=== PATIENT | male | born 1960 | race Caucasian/White ===

== ENCOUNTER → 2018-02-15 13:35 | Outpatient (CLI) | payer BC, SELFPAY ==
--- NOTE | 2018-02-15 13:39 | MR_ITS ---
MR lumbar spine wo con, MR 3-d myelogram/MRCP HISTORY: LBP mainly on the RT. Unable to walk straight. Tingling in bilateral feet. X1 Month. ORDERING PHYSICIAN: Dianne Diaz PATIENT AGE: 57 years Comparison: None TECHNIQUE: Standard multiplanar multiecho sequences are performed without contrast. 3-D MIP and myelographic images are also rendered and reviewed FINDINGS: There is normal alignment. The spinal cord ends at the T12-L1 level. Scattered T1 and T2 hyperintensities are present in the T12 vertebral body inferiorly and L3 vertebral body centrally consistent with lipomas or lipid rich hemangiomas. L1-L2 and L2-L3 have an unremarkable appearance. L3-L4: Minimal disc desiccation. Mild facet and ligamentum flavum hypertrophy. L4-L5: There is a Schmorl's node along the inferior endplate of L4. There is mild concentric bulging disc. There is a small left paracentral disc protrusion with minimal inferior extrusion abutting the medial aspect of the left L5 nerve root. There is facet and ligamentum flavum hypertrophy with bilateral lateral recess narrowing greater on the left with [id number] bilateral foraminal narrowing. This is also slightly greater on the left. L5-S1: Mild concentric bulging disc along with facet and ligamentum hypertrophy. There is moderate to severe right foraminal narrowing and moderate left foraminal narrowing from the facet hypertrophic change and bulging disc. Incidental note made of bilateral renal cysts. IMPRESSION: 1. Mild lumbar spondylosis as described above. Please see above for detailed description at each level. 2. Bulging disc L4-L5 with small left paracentral disc protrusion with inferior extrusion abutting the medial aspect of the left L5 nerve root. There is bilateral lateral recess and foraminal narrowing greater on the left from facet and ligamentum flavum hypertrophy 3. Bulging disc at L5-S1 facet and ligamentum hypertrophy with moderate to severe right foraminal narrowing and moderate left foraminal 4. No canal stenosis
== END ==
PROVIDERS: Family Provider Nurse Practitioner Family; PCP Nurse Practitioner Family; Visit Provider Nurse Practitioner Family
DX: M45.4 Ankylosing spondylitis of thoracic region (principal)
CPT/HCPCS: 72148; 76376

== ENCOUNTER → 2018-03-21 13:32 | Outpatient (CLI) | payer BC, SELFPAY ==
[2018-03-21 15:18] LABS: Anion Gap 12.4 mEq/L (5-15); Blood Urea Nitrogen 13 mg/dL (7-18); Calcium 8.6 mg/dL (8.5-10.1); Carbon Dioxide 31 mmol/L (21.0-32.0); Chloride 103 mmol/L (98-107); Creatinine,Serum 0.93 mg/dL (0.70-1.30); Estimated Glomerular Filt Rate 83 ml/min (>60); GFR (African American) 101 ML/MIN (>60); Glucose 102 mg/dL (74-106); Potassium 4.4 mmoL/L (3.5-5.1); Sodium 142 mmol/L (136-145)
== END ==
PROVIDERS: PCP Nurse Practitioner Family; Visit Provider Nurse Practitioner Family
DX: I50.32 Chronic diastolic (congestive) heart failure (principal)
CPT/HCPCS: 36415; 80048

== ENCOUNTER → 2018-08-15 07:56 | Outpatient (CLI) | payer BC, SELFPAY ==
[2018-08-15 08:56] LABS: Basophils # 0.1 K/mm3 (0-0.2); Basophils % 1.3 % (0.1-2.0); Eosinophils # 0.3 K/mm3 (0.0-0.4); Eosinophils % 3.2 % (0.1-12.0); Hematocrit 48.5 % (42.0-52.0); Hemoglobin 16.1 g/dL (14.1-18.0); Lymphocytes % 19.9 % (10-50); Mean Corpuscular HGB Conc 33.1 g/dL (31.8-35.4); Mean Corpuscular Hemoglobin 30.9 pg (27.0-31.2); Mean Corpuscular Volume 93.3 fl (80-94); Mean Platelet Volume 7.6 fl (7.4-10.4); Monocytes # 0.8 K/mm3 (0.1-1.0); Monocytes % 8.2 % (1.7-9.3); Neutrophils # 6.9 K/mm3 (1.8-7.8); Neutrophils % 67.4 % (37.0-80.0); Platelet Count 346 K/mm3 (142-424); Red Blood Count 5.19 M/mm3 (4.60-6.20); White Blood Count 10.2 K/mm3 (4.8-10.8)
[2018-08-15 09:22] LABS: Alanine Aminotransferase 22 U/L (12-78); Albumin Level 3.7 gm/dL (3.4-5.0); Albumin/Globulin Ratio 0.9 (1.1-1.8); Alkaline Phosphatase 99 U/L (46-116); Anion Gap 12.6 mEq/L (5-15); Aspartate Amino Transferase 17 U/L (15-37); Bilirubin,Total 0.5 mg/dL (0.2-1.0); Blood Urea Nitrogen 13 mg/dL (7-18); Carbon Dioxide 31 mmol/L (21.0-32.0); Chloride 102 mmol/L (98-107); Chol/HDL Ratio 4.5 (1-3.5); Cholesterol 116 mg/dL (140-200); Creatinine,Serum 0.92 mg/dL (0.70-1.30); Estimated Glomerular Filt Rate 84 ml/min (>60); GFR (African American) 102 ML/MIN (>60); HDL Cholesterol 26 mg/dL (27-67); LDL Cholesterol 70 mg/dL (0-130); Potassium 4.6 mmoL/L (3.5-5.1); Sodium 141 mmol/L (136-145); Total Protein,Serum 7.7 gm/dL (6.4-8.2); Triglycerides 99 mg/dL (30-200); VLDL Cholesterol 20 mg/dL (0-40)
[2018-08-15 09:24] LABS: Glucose 161 mg/dL (74-106)
== END ==
PROVIDERS: Visit Provider Nurse Practitioner Family
DX: R07.2 Precordial pain (principal); I10 Essential (primary) hypertension; E78.00 Pure hypercholesterolemia, unspecified; I50.32 Chronic diastolic (congestive) heart failure
CPT/HCPCS: 36415; 80053; 80061; 85025

== ENCOUNTER → 2018-12-22 11:31 | Outpatient (CLI) | payer BC, SELFPAY ==
[2018-12-22 13:27] LABS: Anion Gap 9.1 mEq/L (5-15); Blood Urea Nitrogen 11 mg/dL (7-18); Calcium 8.8 mg/dL (8.5-10.1); Carbon Dioxide 32 mmol/L (21.0-32.0); Chloride 102 mmol/L (98-107); Creatinine,Serum 0.88 mg/dL (0.70-1.30); Estimated Glomerular Filt Rate 89 ml/min (>60); GFR (African American) 107 ML/MIN (>60); Glucose 146 mg/dL (74-106); Potassium 4.1 mmoL/L (3.5-5.1); Sodium 139 mmol/L (136-145)
== END ==
PROVIDERS: Visit Provider Nurse Practitioner Family
DX: I50.33 Acute on chronic diastolic (congestive) heart failure (principal)
CPT/HCPCS: 36415; 80048; 83880

== ENCOUNTER → 2019-01-02 14:04 | Outpatient (CLI) | payer BC, SELFPAY ==
--- NOTE | 2019-01-02 14:11 | XR_ITS ---
XR chest 2V HISTORY: ITS.REASON: EMPHYSEMA,SOB,NICOTINE DEPENDENCE ORDERING PHYSICIAN: Darleen Sierra MD PATIENT AGE: 58 years COMPARISON: 04/28/2016 FINDINGS: The cardiomediastinal silhouette and pulmonary vascularity are within normal limits. The lungs are clear without infiltrates, suspicious nodules, or pleural effusions. No acute bony abnormalities. IMPRESSION: Negative chest, no acute finding
[2019-01-02 16:11] LABS: Anion Gap 13.4 mEq/L (5-15); Blood Urea Nitrogen 19 mg/dL (7-18); Calcium 8.9 mg/dL (8.5-10.1); Carbon Dioxide 31 mmol/L (21.0-32.0); Chloride 100 mmol/L (98-107); Creatinine,Serum 1.25 mg/dL (0.70-1.30); Estimated Glomerular Filt Rate 59 ml/min (>60); GFR (African American) 72 ML/MIN (>60); Glucose 190 mg/dL (74-106); Potassium 3.4 mmoL/L (3.5-5.1); Sodium 141 mmol/L (136-145)
== END ==
PROVIDERS: Nurse Practitioner Family; PCP Nurse Practitioner Family; Visit Provider Emergency Medicine
DX: I50.32 Chronic diastolic (congestive) heart failure (principal); I50.33 Acute on chronic diastolic (congestive) heart failure; J43.8 Other emphysema; R06.02 Shortness of breath; F17.200 Nicotine dependence, unspecified, uncomplicated
CPT/HCPCS: 36415; 71046; 80048

== ENCOUNTER 2019-01-23 13:27 | Outpatient (RCR) | payer BC, SELFPAY | END 2019-04-23 13:28 | disposition home or self-care (01) | LOC: PT 13:27 | PROVIDERS: Visit Provider Emergency Medicine | DX: I25.10 Atherosclerotic heart disease of native coronary artery without angina pectoris (principal); I50.9 Heart failure, unspecified | CPT/HCPCS: G0424 ==

== ENCOUNTER → 2019-02-01 09:59 | Outpatient (CLI) | payer BC, SELFPAY ==
[2019-02-01 10:21] LABS: Basophils # 0.1 K/mm3 (0-0.2); Basophils % 0.7 % (0.1-2.0); Eosinophils # 0.2 K/mm3 (0.0-0.4); Eosinophils % 1.6 % (0.1-12.0); Hematocrit 42.3 % (42.0-52.0); Hemoglobin 13.9 g/dL (14.1-18.0); Lymphocytes # 1.9 K/mm3 (0.7-4.5); Lymphocytes % 16.5 % (10-50); Mean Corpuscular HGB Conc 32.9 g/dL (31.8-35.4); Mean Corpuscular Hemoglobin 30.2 pg (27.0-31.2); Mean Corpuscular Volume 91.7 fl (80-94); Mean Platelet Volume 7.7 fl (7.4-10.4); Monocytes # 0.8 K/mm3 (0.1-1.0); Monocytes % 6.6 % (1.7-9.3); Neutrophils # 8.4 K/mm3 (1.8-7.8); Neutrophils % 74.6 % (37.0-80.0); Platelet Count 314 K/mm3 (142-424); Red Blood Count 4.61 M/mm3 (4.60-6.20); Red Cell Distribution Width 14.1 % (11.5-17.5); White Blood Count 11.3 K/mm3 (4.8-10.8)
[2019-02-02 17:34] LABS: Immunoglobulin G, Qn 1370 mg/dL (700-1600)
[2019-02-06 10:31] LABS: Immunoglobulin E, Total 13 IU/mL (6-495)
== END ==
PROVIDERS: Visit Provider Internal Medicine Pulmonary Disease
DX: J42 Unspecified chronic bronchitis (principal)
CPT/HCPCS: 36415; 82784; 82785; 85025

== ENCOUNTER 2019-10-02 15:00 | Outpatient (RCR) | payer BC, SELFPAY | END 2019-10-02 15:05 | disposition home or self-care (01) | LOC: PT 15:00 | PROVIDERS: PCP Nurse Practitioner Family; Visit Provider Nurse Practitioner Family | DX: M51.16 Intervertebral disc disorders with radiculopathy, lumbar region (principal) | CPT/HCPCS: 97010; 97014; 97110; 97163; G0283 ==

== ENCOUNTER → 2019-12-03 15:24 | Outpatient (CLI) | payer BC, SELFPAY ==
--- NOTE | 2019-12-03 15:32 | XR_ITS ---
PROCEDURE: XR KNEE LT 3V CLINICAL INDICATION: PAIN IN USPECIFIED KNEE COMPARISON: KNEE3R KNEE-3 VIEWS-RT from 05/16/2013 KNEE3L KNEE-3 VIEWS-LT from 05/16/2013 FINDINGS: No fracture or dislocation. No lytic or blastic change. There is normal mineralization. There are mild osteoarthritic changes of the medial compartment with slight decrease in the joint space and minimal osteophyte formation. Other findings:There is increased density in the suprapatellar region consistent with knee joint effusion IMPRESSION: Mild osteoarthritis with knee joint effusion Dictated by: Moy Best MD 12/03/2019 15:51 Electronically signed by Moy Best MD in [place] 12/03/2019 15:51
== END ==
PROVIDERS: PCP Nurse Practitioner Family; Visit Provider Nurse Practitioner
DX: M25.562 Pain in left knee (principal)
CPT/HCPCS: 73562

== ENCOUNTER → 2020-12-26 13:12 | Outpatient (CLI) | payer BC, SELFPAY ==
--- NOTE | 2020-12-26 13:22 | XR_ITS ---
PROCEDURE: XR LUMBAR SPINE 2-3V CLINICAL INDICATION: LOW BACK PAIN COMPARISON: No exams were available for comparison FINDINGS: Normal alignment. No acute fracture or dislocation. Mild degenerative disc disease is present from L1-S1 with small endplate osteophytes. Incidental note is made of multiple abdominal surgical tacks mild osteoarthritic change of the hips surgical clips in the right groin and right upper quadrant with a mild amount of retained colonic feces. Other findings:None. IMPRESSION: Degenerative changes lumbar spine Dictated by: Moy Best MD 12/26/2020 16:07 Moy Best MD in [place] 12/26/2020 16:07
== END ==
PROVIDERS: PCP Nurse Practitioner Family; Visit Provider Nurse Practitioner
DX: M54.5 Low back pain (principal)
CPT/HCPCS: 72100

== ENCOUNTER → 2021-01-19 12:50 | Outpatient (POV) | payer BC, SELFPAY ==
[2021-01-19 13:22] VITALS: BP 162/74; PULSE 73; RESP 18; O2SAT 92; BMI 43.2
--- NOTE | 2021-01-19 15:45 | HMH.PMCON ---
Assessment and Plan (1) Degenerative joint disease (DJD) of lumbar spine Status: Chronic Category: Medical Code(s): M47.816 - Spondylosis without myelopathy or radiculopathy, lumbar region (2) Lumbar radiculopathy Status: Chronic Category: Medical Code(s): M54.16 - Radiculopathy, lumbar region - Assessment and plan all Dx Assessment and Plan for all problems:: We will schedule the patient for a lumbar epidural steroid injection at L4-L5 area with an epidurogram. He is exhibiting neurogenic claudication type symptoms. The patient is having weakness in his lower extremities. He says he feels better when leaning forward. Per the patient's MRI report from 2018?he does have ligamentum hypertrophy. We will schedule him for the lumbar epidural steroid injection at L4-L5 with the epidurogram and plan to see him back afterwards for reevaluation of symptoms. Of note, the patient is on Xarelto therapy that is prescribed by Dr. Portillo for atrial fibrillation. He is 6 months post cardiac ablation along with previous cardioversions. Patient did have complications following his cardiac ablation with a hematoma to the area of the ablation. He has had significant numbness to his right leg since having this well. If the patient is approved to hold his anticoagulation therapy, we will plan to see him back after his injection for reevaluation of symptoms. Patient will continue his tramadol and will continue with gabapentin. Patient says that he is not diabetic. Risks and benefits of the procedure have been explained to the patient. Patient would like to proceed with the procedure. Possible side effects of corticosteroids have been discussed with the patient. Patient has been instructed to contact the clinic with any concerns before the next appointment. Dr. Read has reviewed this note and agrees with this plan of care. This note was dictated using voice recognition software and make contain errors or omissions. HPI - Data of Consult Patient: new to practice Consult date: 01/19/21 Requesting Physician: Zakiya Arceo APRN Primary Care Provider: Judith Reno - Consult Narrative Reason for consult: Low back History of present illness: Mr. Drew is a 60 year old male who presents today back pain patient says he is having low pain last 2 to 3 years. Pain did slowly progress into the as well as his left leg and left foot. He says that he has pain as well as numbness and tingling into his lower extremity on the left side. He does have a history of neuropathy and does take gabapentin. Patient says that his back pain has been ongoing for 2 to 3 years, but his left leg pain has been continuing to worsen for the last year. Patient was scheduled to have a lumbar epidural steroid injection at [facility], however, due to Xarelto use he is injection was canceled. Patient does have a history of atrial fibrillation with cardiac ablation as well as cardioversion. He is on Xarelto for this. Patient says he is 6 months post cardiac ablation. He says that he has had numbness into his right leg since the ablation which has not improved. He says that he did not have his symptoms the ablation. Patient has pain that is worse with standing and walking. He also has pain with sitting and requires repositioning often. Patient says when rising from a sitting position his pain is severe. He is able to lay on the right side, but seems to have worsening when lying on the left. Patient denies any saddle anesthesia or changes in bowel or bladder habit. He denies any surgeries to his lumbar spine or any history of fractures. He has had physical therapy for greater than 6 weeks with no significant relief. He does have imaging from 2018 that does note the patient to have ligamentum hypertrophy. He reports to be having leg weakness for which she feels his legs buckling . Patient does rate his pain today a 6 or 7 out of 10. He does continue with home
== END ==
PROVIDERS: PCP Nurse Practitioner Family; Visit Provider Clinical Nurse Specialist Family Health
DX: M47.896 Other spondylosis, lumbar region (principal); M54.16 Radiculopathy, lumbar region
CPT/HCPCS: 99202; G0463

== ENCOUNTER 2022-04-11 11:06 | Inpatient (IN) | payer OTHER, SELFPAY ==
[2022-04-11] VITALS (13 sets, daily range): BP systolic 108–167; BP diastolic 53–90; PULSE 71–91; RESP 16–22; TEMP 36.5–36.9; O2SAT 91–97; BMI 38.4; BMI 40.5; BMI 40.4
--- NOTE | 2022-04-11 13:18 | EXP.UTC ---
Discharge Plan Disposition Patient Disposition: Admitted As Inpatient Condition: Good Clinical Impressions Clinical Impression: Acute parotitis Acute mastoiditis Qualifiers: Laterality: right Qualified Code(s): H70.001 - Acute mastoiditis without complications, right ear Discharge ED Provider: Brianne Gray [facility] HPI General Chief complaint: PAIN Stated complaint: Possible infected parotid gland Mode of Arrival: Ambulatory Source of Information: Patient Limitations: No Limitations Time Seen by Provider: 04/11/22 13:35 Description of Symptoms (Recalled from Triage Doc. by RN): PATIENT C/O SWELLING TO RIGHT SIDE OF NECK. HE WAS SEEN IN PCP OFFICE YESTERDAY AND WAS TREATED FOR A PAROTID GLAND INFECTION, BUT STATES IT IS WORSE TODAY HEENT Symptoms (Recalled from RN notes): Yes Resp Symptoms (Recalled from RN notes): No Skin Symptoms (Recalled from RN notes): No MS Symptoms (Recalled from RN notes): No Functional Status (Recalled from RN notes): WNL History of Present Illness Provider Complaint: 61 YR OLD MALE C/O SWELLING TO RIGHT SIDE OF NECK. HE WAS SEEN IN PCP OFFICE YESTERDAY AND WAS TREATED FOR A PAROTID GLAND INFECTION, BUT STATES IT IS WORSE TODAY Related Data Home Medications Medication Instructions Recorded Confirmed amlodipine 5 mg tablet (Norvasc) 5 mg PO ONCE High blood pressure 11/17/17 04/11/22 metoprolol tartrate 50 mg tablet 25 mg PO BID High blood pressure 11/17/17 04/11/22 montelukast 10 mg tablet 10 mg PO QPM Breathing problems 11/17/17 04/11/22 (Singulair) potassium chloride 10 mEq 10 meq PO BID Supplement 11/17/17 04/11/22 capsule,extended release propafenone 425 mg 425 mg PO Q12H Heart disease 11/17/17 04/11/22 capsule,extended release 12 hr (Rythmol SR) atorvastatin 20 mg tablet 20 mg PO DAILY Cholesterol 04/11/22 04/11/22 bumetanide 2 mg tablet 4 mg PO DAILY Fluid 04/11/22 04/11/22 fluticasone fur. 100 mcg-umeclid 1 inh inhalation DAILY Breathing 04/11/22 04/11/22 62.5 mcg-vilant 25 mcg problems inhalat.powder (Trelegy Ellipta) gabapentin 600 mg tablet 600 mg PO TID Pain 04/11/22 04/11/22 lisinopril 40 mg tablet 40 mg PO DAILY High blood pressure 04/11/22 04/11/22 omeprazole 40 mg capsule,delayed 40 mg PO DAILY Heartburn 04/11/22 04/11/22 release rivaroxaban 20 mg tablet (Xarelto) 20 mg PO DAILY Heart disease 04/11/22 04/11/22 sertraline 50 mg tablet 50 mg PO DAILY Depression 04/11/22 04/11/22 tizanidine 4 mg tablet 4 mg PO BID Pain 04/11/22 04/11/22 Previous Rx's Medication Instructions Recorded tramadol 50 mg tablet 50 mg PO TID PRN Moderate Pain 30 01/19/21 days #180 tabs Allergies Allergy/AdvReac Type Severity Reaction Status Date / Time levofloxacin Allergy Mild I-RASH Verified 04/11/22 13:06 niacin Allergy Mild Verified 04/11/22 13:06 ofloxacin Allergy Mild Verified 04/11/22 13:06 sulfamethoxazole Allergy Mild I-RASH Verified 04/11/22 13:06 [From Bactrim] trimethoprim [From Bactrim] Allergy Mild I-RASH Verified 04/11/22 13:06 oxytetracycline Allergy Unknown Verified 04/11/22 13:06 Penicillins Allergy Unknown Verified 04/11/22 13:06 Worker's Comp Is this a Worker's Comp case?: No PFSH PFSH Medical History , [employer]) Anxiety Atrial fibrillation COPD (chronic obstructive pulmonary disease) Depression Diabetes mellitus, type 2 History of stroke Hyperlipidemia Hypertension Surgical History , [employer]) History of cholecystectomy Hx of cardiac catheterization Family History , [employer]) Family history of cancer Family history of hypertension Family history of myocardial infarction Family history of hyperlipidemia Social History , [employer]) Smoking Status: Current every day smoker alcohol intake: never 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
--- NOTE | 2022-04-11 13:30 | PC.NURSE ---
PATIENT SENT TO ER PER Jose Eduardo HOPKINS APRN FOR FURTHER EVALUATION. REPORT GIVEN TO Ricky LANGE RN BY Jose Eduardo HOPKINS APRN
--- NOTE | 2022-04-11 13:40 | PC.NURSE ---
ED MD AT BEDSIDE FOR EVALUATION
--- NOTE | 2022-04-11 13:44 | CT_ITS ---
PROCEDURE INFORMATION: Exam: CT Neck With Contrast Exam date and time: 04/11/2022 3:45 PM Age: 61 years old Clinical indication: Mass, lump, or swelling in neck; Right; Additional info: R facial swelling TECHNIQUE: Imaging protocol: Computed tomography of the neck with contrast. Radiation optimization: All CT scans at this facility use at least one of these dose optimization techniques: automated exposure control; mA and/or kV adjustment per patient size (includes targeted exams where dose is matched to clinical indication); or iterative reconstruction. Contrast material: ISOVUE; Contrast volume: 75 ml; Contrast route: IV; COMPARISON: CT FACIAL BONES W CON 04/11/2022 3:42 PM FINDINGS: Mastoid air cells: right mastoid air cells effusion Paranasal sinuses: Polypoid mucosal thickening maxillary sinus Pharynx: Unremarkable. No significant tonsillar enlargement. Larynx: Unremarkable. Epiglottis is normal. Prevertebral and retropharyngeal spaces: Unremarkable. Salivary glands: There is redemonstration of enlargement stranding and increased enhancement along the right parotid gland. Punctate calcification along the superior aspect of the superficial lobe is re-identified. No ductal dilation. There is redemonstration of peripherally enhancing 2 x 2 x 2 cm collection in the lower aspect of the superficial parotid favored to represent either an enlarged intraparotid node a focal collection. The left parotid gland is unremarkable. There is increased enhancement and mild stranding in the right submandibular gland. No sialolith. No ductal dilation. Thyroid: Normal. No enlarged or calcified nodules. Lymph nodes: There are bilateral multi station prominent nodes likely reactive Trachea: Visualized trachea is unremarkable. Lungs: Upper lobe predominant centrilobular emphysema. Bones/joints: Unremarkable. No acute fracture. Soft tissues: There is diffuse right skin thickening and platysmal thickening. IMPRESSION: 1. Findings favored to represent sialoadenitis of the right parotid and right submandibular gland. 2. Punctate calcification right parotid superficial lobe likely a sialoliths. No ductal dilation. 3. Right mastoid air cells effusion. Superimposed infection is entirely excluded based on imaging features alone.
--- NOTE | 2022-04-11 13:44 | CT_ITS ---
PROCEDURE INFORMATION: Exam: CT Maxillofacial With Contrast Exam date and time: 04/11/2022 3:42 PM Age: 61 years old Clinical indication: Mass, lump, or swelling; Other: Right side of face and neck; Additional info: R facial swelling TECHNIQUE: Imaging protocol: Computed tomography of the face with contrast. Radiation optimization: All CT scans at this facility use at least one of these dose optimization techniques: automated exposure control; mA and/or kV adjustment per patient size (includes targeted exams where dose is matched to clinical indication); or iterative reconstruction. Contrast material: ISOVUE; Contrast volume: 70 ml; Contrast route: IV; COMPARISON: No relevant prior studies available. FINDINGS: Orbital cavities: Globes are symmetric. Orbital rims/mata are intact. Intraconal fat appear unremarkable. Lacrimal glands are unremarkable. Bones/joints: See Orbital cavities finding. Paranasal sinuses: There is polypoidal mucosal thickening in the right maxillary sinus. Mastoid air cells: Right mastoid air cells effusion. Salivary glands: The right parotid gland is enlarged with diffuse intra and Pamela glandular stranding. There is a punctate calcification in the superficial lobe likely is sialoliths. No prior gland ductal dilation. There is a lower intraglandular peripherally collection measuring 2 x 2 x 2 cm (AP x TRV x SI). Soft tissues: There is right facial skin thickening IMPRESSION: 1. Right parotitis with punctate calcification presumably a sialoliths. 2. Intraparotid peripherally enhancing collection measuring 2 x 2 x 2 cm 3. Right mastoid air cells effusion. Superimposed infection is not entirely excluded based on imaging features alone.
--- NOTE | 2022-04-11 13:47 | HMH.EDGENADL ---
Discharge Plan Disposition Patient Disposition: Admitted As Inpatient Condition: Good Prescriptions Prescriptions: No Action propafenone [Rythmol SR] 425 mg capsule,extended release 12 hr 425 mg PO Q12H metoprolol tartrate 50 mg tablet 25 mg PO BID amlodipine [Norvasc] 5 mg tablet 5 mg PO ONCE montelukast [Singulair] 10 mg tablet 10 mg PO QPM amitriptyline 50 mg tablet 50 mg PO QHS furosemide 20 mg tablet 20 mg PO ONCE potassium chloride 10 mEq capsule, extended release 10 meq PO BID tramadol 50 MG tablet 50 mg PO TID Qty: 90 2RF tramadol 50 MG tablet 50 mg PO TID PRN (Reason: Moderate Pain) 30 Days Qty: 180 0RF Rx Instructions: Tramadol 50 mg 2 tablets by mouth three times daily prn pain Referrals Follow up/Referrals: Judith Reno [Primary Care Provider] - See instructions Clinical Impressions Clinical Impression: Acute parotitis Acute mastoiditis Qualifiers: Laterality: right Qualified Code(s): H70.001 - Acute mastoiditis without complications, right ear Discharge ED Provider: Brianne Gray General Adult HPI General Chief complaint: PAIN Stated complaint: Possible infected parotid gland Time Seen by Provider: 04/11/22 13:35 Mode of Arrival: Ambulatory Limitations: No Limitations Description of Symptoms (Recalled from ER Triage Doc. by RN): PT REPORTS SWELLING OF RIGHT JAW SINCE TUESDAY, INCREASED SINCE LAST NIGHT History of Present Illness HPI narrative: This patient is a 61-year-old male with a history of diabetes and hypertension presenting to the emergency department for evaluation of right-sided facial swelling. He reports that he first noticed it on Tuesday, however acutely worsened on Tuesday. He went to outside clinic on Tuesday and was prescribed clindamycin, which he has been taking at home. He has not missed any doses, however his swelling continues to worsen. He has not had any true fevers at home, however he has felt warm. He denies any dysphagia, shortness of breath, trismus, tooth pain, chest pain, shortness of breath, abdominal pain, nausea, vomiting, changes in bowel movements, or other concerns. Related Data Home Medications Medication Instructions Recorded Confirmed amitriptyline 50 mg tablet 50 mg PO QHS 11/17/17 amlodipine 5 mg tablet (Norvasc) 5 mg PO ONCE 11/17/17 furosemide 20 mg tablet 20 mg PO ONCE 11/17/17 metoprolol tartrate 50 mg tablet 25 mg PO BID 11/17/17 montelukast 10 mg tablet 10 mg PO QPM 11/17/17 (Singulair) potassium chloride 10 mEq 10 meq PO BID 11/17/17 capsule,extended release propafenone 425 mg 425 mg PO Q12H 11/17/17 capsule,extended release 12 hr (Rythmol SR) Previous Rx's Medication Instructions Recorded tramadol 50 mg tablet 50 mg PO TID PRN Moderate Pain 30 01/19/21 days #180 tabs tramadol 50 mg tablet 50 mg PO TID #90 tabs 01/29/21 Allergies Allergy/AdvReac Type Severity Reaction Status Date / Time levofloxacin Allergy Mild I-RASH Verified 04/11/22 13:06 niacin Allergy Mild Verified 04/11/22 13:06 ofloxacin Allergy Mild Verified 04/11/22 13:06 sulfamethoxazole Allergy Mild I-RASH Verified 04/11/22 13:06 [From Bactrim] trimethoprim [From Bactrim] Allergy Mild I-RASH Verified 04/11/22 13:06 oxytetracycline Allergy Unknown Verified 04/11/22 13:06 Penicillins Allergy Unknown Verified 04/11/22 13:06 [facility] Medical History Anxiety Atrial fibrillation COPD (chronic obstructive pulmonary disease) Depression Diabetes mellitus, type 2 History of stroke Hyperlipidemia Hypertension Surgical History History of cholecystectomy Hx of cardiac catheterization Social History Smoking Status: Current every day smoker alcohol intake: never 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
[2022-04-11 14:23] LABS: Basophils # 0.1 K/mm3 (0-0.2); Basophils % 0.7 % (0.1-2.0); Eosinophils # 0.2 K/mm3 (0.0-0.4); Hematocrit 43.1 % (42.0-52.0); Hemoglobin 14.4 g/dL (14.1-18.0); Lymphocytes # 1.6 K/mm3 (0.7-4.5); Lymphocytes % 8.7 % (10-50); Mean Corpuscular HGB Conc 33.4 g/dL (31.8-35.4); Mean Corpuscular Volume 89.6 fl (80-94); Mean Platelet Volume 8.1 fl (7.4-10.4); Monocytes # 1.4 K/mm3 (0.1-1.0); Monocytes % 7.6 % (1.7-9.3); Neutrophils # 15.3 K/mm3 (1.8-7.8); Neutrophils % 82.1 % (37.0-80.0); Platelet Count 382 K/mm3 (142-424); Red Blood Count 4.82 M/mm3 (4.60-6.20); Red Cell Distribution Width 14.9 % (11.5-17.5); White Blood Count 18.6 K/mm3 (4.8-10.8)
[2022-04-11 14:24] LABS: MANUAL DIFFERENTIAL MANUAL DIFFERENTIAL (MANUAL DIFF)
[2022-04-11 14:27] LABS: Chloride 97 mmol/L (98-107)
[2022-04-11 14:28] LABS: Potassium 3.6 mmoL/L (3.5-5.1); Sodium 141 mmol/L (136-145)
[2022-04-11 14:30] LABS: Alanine Aminotransferase 29 U/L (12-78); Aspartate Amino Transferase 30 U/L (17-59); Blood Urea Nitrogen 5 mg/dl (9-20); Creatinine Clearance Estimated 147 mL/min (50-200); Estimated Glomerular Filt Rate 114 ml/min (>60); GFR (African American) 138 ML/MIN (>60)
[2022-04-11 14:31] LABS: Albumin Level 4.1 g/dl (3.5-5.0); Albumin/Globulin Ratio 1.1 (1.1-1.8); Alkaline Phosphatase 111 U/L (38-126); Anion Gap 11.6 mEq/L (5-15); Bilirubin,Total 0.5 mg/dl (0.2-1.3); Calcium 8.9 mg/dl (8.4-10.2); Carbon Dioxide 36 mmol/L (22.0-30.0); Globulin 3.9 g/dL (1.3-3.2); Glucose 138 mg/dl (74-100)
[2022-04-11 14:36] LABS: C-Reactive Protein 61.8 mg/L (0-4)
[2022-04-11 14:45] LABS: Eosinophils % 1 % (0-3); Lymphocytes % 13 % (10-50); Monocytes % 4 % (2-9); Neutrophils % 81 % (42-76); Platelet Estimate Normal; RBC Morphology Normal; Total Cells Counted 100
--- NOTE | 2022-04-11 14:45 | PC.NURSE ---
[address]
[2022-04-11 14:52] LABS: Erythrocyte Sedimentation Rate 81 mm/hr (0-20)
--- NOTE | 2022-04-11 14:56 | PC.NURSE ---
PT RETURNED FROM CT
--- NOTE | 2022-04-11 15:02 | PC.NURSE ---
PT SHIVERING AFTER CT SCAN, WARM BLANKETS PROVIDED, TEMP 98.0. NO FURTHER NEEDS AT THIS TIME. ED MD AWARE. NO FURTHER NEEDS. CALL LIGHT WITHIN REACH
--- NOTE | 2022-04-11 16:03 | PC.NURSE ---
ED MD AT BEDSIDE TO DISCUSS POC WITH PT AND
[2022-04-11 16:12] LABS: Coronavirus 19, PCR Not Detected (NotDetected); Influenza A, PCR Not Detected (NotDetected); Influenza B, PCR Not Detected (NotDetected)
--- NOTE | 2022-04-11 16:17 | PC.NURSE ---
DR. PAULSON AT BEDSIDE TO SEE PT FOR ADMISSION
--- NOTE | 2022-04-11 16:36 | XR_ITS ---
PROCEDURE INFORMATION: Exam: XR Chest Exam date and time: 04/11/2022 4:57 PM Age: 61 years old Clinical indication: Shortness of breath TECHNIQUE: Imaging protocol: Radiologic exam of the chest. Views: 1 view. COMPARISON: CR XR CHEST 2V 01/02/2019 2:15 PM FINDINGS: Lungs: Hypo aerated lungs.No evidence of pneumonia or interstitial edema. Pleural spaces: Unremarkable. No pleural effusion. No pneumothorax. Heart/Mediastinum: Unremarkable. No cardiomegaly. Bones/joints: Unremarkable. IMPRESSION: Hypo aerated lungs.No evidence of pneumonia or interstitial edema.
--- NOTE | 2022-04-11 16:37 | EXP.HP ---
History of Present Illness *Admission Date: 04/11/22 *Reason for visit:: parotiditis, mastoiditis *History of present illness: Patient is a 61-year-old male with past medical history of hypertension, hyperlipidemia, COPD, continued tobacco abuse, CAD, A. fib on Xarelto, and chronic pain who comes to the ER for about 4 days of right facial swelling extending towards his right ear. Patient saw his PCP 2 days ago who prescribed clindamycin, however patient has not improved with this, swelling seems to be getting worse. On Tuesday night patient had a subjective fever and chills and broke out in a diffuse sweat. Swelling is rather painful. [facility] Medical History (Updated 04/11/22 @ 16:52 by Xavier Rapp MD) Anxiety Atrial fibrillation COPD (chronic obstructive pulmonary disease) Depression Diabetes mellitus, type 2 History of stroke Hyperlipidemia Hypertension Surgical History History of cholecystectomy Hx of cardiac catheterization Social History Smoking Status: Current every day smoker alcohol intake: never 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vel in the last 8 weeks: None Review of Systems Constitutional Constitutional: Denies anorexia, Reports body ache(s), Reports chills, Reports excessive sweating, Reports fatigue, Reports fever(s), Denies headache(s), Denies poor appetite and Reports night sweats Eyes Eyes: Denies change in vision and Denies loss of vision ENT Ears, Nose, Mouth, and Throat: Denies dizziness, Denies dysphagia, Denies ear discharge, Reports otalgia, Denies epistaxis, Reports facial pain, Denies headache(s), Reports mouth pain and Reports neck pain *Cardiovascular Cardiovascular: Denies chest pain, Denies chest pain at rest, Denies chest pain with activity, Denies claudication, Reports dyspnea (At baseline), Reports dyspnea on exertion (At baseline), Reports irregular heart rhythm (Chronically) and Reports leg edema (Chronically) *Respiratory Respiratory: Reports cough (Chronically), Reports dyspnea (At baseline), Reports dyspnea on exertion (At baseline) and Denies hemoptysis *Gastrointestinal Gastrointestinal: Denies abdominal pain, Denies change in bowel habits, Denies dysphagia and Denies hematemesis *Musculoskeletal Musculoskeletal: Reports arthralgias (Chronically), Denies muscle weakness and Reports neck pain *Neurologic Neurologic: Denies abnormal speech, Denies confusion, Denies dizziness, Denies localized weakness, Denies headache(s), Denies loss of vision and Denies memory loss Psychiatric Psychiatric: Reports anxiety, Denies confusion, Denies depression and Denies memory loss Endocrine Endocrine: Reports excessive sweating and Reports fatigue Meds Home Medications and Allergies Home Medications Medication Instructions Recorded Confirmed Type amlodipine 5 mg tablet (Norvasc) 5 mg PO ONCE High blood pressure 11/17/17 04/11/22 History metoprolol tartrate 50 mg tablet 25 mg PO BID High blood pressure 11/17/17 04/11/22 History montelukast 10 mg tablet 10 mg PO QPM Breathing problems 11/17/17 04/11/22 History (Singulair) potassium chloride 10 mEq 10 meq PO BID Supplement 11/17/17 04/11/22 History capsule,extended release propafenone 425 mg 425 mg PO Q12H Heart disease 11/17/17 04/11/22 History capsule,extended release 12 hr (Rythmol SR) tramadol 50 mg tablet 50 mg PO TID PRN Moderate Pain 30 01/19/21 04/11/22 Rx days #180 tabs atorvastatin 20 mg tablet 20 mg PO DAILY Cholesterol 04/11/22 04/11/22 History bumetanide 2 mg tablet 4 mg PO DAILY Fluid 04/11/22 04/11/22 History fluticasone fur. 100 mcg-umeclid 1 inh inhalation DAILY Breathing 04/11/22 04/11/22 History 62.5 mcg-vilant 25 mcg problems inhalat.powder (Trelegy Ellipta) gabapentin 600 mg tablet 600 mg PO TID Pain 04/11/22 04/11/22 History lisinopril 40 mg tablet 40 mg PO DAILY High blood pressure 04/11/22
--- NOTE | 2022-04-11 16:46 | PC.NURSE ---
RADIOLOGY HERE FOR CHEST XRAY
--- NOTE | 2022-04-11 16:52 | PC.NURSE ---
DIETARY NOTIFIED FOR PT MEAL TRAY
--- NOTE | 2022-04-11 16:54 | PC.NURSE ---
Bed assignment given for Mastoiditis and Parotiditis. Assigned to room 210
[2022-04-11 17:03] LABS: NT Pro Brain Natriuretic Pep. 521 pg/mL (0-125)
--- NOTE | 2022-04-11 17:32 | PC.NURSE ---
pt given meal tray
--- NOTE | 2022-04-11 17:36 | PC.NURSE ---
REPORT GIVEN TO Jose Eduardo BACA RN
--- NOTE | 2022-04-11 17:44 | PC.NURSE ---
patient arrived to floor by wheelchair from ED
--- NOTE | 2022-04-11 18:16 | PC.NURSE ---
pt has been admitted to the nit @ bedside. Pt is alert and appropriate. r facial swelling noted with redness and warmth. Denies any other issues. denies any deficits from hx of stroke. wears 2lnc with cpap @hs. no soa noted @ this time. bs+ lungs cta
--- NOTE | 2022-04-11 19:01 | ECG_ITS ---
APPROVED REPORT Exam: Resting ECG HR:92 bpm ECG Measurements Heart Rate 92 AXES MS 149 P 3 QRSd 107 QRS 48 QT 354 T 55 QTc 403 Conclusion SINUS RHYTHM NORMAL ECG UNCONFIRMED REPORT Electronically signed by : Eric Ocasio MD 04/12/2022 21:12:25
[2022-04-11 20:58] LABS: POC Glucose,Bedside 149 (70-110)
[2022-04-12] VITALS (8 sets, daily range): BP systolic 139–152; BP diastolic 66–74; PULSE 60–82; RESP 18–20; TEMP 36.4–37.1; O2SAT 94–922; BMI 40.2
--- NOTE | 2022-04-12 04:54 | PC.NURSE ---
pt has rested well this shift, has complained of a headache one time and was treated per JUL, no other complaints of pain, swelling noted to right side of head and face, pt wore CPAP t/o night, O2 sats 91-97%, HR 71-86, ambulating in room
[2022-04-12 06:16] LABS: Basophils # 0.1 K/mm3 (0-0.2); Basophils % 0.7 % (0.1-2.0); Eosinophils # 0.1 K/mm3 (0.0-0.4); Eosinophils % 0.6 % (0.1-12.0); Lymphocytes # 1.8 K/mm3 (0.7-4.5); Lymphocytes % 10.4 % (10-50); Mean Corpuscular HGB Conc 33.9 g/dL (31.8-35.4); Mean Corpuscular Hemoglobin 30.2 pg (27.0-31.2); Mean Corpuscular Volume 89.2 fl (80-94); Mean Platelet Volume 8.3 fl (7.4-10.4); Monocytes # 1.4 K/mm3 (0.1-1.0); Monocytes % 8.3 % (1.7-9.3); Neutrophils # 13.4 K/mm3 (1.8-7.8); Platelet Count 354 K/mm3 (142-424); Red Blood Count 4.22 M/mm3 (4.60-6.20); Red Cell Distribution Width 15.1 % (11.5-17.5); White Blood Count 16.8 K/mm3 (4.8-10.8)
[2022-04-12 06:18] LABS: Hematocrit 37.6 % (42.0-52.0); Hemoglobin 12.7 g/dL (14.1-18.0)
[2022-04-12 06:19] LABS: Alanine Aminotransferase 39 U/L (12-78); Albumin Level 3.5 g/dl (3.5-5.0); Albumin/Globulin Ratio 1.1 (1.1-1.8); Alkaline Phosphatase 114 U/L (38-126); Anion Gap 10.4 mEq/L (5-15); Aspartate Amino Transferase 39 U/L (17-59); Bilirubin,Total 0.7 mg/dl (0.2-1.3); Blood Urea Nitrogen 7 mg/dl (9-20); Calcium 8.3 mg/dl (8.4-10.2); Carbon Dioxide 30 mmol/L (22.0-30.0); Chloride 98 mmol/L (98-107); Creatinine Clearance Estimated 146 mL/min (50-200); Estimated Glomerular Filt Rate 114 ml/min (>60); GFR (African American) 138 ML/MIN (>60); Globulin 3.3 g/dL (1.3-3.2); Glucose 132 mg/dl (74-100); MANUAL DIFFERENTIAL MANUAL DIFFERENTIAL (MANUAL DIFF); Magnesium 1.3 mg/dl (1.6-2.3); Potassium 3.4 mmoL/L (3.5-5.1); Sodium 135 mmol/L (136-145); Total Protein,Serum 6.8 g/dl (6.3-8.2)
--- NOTE | 2022-04-12 06:19 | PC.NURSE ---
Constance at [facility] contacted for verification of vancomycin dose and mixing
[2022-04-12 06:23] LABS: POC Glucose,Bedside 144 (70-110)
[2022-04-12 06:27] LABS: Lymphocytes % 16 % (10-50); Monocytes % 1 % (2-9); Neutrophils % 77 % (42-76); Total Cells Counted 100
[2022-04-12 06:28] LABS: Platelet Estimate Normal; RBC Morphology Normal
--- NOTE | 2022-04-12 07:31 | HMH.PHAINT1 ---
Pharmacy Intervention Comments: Medication reconciliation completed via external fill history, chart review, and patient interview. Of note, has patient's own supply of propafenone SR 425 mg for use if needed. -Yenifer Antunez, PharmD Candidate 2022
[2022-04-12 07:33] LABS: Hemoglobin A1C 6.7 % (4.0-6.0)
--- NOTE | 2022-04-12 08:50 | EXP.PHA.CONS ---
Pharmacy Consult Date: 04/12/22 Time: 08:50 Referring provider: DR. PAULSON Reason for Consult:: VANCOMYCIN DOSING Allergies Allergy/AdvReac Type Severity Reaction Status Date / Time levofloxacin Allergy Mild I-RASH Verified 04/11/22 13:06 niacin Allergy Mild Verified 04/11/22 13:06 ofloxacin Allergy Mild Verified 04/11/22 13:06 sulfamethoxazole Allergy Mild I-RASH Verified 04/11/22 13:06 [From Bactrim] trimethoprim [From Bactrim] Allergy Mild I-RASH Verified 04/11/22 13:06 oxytetracycline Allergy Unknown Verified 04/11/22 13:06 Penicillins Allergy Unknown Verified 04/11/22 13:06 Home Medications Medication Instructions Recorded Confirmed Type amlodipine 5 mg tablet (Norvasc) 5 mg PO ONCE High blood pressure 11/17/17 04/11/22 History montelukast 10 mg tablet 10 mg PO QPM Breathing problems 11/17/17 04/11/22 History (Singulair) potassium chloride 10 mEq 10 meq PO BID Supplement 11/17/17 04/11/22 History capsule,extended release propafenone 425 mg 425 mg PO Q12H Heart disease 11/17/17 04/11/22 History capsule,extended release 12 hr (Rythmol SR) tramadol 50 mg tablet 50 mg PO TID PRN Moderate Pain 30 01/19/21 04/11/22 Rx days #180 tabs atorvastatin 20 mg tablet 20 mg PO DAILY Cholesterol 04/11/22 04/11/22 History bumetanide 2 mg tablet 2 mg PO DAILY Fluid 04/11/22 04/12/22 History fluticasone fur. 100 mcg-umeclid 1 inh inhalation DAILY Breathing 04/11/22 04/11/22 History 62.5 mcg-vilant 25 mcg problems inhalat.powder (Trelegy Ellipta) gabapentin 600 mg tablet 600 mg PO TID Pain 04/11/22 04/11/22 History lisinopril 40 mg tablet 40 mg PO DAILY High blood pressure 04/11/22 04/11/22 History metoprolol tartrate 100 mg tablet 100 mg PO BID High blood pressure 04/11/22 04/11/22 History omeprazole 40 mg capsule,delayed 40 mg PO DAILY Heartburn 04/11/22 04/11/22 History release rivaroxaban 20 mg tablet (Xarelto) 20 mg PO DAILY AFIB 04/11/22 04/11/22 History sertraline 50 mg tablet 50 mg PO DAILY Depression 04/11/22 04/11/22 History tizanidine 4 mg tablet 4 mg PO BID Pain 04/11/22 04/11/22 History trazodone 50 mg tablet 50 mg PO HS Insomnia 04/11/22 04/11/22 History clindamycin HCl 300 mg capsule 300 mg PO BID Sialodenitis 04/12/22 04/12/22 History New Prescriptions to Start Prescriptions: Height: 1.83 m Weight: 134.7 kg Laboratory Results:: Laboratory Results - last 24 hr 04/11/22 14:10: WBC 18.6 H, RBC 4.82, Hgb 14.4, Hct 43.1, MCV 89.6, MCH 30.0, MCHC 33.4, RDW 14.9, Plt Count 382, MPV 8.1, Neut % (Auto) 82.1 H, Lymph % (Auto) 8.7 L, [place] % (Auto) 7.6, Eos % (Auto) 1.0, Baso % (Auto) 0.7, Neut # (Auto) 15.3 H, Lymph # (Auto) 1.6, [place] # (Auto) 1.4 H, Eos # (Auto) 0.2, Baso # (Auto) 0.1, Total Counted 100, Neutrophils % (Manual) 81 H, Band Neutrophils % 1.0, Lymphocytes % (Manual) 13, Monocytes % (Manual) 4, Eosinophils % (Manual) 1, Platelet Estimate Normal, RBC Morphology Normal, ESR 81 H 04/11/22 14:10: Sodium 141, Potassium 3.6, Chloride 97 L, Carbon Dioxide 36 H, Anion Gap 11.6, BUN 5 L, Creatinine 0.70, Estimated Creat Clear 147, Estimated GFR 114, Est GFR ( Amer) 138, Glucose 138 H, Calcium 8.9, Total Bilirubin 0.5, AST 30, ALT 29, Alkaline Phosphatase 111, C-Reactive Protein 61.8 H, Total Protein 8.0, Albumin 4.1, Globulin 3.9 H, Albumin/Globulin Ratio 1.1 04/11/22 14:10: NT-Pro-B Natriuret Pep 521 H 04/11/22 16:05: SARS-CoV-2 (PCR) Not detected, Influenza A Untype (PCR) Not detected, Influenza Type B (PCR) Not detected 04/11/22 16:08: Lactate 1.0 04/11/22 20:47: POC Glucose 149 H 04/12/22 05:50: Hemoglobin A1c 6.7 H 04/12/22 05:50: WBC 16.8 H, RBC 4.22 L, Hgb 12.7 L D, Hct 37.6 L, MCV 89.2, MCH 30.2, MCHC 33.9, RDW 15.1, Plt Count 354, MPV 8.3, Neut % (Auto) 80.0, Lymph % (Auto) 10.4, [place] % (Auto) 8.3, Eos % (Auto) 0.6, Baso % (Auto) 0.7, Neut # (Auto) 13.4 H, Lymph # (Auto) 1.8, [place] # (Auto) 1.4 H, Eos # (Auto) 0.1, Baso # (Auto) 0.1, Total Counted 100, Neutrophils % (Manual) 77 H, Band Ne
--- NOTE | 2022-04-12 11:20 | EXP.PN ---
Subjective *Date: 04/12/22 *Time: 11:20 Interval history: Patient reports feeling pretty much the same today as he did yesterday. His right face is still swollen and tender. He still feels fatigued and has chills but no fever. Exam Data for Last 24 hours Vital signs and Labs for Last 24 Hours: Temp Pulse Resp BP Pulse Ox 97.6 F 72 19 139/73 922 H 04/12/22 08:00 04/12/22 08:00 04/12/22 08:00 04/12/22 08:00 04/12/22 08:00 Laboratory Results - last 24 hr 04/11/22 14:10: WBC 18.6 H, RBC 4.82, Hgb 14.4, Hct 43.1, MCV 89.6, MCH 30.0, MCHC 33.4, RDW 14.9, Plt Count 382, MPV 8.1, Neut % (Auto) 82.1 H, Lymph % (Auto) 8.7 L, [place] % (Auto) 7.6, Eos % (Auto) 1.0, Baso % (Auto) 0.7, Neut # (Auto) 15.3 H, Lymph # (Auto) 1.6, [place] # (Auto) 1.4 H, Eos # (Auto) 0.2, Baso # (Auto) 0.1, Total Counted 100, Neutrophils % (Manual) 81 H, Band Neutrophils % 1.0, Lymphocytes % (Manual) 13, Monocytes % (Manual) 4, Eosinophils % (Manual) 1, Platelet Estimate Normal, RBC Morphology Normal, ESR 81 H 04/11/22 14:10: Sodium 141, Potassium 3.6, Chloride 97 L, Carbon Dioxide 36 H, Anion Gap 11.6, BUN 5 L, Creatinine 0.70, Estimated Creat Clear 147, Estimated GFR 114, Est GFR ( Amer) 138, Glucose 138 H, Calcium 8.9, Total Bilirubin 0.5, AST 30, ALT 29, Alkaline Phosphatase 111, C-Reactive Protein 61.8 H, Total Protein 8.0, Albumin 4.1, Globulin 3.9 H, Albumin/Globulin Ratio 1.1 04/11/22 14:10: NT-Pro-B Natriuret Pep 521 H 04/11/22 16:05: SARS-CoV-2 (PCR) Not detected, Influenza A Untype (PCR) Not detected, Influenza Type B (PCR) Not detected 04/11/22 16:08: Lactate 1.0 04/11/22 20:47: POC Glucose 149 H 04/12/22 05:50: Hemoglobin A1c 6.7 H 04/12/22 05:50: WBC 16.8 H, RBC 4.22 L, Hgb 12.7 L D, Hct 37.6 L, MCV 89.2, MCH 30.2, MCHC 33.9, RDW 15.1, Plt Count 354, MPV 8.3, Neut % (Auto) 80.0, Lymph % (Auto) 10.4, [place] % (Auto) 8.3, Eos % (Auto) 0.6, Baso % (Auto) 0.7, Neut # (Auto) 13.4 H, Lymph # (Auto) 1.8, [place] # (Auto) 1.4 H, Eos # (Auto) 0.1, Baso # (Auto) 0.1, Total Counted 100, Neutrophils % (Manual) 77 H, Band Neutrophils % 6.0, Lymphocytes % (Manual) 16, Monocytes % (Manual) 1 L, Platelet Estimate Normal, RBC Morphology Normal 04/12/22 05:50: Sodium 135 L, Potassium 3.4 L, Chloride 98, Carbon Dioxide 30, Anion Gap 10.4, BUN 7 L D, Creatinine 0.70, Estimated Creat Clear 146, Estimated GFR 114, Est GFR ( Amer) 138, Glucose 132 H, Calcium 8.3 L, Magnesium 1.3 L, Total Bilirubin 0.7, AST 39 D, ALT 39 D, Alkaline Phosphatase 114, Total Protein 6.8, Albumin 3.5 D, Globulin 3.3 H, Albumin/Globulin Ratio 1.1 04/12/22 05:50: Lactate 1.0 04/12/22 06:13: POC Glucose 144 H I & O for Last 24 hours: Intake & Output 04/09/22 04/10/22 04/11/22 04/12/22 23:59 23:59 23:59 23:59 Intake Total 240 / 240 Output Total 0 / 0 0 / 0 Balance 0 / 0 240 / 240 Weight 135.4 kg 134.7 kg Constitutional Constitutional: mild distress (from facial swelling and pain), obese, chronically ill appearing and cooperative *Routine HEENT Exam Head: Present atraumatic and facial swelling (right sided ) Eye: Present EOMI and PERRL ENT: Present mucous membranes moist and oropharynx clear *Routine Neck Exam Neck: Present supple and full ROM *Routine Respiratory Exam Respiratory: Present decreased breath sounds, rhonchi, crackles (faint, bibasilar ), diminished air movement and normal respiratory effort; Absent accessory muscle use, respiratory distress or wheezes *Routine Cardiovascular Exam Cardiovascular: Present Normal S1, Normal S2 and irregularly irregular; Absent murmur *Routine Abdominal Exam Abdominal: Present soft and normoactive bowel sounds; Absent tenderness, distended, rebound or guarding *Routine Extremities Exam Extremities: Present edema (to ankles bilaterally ), full ROM, pulses intact and normal capillary refill; Absent tenderness *Routine Skin Exam Skin: Present erythema (erythrma of right face and mastoid has improved although this area is more indurated to
--- NOTE | 2022-04-12 13:21 | EXP.ENTCONS ---
History of Present Illness *Admission Date: 04/11/22 *History of present illness: Patient is a 61-year-old male with past medical history of hypertension, hyperlipidemia, COPD, continued tobacco abuse, CAD, A. fib on Xarelto, and chronic pain who comes to the ER for about 4 days of right facial swelling extending towards his right ear. Patient saw his PCP 2 days ago who prescribed clindamycin, however patient has not improved with this, swelling seems to be getting worse. On Tuesday night patient had a subjective fever and chills and broke out in a diffuse sweat. Swelling is rather painful. The swelling has migrated from the postauricular area to the submandibular area on the right side. He denies any otitis media episode or proceeding upper respiratory illness. He also denies any prior history of parotitis or mastoiditis. 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 , 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) Smoking Status: Current every day smoker alcohol intake: never 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vel in the last 8 weeks: None Review of Systems Constitutional Constitutional: Denies headache(s) Comments: Right facial pain Eyes Eyes: Denies loss of vision ENT Ears, Nose, Mouth, and Throat: Denies dizziness and Denies headache(s) *Neurologic Neurologic: Reports system reviewed and no additional complaints, except as documented, Denies abnormal speech, Denies confusion, Denies dizziness, Denies localized weakness, Denies headache(s), Denies loss of vision and Denies memory loss Psychiatric Psychiatric: Denies confusion and Denies memory loss Meds Home Medications and Allergies Home Medications Medication Instructions Recorded Confirmed Type amlodipine 5 mg tablet (Norvasc) 5 mg PO ONCE High blood pressure 11/17/17 04/11/22 History montelukast 10 mg tablet 10 mg PO QPM Breathing problems 11/17/17 04/11/22 History (Singulair) potassium chloride 10 mEq 10 meq PO BID Supplement 11/17/17 04/11/22 History capsule,extended release propafenone 425 mg 425 mg PO Q12H Heart disease 11/17/17 04/11/22 History capsule,extended release 12 hr (Rythmol SR) tramadol 50 mg tablet 50 mg PO TID PRN Moderate Pain 30 01/19/21 04/11/22 Rx days #180 tabs atorvastatin 20 mg tablet 20 mg PO DAILY Cholesterol 04/11/22 04/11/22 History bumetanide 2 mg tablet 2 mg PO DAILY Fluid 04/11/22 04/12/22 History fluticasone fur. 100 mcg-umeclid 1 inh inhalation DAILY Breathing 04/11/22 04/11/22 History 62.5 mcg-vilant 25 mcg problems inhalat.powder (Trelegy Ellipta) gabapentin 600 mg tablet 600 mg PO TID Pain 04/11/22 04/11/22 History lisinopril 40 mg tablet 40 mg PO DAILY High blood pressure 04/11/22 04/11/22 History metoprolol tartrate 100 mg tablet 100 mg PO BID High blood pressure 04/11/22 04/11/22 History omeprazole 40 mg capsule,delayed 40 mg PO DAILY Heartburn 04/11/22 04/11/22 History release rivaroxaban 20 mg tablet (Xarelto) 20 mg PO DAILY AFIB 04/11/22 04/11/22 History sertraline 50 mg tablet 50 mg PO DAILY Depression 04/11/22 04/11/22 History tizanidine 4 mg tablet 4 mg PO BID Pain 04/11/22 04/11/22 History trazodone 50 mg tablet 50 mg PO HS Insomnia 04/11/22 04/11/22 History clindamycin HCl 300 mg capsule 300 mg PO BID Sialodenitis 04/12/22 04/12/22 History New Prescriptions to Start Presc
--- NOTE | 2022-04-12 13:32 | EXP.ENTCONS ---
History of Present Illness *Admission Date: 04/11/22 *History of present illness: Patient is a 61-year-old male with past medical history of hypertension, hyperlipidemia, COPD, continued tobacco abuse, CAD, A. fib on Xarelto, and chronic pain who comes to the ER for about 4 days of right facial swelling extending towards his right ear. Patient saw his PCP 2 days ago who prescribed clindamycin, however patient has not improved with this, swelling seems to be getting worse. On Tuesday night patient had a subjective fever and chills and broke out in a diffuse sweat. Swelling is rather painful. The swelling has migrated from the postauricular area to the submandibular area on the right side. He denies any otitis media episode or proceeding upper respiratory illness. He also denies any prior history of parotitis or mastoiditis. 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) Smoking Status: Current every day smoker alcohol intake: never 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vel in the last 8 weeks: None Review of Systems Constitutional Constitutional: Denies headache(s) Eyes Eyes: Denies loss of vision ENT Ears, Nose, Mouth, and Throat: Denies dizziness and Denies headache(s) *Neurologic Neurologic: Reports system reviewed and no additional complaints, except as documented, Denies abnormal speech, Denies confusion, Denies dizziness, Denies localized weakness, Denies headache(s), Denies loss of vision and Denies memory loss Psychiatric Psychiatric: Denies confusion and Denies memory loss Meds Home Medications and Allergies Home Medications Medication Instructions Recorded Confirmed Type amlodipine 5 mg tablet (Norvasc) 5 mg PO ONCE High blood pressure 11/17/17 04/11/22 History montelukast 10 mg tablet 10 mg PO QPM Breathing problems 11/17/17 04/11/22 History (Singulair) potassium chloride 10 mEq 10 meq PO BID Supplement 11/17/17 04/11/22 History capsule,extended release propafenone 425 mg 425 mg PO Q12H Heart disease 11/17/17 04/11/22 History capsule,extended release 12 hr (Rythmol SR) tramadol 50 mg tablet 50 mg PO TID PRN Moderate Pain 30 01/19/21 04/11/22 Rx days #180 tabs atorvastatin 20 mg tablet 20 mg PO DAILY Cholesterol 04/11/22 04/11/22 History bumetanide 2 mg tablet 2 mg PO DAILY Fluid 04/11/22 04/12/22 History fluticasone fur. 100 mcg-umeclid 1 inh inhalation DAILY Breathing 04/11/22 04/11/22 History 62.5 mcg-vilant 25 mcg problems inhalat.powder (Trelegy Ellipta) gabapentin 600 mg tablet 600 mg PO TID Pain 04/11/22 04/11/22 History lisinopril 40 mg tablet 40 mg PO DAILY High blood pressure 04/11/22 04/11/22 History metoprolol tartrate 100 mg tablet 100 mg PO BID High blood pressure 04/11/22 04/11/22 History omeprazole 40 mg capsule,delayed 40 mg PO DAILY Heartburn 04/11/22 04/11/22 History release rivaroxaban 20 mg tablet (Xarelto) 20 mg PO DAILY AFIB 04/11/22 04/11/22 History sertraline 50 mg tablet 50 mg PO DAILY Depression 04/11/22 04/11/22 History tizanidine 4 mg tablet 4 mg PO BID Pain 04/11/22 04/11/22 History trazodone 50 mg tablet 50 mg PO HS Insomnia 04/11/22 04/11/22 History clindamycin HCl 300 mg capsule 300 mg PO BID Sialodenitis 04/12/22 04/12/22 History New Prescriptions to Start Prescriptions:
[2022-04-12 17:14] LABS: POC Glucose,Bedside 160 (70-110)
[2022-04-12 21:27] LABS: POC Glucose,Bedside 176 (70-110)
[2022-04-13] VITALS (11 sets, daily range): BP systolic 126–172; BP diastolic 58–80; PULSE 60–93; RESP 16–19; TEMP 36.5–37.5; O2SAT 95–99; BMI 40.2
--- NOTE | 2022-04-13 05:48 | PC.NURSE ---
pt is a&ox4. ambulates to and from bathroom with assistance. pt has c/o pain and been medicated prn per jul. right side of face is swollen. pt slept with cpap t/o night. IV ABx given per jul. at bedside. CB in reach.
[2022-04-13 06:36] LABS: Basophils # 0.1 K/mm3 (0-0.2); Basophils % 0.5 % (0.1-2.0); Eosinophils # 0.3 K/mm3 (0.0-0.4); Eosinophils % 1.7 % (0.1-12.0); Hematocrit 35.4 % (42.0-52.0); Hemoglobin 11.9 g/dL (14.1-18.0); Lymphocytes # 1.3 K/mm3 (0.7-4.5); Lymphocytes % 8.3 % (10-50); Mean Corpuscular HGB Conc 33.5 g/dL (31.8-35.4); Mean Corpuscular Hemoglobin 29.9 pg (27.0-31.2); Mean Corpuscular Volume 89.2 fl (80-94); Monocytes # 0.9 K/mm3 (0.1-1.0); Monocytes % 5.6 % (1.7-9.3); Neutrophils # 13.5 K/mm3 (1.8-7.8); Neutrophils % 83.9 % (37.0-80.0); Platelet Count 322 K/mm3 (142-424); Red Blood Count 3.97 M/mm3 (4.60-6.20); White Blood Count 16.1 K/mm3 (4.8-10.8)
[2022-04-13 06:43] LABS: Chloride 97 mmol/L (98-107); MANUAL DIFFERENTIAL MANUAL DIFFERENTIAL (MANUAL DIFF)
[2022-04-13 06:46] LABS: Alanine Aminotransferase 31 U/L (12-78); Albumin Level 3.2 g/dl (3.5-5.0); Albumin/Globulin Ratio 0.9 (1.1-1.8); Alkaline Phosphatase 100 U/L (38-126); Anion Gap 12.4 mEq/L (5-15); Aspartate Amino Transferase 24 U/L (17-59); Bilirubin,Total 0.5 mg/dl (0.2-1.3); Blood Urea Nitrogen 10 mg/dl (9-20); Calcium 8.1 mg/dl (8.4-10.2); Carbon Dioxide 28 mmol/L (22.0-30.0); Creatinine Clearance Estimated 146 mL/min (50-200); Estimated Glomerular Filt Rate 137 ml/min (>60); GFR (African American) 165 ML/MIN (>60); Globulin 3.4 g/dL (1.3-3.2); Glucose 168 mg/dl (74-100); Magnesium 1.5 mg/dl (1.6-2.3); Potassium 3.4 mmoL/L (3.5-5.1); Sodium 134 mmol/L (136-145); Total Protein,Serum 6.6 g/dl (6.3-8.2)
[2022-04-13 07:09] LABS: POC Glucose,Bedside 153 (70-110)
[2022-04-13 07:18] LABS: Lymphocytes % 11 % (10-50); Monocytes % 15 % (2-9); Neutrophils % 74 % (42-76); Platelet Estimate Normal; RBC Morphology Normal; Total Cells Counted 100
--- NOTE | 2022-04-13 09:40 | DIET.NUTRFU ---
Patient requested regular diet, Dr. Singh approved regular diet and kitchen notified
--- NOTE | 2022-04-13 11:14 | EXP.ACUTE.PN ---
Subjective *Date: 04/13/22 *Time: 11:48 Interval history: Patient's pain is worse today in his right face. Increased swelling. Remains afebrile but having a hard time opening his mouth to eat or drink. Denies any nausea, vomiting, chest pain, shortness of breath. Swelling down below jaw on exam this morning. Family at bedside feels his symptoms are worsening as well. Currently on broad-spectrum antibiotics. Pain not responding as hoped to tramadol. Patient sitting at bedside. Otherwise hemodynamically stable Medical Exam Vital signs and Labs for Last 24 Hours: Vital Signs Temp Pulse Pulse Resp BP Pulse Ox 04/13/22 08:00 97.8 F 78 16 172/76 H 96 04/13/22 04:00 97.7 F 71 19 145/58 H 99 04/13/22 04:00 60 04/13/22 00:00 60 04/13/22 00:00 98.7 F 65 18 129/63 95 04/13/22 00:30 67 129/63 04/12/22 20:00 80 04/12/22 19:56 98.8 F 82 20 141/74 H 94 L 04/12/22 19:11 96 04/12/22 16:00 98.2 F 67 20 142/66 H 97 04/12/22 16:00 70 04/12/22 12:00 80 04/12/22 12:00 97.9 F 61 19 145/66 H 97 Intake and Output 04/12/22 04/13/22 04/13/22 23:59 07:59 15:59 Intake Total 240 / 240 Output Total 0 / 0 Balance 0 / 480 240 / 240 Intake: Intake, Oral Amount 240 / 240 Output: Output, Urine Amount 0 / 0 Other: Number of Voids 0 Number of Unmeasured Voids 2 Weight 134.8 kg Patient Weight 04/13/22 23:59 Weight 134.8 kg Laboratory Results - last 24 hr 04/12/22 17:07: POC Glucose 160 H 04/12/22 21:07: POC Glucose 176 H 04/13/22 06:28: WBC 16.1 H, RBC 3.97 L, Hgb 11.9 L, Hct 35.4 L, MCV 89.2, MCH 29.9, MCHC 33.5, RDW 15.0, Plt Count 322, MPV 8.0, Neut % (Auto) 83.9 H, Lymph % (Auto) 8.3 L, [place] % (Auto) 5.6, Eos % (Auto) 1.7, Baso % (Auto) 0.5, Neut # (Auto) 13.5 H, Lymph # (Auto) 1.3, [place] # (Auto) 0.9, Eos # (Auto) 0.3, Baso # (Auto) 0.1, Total Counted 100, Neutrophils % (Manual) 74, Lymphocytes % (Manual) 11, Monocytes % (Manual) 15 H, Platelet Estimate Normal, RBC Morphology Normal 04/13/22 06:28: Sodium 134 L, Potassium 3.4 L, Chloride 97 L, Carbon Dioxide 28, Anion Gap 12.4, BUN 10 D, Creatinine 0.60 L, Estimated Creat Clear 146, Estimated GFR 137, Est GFR ( Amer) 165, Glucose 168 H, Calcium 8.1 L, Magnesium 1.5 L D, Total Bilirubin 0.5, AST 24 D, ALT 31, Alkaline Phosphatase 100, Total Protein 6.6, Albumin 3.2 L, Globulin 3.4 H, Albumin/Globulin Ratio 0.9 L 04/13/22 07:00: POC Glucose 153 H I & O for Labs for Last 24 Hours: Intake & Output 04/10/22 04/11/22 04/12/22 04/13/22 23:59 23:59 23:59 23:59 Intake Total 480 / 480 240 / 240 Output Total 0 / 0 0 / 0 Balance 0 / 0 480 / 480 240 / 240 Weight 135.4 kg 134.7 kg 134.8 kg Constitutional: Present no acute distress, morbidly obese and cooperative Head: Present other (Significant swelling of right parotid region and right jaw. Unable to open his mouth fully. Mild warmth, no fluctuance. Significant induration. Swelling around right eye) Eyes: Absent eye pain or eye discharge Comment:: Poor dentition, right face tender to palpation Comment:: No streaking down the right neck. Mild lymphadenopathy right upper/anterior neck Respiratory: Present normal respiratory effort; Absent accessory muscle use, rhonchi, wheezes or crackles Cardiac: Present Reg Rate and Rhythm GI: Present normal bowel sounds; Absent tenderness Extremities: Present normal inspection and full ROM Skin: Present intact; Absent erythema Neuro: Present Grossly Intact, alert, awake, oriented x 3 and moves all extremities Assessment and Plan *Assessment and plan (1) Parotid abscess: Status: Acute Category: Medical Code(s): K11.3 - Abscess of salivary gland (2) Degenerative joint disease (DJD) of lumbar spine: Status: Chronic Category: Medical Code(s): M47.816 - Spondylosis without myelopathy or radiculopathy, lumbar region (3) Hyperlipid
[2022-04-13 13:26] LABS: POC Glucose,Bedside 202 (70-110)
[2022-04-13 18:11] LABS: Vancomycin,Trough 8.4 ug/mL (5.0-10.0)
--- NOTE | 2022-04-13 20:30 | PC.NURSE ---
upon assessment, pts iv site in right AC noted to be red, swollen, hot, and painful. IV removed, and cold compress applied. 20G US IV inserted in left upper arm by Yoli Anne RN. IV patent and flushes well.
[2022-04-13 20:38] LABS: POC Glucose,Bedside 143 (70-110)
--- NOTE | 2022-04-13 21:00 | PC.NURSE ---
pain not releived with PRN Oxycodone. Hospitalist Louis Walton CABLE RIGGER notified. Orders received and carried out for Morphine 2mg IV.
[2022-04-13 23:29] LABS: Vancomycin,Peak 20.3 ug/ml (11-39)
[2022-04-14] VITALS (9 sets, daily range): BP systolic 110–161; BP diastolic 50–96; PULSE 58–80; RESP 16–19; TEMP 36.3–37.2; O2SAT 91–96; BMI 40.7
[2022-04-14 00:14] LABS: POC Glucose,Bedside 220 (70-110)
--- NOTE | 2022-04-14 06:00 | CT_ITS ---
PROCEDURE INFORMATION: Exam: CT Neck With Contrast Exam date and time: 04/14/2022 7:11 AM Age: 61 years old Clinical indication: Neck pain; Patient HX: ? ? Right sided parotid abscess, pain and swelling; Additional info: Parotid abscess RT face/eval progression/evolution TECHNIQUE: Imaging protocol: Computed tomography of the neck with contrast. Radiation optimization: All CT scans at this facility use at least one of these dose optimization techniques: automated exposure control; mA and/or kV adjustment per patient size (includes targeted exams where dose is matched to clinical indication); or iterative reconstruction. Contrast material: ISOVUE; Contrast volume: 75 ml; Contrast route: IV; COMPARISON: CT SOFT TISSUE NECK W CON 04/11/2022 3:45 PM FINDINGS: Paranasal sinuses: Minor maxillary sinusitis. Pharynx: Extension of induration into the right parapharyngeal space. No significant tonsillar enlargement. Larynx: Unremarkable. Epiglottis is normal. Prevertebral and retropharyngeal spaces: Unremarkable. Salivary glands: Marked swelling and induration involving the right parotid with a 2.1 cm in greatest dimension low-attenuation area in the posterior aspect. Punctate right parotid calcification. Thyroid: Normal. No enlarged or calcified nodules. Lymph nodes: Unremarkable. No lymphadenopathy. Trachea: Visualized trachea is unremarkable. Lungs: Unremarkable as visualized. Bones/joints: Unremarkable. No acute fracture. Soft tissues: Associated asymmetric enlargement and low attenuation involving the right sternocleidomastoid muscle. IMPRESSION: 1. Findings consistent with acute right parotid and periparotid inflammatory process with possible small abscess versus cyst or localized fluid collection described above in the posterior aspect. Extension of inflammatory process into the right parapharyngeal space. Additional edematous or infiltrative changes involving the right sternocleidomastoid muscle. 2. Other nonacute findings above.
[2022-04-14 06:11] LABS: POC Glucose,Bedside 135 (70-110)
--- NOTE | 2022-04-14 08:10 | EXP.PHA.CONS ---
Pharmacy Consult Date: 04/14/22 Time: 08:10 Referring provider: DR. PAULSON Reason for Consult:: VANCOMYCIN LEVELS AND DOSE CHANGE Allergies Allergy/AdvReac Type Severity Reaction Status Date / Time levofloxacin Allergy Mild I-RASH Verified 04/11/22 13:06 niacin Allergy Mild Verified 04/11/22 13:06 ofloxacin Allergy Mild Verified 04/11/22 13:06 sulfamethoxazole Allergy Mild I-RASH Verified 04/11/22 13:06 [From Bactrim] trimethoprim [From Bactrim] Allergy Mild I-RASH Verified 04/11/22 13:06 oxytetracycline Allergy Unknown Verified 04/11/22 13:06 Penicillins Allergy Unknown Verified 04/11/22 13:06 Home Medications Medication Instructions Recorded Confirmed Type amlodipine 5 mg tablet (Norvasc) 5 mg PO ONCE High blood pressure 11/17/17 04/11/22 History montelukast 10 mg tablet 10 mg PO QPM Breathing problems 11/17/17 04/11/22 History (Singulair) potassium chloride 10 mEq 10 meq PO BID Supplement 11/17/17 04/11/22 History capsule,extended release propafenone 425 mg 425 mg PO Q12H Heart disease 11/17/17 04/11/22 History capsule,extended release 12 hr (Rythmol SR) tramadol 50 mg tablet 50 mg PO TID PRN Moderate Pain 30 01/19/21 04/11/22 Rx days #180 tabs atorvastatin 20 mg tablet 20 mg PO DAILY Cholesterol 04/11/22 04/11/22 History bumetanide 2 mg tablet 2 mg PO DAILY Fluid 04/11/22 04/12/22 History fluticasone fur. 100 mcg-umeclid 1 inh inhalation DAILY Breathing 04/11/22 04/11/22 History 62.5 mcg-vilant 25 mcg problems inhalat.powder (Trelegy Ellipta) gabapentin 600 mg tablet 600 mg PO TID Pain 04/11/22 04/11/22 History lisinopril 40 mg tablet 40 mg PO DAILY High blood pressure 04/11/22 04/11/22 History metoprolol tartrate 100 mg tablet 100 mg PO BID High blood pressure 04/11/22 04/11/22 History omeprazole 40 mg capsule,delayed 40 mg PO DAILY Heartburn 04/11/22 04/11/22 History release rivaroxaban 20 mg tablet (Xarelto) 20 mg PO DAILY AFIB 04/11/22 04/11/22 History sertraline 50 mg tablet 50 mg PO DAILY Depression 04/11/22 04/11/22 History tizanidine 4 mg tablet 4 mg PO BID Pain 04/11/22 04/11/22 History trazodone 50 mg tablet 50 mg PO HS Insomnia 04/11/22 04/11/22 History clindamycin HCl 300 mg capsule 300 mg PO BID Sialodenitis 04/12/22 04/12/22 History New Prescriptions to Start Prescriptions: Height: 1.83 m Weight: 136.4 kg Laboratory Results:: Laboratory Results - last 24 hr 04/13/22 11:12: POC Glucose 202 H 04/13/22 16:58: POC Glucose 143 H 04/13/22 17:20: Vancomycin Trough 8.4 04/13/22 20:31: POC Glucose 220 H 04/13/22 22:29: Vancomycin Peak 20.3 04/14/22 05:58: POC Glucose 135 H Medical History: Medical History (Updated 04/13/22 @ 11:52 by Jairo Gutierrez MD) Anxiety Atrial fibrillation COPD (chronic obstructive pulmonary disease) Dental caries limited to enamel Depression Diabetes mellitus, type 2 Facial cellulitis History of stroke Hyperlipidemia Hypertension Parotid abscess Assessment and Plan Assessment and plan all Dx Assessment and Plan for all problems:: BASED ON PATIENT FACTORS AND VANCOMYCIN TROUGH/PEAK LEVEL OF 8.4/20.3, RECOMMEND SLIGHTLY INCREASING VANCOMYCIN DOSE TO 2,500MG EVERY 12 HOURS WITH CALCULATED AUC OF 470.0 MCG/ML. PHARMACY WILL CONTINUE TO MONITOR. -FATOU STAPLETON PHARMD
[2022-04-14 08:15] LABS: Basophils # 0.1 K/mm3 (0-0.2); Basophils % 0.9 % (0.1-2.0); Eosinophils # 0.3 K/mm3 (0.0-0.4); Eosinophils % 2.2 % (0.1-12.0); Hematocrit 35.1 % (42.0-52.0); Hemoglobin 11.9 g/dL (14.1-18.0); Lymphocytes # 1.4 K/mm3 (0.7-4.5); Lymphocytes % 12.7 % (10-50); Mean Corpuscular HGB Conc 33.8 g/dL (31.8-35.4); Mean Corpuscular Hemoglobin 30.7 pg (27.0-31.2); Mean Corpuscular Volume 90.8 fl (80-94); Mean Platelet Volume 8.2 fl (7.4-10.4); Monocytes # 0.7 K/mm3 (0.1-1.0); Monocytes % 6.3 % (1.7-9.3); Neutrophils # 8.9 K/mm3 (1.8-7.8); Platelet Count 329 K/mm3 (142-424); Red Blood Count 3.86 M/mm3 (4.60-6.20); Red Cell Distribution Width 15.3 % (11.5-17.5); White Blood Count 11.4 K/mm3 (4.8-10.8)
--- NOTE | 2022-04-14 08:16 | EXP.PHA.PN ---
Subjective *Date: 04/14/22 *Time: 08:16 Medical Exam Vital signs and Labs for Last 24 Hours: Vital Signs Temp Pulse Pulse Resp BP Pulse Ox 04/14/22 04:00 60 04/13/22 20:00 80 04/14/22 03:18 97.8 F 61 18 110/60 04/14/22 00:00 97.7 F 62 18 117/59 L 95 04/13/22 23:18 97 04/13/22 19:43 99.5 F 82 18 134/61 97 04/13/22 16:00 93 H 04/13/22 15:52 98.3 F 74 18 156/80 H 95 04/13/22 12:00 60 04/13/22 11:48 98.3 F 67 16 126/58 L 95 Intake and Output 04/13/22 04/14/22 04/14/22 23:59 07:59 15:59 Intake Total 560 / 1040 Balance 560 / 1040 Intake: Intake, Oral Amount 560 / 1040 Other: Weight 136.4 kg 136.4 kg Patient Weight 04/14/22 23:59 Weight 136.4 kg Laboratory Results - last 24 hr 04/13/22 11:12: POC Glucose 202 H 04/13/22 16:58: POC Glucose 143 H 04/13/22 17:20: Vancomycin Trough 8.4 04/13/22 20:31: POC Glucose 220 H 04/13/22 22:29: Vancomycin Peak 20.3 04/14/22 05:58: POC Glucose 135 H I & O for Labs for Last 24 Hours: Intake & Output 04/11/22 04/12/22 04/13/22 04/14/22 23:59 23:59 23:59 23:59 Intake Total 480 / 480 1040 / 1040 Output Total 0 / 0 0 / 0 0 / 0 Balance 0 / 0 480 / 480 1040 / 1040 Weight 135.4 kg 134.7 kg 134.8 kg 136.4 kg Microbiology Reports for the Last 24 Hours: Microbiology 04/11/22 16:08 Blood Blood Culture - Preliminary NO GROWTH AFTER 48 HOURS 04/11/22 16:08 Blood Blood Culture - Preliminary NO GROWTH AFTER 48 HOURS The patient's infection will respond to the chosen ABx?: Yes (BLOOD CULTURES NO GROWTH, TREATING MASTOIDITIS) Is the patient receiving the right drug, dose, and route?: Yes Could a more targeted ABx be ordered?: No
[2022-04-14 08:24] LABS: Alanine Aminotransferase 33 U/L (12-78); Albumin Level 3.2 g/dl (3.5-5.0); Alkaline Phosphatase 121 U/L (38-126); Anion Gap 13.5 mEq/L (5-15); Aspartate Amino Transferase 56 U/L (17-59); Bilirubin,Total 0.5 mg/dl (0.2-1.3); Blood Urea Nitrogen 10 mg/dl (9-20); Calcium 8.2 mg/dl (8.4-10.2); Carbon Dioxide 29 mmol/L (22.0-30.0); Chloride 99 mmol/L (98-107); Creatinine Clearance Estimated 148 mL/min (50-200); Estimated Glomerular Filt Rate 98 ml/min (>60); GFR (African American) 119 ML/MIN (>60); Globulin 3.3 g/dL (1.3-3.2); Glucose 136 mg/dl (74-100); Potassium 3.5 mmoL/L (3.5-5.1); Sodium 138 mmol/L (136-145); Total Protein,Serum 6.5 g/dl (6.3-8.2)
--- NOTE | 2022-04-14 10:28 | EXP.ENTCONS ---
History of Present Illness *Admission Date: 04/11/22 *History of present illness: Patient is a 61-year-old male with past medical history of hypertension, hyperlipidemia, COPD, continued tobacco abuse, CAD, A. fib on Xarelto, and chronic pain who comes to the ER Tuesday for about 4 days of right facial swelling extending towards his right ear. Patient saw his PCP 2 days prior who prescribed clindamycin, however patient has not improved with this, swelling seems to be getting worse. On Tuesday night patient had a subjective fever and chills and broke out in a diffuse sweat. Swelling is rather painful. The swelling has migrated from the postauricular area to the submandibular area on the right side. He denies any otitis media episode or proceeding upper respiratory illness. He also denies any prior history of parotitis or mastoiditis. Since then has been on IV antibiotics without improvement. Repeat CT scan this AM shows stable right parotid abscess [facility] Medical History (Updated 04/13/22 @ 11:52 by Jairo Gutierrez MD) Anxiety Atrial fibrillation COPD (chronic obstructive pulmonary disease) Dental caries limited to enamel Depression Diabetes mellitus, type 2 Facial cellulitis History of stroke Hyperlipidemia Hypertension Parotid abscess Surgical History , DUCT LAYER) History of cholecystectomy Hx of cardiac catheterization Family History , DUCT LAYER) Family history of cancer Family history of hypertension Family history of myocardial infarction Family history of hyperlipidemia Social History , DUCT LAYER) Smoking Status: Current every day smoker alcohol intake: never 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vel in the last 8 weeks: None Review of Systems Constitutional Constitutional: Reports fatigue, Denies headache(s) and Reports poor appetite Eyes Eyes: Denies loss of vision ENT Ears, Nose, Mouth, and Throat: Denies dizziness, Reports dry mouth, Reports otalgia, Denies headache(s), Reports neck mass and Reports neck pain *Musculoskeletal Musculoskeletal: Reports neck pain *Neurologic Neurologic: Reports system reviewed and no additional complaints, except as documented, Denies abnormal speech, Denies confusion, Denies dizziness, Denies localized weakness, Denies headache(s), Denies loss of vision and Denies memory loss Psychiatric Psychiatric: Denies confusion and Denies memory loss Endocrine Endocrine: Reports fatigue Meds Home Medications and Allergies Home Medications Medication Instructions Recorded Confirmed Type amlodipine 5 mg tablet (Norvasc) 5 mg PO DAILY High blood pressure 11/17/17 04/14/22 History montelukast 10 mg tablet 10 mg PO QPM Breathing problems 11/17/17 04/11/22 History (Singulair) potassium chloride 10 mEq 10 meq PO BID Supplement 11/17/17 04/11/22 History capsule,extended release propafenone 425 mg 425 mg PO Q12H Heart disease 11/17/17 04/11/22 History capsule,extended release 12 hr (Rythmol SR) tramadol 50 mg tablet 50 mg PO TID PRN Moderate Pain 30 01/19/21 04/11/22 Rx days #180 tabs atorvastatin 20 mg tablet 20 mg PO DAILY Cholesterol 04/11/22 04/11/22 History bumetanide 2 mg tablet 2 mg PO DAILY Fluid 04/11/22 04/12/22 History fluticasone fur. 100 mcg-umeclid 1 inh inhalation DAILY Breathing 04/11/22 04/11/22 History 62.5 mcg-vilant 25 mcg problems inhalat.powder (Trelegy Ellipta) gabapentin 600 mg tablet 600 mg PO TID Pain 04/11/22 04/11/22 History lisinopril 40 mg tablet 40 mg PO DAILY High blood pressure 04/11/22 04/11/22 History metoprolol tartrate 100 mg tablet 100 mg PO BID High blood pressure 04/11/22 04/11/22 History omeprazole 40 mg capsule,delayed 40 mg PO DAILY Heartburn 04/11/22 04/11/22 History release rivaroxaban 20 mg tablet (Xarelto) 20 mg PO DAILY AFIB 04/11/22 04/11/22 History sertraline 50
--- NOTE | 2022-04-14 11:56 | US_ITS ---
FINAL REPORT CLINICAL HISTORY: rt parotid mass -- asp done bedside by dr carrasquillo ent FINDINGS: Ultrasound guidance FNA/drainage History: Fluid collection Technique: Sonographic localization of right parotid cystic mass/fluid collection was performed. Imaging guided aspiration/FNA was provided with procedure performed by Dr. Carrasquillo. IMPRESSION: Sonographic guidance provided for right parotid FNA/aspiration. Authenticated and ERN
--- NOTE | 2022-04-14 13:23 | EXP.OP.NOTE ---
Date of procedure: 04/14/22 Pre-op Diagnosis:: right parotid abscess Post-op Diagnosis:: same Procedure performed:: bedside US guided needle drainage of abscess Surgeon:: Xavier Carrasquillo MD Anesthesia: local Estimated blood loss (mL): 2 Operative findings:: 3-4 cc purulent material aspirated Operative note:: The patient was prepped and draped in the usual fashion. 2% lidocaine with epinephrine 1-100,000 was injected over the right parotid abscess site. With the help of the ultrasound I was able to visualize the approximately 2 by 2 x 2 centimeter abscess within the right parotid gland. Cursory examination of the remainder of the parotid gland did not reveal any other obvious abnormalities. Using a 18-gauge spinal needle I was able to aspirate approximately 3 to 4 cc of purulent material. There is minimal bleeding. Patient tolerated the procedure well. Condition: stable Disposition: floor Complications:: none
--- NOTE | 2022-04-14 14:45 | EXP.ACUTE.PN ---
Subjective *Date: 04/14/22 *Time: 14:45 Interval history: Pain still significant but stable. Swelling not improved overnight. Repeat CT this morning showing persistent fluid collection/abscess. Discussed case with ENT, planning to aspirate abscess at bedside today. Patient n.p.o. this morning. Denies any chest pain, shortness of breath, nausea or vomiting. Tolerating current pain regimen. Remains afebrile. Medical Exam Vital signs and Labs for Last 24 Hours: Vital Signs Temp Pulse Pulse Resp BP Pulse Ox 04/14/22 11:38 98.9 F 68 17 118/59 L 91 L 04/14/22 08:00 98.1 F 64 16 155/50 H 96 04/14/22 04:00 60 04/13/22 20:00 80 04/14/22 03:18 97.8 F 61 18 110/60 04/14/22 00:00 97.7 F 62 18 117/59 L 95 04/13/22 23:18 97 04/13/22 19:43 99.5 F 82 18 134/61 97 04/13/22 16:00 93 H 04/13/22 15:52 98.3 F 74 18 156/80 H 95 Intake and Output 04/13/22 04/14/22 04/14/22 23:59 07:59 15:59 Intake Total 560 / 1040 360 / 360 Output Total 0 / 0 Balance 560 / 1040 360 / 360 Intake: Intake, Oral Amount 560 / 1040 360 / 360 Output: Output, Urine Amount 0 / 0 Other: Number of Unmeasured Voids 1 Weight 136.4 kg 136.4 kg Patient Weight 04/14/22 23:59 Weight 136.4 kg Laboratory Results - last 24 hr 04/13/22 16:58: POC Glucose 143 H 04/13/22 17:20: Vancomycin Trough 8.4 04/13/22 20:31: POC Glucose 220 H 04/13/22 22:29: Vancomycin Peak 20.3 04/14/22 05:58: POC Glucose 135 H 04/14/22 07:56: WBC 11.4 H D, RBC 3.86 L, Hgb 11.9 L, Hct 35.1 L, MCV 90.8, MCH 30.7, MCHC 33.8, RDW 15.3, Plt Count 329, MPV 8.2, Neut % (Auto) 78.0, Lymph % (Auto) 12.7, [place] % (Auto) 6.3, Eos % (Auto) 2.2, Baso % (Auto) 0.9, Neut # (Auto) 8.9 H, Lymph # (Auto) 1.4, [place] # (Auto) 0.7, Eos # (Auto) 0.3, Baso # (Auto) 0.1 04/14/22 07:56: Sodium 138, Potassium 3.5, Chloride 99, Carbon Dioxide 29, Anion Gap 13.5, BUN 10, Creatinine 0.80 D, Estimated Creat Clear 148, Estimated GFR 98, Est GFR ( Amer) 119 D, Glucose 136 H, Calcium 8.2 L, Total Bilirubin 0.5, AST 56 D, ALT 33, Alkaline Phosphatase 121, Total Protein 6.5, Albumin 3.2 L, Globulin 3.3 H, Albumin/Globulin Ratio 1.0 L I & O for Labs for Last 24 Hours: Intake & Output 04/11/22 04/12/22 04/13/22 04/14/22 23:59 23:59 23:59 23:59 Intake Total 480 / 480 1040 / 1040 360 / 360 Output Total 0 / 0 0 / 0 0 / 0 0 / 0 Balance 0 / 0 480 / 480 1040 / 1040 360 / 360 Weight 135.4 kg 134.7 kg 134.8 kg 136.4 kg Microbiology Reports for the Last 24 Hours: Microbiology 04/14/22 12:55 Face - Abscess Gram Stain - Final 04/11/22 16:08 Blood Blood Culture - Preliminary NO GROWTH AFTER 48 HOURS 04/11/22 16:08 Blood Blood Culture - Preliminary NO GROWTH AFTER 48 HOURS Constitutional: Present no acute distress, morbidly obese and cooperative Head: Present other (Significant swelling of right parotid region and right jaw. Unable to open his mouth fully. Mild warmth, no fluctuance. Significant induration. Swelling around right eye) Eyes: Absent eye pain or eye discharge Comment:: Poor dentition, right face tender to palpation Comment:: No streaking down the right neck. Mild lymphadenopathy right upper/anterior neck; tense swelling in right upper neck. Respiratory: Present normal respiratory effort; Absent accessory muscle use, rhonchi, wheezes or crackles Cardiac: Present Reg Rate and Rhythm GI: Present normal bowel sounds; Absent tenderness Extremities: Present normal inspection and full ROM Skin: Present intact; Absent erythema Neuro: Present Grossly Intact, alert, awake, oriented x 3 and moves all extremities Assessment and Plan *Assessment and plan (1) Parotid abscess: Status: Acute Category: Medical Code(s): K11.3 - Abscess of salivary gland (2) Hypertension: Status: Acute Category: Medical Code(s):
[2022-04-14 16:26] LABS: POC Glucose,Bedside 157 (70-110)
[2022-04-14 17:32] LABS: POC Glucose,Bedside 206 (70-110)
[2022-04-15] VITALS (9 sets, daily range): BP systolic 117–170; BP diastolic 54–90; PULSE 60–80; RESP 17–20; TEMP 36.4–37.2; O2SAT 90–98; BMI 40.6
--- NOTE | 2022-04-15 06:35 | PC.NURSE ---
refused FSBS checks this shift, and refused morning labs this am. Russell RITTER aware
--- NOTE | 2022-04-15 08:41 | EXP.PHA.PN ---
Subjective *Date: 04/15/22 *Time: 08:41 Medical Exam Vital signs and Labs for Last 24 Hours: Vital Signs Temp Pulse Pulse Resp BP Pulse Ox 04/15/22 07:23 98.3 F 75 18 170/90 H 91 L 04/15/22 04:00 80 04/15/22 00:00 60 04/14/22 20:00 70 04/15/22 03:45 97.9 F 71 20 146/63 H 95 04/15/22 00:00 98.2 F 66 18 126/63 96 04/14/22 20:00 98.4 F 80 18 161/96 H 93 L 04/14/22 16:00 70 04/14/22 15:50 97.4 F L 66 19 160/77 H 91 L 04/14/22 12:00 58 L 04/14/22 11:38 98.9 F 68 17 118/59 L 91 L Intake and Output 04/14/22 04/15/22 04/15/22 23:59 07:59 15:59 Intake Total 360 / 720 300 / 300 Output Total 0 / 0 Balance 360 / 720 300 / 300 Intake: Intake, Oral Amount 360 / 720 300 / 300 Output: Output, Urine Amount 0 / 0 Other: Number of Unmeasured Voids 1 Weight 136.3 kg Patient Weight 04/15/22 23:59 Weight 136.3 kg Laboratory Results - last 24 hr 04/14/22 11:07: POC Glucose 157 H 04/14/22 17:26: POC Glucose 206 H I & O for Labs for Last 24 Hours: Intake & Output 04/12/22 04/13/22 04/14/22 04/15/22 23:59 23:59 23:59 23:59 Intake Total 480 / 480 1040 / 1040 720 / 720 300 / 300 Output Total 0 / 0 0 / 0 0 / 0 0 / 0 Balance 480 / 480 1040 / 1040 720 / 720 300 / 300 Weight 134.7 kg 134.8 kg 136.4 kg 136.3 kg Microbiology Reports for the Last 24 Hours: Microbiology 04/14/22 12:55 Face - Abscess Gram Stain - Final The patient's infection will respond to the chosen ABx?: Yes (ABSCESS CULTURE PENDING, DRAINED YESTERDAY, WBC DECREASING, AFEBRILE) Is the patient receiving the right drug, dose, and route?: Yes Could a more targeted ABx be ordered?: No
--- NOTE | 2022-04-15 11:46 | EXP.ACUTE.PN ---
Subjective *Date: 04/15/22 *Time: 11:46 Interval history: Continues to complain of facial pain. Swelling stable today. Able to open his mouth marginally better. Tolerating p.o. intake. No nausea or vomiting. Remains afebrile. No shortness of breath, chest pain, nausea or vomiting. No diarrhea. Patient refused labs this morning, encouraged him to allow them to be drawn today. Medical Exam Vital signs and Labs for Last 24 Hours: Vital Signs Temp Pulse Pulse Resp BP Pulse Ox 04/15/22 10:57 97.6 F 78 18 135/60 92 L 04/15/22 07:23 98.3 F 75 18 170/90 H 91 L 04/15/22 04:00 80 04/15/22 00:00 60 04/14/22 20:00 70 04/15/22 03:45 97.9 F 71 20 146/63 H 95 04/15/22 00:00 98.2 F 66 18 126/63 96 04/14/22 20:00 98.4 F 80 18 161/96 H 93 L 04/14/22 16:00 70 04/14/22 15:50 97.4 F L 66 19 160/77 H 91 L 04/14/22 12:00 58 L Intake and Output 04/14/22 04/15/22 04/15/22 23:59 07:59 15:59 Intake Total 360 / 720 300 / 300 Output Total 0 / 0 0 / 0 Balance 360 / 720 300 / 300 0 / 300 Intake: Intake, Oral Amount 360 / 720 300 / 300 Output: Output, Urine Amount 0 / 0 0 / 0 Other: Number of Unmeasured Voids 1 1 Weight 136.3 kg Patient Weight 04/15/22 23:59 Weight 136.3 kg Laboratory Results - last 24 hr 04/14/22 11:07: POC Glucose 157 H 04/14/22 17:26: POC Glucose 206 H I & O for Labs for Last 24 Hours: Intake & Output 04/12/22 04/13/22 04/14/22 04/15/22 23:59 23:59 23:59 23:59 Intake Total 480 / 480 1040 / 1040 720 / 720 300 / 300 Output Total 0 / 0 0 / 0 0 / 0 0 / 0 Balance 480 / 480 1040 / 1040 720 / 720 300 / 300 Weight 134.7 kg 134.8 kg 136.4 kg 136.3 kg Microbiology Reports for the Last 24 Hours: Microbiology 04/14/22 12:55 Face - Abscess Gram Stain - Final Constitutional: Present no acute distress, morbidly obese and cooperative Head: Present other (Significant swelling of right parotid region and right jaw. Unable to open his mouth fully. Mild warmth, no fluctuance. Significant induration. Swelling around right eye) Eyes: Absent eye pain or eye discharge Comment:: Poor dentition, right face tender to palpation Comment:: No streaking down the right neck. Moderate induration and swelling right upper/anterior neck Respiratory: Present normal respiratory effort; Absent accessory muscle use, rhonchi, wheezes or crackles Cardiac: Present Reg Rate and Rhythm GI: Present normal bowel sounds; Absent tenderness Extremities: Present normal inspection and full ROM Skin: Present intact; Absent erythema Neuro: Present Grossly Intact, alert, awake, oriented x 3 and moves all extremities Assessment and Plan *Assessment and plan (1) Parotid abscess: Status: Acute Category: Medical Code(s): K11.3 - Abscess of salivary gland (2) Hypertension: Status: Acute Category: Medical Code(s): I10 - Essential (primary) hypertension (3) Anxiety: Status: Acute Category: Medical Code(s): F41.9 - Anxiety disorder, unspecified (4) Atrial fibrillation: Status: Acute Category: Medical Code(s): I48.91 - Unspecified atrial fibrillation (5) COPD (chronic obstructive pulmonary disease): Status: Acute Category: Medical Code(s): J44.9 - Chronic obstructive pulmonary disease, unspecified (6) Lumbar radiculopathy: Status: Chronic Category: Medical Code(s): M54.16 - Radiculopathy, lumbar region Plan Patient is a 61-year-old male with past medical history of hypertension, hyperlipidemia, COPD, continued tobacco abuse, CAD, A. fib on Xarelto, and chronic pain who is admitted for parotiditis and mastoiditis that failed outpatient oral antibiotic therapy. Status post bedside aspiration yesterday by ENT. Still significantly swollen. Remains afebrile. Tolerating IV antibiotics. Problems addressed as follows: parotid
[2022-04-15 13:55] LABS: POC Glucose,Bedside 228 (70-110)
[2022-04-15 15:17] LABS: Basophils # 0.1 K/mm3 (0-0.2); Eosinophils # 0.4 K/mm3 (0.0-0.4); Eosinophils % 2.4 % (0.1-12.0); Hematocrit 40.3 % (42.0-52.0); Hemoglobin 12.4 g/dL (14.1-18.0); Lymphocytes # 1.7 K/mm3 (0.7-4.5); Lymphocytes % 11.5 % (10-50); Mean Corpuscular HGB Conc 30.7 g/dL (31.8-35.4); Mean Corpuscular Hemoglobin 28.6 pg (27.0-31.2); Mean Corpuscular Volume 93.2 fl (80-94); Mean Platelet Volume 7.3 fl (7.4-10.4); Monocytes # 1.1 K/mm3 (0.1-1.0); Monocytes % 7.6 % (1.7-9.3); Neutrophils # 11.3 K/mm3 (1.8-7.8); Neutrophils % 77.5 % (37.0-80.0); Platelet Count 380 K/mm3 (142-424); Red Blood Count 4.33 M/mm3 (4.60-6.20); Red Cell Distribution Width 14.1 % (11.5-17.5); White Blood Count 14.5 K/mm3 (4.8-10.8)
[2022-04-15 15:39] LABS: Alanine Aminotransferase 48 U/L (12-78); Albumin Level 3.7 g/dl (3.5-5.0); Albumin/Globulin Ratio 1.1 (1.1-1.8); Alkaline Phosphatase 141 U/L (38-126); Anion Gap 13.6 mEq/L (5-15); Aspartate Amino Transferase 50 U/L (17-59); Bilirubin,Total 0.4 mg/dl (0.2-1.3); Blood Urea Nitrogen 9 mg/dl (9-20); Calcium 8.5 mg/dl (8.4-10.2); Carbon Dioxide 33 mmol/L (22.0-30.0); Chloride 95 mmol/L (98-107); Creatinine Clearance Estimated 148 mL/min (50-200); Estimated Glomerular Filt Rate 86 ml/min (>60); GFR (African American) 103 ML/MIN (>60); Globulin 3.5 g/dL (1.3-3.2); Glucose 114 mg/dl (74-100); Potassium 3.6 mmoL/L (3.5-5.1); Sodium 138 mmol/L (136-145); Total Protein,Serum 7.2 g/dl (6.3-8.2)
[2022-04-15 15:45] LABS: C-Reactive Protein 116.3 mg/L (0-4)
[2022-04-15 16:00] LABS: Erythrocyte Sedimentation Rate 84 mm/hr (0-20)
[2022-04-15 19:41] LABS: POC Glucose,Bedside 120 (70-110)
[2022-04-15 20:55] LABS: POC Glucose,Bedside 202 (70-110)
[2022-04-16] VITALS (8 sets, daily range): BP systolic 122–172; BP diastolic 53–77; PULSE 64–74; RESP 16–20; TEMP 36.4–37.3; O2SAT 90–98
--- NOTE | 2022-04-16 04:54 | PC.NURSE ---
pt has rested t/o shift, did complain of headache at beginning of shift and was treated per JUL, has worn CPAP t/o shift, ambulating to BR, HR 64-75
[2022-04-16 06:39] LABS: POC Glucose,Bedside 142 (70-110)
[2022-04-16 06:59] LABS: Basophils # 0.2 K/mm3 (0-0.2); Basophils % 1.9 % (0.1-2.0); Eosinophils # 0.2 K/mm3 (0.0-0.4); Eosinophils % 1.9 % (0.1-12.0); Hematocrit 35.3 % (42.0-52.0); Hemoglobin 11.8 g/dL (14.1-18.0); Lymphocytes # 1.6 K/mm3 (0.7-4.5); Lymphocytes % 14.7 % (10-50); Mean Corpuscular HGB Conc 33.5 g/dL (31.8-35.4); Mean Corpuscular Hemoglobin 29.8 pg (27.0-31.2); Mean Corpuscular Volume 88.8 fl (80-94); Mean Platelet Volume 8.2 fl (7.4-10.4); Monocytes # 0.9 K/mm3 (0.1-1.0); Monocytes % 8.6 % (1.7-9.3); Neutrophils # 7.8 K/mm3 (1.8-7.8); Neutrophils % 72.8 % (37.0-80.0); Platelet Count 387 K/mm3 (142-424); Red Blood Count 3.97 M/mm3 (4.60-6.20); Red Cell Distribution Width 14.8 % (11.5-17.5); White Blood Count 10.7 K/mm3 (4.8-10.8)
--- NOTE | 2022-04-16 07:05 | PC.NURSE ---
Addendum entered by Alla Rueda RN 04/16/22 07:29: pt sitting up eating breakfast, and right eye looks much better, is complaining of pain in right side of face, report given to JAQUELINE Moyer Original Note: when doing checks this morning, pt had just woke up, when he tried to open his eyes, there was significant swelling to the right eye, pt asked if he was in any pain, and denied pain, Russell notified of swelling
[2022-04-16 07:23] LABS: Alanine Aminotransferase 38 U/L (12-78); Albumin Level 3.1 g/dl (3.5-5.0); Albumin/Globulin Ratio 0.9 (1.1-1.8); Alkaline Phosphatase 116 U/L (38-126); Anion Gap 12.3 mEq/L (5-15); Aspartate Amino Transferase 39 U/L (17-59); Bilirubin,Total 0.3 mg/dl (0.2-1.3); Blood Urea Nitrogen 11 mg/dl (9-20); Calcium 8.4 mg/dl (8.4-10.2); Carbon Dioxide 29 mmol/L (22.0-30.0); Chloride 99 mmol/L (98-107); Creatinine Clearance Estimated 148 mL/min (50-200); Estimated Glomerular Filt Rate 98 ml/min (>60); GFR (African American) 119 ML/MIN (>60); Globulin 3.4 g/dL (1.3-3.2); Glucose 138 mg/dl (74-100); Potassium 3.3 mmoL/L (3.5-5.1); Sodium 137 mmol/L (136-145); Total Protein,Serum 6.5 g/dl (6.3-8.2)
--- NOTE | 2022-04-16 09:12 | CT_ITS ---
FINAL REPORT TECHNIQUE: Axial CT images were performed through the neck. Coronal and sagittal reformats were submitted. This study was performed with techniques to keep radiation doses as low as reasonably achievable (ALARA). Individualized dose reduction techniques using automated exposure control or adjustment of mA and/or kV according to the patient's size were employed. CLINICAL HISTORY: Mastoiditis. Parotitis. Right sided neck swelling COMPARISON: April 14, 2022 FINDINGS: There are multitude of bilateral cervical lymph nodes that are slightly larger than on the prior exam. Lymph nodes measure up to 1.6 cm and are favored to be reactive. Again seen is extensive inflammation throughout the right neck and right parotid gland. The density of the parotid gland has decreased. The previous well-circumscribed fluid collection in the inferior right parotid gland is less evident than on the prior and is now intermediate attenuation measuring 1.8 cm. There is asymmetric enlargement of the right sternocleidomastoid muscle with surrounding edema. There is mild to moderate mucoperiosteal thickening in the right maxillary sinus. There is abnormal soft tissue in the right mastoid air cells. Images through the lung apices demonstrate mild centrilobular emphysema. IMPRESSION: Mild improvement in extensive inflammation throughout the right neck and right parotid gland. Previously seen cystic fluid collection is less evident. Stable mastoiditis is probably chronic. Slight worsening of bilateral cervical adenopathy, favor reactive. Reviewed, Interpreted and Dictated by Brian Hannah MD Transcribed by Khadar Hunter Authenticated and [facility]
--- NOTE | 2022-04-16 09:28 | PC.NURSE ---
Called RAD about stat CT
--- NOTE | 2022-04-16 14:51 | EXP.ACUTE.PN ---
Subjective *Date: 04/16/22 *Time: 12:37 Interval history: Patient still complaining of facial pain but better controlled overnight. Feels he can open his mouth larger today. Able to eat and chew without having to shove food and per his report. White cell count normal today. Slept well with CPAP. Denies chest pain, shortness of breath, nausea, vomiting, diarrhea. Reports he is tired of being in the hospital. Asking when he can go home. Expressed that I am pleased with his progress but were still not quite there yet. Medical Exam Vital signs and Labs for Last 24 Hours: Vital Signs Temp Pulse Resp BP Pulse Ox 04/16/22 12:00 98.1 F 65 18 137/75 95 04/16/22 08:00 97.5 F L 73 16 172/75 H 95 04/16/22 08:40 92 L 04/16/22 03:54 98.6 F 66 20 122/67 97 04/15/22 20:00 90 L 04/15/22 23:39 98.2 F 64 20 117/54 L 98 04/15/22 19:53 99 F 75 18 154/62 H 90 L Intake and Output 04/15/22 04/16/22 04/16/22 23:59 07:59 15:59 Intake Total 590 / 1250 720 / 720 Output Total 0 / 0 0 / 0 Balance 590 / 1250 720 / 720 Intake: Intake, Oral Amount 240 / 900 720 / 720 Intake, Total IV Amount 350 / 350 Ceftriaxone Sodium 2 gm In 0.9 100 / 100 % Sodium Chloride 100 ml @ 200 mls/hr IV Q24H [facility] Rx#:[id number] Vancomycin HCl 2,500 mg In 0.9 250 / 250 % Sodium Chloride 250 ml @ 125 mls/hr IV Q12H [facility]UNA Rx#:[id number] Output: Output, Urine Amount 0 / 0 0 / 0 Other: Number of Unmeasured Voids 0 1 Laboratory Results - last 24 hr 04/15/22 15:07: WBC 14.5 H D, RBC 4.33 L, Hgb 12.4 L, Hct 40.3 L, MCV 93.2, MCH 28.6, MCHC 30.7 L, RDW 14.1, Plt Count 380, MPV 7.3 L, Neut % (Auto) 77.5, Lymph % (Auto) 11.5, [place] % (Auto) 7.6, Eos % (Auto) 2.4, Baso % (Auto) 1.0, Neut # (Auto) 11.3 H, Lymph # (Auto) 1.7, [place] # (Auto) 1.1 H, Eos # (Auto) 0.4, Baso # (Auto) 0.1 04/15/22 15:07: Sodium 138, Potassium 3.6, Chloride 95 L, Carbon Dioxide 33 H, Anion Gap 13.6, BUN 9, Creatinine 0.90, Estimated Creat Clear 148, Estimated GFR 86, Est GFR ( Amer) 103, Glucose 114 H, Calcium 8.5, Total Bilirubin 0.4, AST 50, ALT 48 D, Alkaline Phosphatase 141 H, C-Reactive Protein 116.3 H, Total Protein 7.2, Albumin 3.7 D, Globulin 3.5 H, Albumin/Globulin Ratio 1.1 04/15/22 15:07: ESR 84 H 04/15/22 16:17: POC Glucose 120 H 04/15/22 20:48: POC Glucose 202 H 04/16/22 06:24: WBC 10.7 D, RBC 3.97 L, Hgb 11.8 L, Hct 35.3 L, MCV 88.8, MCH 29.8, MCHC 33.5, RDW 14.8, Plt Count 387, MPV 8.2, Neut % (Auto) 72.8, Lymph % (Auto) 14.7, [place] % (Auto) 8.6, Eos % (Auto) 1.9, Baso % (Auto) 1.9, Neut # (Auto) 7.8, Lymph # (Auto) 1.6, [place] # (Auto) 0.9, Eos # (Auto) 0.2, Baso # (Auto) 0.2 04/16/22 06:24: Sodium 137, Potassium 3.3 L, Chloride 99, Carbon Dioxide 29, Anion Gap 12.3, BUN 11, Creatinine 0.80, Estimated Creat Clear 148, Estimated GFR 98, Est GFR ( Amer) 119, Glucose 138 H D, Calcium 8.4, Total Bilirubin 0.3, AST 39, ALT 38, Alkaline Phosphatase 116, Total Protein 6.5, Albumin 3.1 L D, Globulin 3.4 H, Albumin/Globulin Ratio 0.9 L 11/18/22 06:33: POC Glucose 142 H I & O for Labs for Last 24 Hours: Intake & Output 04/13/22 04/14/22 04/15/22 04/16/22 23:59 23:59 23:59 23:59 Intake Total 1040 / 1040 720 / 720 1250 / 1250 720 / 720 Output Total 0 / 0 0 / 0 0 / 0 0 / 0 Balance 1040 / 1040 720 / 720 1250 / 1250 720 / 720 Weight 134.8 kg 136.4 kg 136.3 kg Microbiology Reports for the Last 24 Hours: Microbiology 04/14/22 12:55 Face - Abscess Gram Stain - Final 04/14/22 12:55 Face - Abscess Wound Culture - Preliminary NO GROWTH AFTER 48 HOURS 04/14/22 12:50 Face - Abscess Wound Culture - Preliminary NO GROWTH AFTER 48 HOURS Constitutional: Present no acute distress, morbidly obese and cooperative Head: Present other (Right side of face still swollen however tenderness improved. Indurated into upper neck. Minimal warmth.
[2022-04-16 17:18] LABS: Vancomycin,Trough 13.2 ug/mL (5.0-10.0)
--- NOTE | 2022-04-16 18:34 | PC.NURSE ---
pt had 4 unmeasured voids on dayshift. Dianne Angeles SRNA
--- NOTE | 2022-04-16 19:26 | PC.NURSE ---
Pt is A/Ox4. He has been walking the colindres a few times during my shift. He has tolerated diet well. He has refused finger sticks. He has been on RA all shift. He has complained of pain in his jaw that is treated with percocet. He has no complaints or needs at this time.
[2022-04-17 04:00] VITALS: BP 156/91; PULSE 79; RESP 20; TEMP 36.7; O2SAT 92
[2022-04-17 05:07] VITALS: BMI 40.6
--- NOTE | 2022-04-17 05:53 | PC.NURSE ---
Pt has had no complaints of pain this shift. CPAP worn while pt is sleeping. remains at bedside.
--- NOTE | 2022-04-17 07:24 | EXP.DC.SUM ---
General Admission date:: 04/11/22 Discharge date: 04/17/22 HPI HPI HPI: Patient is a 61-year-old male with past medical history of hypertension, hyperlipidemia, COPD, continued tobacco abuse, CAD, A. fib on Xarelto, and chronic pain who comes to the ER Tuesday for about 4 days of right facial swelling extending towards his right ear. Patient saw his PCP 2 days prior who prescribed clindamycin, however patient has not improved with this, swelling seems to be getting worse. On Tuesday night patient had a subjective fever and chills and broke out in a diffuse sweat. Swelling is rather painful. The swelling has migrated from the postauricular area to the submandibular area on the right side. He denies any otitis media episode or proceeding upper respiratory illness. He also denies any prior history of parotitis or mastoiditis. Since then has been on IV antibiotics without improvement. Repeat CT scan this AM shows stable right parotid abscess Hospital Course Hospital Course Hospital Course: Patient is a 61-year-old male with past medical history of hypertension, hyperlipidemia, COPD, continued tobacco abuse, CAD, A. fib on Xarelto, and chronic pain who is admitted for parotiditis and mastoiditis that failed outpatient oral antibiotic therapy.? Problems addressed follows: Status post bedside aspiration, repeat CT of face obtained today, minimal abscess, swelling stable.? No new or worsening fluid collections.? Continuing IV antibiotics.? Remains afebrile with normal white cell count. Problems addressed as follows: parotiditis/mastoiditis Parotid abscess Sialolith -Patient started on broad-spectrum IV antibiotics. ENT was consulted. CT of face obtained showing concern for abscess, patient did not improve after 48 hours with IV antibiotics and ENT performed bedside aspiration. Patient began to show improvement in swelling, pain, inflammatory markers. Marked improvement in leukocytosis and ESR/CRP. No growth from aspirate from abscess. Will transition to cefdinir and Flagyl to complete 14 days of therapy starting from time of aspiration of abscess. Plan for close follow-up with ENT, appointment scheduled for this coming Tuesday. Recommend follow-up with PCP in the coming weeks. Sent with short course of Percocet for breakthrough pain. afib History of WPW CHF Essential hypertension -History of ablation, no A. fib since ablation per .? Continue propafenone. -On anticoagulation for history of thromboembolic events after heart cath.? Thromboemboli were in his right leg.? Held Xarelto during hospitalization in anticipation of surgery. Recommend resuming at discharge. Continued home Bumex during hospitalization. Continued home blood pressure regimen. COPD - Cont trelegy (or formulary equivalent) Chronic pain -On tramadol at home, not benefiting pain in his right face.? We will increase to oxycodone.? Continue tizanidine and gabapentin. Medically stable for discharge home to complete antibiotic course. Exam Data for Last 24 hours Vital signs and Labs for Last 24 Hours: Temp Pulse Resp BP Pulse Ox 98.0 F 79 20 156/91 H 92 L 04/17/22 04:00 04/17/22 04:00 04/17/22 04:00 04/17/22 04:00 04/17/22 04:00 Laboratory Results - last 24 hr 04/16/22 06:24: Sodium 137, Potassium 3.3 L, Chloride 99, Carbon Dioxide 29, Anion Gap 12.3, BUN 11, Creatinine 0.80, Estimated Creat Clear 148, Estimated GFR 98, Est GFR ( Amer) 119, Glucose 138 H D, Calcium 8.4, Total Bilirubin 0.3, AST 39, ALT 38, Alkaline Phosphatase 116, Total Protein 6.5, Albumin 3.1 L D, Globulin 3.4 H, Albumin/Globulin Ratio 0.9 L 04/16/22 15:35: Vancomycin Trough 13.2 H I & O for Last 24 hours: Intake & Output 04/14/22 04/15/22 04/16/22 04/17/22 23:59 23:59 23:59 23:59 Intake Total 720 / 720 1250 / 1250 1200 / 1440 240 / 240 Output Total 0 / 0 0 / 0 0 / 0 0 / 0 Balance 720 / 720 1250 / 1250 1200 / 1440 240 / 240 Weight 136.4 kg 136.3 kg 136.276 kg
[2022-04-17 07:49] LABS: Basophils # 0.1 K/mm3 (0-0.2); Eosinophils # 0.2 K/mm3 (0.0-0.4); Eosinophils % 1.9 % (0.1-12.0); Hematocrit 37.7 % (42.0-52.0); Hemoglobin 12.2 g/dL (14.1-18.0); Lymphocytes # 1.4 K/mm3 (0.7-4.5); Lymphocytes % 12.2 % (10-50); Mean Corpuscular HGB Conc 32.5 g/dL (31.8-35.4); Mean Corpuscular Volume 89.4 fl (80-94); Mean Platelet Volume 8.3 fl (7.4-10.4); Monocytes # 0.9 K/mm3 (0.1-1.0); Monocytes % 7.7 % (1.7-9.3); Neutrophils % 77.1 % (37.0-80.0); Platelet Count 312 K/mm3 (142-424); Red Blood Count 4.21 M/mm3 (4.60-6.20); White Blood Count 11.7 K/mm3 (4.8-10.8)
[2022-04-17 08:00] VITALS: BP 140/58; PULSE 75; RESP 18; TEMP 37.1; O2SAT 88; O2SAT 91
[2022-04-17 08:01] VITALS: O2SAT 91
[2022-04-17 08:03] LABS: Alanine Aminotransferase 43 U/L (12-78); Albumin Level 3.4 g/dl (3.5-5.0); Alkaline Phosphatase 118 U/L (38-126); Anion Gap 13.7 mEq/L (5-15); Aspartate Amino Transferase 67 U/L (17-59); Bilirubin,Total 0.6 mg/dl (0.2-1.3); Blood Urea Nitrogen 11 mg/dl (9-20); Calcium 8.4 mg/dl (8.4-10.2); Carbon Dioxide 25 mmol/L (22.0-30.0); Chloride 98 mmol/L (98-107); Creatinine Clearance Estimated 148 mL/min (50-200); Estimated Glomerular Filt Rate 98 ml/min (>60); GFR (African American) 119 ML/MIN (>60); Globulin 3.5 g/dL (1.3-3.2); Glucose 142 mg/dl (74-100); Potassium 3.7 mmoL/L (3.5-5.1); Sodium 133 mmol/L (136-145); Total Protein,Serum 6.9 g/dl (6.3-8.2)
[2022-04-17 08:11] LABS: C-Reactive Protein 79.3 mg/L (0-4)
[2022-04-17 08:21] LABS: Erythrocyte Sedimentation Rate 22 mm/hr (0-20)
--- NOTE | 2022-04-19 15:57 | CARE MANAGER ---
Spoke with patient for post discharge follow-up phone call, patient is aware of appointments and got his meds.
== END 2022-04-17 09:41 | disposition home or self-care (01) | DRG 155 ==
LOC: UTC 11:09 → ER 13:30 → 2ND 17:16
PROVIDERS: Nurse Practitioner Family; Admitting Provider Emergency Medicine; Emergency Provider Emergency Medicine; PCP Nurse Practitioner Family; Visit Provider Internal Medicine Adolescent Medicine
DX: K11.21 Acute sialoadenitis (principal); H70.001 Acute mastoiditis without complications, right ear; K11.3 Abscess of salivary gland; M47.816 Spondylosis without myelopathy or radiculopathy, lumbar region; E11.8 Type 2 diabetes mellitus with unspecified complications; Z86.73 Personal history of transient ischemic attack (TIA), and cerebral infarction without residual deficits; F17.210 Nicotine dependence, cigarettes, uncomplicated; J44.9 Chronic obstructive pulmonary disease, unspecified; H70.90 Unspecified mastoiditis, unspecified ear; E78.5 Hyperlipidemia, unspecified; Z79.01 Long term (current) use of anticoagulants; G89.29 Other chronic pain; M54.16 Radiculopathy, lumbar region; I45.6 Pre-excitation syndrome; I11.0 Hypertensive heart disease with heart failure
CPT/HCPCS: 42300; 10005; 36415; 70487; 70490; 70491; 71045; 80053; 80202; 82962; 83036; 83605; 83735; 83880; 85007; 85025; 85651; 86140; 87040; 87070; 87077; 87205; 88173; 88305; 93005; 94640; 99285; C9803; J0696; J2405; J3370; J3475; Q9967; U0003; U0005

== ENCOUNTER → 2022-09-20 16:20 | Outpatient (CLI) | payer OTHER, SELFPAY ==
--- NOTE | 2022-09-20 16:34 | MR_ITS ---
PROCEDURE INFORMATION: Exam: MR Lumbar Spine Without Contrast Exam date and time: 09/20/2022 4:40 PM Age: 61 years old Clinical indication: Low back pain; Additional info: Radiculpathy due to lumbar intervertebral disc disorder. Tingling in left foot. Fell of steps. Low back pain with left leg pain TECHNIQUE: Imaging protocol: Magnetic resonance imaging of the lumbar spine without contrast. COMPARISON: SPLUMBWO MR lumbar spine wo con 02/15/2018 1:51 PM FINDINGS: Bones/joints: See L5-S1 finding. Spinal cord: Visualized cord, conus medullaris and cauda equina are unremarkable without compression. L1-L2: No significant disc bulge or herniation. No severe spinal canal stenosis. No significant neural foraminal narrowing. L2-L3: No significant disc bulge or herniation. No severe spinal canal stenosis. No significant neural foraminal narrowing. L3-L4: Mild concentric bulge at L3-L4 without significant canal or foraminal stenosis. L4-L5: Moderately severe disc bulge at L4-L5 with small annular tear and inferior migration which is somewhat more prominent than on prior examination causing bilateral fvab-tlymzgh-bgyg-right lateral recess and foraminal narrowing. L5-S1: Disc bulge at L5-S1 which in conjunction with facet arthropathy causes mild foraminal narrowing not significantly changed from prior exam. Soft tissues: Unremarkable. IMPRESSION: Moderately severe disc bulge at L4-L5 with small annular tear and inferior migration which is somewhat more prominent than on prior examination causing bilateral zgvy-matqukm-ngro-right lateral recess and foraminal narrowing.
== END ==
LOC: RAD 16:20
PROVIDERS: PCP Nurse Practitioner Family; Visit Provider Nurse Practitioner Family
DX: M51.16 Intervertebral disc disorders with radiculopathy, lumbar region (principal)
CPT/HCPCS: 72148; 76376

== ENCOUNTER → 2022-11-01 14:24 | Outpatient (POV) | payer OTHER, SELFPAY ==
[2022-11-01 15:02] VITALS: BP 121/66; PULSE 65; RESP 18; O2SAT 97; BMI 39.4
--- NOTE | 2022-11-01 15:13 | EXP.PAIN.OV ---
HPI Data of Consult Patient: new to practice Consult date: 11/01/22 Requesting Physician: Brianne Mas APRN Primary Care Provider: Judith Reno Consult Narrative Reason for consult: Low back pain, leg pain, neck pain History of present illness: Mr. Drew is a 61 year old male who presents today as a new patient. He is a referral from Judith Reno's office. Today he rates his pain a 2 out of 10. Patient states his pain is all in his low back with radiating symptoms into his legs as well as his neck. Patient states this has been going on for years and progressively worsened over time however over the last month it has been worse related to a recent fall. He does describe this as an intense aching, throbbing sensation with occasional sharp shooting pains. He states the pain does come and go however is aggravated with increased activity. He states the pain does interfere with his ability to perform activities of daily living. Patient was previously a patient of ours a couple of years ago and was not interested in injective therapy at that time. Today he is interested in possible injections to help lower his pain. Patient has tried dsaf-dqh-nripalc medications such as Tylenol along with heat and ice and topicals with no additional relief. Patient has had physical therapy in the past with no additional relief. He denies any surgery history. Patient is currently managed with gabapentin 600 mg 3 times a day and tramadol 50 mg however he states the tramadol does not provide any additional relief. Patient is on Xarelto that is prescribed by Shari Sierra related to a history of A-fib. His Matthew is [phone]. Has been reviewed and appropriate. CC: Brianne Mas APRN [facility] Disclaimer: The information contained in this section may have been updated after the patient was seen, as this information can be updated by other users. Medical History Anxiety Atrial fibrillation COPD (chronic obstructive pulmonary disease) Dental caries limited to enamel Depression Diabetes mellitus, type 2 Encounter for postoperative care Facial cellulitis History of stroke Hyperlipidemia Hypertension Loss of taste Parotid abscess Swelling of left parotid gland Swelling of right parotid gland Surgical History History of cholecystectomy Hx of cardiac catheterization Family History Other Family history of cancer Family history of hyperlipidemia Family history of hypertension Family history of myocardial infarction Social History Smoking Status: Current every day smoker alcohol intake: never current occupational status: retired Travel in the last 8 weeks: None Review of Systems Review of Systems Review of systems:: pertinent systems reviewed and negative unless documented below Review of systems (narrative): Review of Systems: General: No recent weight changes, no fever, no sleep disturbances Respiratory: No cough, no shortness of air, no recurring pulmonary infections Cardiovascular/peripheral vascular: No chest pain, no palpitations, no edema, no shortness of breath Gastrointestinal: No new onset incontinence, normal bowel movements reported Genitourinary: No new onset incontinence Musculoskeletal: Low back pain, leg pain, neck pain Psychiatric: [Normal mood/affect] Neurological: [Denies weakness in extremities], [denies balance issues] Meds Home Medications and Allergies Home Medications Medication Instructions Recorded Confirmed Type montelukast 10 mg tablet 10 mg PO QPM Breathing problems 11/17/17 05/25/22 History (Singulair) potassium chloride 10 mEq 10 meq PO BID Supplement 11/17/17 05/25/22 History capsule,extended release propafenone 425 mg 425 mg PO Q12H Heart disease 11/17/1704/30
== END ==
PROVIDERS: PCP Nurse Practitioner Family; Visit Provider Nurse Practitioner Family
DX: M51.16 Intervertebral disc disorders with radiculopathy, lumbar region (principal); M54.2 Cervicalgia; M48.061 Spinal stenosis, lumbar region without neurogenic claudication
CPT/HCPCS: 99202; G0463

== ENCOUNTER 2022-11-09 09:35 | Day surgery (SDC) | payer OTHER, SELFPAY ==
[2022-11-09 09:49] VITALS: BP 105/55; PULSE 59; RESP 18; TEMP 36.4; O2SAT 96; BMI 39.4
[2022-11-09 10:07] VITALS: BP 130/76; PULSE 63; RESP 18; O2SAT 96
[2022-11-09 10:09] VITALS: BP 130/76; PULSE 63; RESP 18; O2SAT 96
--- NOTE | 2022-11-09 10:10 | EXP.PAIN.PRO ---
Procedure Date: 11/09/22 Time: 10:05 Anesthesiologist:: Arian Nolan CRNA Complications:: None Pre-procedure Diagnosis:: Degenerative disc lumbar spine multilevels. Lumbar radiculopathy Post-procedure Diagnosis:: Same. Indications for Procedure:: Patient is a very pleasant 61-year-old male that comes our clinic today for lumbar epidural steroid injection at the L4-5 level. Patient reports low back pain as well as bilateral hip and leg radicular symptoms. Left greater than right. Patient rates his pain 7/10. Procedure Details:: Procedure: Lumbar epidural steroid injection under fluoroscopy Informed consent was obtained and the risks and benefits of the procedure were explained to the patient. The patient was taken to the procedure room and noninvasive monitors placed, including noninvasive blood pressure cuff and pulse oximeter. The back was viewed using C-arm Fluoroscopy and prepped using Chloraprep as a cleansing solution and the L4-L5 interspace was palpated. Skin and subcutaneous tissues were anesthetized using lidocaine 1.5% and a 25-gauge needle. After this, an 18-gauge Touhy epidural needle was placed into the L4-L5 interspace and advanced using fluoroscopic guidance and loss of resistance to air until the epidural space was encountered. After confirmation of needle placement in the epidural space, with dye, a solution containing normal saline, 3 mL and Depo-Medrol 80 mg were incrementally injected into the lumbar epidural space. The patient tolerated the procedure well with no complications. The patient was observed in the Pain Clinic and then discharged home neurologically intact. Plan and Disposition:: Patient was discharged without incident.
[2022-11-09 10:13] VITALS: BP 129/66; PULSE 61; RESP 16; O2SAT 96
== END 2022-11-09 10:13 | disposition home or self-care (01) ==
PROVIDERS: PCP Nurse Practitioner Family; Visit Provider Nurse Anesthetist, Certified Registered
DX: M51.16 Intervertebral disc disorders with radiculopathy, lumbar region (principal)
CPT/HCPCS: 62323; J1040

== ENCOUNTER → 2022-11-25 11:20 | Outpatient (POV) | payer OTHER, SELFPAY ==
--- NOTE | 2022-11-25 11:22 | EXP.PAIN.SOA ---
[facility] Pain Management SOAP Note Subjective:: Patient is a pleasant 61-year-old male who presents today for follow-up of lumbar epidural steroid injection L4-L5 on 11/09/2022. We are currently treating the patient for degenerative disc disease of lumbar spine with lumbar radiculopathy symptoms, low back pain, lumbar spinal stenosis, neck pain. Today he rates his pain a 1 out of 10. Patient does state that he feels like he is gotten approximately 85% improvement following this injection and feels like it is still helping. He does state he will occasionally have pain into his right hip that he notices when he is walking more. Patient does state that it is not a constant issue and as of right now it is not bothering him enough to do more for it. He is prescribed gabapentin 600 mg 3 times a day and tramadol 50 mg. Patient is on Xarelto daily for history of A-fib. His Matthew is [id number]. Has been reviewed and appropriate. Review of Systems: General: No recent weight changes, no fever, no sleep disturbances Respiratory: No cough, no shortness of air, no recurring pulmonary infections Cardiovascular/peripheral vascular: No chest pain, no palpitations, no edema, no shortness of breath Gastrointestinal: No new onset incontinence, normal bowel movements reported Genitourinary: No new onset incontinence Musculoskeletal: Low back pain, neck pain Psychiatric: [Normal mood/affect] Neurological: [Denies weakness in extremities], [denies balance issues] Objective:: Physical Exam: General: Alert and oriented x3, no acute distress, pleasant and cooperative Lungs: Respirations even and unlabored, symmetrical chest expansion Eyes: PERRL Musculoskeletal: Flexion and extension of lumbar [spine] somewhat guarded secondary to pain, [antalgic gait noted] Neurological: Speech clear, no gross sensory deficit Assessment:: Degenerative disc disease of lumbar spine with lumbar radiculopathy symptoms, low back pain, lumbar spinal stenosis, neck pain, right hip pain Plan:: Patient has had significant improvements of his low back symptoms following his lumbar epidural and does not require any additional injective therapy. I have counseled the patient to try the compounded cream on his right hip. Patient will return to clinic in 1 month for reevaluation of symptoms and plan of care. Patient has been instructed to contact the clinic with any concerns before the next appointment. Dr. Bux has reviewed this note and agrees with this plan of care. This note was dictated using voice recognition software and make contain errors or omissions. [facility] Disclaimer: The information contained in this section may have been updated after the patient was seen, as this information can be updated by other users. Medical History Anxiety Atrial fibrillation COPD (chronic obstructive pulmonary disease) Dental caries limited to enamel Depression Diabetes mellitus, type 2 Encounter for postoperative care Facial cellulitis History of stroke Hyperlipidemia Hypertension Loss of taste Parotid abscess Swelling of left parotid gland Swelling of right parotid gland Surgical History History of cholecystectomy Hx of cardiac catheterization Family History Other Family history of cancer Family history of hyperlipidemia Family history of hypertension Family history of myocardial infarction Social History Smoking Status: Current every day smoker alcohol intake: never current occupational status: retired Travel in the last 8 weeks: None
[2022-11-25 11:25] VITALS: BP 151/68; PULSE 71; RESP 20; O2SAT 97; BMI 39.1
== END ==
PROVIDERS: PCP Nurse Practitioner Family; Visit Provider Nurse Practitioner Family
DX: M51.16 Intervertebral disc disorders with radiculopathy, lumbar region (principal); M54.50 Low back pain, unspecified; M48.061 Spinal stenosis, lumbar region without neurogenic claudication; M54.2 Cervicalgia; M25.551 Pain in right hip
CPT/HCPCS: 99212; G0463

== ENCOUNTER → 2022-12-20 11:10 | Outpatient (POV) | payer OTHER, SELFPAY ==
[2022-12-20 11:16] VITALS: BP 139/74; PULSE 78; RESP 20; BMI 39.3
--- NOTE | 2022-12-20 11:30 | EXP.PAIN.SOA ---
[facility] Pain Management SOAP Note Subjective:: Patient is a pleasant 62-year-old male who presents today for 1 month follow-up. We are currently treating the patient for degenerative disc disease of lumbar spine with lumbar radiculopathy symptoms, low back pain, lumbar spinal stenosis, neck pain. Today he rates his pain a 5 out of 10. Patient denies any new trauma or injury. He denies any change location or type of pain he experiences. He did previously have a lumbar epidural back in the middle of October at L4-L5 that did provide at least 85% improvement. He does state during today's visit that he feels like he is back to his baseline. He does state that he continues to have pain in his low back and legs along with his right hip. Patient is currently managed with gabapentin 600 mg 3 times a day. He states he does not notice significant improvement with this medication and in the past was given tramadol 50 mg with approximately 30 tablets. He states he did not notice additional relief with this medication either. Patient is currently managed with tizanidine 4 mg twice daily however he states minimal relief with this. He is on Xarelto daily for history of A-fib. His Matthew is [id number]. Its been reviewed and appropriate. Review of Systems: General: No recent weight changes, no fever, no sleep disturbances Respiratory: No cough, no shortness of air, no recurring pulmonary infections Cardiovascular/peripheral vascular: No chest pain, no palpitations, no edema, no shortness of breath Gastrointestinal: No new onset incontinence, normal bowel movements reported Genitourinary: No new onset incontinence Musculoskeletal: Low back pain, leg pain Psychiatric: [Normal mood/affect] Neurological: [Denies weakness in extremities], [denies balance issues] Objective:: Physical Exam: General: Alert and oriented x3, no acute distress, pleasant and cooperative Lungs: Respirations even and unlabored, symmetrical chest expansion Eyes: PERRL Musculoskeletal: Flexion and extension of lumbar [spine] somewhat guarded secondary to pain, [antalgic gait noted] Neurological: Speech clear, no gross sensory deficit Assessment:: Degenerative disc disease of lumbar spine with lumbar radiculopathy symptoms, low back pain, lumbar spinal stenosis, neck pain Plan:: I will send in a new prescription of methocarbamol 750 mg twice daily and provide a 2-week supply of this medication. I have counseled the patient to contact our office if it does provide significant improvement and he would like additional refills. I have also counseled the patient to stop taking his tizanidine while taking this new medication. Patient will return to clinic in 1 month for reevaluation of symptoms and plan of care. Patient has been instructed to contact the clinic with any concerns before the next appointment. Dr. Read has reviewed this note and agrees with this plan of care. This note was dictated using voice recognition software and make contain errors or omissions. [facility] Disclaimer: The information contained in this section may have been updated after the patient was seen, as this information can be updated by other users. Medical History Anxiety Atrial fibrillation COPD (chronic obstructive pulmonary disease) Dental caries limited to enamel Depression Diabetes mellitus, type 2 Encounter for postoperative care Facial cellulitis History of stroke Hyperlipidemia Hypertension Loss of taste Parotid abscess Swelling of left parotid gland Swelling of right parotid gland Surgical History History of cholecystectomy Hx of cardiac catheterization Family History Other Family history of cancer Family history of hyperlipidemia Family history of hypertension Family history of myocardial infarction Social History (Reviewed
== END | disposition home or self-care (01) ==
PROVIDERS: PCP Nurse Practitioner Family; Visit Provider Nurse Practitioner Family
DX: M51.16 Intervertebral disc disorders with radiculopathy, lumbar region (principal); M48.061 Spinal stenosis, lumbar region without neurogenic claudication; M54.50 Low back pain, unspecified; M54.2 Cervicalgia
CPT/HCPCS: 99212; G0463

== ENCOUNTER → 2022-12-22 12:52 | Outpatient (CLI) | payer OTHER, SELFPAY ==
--- NOTE | 2022-12-22 12:56 | CT_ITS ---
FINAL REPORT CLINICAL HISTORY: H/O TOBACCO USE current smoker- packs x 40 years COMPARISON: None FINDINGS: CT CHEST LOW DOSE SCREENING HISTORY: Screening exam for lung cancer. Current smoker, 40 pack year smoking history DOSE: CTDIvol: 2.9 mGy, DLP: 110.98 mGy*cm COMPARISON: None . TECHNIQUE: Axial CT without IV contrast administration using low dose protocol FINDINGS: No acute lung disease is present . There is an oval right upper lobe nodule measuring up to 5 mm in diameter best seen on axial image #29. There is an ill-defined nodule measuring up to 5 mm in size best seen on axial image #41. Moderate changes of emphysema are present. No pleural or pericardial effusion is seen . No adenopathy is present . IMPRESSION: Two right lung nodules as described above, both 5 mm or smaller in size. Favor benign etiology given evidence of granulomatous disease. LUNG RADS CATEGORY 2 RECOMMENDATION: 12 month LDCT follow up Reviewed, Interpreted and Dictated by Ree Trinidad MD Transcribed by Tova Allred Authenticated and [facility]
== END ==
PROVIDERS: PCP Nurse Practitioner Family; Visit Provider Nurse Practitioner Family
DX: Z87.891 Personal history of nicotine dependence (principal); Z12.2 Encounter for screening for malignant neoplasm of respiratory organs
CPT/HCPCS: 71271

== ENCOUNTER → 2023-01-20 11:08 | Outpatient (POV) | payer OTHER, SELFPAY ==
--- NOTE | 2023-01-20 11:52 | EXP.PAIN.SOA ---
[facility] Pain Management SOAP Note Subjective:: Patient is a pleasant 62-year-old male who presents today for follow-up and medication refill. We are currently treating the patient for degenerative disc disease of lumbar spine with lumbar radiculopathy symptoms, low back pain, lumbar spinal stenosis, neck pain. Patient does rate his pain today a 4 out of 10. Patient states that he has had 2 recent falls in the last 2 weeks. Patient states he was walking in his bedroom and tripped over an air conditioner falling onto a dresser the first time. He states then this week he was at the pharmacy to parts picker his 's medication when he fell down the stairs. Patient does state that he is having some increased neck soreness and the chronic low back pain however he states he does not think he fractured anything during these falls. Patient has been previously prescribed methocarbamol 750 mg twice a day and he states this medication has been helping. Patient is currently managed with gabapentin 600 mg 3 times a day from his primary care doctor and has tried tramadol in the past with some improvement. Patient does have a history of A-fib and is on Xarelto daily. He is Matthew is [id number]. Its been reviewed and appropriate. Review of Systems: General: No recent weight changes, no fever, no sleep disturbances Respiratory: No cough, no shortness of air, no recurring pulmonary infections Cardiovascular/peripheral vascular: No chest pain, no palpitations, no edema, no shortness of breath Gastrointestinal: No new onset incontinence, normal bowel movements reported Genitourinary: No new onset incontinence Musculoskeletal: Neck pain, low back pain Psychiatric: [Normal mood/affect] Neurological: [Denies weakness in extremities], [denies balance issues] Objective:: Physical Exam: General: Alert and oriented x3, no acute distress, pleasant and cooperative Lungs: Respirations even and unlabored, symmetrical chest expansion Eyes: PERRL Musculoskeletal: Flexion and extension of lumbar [spine] somewhat guarded secondary to pain, [antalgic gait noted] Neurological: Speech clear, no gross sensory deficit Assessment:: Degenerative disc disease of lumbar spine with lumbar radiculopathy symptoms, low back pain, lumbar spinal stenosis, neck pain Plan:: Patient is experiencing significant pain in his neck around his left occipital and continued pain in his low back. Patient did have limited range of motion of his lumbar spine during today's visit. I have discussed with the patient that he may benefit from a left occipital nerve block or even lumbar epidural steroid injection however at this time he would like to wait due to his current blood thinner use. I will refill his methocarbamol 750 mg twice daily and provide a 2-month supply of this medication. I will also send in a 5-day dose of prednisone 20 mg twice daily. Patient will return to clinic in 2 months for reevaluation of symptoms and plan of care. Patient has been instructed to contact the clinic with any concerns before the next appointment. Dr. Read has reviewed this note and agrees with this plan of care. This note was dictated using voice recognition software and make contain errors or omissions. [facility] Disclaimer: The information contained in this section may have been updated after the patient was seen, as this information can be updated by other users. Medical History Anxiety Atrial fibrillation COPD (chronic obstructive pulmonary disease) Dental caries limited to enamel Depression Diabetes mellitus, type 2 Encounter for postoperative care Facial cellulitis History of stroke Hyperlipidemia Hypertension Loss of taste Parotid abscess Swelling of left parotid gland Swelling of right parotid gland Surgical History History of cholecystectomy Hx of cardiac catheterization Family History (Reviewe
[2023-01-20 12:29] VITALS: BP 151/73; PULSE 68; RESP 18; O2SAT 97; BMI 27.1
== END | disposition home or self-care (01) ==
PROVIDERS: PCP Nurse Practitioner Family; Visit Provider Nurse Practitioner Family
DX: M51.16 Intervertebral disc disorders with radiculopathy, lumbar region (principal); M48.061 Spinal stenosis, lumbar region without neurogenic claudication; M54.2 Cervicalgia
CPT/HCPCS: 99212; G0463

== ENCOUNTER → 2023-03-21 14:54 | Outpatient (POV) | payer OTHER, SELFPAY ==
--- NOTE | 2023-03-21 15:19 | A.OFFVIS_ITS ---
[facility] Pain Management SOAP Note Subjective:: This patient is a pleasant 62-year-old male that comes our clinic today for medication refills we currently treat the patient for degenerative disc lumbar spine multilevels. Lumbar radiculopathy. Chronic low back pain. Left hip pain. Lumbar spinal stenosis. Cervical neck pain. Patient rates his pain today 7/10. Patient's main complaint today is right knee pain. Upon examination he has moderate to large effusion right knee joint. Patient states the pain is constant, dull, sharp, stabbing. He is having difficulty ambulating due to right knee pain. Patient uses a walking stick for stability. We discussed in detail right knee aspiration with injection of cortisone. He wishes to proceed. Patient was previously prescribed Robaxin-750 milligrams 1 p.o. twice daily. However, patient states today it does not help. He continues taking gabapentin 600 mg 1 p.o. 3 times daily from his primary care doctor. His Matthew #[id number] has been reviewed and appropriate. Patient continues on Xarelto for chronic atrial fibrillation. Objective:: Patient is awake alert [place] x3. In no acute distress. Flexion-extension lumbar spine somewhat guarded secondary to pain. Deep tendon reflexes upper and lower extremities normal. Motor strength upper and lower extremities normal. There is no gross sensory deficit. Gait is normal. Assessment:: Degenerative disc lumbar spine multilevels. Lumbar radiculopathy. Right knee pain secondary to effusion. Chronic low back pain Plan:: Discussed in detail with the patient regarding right knee aspiration with injection of cortisone. He wishes to proceed. [facility] Disclaimer: The information contained in this section may have been updated after the patient was seen, as this information can be updated by other users. Medical History Anxiety Atrial fibrillation COPD (chronic obstructive pulmonary disease) Dental caries limited to enamel Depression Diabetes mellitus, type 2 Encounter for postoperative care Facial cellulitis History of stroke Hyperlipidemia Hypertension Loss of taste Parotid abscess Swelling of left parotid gland Swelling of right parotid gland Surgical History History of cholecystectomy Hx of cardiac catheterization Family History Other Family history of cancer Family history of hyperlipidemia Family history of hypertension Family history of myocardial infarction Social History Smoking Status: Current every day smoker alcohol intake: never substance use type: denies use current occupational status: retired Travel in the last 8 weeks: None
[2023-03-21 15:22] VITALS: BP 146/63; PULSE 72; RESP 18; O2SAT 94; BMI 39.9
== END ==
PROVIDERS: PCP Nurse Practitioner Family; Visit Provider Nurse Anesthetist, Certified Registered
DX: M51.16 Intervertebral disc disorders with radiculopathy, lumbar region (principal); M25.552 Pain in left hip; M48.061 Spinal stenosis, lumbar region without neurogenic claudication; M25.461 Effusion, right knee; M25.561 Pain in right knee; G89.29 Other chronic pain
CPT/HCPCS: 99212; G0463

== ENCOUNTER 2023-04-05 08:53 | Day surgery (SDC) | payer OTHER, SELFPAY ==
[2023-04-05 09:20] VITALS: BP 144/71; PULSE 72; RESP 18; TEMP 36.7; O2SAT 91; BMI 40.2
[2023-04-05 09:22] VITALS: BP 138/63; PULSE 72; RESP 20; O2SAT 94
[2023-04-05 09:30] VITALS: BP 138/63; BP 138/69; PULSE 60; PULSE 66; RESP 16; RESP 20; O2SAT 92; O2SAT 97
--- NOTE | 2023-04-05 09:33 | EXP.PAIN.PRO ---
Procedure Date: 04/05/23 Time: 09:20 Anesthesiologist:: Arian Nolan CRNA Complications:: None Pre-procedure Diagnosis:: DJD right knee. Chronic right knee pain. Post-procedure Diagnosis:: Same. Indications for Procedure:: Patient is a pleasant 62-year-old male that comes our clinic today for a right intra-articular knee injection. Patient has right knee pain he describes as constant, dull, aching. Patient states ambulating is extremely difficult secondary to right knee pain. He rates his pain 7/10. Procedure Details:: Procedure Details: Bilateral intra-articular knee injection Informed consent was obtained risk and benefits of the procedure were explained to the patient. Patient was taken the procedure room the right knee was using ChloraPrep. A 25-gauge needle was used to inject 10 mL bupivacaine 0.25% and Depo-Medrol 40 mg into each knee. The patient tolerated the procedure well with no complications. Plan and Disposition:: Patient was discharged without incident.
== END 2023-04-05 09:30 | disposition home or self-care (01) ==
PROVIDERS: PCP Nurse Practitioner Family; Visit Provider Nurse Anesthetist, Certified Registered
DX: M17.11 Unilateral primary osteoarthritis, right knee (principal); M25.561 Pain in right knee; G89.29 Other chronic pain
CPT/HCPCS: 20610; J1040

== ENCOUNTER 2023-04-09 15:14 | Emergency (ER) | payer OTHER, SELFPAY ==
[2023-04-09 15:25] VITALS: BP 141/86; PULSE 69; RESP 18; TEMP 36.6; O2SAT 98; BMI 42.2
--- NOTE | 2023-04-09 15:28 | XR_ITS ---
PROCEDURE INFORMATION: Exam: XR Left Hand Exam date and time: 04/09/2023 3:27 PM Age: 62 years old Clinical indication: Injury or trauma; Other: Cut with saw; Laceration; Finger; Left; Thumb; Additional info: Lac to thumb TECHNIQUE: Imaging protocol: Radiologic exam of the left hand. Views: 3 or more views. COMPARISON: No relevant prior studies available. FINDINGS: Bones/joints: No acute fracture or dislocation. Soft tissues: Soft tissue injury at the distal 1st digit. No radiopaque foreign bodies. IMPRESSION: 1. No acute osseous abnormality. 2. No radiopaque foreign bodies.
--- NOTE | 2023-04-09 15:43 | EXP.UTC ---
Discharge Plan Disposition Patient Disposition: Home, Self-Care Condition: Good Prescriptions Prescriptions: New cephalexin 500 mg tablet 500 mg PO Q8H 7 Days Qty: 21 0RF No Action propafenone [Rythmol SR] 425 mg capsule,extended release 12 hr 425 mg PO Q12H montelukast [Singulair] 10 mg tablet 10 mg PO QPM potassium chloride 10 mEq capsule, extended release 10 meq PO BID amlodipine 10 mg tablet 10 mg PO DAILY tramadol 50 MG tablet 50 mg PO TID PRN (Reason: Moderate Pain) 30 Days Qty: 180 0RF Rx Instructions: Tramadol 50 mg 2 tablets by mouth three times daily prn pain gabapentin 600 mg tablet 600 mg PO TID Patient Comments: TAKE ONE TABLET BY MOUTH THREE TIMES DAILY MAY CAUSE DROWSINESS atorvastatin 20 mg tablet 20 mg PO DAILY bumetanide 2 mg tablet 2 mg PO DAILY Patient Comments: TAKE ONE TABLET BY MOUTH EVERY DAY tizanidine 4 mg tablet 4 mg PO BID omeprazole 40 mg Capsule,Delayed Release(Dr/Ec) 40 mg PO DAILY lisinopril 40 mg tablet 40 mg PO DAILY sertraline 50 mg tablet 50 mg PO DAILY Xarelto 20 mg tablet 20 mg PO DAILY Patient Comments: TAKE ONE TABLET BY MOUTH ONCE DAILY with THE evening meal Trelegy Ellipta 100-62.5-25 mcg blister with device 1 inh INHALATION DAILY metoprolol tartrate 100 mg Tablet 100 mg PO BID trazodone 50 mg Tablet 50 mg PO HS prednisone 20 mg tablet 20 mg PO BID Qty: 10 0RF methocarbamol 750 mg tablet 750 mg PO BID metronidazole 500 mg tablet 500 mg PO Q6H Referrals Follow up/Referrals: Jason Mas DO [Staff Physician] - See instructions (Call office for appointment) Judith Reno [Primary Care Provider] - See instructions Activity Restrictions/Add. Instructions Additional Instructions/Restrictions: Clean wound with antibacterial soap and water, apply petroleum jelly to the wound, and cover with nonstick bandage at least daily and more often if bandage gets dirty or bleeding Do not soak finger in water Follow up with Orthopedics as recommended Follow up with your Family Doctor DO NOT USE PEROXIDE on the wound this could damage healthy skin Straight to ER if any life threatening symptoms Clinical Impressions Clinical Impression: Avulsion of skin of right thumb Qualifiers: Encounter type: initial encounter Qualified Code(s): S61.001A - Unspecified open wound of right thumb without damage to nail, initial encounter Instructions Patient Instructions: DI for Avulsion Laceration (Not Requiring Sutures) Discharge ED Provider: Cleo Cordon [facility] HPI General Stated complaint: AO 04/09/23 1445 Laceration Left Thumb Mode of Arrival: Ambulatory Source of Information: Patient Limitations: No Limitations Time Seen by Provider: 04/09/23 15:43 Description of Symptoms (Recalled from Triage Doc. by RN): PATIENT REPORTS HE CUT TIP OF LEFT THUMB OFF WHILE USING A TABLE SAW TODAY. NEEDS TDAP HEENT Symptoms (Recalled from RN notes): No Resp Symptoms (Recalled from RN notes): No Skin Symptoms (Recalled from RN notes): Yes MS Symptoms (Recalled from RN notes): No Functional Status (Recalled from RN notes): WNL History of Present Illness Provider Complaint: Patient states that he was using a table saw earlier and his hand slipped and he cut a large piece of skin off the side of the pad of his right thumb States that he is on Xarelto but was off of it for a couple of days States that he knew he needed a tetanus shot so he came in to get it looked at States that it hasnt been bleeding that much just wasserman a little Related Data Home Medications Medication Instructions Recorded Confirmed montelukast 10 mg tablet 10 mg PO QPM Breathing problems 11/17/17 04/05/23 (Singulair) potassium chloride 10 mEq 10 meq PO BID Supplement 11/17/17 04/05/23 capsule,extended release propafenone 425 mg 425 mg PO Q12H Heart disease 11/17/1704/05
[2023-04-09 16:27] VITALS: BP 141/86; PULSE 69; RESP 18; TEMP 36.6; O2SAT 98
== END 2023-04-09 16:30 | disposition home or self-care (01) ==
PROVIDERS: Emergency Provider Nurse Practitioner; PCP Nurse Practitioner Family
DX: S61.002A Unspecified open wound of left thumb without damage to nail, initial encounter (principal); F17.210 Nicotine dependence, cigarettes, uncomplicated; J44.9 Chronic obstructive pulmonary disease, unspecified; I48.0 Paroxysmal atrial fibrillation; I10 Essential (primary) hypertension; E78.5 Hyperlipidemia, unspecified; W31.2XXA Contact with powered woodworking and forming machines, initial encounter
CPT/HCPCS: 73130; 90715; 96372; 99204; 99212; G0463

== ENCOUNTER → 2023-04-18 12:59 | Outpatient (POV) | payer OTHER, SELFPAY ==
[2023-04-18 13:20] VITALS: BP 99/75; PULSE 61; RESP 20; O2SAT 94; BMI 39.6
--- NOTE | 2023-04-18 13:30 | EXP.PAIN.SOA ---
[facility] Pain Management SOAP Note Subjective:: Patient is a pleasant 62-year-old male who presents today for follow-up of right intra-articular knee injection on 04/05/2023. We are currently treating the patient for degenerative disc disease of lumbar spine with lumbar radiculopathy symptoms, lumbar spinal stenosis, chronic low back pain, left hip pain, right knee pain. Today he rates his pain a 5 out of 10. Patient denies any new trauma or injury. He does state that he has had 100% improvement in his right knee following this injection. He states it is still continuing to provide additional relief however he is experiencing more back pain and left buttocks pain. He does describe this as an aching, throbbing sensation that is worse with increased activity. Patient is currently managed with methocarbamol 750 mg twice a day. He denies any side effects from this medication however he states he does not notice significant relief. He is also managed with gabapentin 600 mg 3 times a day from his PCP and is on Xarelto for chronic A-fib. His Matthew has been reviewed and is appropriate. Review of Systems: General: No recent weight changes, no fever, no sleep disturbances Respiratory: No cough, no shortness of air, no recurring pulmonary infections Cardiovascular/peripheral vascular: No chest pain, no palpitations, no edema, no shortness of breath Gastrointestinal: No new onset incontinence, normal bowel movements reported Genitourinary: No new onset incontinence Musculoskeletal: Low back pain, buttocks pain Psychiatric: [Normal mood/affect] Neurological: [Denies weakness in extremities], [denies balance issues] Objective:: Physical Exam: General: Alert and oriented x3, no acute distress, pleasant and cooperative Lungs: Respirations even and unlabored, symmetrical chest expansion Eyes: PERRL Musculoskeletal: Flexion and extension of lumbar [spine] somewhat guarded secondary to pain, [antalgic gait noted] Neurological: Speech clear, no gross sensory deficit Assessment:: Degenerative disc disease of lumbar spine with lumbar radiculopathy symptoms, lumbar spinal stenosis, chronic low back pain, left hip pain, right knee pain, left buttocks pain Plan:: Patient continues to experience significant low back pain with limited range of motion. I have discussed with the patient that we will discontinue his methocarbamol and send in a 2-week supply of Skelaxin 800 mg twice daily. Patient will return to clinic in 2 weeks for reevaluation of symptoms and plan of care. Patient has been instructed to contact the clinic with any concerns before the next appointment. Dr. Read has reviewed this note and agrees with this plan of care. This note was dictated using voice recognition software and make contain errors or omissions. [facility] Disclaimer: The information contained in this section may have been updated after the patient was seen, as this information can be updated by other users. Medical History Anxiety Atrial fibrillation COPD (chronic obstructive pulmonary disease) Dental caries limited to enamel Depression Diabetes mellitus, type 2 Encounter for postoperative care Facial cellulitis History of stroke Hyperlipidemia Hypertension Loss of taste Parotid abscess Swelling of left parotid gland Swelling of right parotid gland Surgical History History of cholecystectomy Hx of cardiac catheterization Family History Other Family history of cancer Family history of hyperlipidemia Family history of hypertension Family history of myocardial infarction Social History Smoking Status: Current every day smoker alcohol intake: never substance use type: denies use current occupational status: retired Travel in the last 8 we
== END | disposition home or self-care (01) ==
PROVIDERS: PCP Nurse Practitioner Family; Visit Provider Nurse Practitioner Family
DX: M51.16 Intervertebral disc disorders with radiculopathy, lumbar region (principal); M48.061 Spinal stenosis, lumbar region without neurogenic claudication; M54.50 Low back pain, unspecified; G89.29 Other chronic pain; M25.552 Pain in left hip; M25.561 Pain in right knee; M79.18 Myalgia, other site
CPT/HCPCS: 99212; G0463

== ENCOUNTER → 2023-04-27 14:13 | Outpatient (POV) | payer OTHER, SELFPAY ==
--- NOTE | 2023-04-27 14:17 | EXP.PAIN.SOA ---
[facility] Pain Management SOAP Note Subjective:: Patient is a pleasant 62-year-old male who presents today for 2-week follow-up. We are currently treating the patient for degenerative disc disease of lumbar spine with lumbar radiculopathy symptoms, lumbar spinal stenosis, chronic low back pain, left hip pain, right knee pain. Today he rates his pain a 8 out of 10. Patient states from our last visit he did experience a bad stumble. Patient states that he was in the house and tripped over a bag of garbage on the floor which caused him to stumble awkwardly but he did not actually end up falling. Patient does believe he may have pulled something and has been experiencing significant pain along his low back and into his right buttocks. Patient does state that he has been using the muscle relaxer with some improvement as well using heat and massage. Patient does state that the new muscle relaxer did seem to work better than the last 1. He is requesting refills at today's visit. Patient is currently managed with Skelaxin 800 mg twice a day from our office and gabapentin 600 mg 3 times a day from his PCP. His Matthew has been reviewed and is appropriate. Review of Systems: General: No recent weight changes, no fever, no sleep disturbances Respiratory: No cough, no shortness of air, no recurring pulmonary infections Cardiovascular/peripheral vascular: No chest pain, no palpitations, no edema, no shortness of breath Gastrointestinal: No new onset incontinence, normal bowel movements reported Genitourinary: No new onset incontinence Musculoskeletal: Low back pain, buttocks pain Psychiatric: [Normal mood/affect] Neurological: [Denies weakness in extremities], [denies balance issues] Objective:: Physical Exam: General: Alert and oriented x3, no acute distress, pleasant and cooperative Lungs: Respirations even and unlabored, symmetrical chest expansion Eyes: PERRL Musculoskeletal: Flexion and extension of lumbar [spine] somewhat guarded secondary to pain, [antalgic gait noted] Neurological: Speech clear, no gross sensory deficit Assessment:: Degenerative disc disease of lumbar spine with lumbar radiculopathy symptoms, lumbar spinal stenosis, chronic low back pain, left hip pain, right knee pain Plan:: Patient is experiencing worsening pain into his right buttocks around his sacrum. I have discussed with the patient in future if this pain does not get better with additional muscle relaxers and a 5-day dose of oral prednisone 20 mg twice daily that he may benefit from a caudal epidural. Risk and benefits were discussed with the patient and we will follow-up in 2 weeks for reevaluation of symptoms and plan of care. Patient will also be refilled on his Skelaxin 800 mg 3 times a day and given a 1 month supply of this medication. Patient has been instructed to contact the clinic with any concerns before the next appointment. Dr. Read has reviewed this note and agrees with this plan of care. This note was dictated using voice recognition software and make contain errors or omissions. [facility] Disclaimer: The information contained in this section may have been updated after the patient was seen, as this information can be updated by other users. Medical History Anxiety Atrial fibrillation COPD (chronic obstructive pulmonary disease) Dental caries limited to enamel Depression Diabetes mellitus, type 2 Encounter for postoperative care Facial cellulitis History of stroke Hyperlipidemia Hypertension Loss of taste Parotid abscess Swelling of left parotid gland Swelling of right parotid gland Surgical History History of cholecystectomy Hx of cardiac catheterization Family History Other Family history of cancer Family history of hyperlipidemia Family history of hypertension Family history of m
[2023-04-27 15:33] VITALS: BP 142/73; PULSE 67; RESP 18; O2SAT 94; BMI 39.6
== END | disposition home or self-care (01) ==
PROVIDERS: PCP Nurse Practitioner Family; Visit Provider Nurse Practitioner Family
DX: M51.16 Intervertebral disc disorders with radiculopathy, lumbar region (principal); M48.061 Spinal stenosis, lumbar region without neurogenic claudication; M54.50 Low back pain, unspecified; G89.29 Other chronic pain; M25.552 Pain in left hip; M25.561 Pain in right knee
CPT/HCPCS: 99212; G0463

== ENCOUNTER → 2023-05-12 10:54 | Outpatient (POV) | payer OTHER, SELFPAY ==
--- NOTE | 2023-05-12 11:01 | EXP.PAIN.SOA ---
[facility] Pain Management SOAP Note Subjective:: Patient is a pleasant 62-year-old male who presents today for 2-week follow-up. We are currently treating the patient for degenerative disc disease of lumbar spine with lumbar radiculopathy symptoms, lumbar spinal stenosis, chronic low back pain, left hip pain, right knee pain. Today he rates his pain a 6 out of 10. Patient denies any new trauma or injury since his last visit. At his last appointment he had almost had a fall which caused significant pain due to tensing up his muscles. He was given a dose of oral steroids. Patient states today that this did help. He states he does still have pain in his low back that does radiate down into his legs. He does describe this as a chronic achy, throbbing sensation with tingling into his extremities. Patient does state the pain interferes with his ability perform activities of daily living such as cooking and cleaning. He is currently managed with Skelaxin 800 mg 3 times a day from our office and gabapentin 600 mg 3 times a day from his PCP. Patient is currently managed with Xarelto for history of cardiac issues. Patient does see [facility] at [facility]. His Matthew has been reviewed and is appropriate. Review of Systems: General: No recent weight changes, no fever, no sleep disturbances Respiratory: No cough, no shortness of air, no recurring pulmonary infections Cardiovascular/peripheral vascular: No chest pain, no palpitations, no edema, no shortness of breath Gastrointestinal: No new onset incontinence, normal bowel movements reported Genitourinary: No new onset incontinence Musculoskeletal: Low back pain, bilateral leg pain Psychiatric: [Normal mood/affect] Neurological: [Denies weakness in extremities], [denies balance issues] Objective:: Physical Exam: General: Alert and oriented x3, no acute distress, pleasant and cooperative Lungs: Respirations even and unlabored, symmetrical chest expansion Eyes: PERRL Musculoskeletal: Flexion and extension of lumbar [spine] somewhat guarded secondary to pain, [antalgic gait noted] Neurological: Speech clear, no gross sensory deficit Assessment:: Degenerative disc disease of lumbar spine with lumbar radiculopathy symptoms, lumbar spinal stenosis, chronic low back pain, left hip pain, right knee pain Plan:: Patient is experiencing worsening pain in his low back and legs with limited range of motion of his lumbar spine. I have discussed with patient that he may benefit from a lumbar epidural. Risk and benefits were discussed with the patient and he would like to proceed forward with this plan of care. Patient is currently on blood thinners and we will have to stop this medication prior to this injection. Patient acknowledges this understanding. We will schedule the patient for an LESI L5-S1. Patient has been instructed to contact the clinic with any concerns before the next appointment. Dr. Read has reviewed this note and agrees with this plan of care. This note was dictated using voice recognition software and make contain errors or omissions. Patient has been instructed to contact the clinic with any concerns before the next appointment. Dr. Read has reviewed this note and agrees with this plan of care. This note was dictated using voice recognition software and make contain errors or omissions. [facility] Disclaimer: The information contained in this section may have been updated after the patient was seen, as this information can be updated by other users. Medical History Anxiety Atrial fibrillation COPD (chronic obstructive pulmonary disease) Dental caries limited to enamel Depression Diabetes mellitus, type 2 Encounter for postoperative care Facial cellulitis History of stroke Hyperlipidemia Hypertension Loss of taste Parotid abscess Swelling of left parotid gland Swelling of right parotid gland Surgical History (Reviewed
[2023-05-12 11:31] VITALS: BP 153/69; PULSE 83; RESP 20; O2SAT 95; BMI 37.7
== END ==
PROVIDERS: PCP Nurse Practitioner Family; Visit Provider Nurse Practitioner Family
DX: M51.16 Intervertebral disc disorders with radiculopathy, lumbar region (principal); M48.061 Spinal stenosis, lumbar region without neurogenic claudication; M54.50 Low back pain, unspecified; G89.29 Other chronic pain; M25.552 Pain in left hip; M25.561 Pain in right knee
CPT/HCPCS: 99212; G0463

== ENCOUNTER → 2023-05-19 09:18 | Outpatient (POV) | payer OTHER, SELFPAY ==
[2023-05-19 09:44] VITALS: BP 151/70; PULSE 80; RESP 18; O2SAT 92; BMI 37.6
--- NOTE | 2023-05-19 10:31 | EXP.PAIN.SOA ---
[facility] Pain Management SOAP Note Subjective:: Patient is a pleasant 62-year-old male who presents today for follow-up. We are currently treating the patient for degenerative disc disease of lumbar spine with lumbar radiculopathy symptoms, lumbar spinal stenosis, chronic low back pain, left hip pain, right knee pain, buttocks pain. Today he rates his pain a 10 out of 10. Patient states that a few days ago he was playing with his grandchild when he felt like he pulled something in his low back. Patient states the pain has continued and even hurts when he is sitting or lying down. He does describe this as an aching, throbbing sensation that is almost constant. He states the pain does interfere with his ability perform activities of daily living such as cooking and cleaning. Patient feels like he may have worsened his overall back issues and is concerned that something more severe may have happened. He is already scheduled for a lumbar epidural in May. Patient did recently get prescribed oral steroids due to a stumble that caused a pulled muscle. Patient is currently managed with Skelaxin 800 mg 3 times a day from our office and gabapentin 600 mg 3 times a day from his primary care provider. Patient does have a history of cardiac issues and does not take any NSAIDs. His Matthew has been reviewed and is appropriate. Review of Systems: General: No recent weight changes, no fever, no sleep disturbances Respiratory: No cough, no shortness of air, no recurring pulmonary infections Cardiovascular/peripheral vascular: No chest pain, no palpitations, no edema, no shortness of breath Gastrointestinal: No new onset incontinence, normal bowel movements reported Genitourinary: No new onset incontinence Musculoskeletal: Low back pain, buttocks pain, leg pain Psychiatric: [Normal mood/affect] Neurological: [Denies weakness in extremities], [denies balance issues] Objective:: Physical Exam: General: Alert and oriented x3, no acute distress, pleasant and cooperative Lungs: Respirations even and unlabored, symmetrical chest expansion Eyes: PERRL Musculoskeletal: Flexion and extension of lumbar [spine] somewhat guarded secondary to pain, [antalgic gait noted] Neurological: Speech clear, no gross sensory deficit Assessment:: Degenerative disc disease of lumbar spine with lumbar radiculopathy symptoms, lumbar spinal stenosis, chronic low back pain, left hip pain, right knee pain, buttocks pain Plan:: Due to the patient next year and seen worsening low back and leg symptoms related to a recent injury I have discussed with the patient that I will order updated imaging including x-ray and MRI without contrast of his lumbar spine. I will send in a temporary dose of [place] 5 mg twice daily for 2 weeks until he can come in for his lumbar epidural. Patient will follow-up at that visit for reevaluation of symptoms and plan of care. Patient has been advised of risks of oversedation with the prescribed medication. Narcan has been offered to the patient in the event of oversedation. Patient has been advised that a family member should also be educated regarding administration of Narcan. Patient has been instructed to contact the clinic with any concerns before the next appointment. Dr. Read has reviewed this note and agrees with this plan of care. This note was dictated using voice recognition software and make contain errors or omissions. [facility] Disclaimer: The information contained in this section may have been updated after the patient was seen, as this information can be updated by other users. Medical History (Reviewed 05/25/22 @ 15:20 by Marie Perez [facility]) Anxiety Atrial fibrillation COPD (chronic obstructive pulmonary disease) Dental caries limited to enamel Depression Diabetes mellitus, type 2 Encounter for postoperative care Facial cellulitis History of stroke Hyperlipidemia Hypertension Loss of taste Parotid abscess Swelling of left parotid gland
== END | disposition home or self-care (01) ==
PROVIDERS: PCP Nurse Practitioner Family; Visit Provider Nurse Practitioner Family
DX: M51.16 Intervertebral disc disorders with radiculopathy, lumbar region (principal); M48.061 Spinal stenosis, lumbar region without neurogenic claudication; G89.29 Other chronic pain; M25.552 Pain in left hip; M25.561 Pain in right knee; M79.18 Myalgia, other site
CPT/HCPCS: 99212; G0463

== ENCOUNTER 2023-05-31 14:36 | Outpatient (CLI) | payer OTHER, SELFPAY ==
--- NOTE | 2023-05-31 14:43 | XR_ITS ---
FINAL REPORT CLINICAL HISTORY: low back pain COMPARISON: None FINDINGS: 5 views of the lumbar spine were obtained. There is no evidence of fracture or dislocation. The vertebral alignment is normal. Moderate to severe degenerative change is present in the intervertebral discs, with vacuum phenomenon present at the L4-5 and L5-S1 levels. Vascular calcification is present. No paraspinous soft tissue abnormalities identified. IMPRESSION: No acute bony abnormality. Moderate to severe degenerative change as described. Reviewed, Interpreted and Dictated by Michael Duke III, MD Transcribed by Tova Allred Authenticated and [facility]
== END 2023-05-31 23:59 ==
LOC: RAD 14:37
PROVIDERS: PCP Nurse Practitioner Family; Visit Provider Nurse Practitioner Family
DX: M54.50 Low back pain, unspecified (principal)
CPT/HCPCS: 72110

== ENCOUNTER 2023-06-07 10:50 | Day surgery (SDC) | payer OTHER, SELFPAY ==
[2023-06-07 11:07] VITALS: BP 152/75; PULSE 75; RESP 16; O2SAT 91; BMI 34.9
[2023-06-07 11:15] VITALS: BP 157/85; PULSE 72; RESP 16; O2SAT 91
--- NOTE | 2023-06-07 11:32 | EXP.PAIN.PRO ---
Procedure Date: 06/07/23 Time: 11:00 Anesthesiologist:: Arian Nolan CRNA Complications:: None Pre-procedure Diagnosis:: Degenerative disc lumbar spine multilevels. Lumbar radiculopathy. Post-procedure Diagnosis:: Same. Indications for Procedure:: Patient is a very pleasant 62-year-old male that comes our clinic today for a lumbar epidural steroid injection. Patient reports low back pain as well as bilateral hip and leg radicular symptoms at times. He rates his pain 9/10. Procedure Details:: Procedure: Lumbar epidural steroid injection under fluoroscopy Informed consent was obtained and the risks and benefits of the procedure were explained to the patient. The patient was taken to the procedure room and noninvasive monitors placed, including noninvasive blood pressure cuff and pulse oximeter. The back was viewed using C-arm Fluoroscopy and prepped using Chloraprep as a cleansing solution and the L4-L5 interspace was palpated. Skin and subcutaneous tissues were anesthetized using lidocaine 1.5% and a 25-gauge needle. After this, an 18-gauge Touhy epidural needle was placed into the L4-L5 interspace and advanced using fluoroscopic guidance and loss of resistance to air until the epidural space was encountered. After confirmation of needle placement in the epidural space, with dye, a solution containing normal saline, 3 mL and Depo-Medrol 80 mg were incrementally injected into the lumbar epidural space. The patient tolerated the procedure well with no complications. The patient was observed in the Pain Clinic and then discharged home neurologically intact. Plan and Disposition:: Patient was discharged without incident.
[2023-06-07] MEDS: methylPREDNISolone ACETATE 80MG/ML VIAL 80 MG (12:05)
[2023-06-07] MEDS: LIDOCAINE 1% 5ML PF VIAL (12:05)
[2023-06-07 12:06] VITALS: BP 149/82; PULSE 81; RESP 20; O2SAT 93
[2023-06-07] MEDS: BUPIVACAINE 0.25% 10ML INJ IJ (12:06)
[2023-06-07 12:07] VITALS: BP 149/82; PULSE 81; RESP 20; O2SAT 93
== END 2023-06-07 11:15 | disposition home or self-care (01) ==
PROVIDERS: PCP Nurse Practitioner Family; Visit Provider Nurse Anesthetist, Certified Registered
DX: M51.16 Intervertebral disc disorders with radiculopathy, lumbar region (principal)
CPT/HCPCS: 62323; J1040

== ENCOUNTER → 2023-06-22 10:48 | Outpatient (POV) | payer OTHER, SELFPAY ==
--- NOTE | 2023-06-22 11:18 | EXP.PAIN.SOA ---
[facility] Pain Management SOAP Note Subjective:: Patient is a pleasant 62-year-old male who presents today for follow-up of lumbar epidural steroid injection L4-L5 on 06/07/2023. We are currently treating the patient for degenerative disc disease of lumbar spine with lumbar radiculopathy symptoms, lumbar spinal stenosis, chronic low back pain, left hip pain, right knee pain, buttocks pain. Today he rates his pain a 6 out of 10. Patient states that the injection was working really well and that he had approximately 50% improvement for more lasting up to 5 days however his furnace went out and he went out into the snow where he did fall. Patient states that he felt like it did take away all the improvement he had with the injection and does describe his pain as a constant aching, throbbing sensation. Patient does state the pain interferes with his ability perform activities of daily living. Patient is scheduled for his MRI of his lumbar spine on Tuesday. Patient has been prescribed Skelaxin 800 mg 3 times a day from our office along with [place] 5 mg twice a day for 2 weeks. Patient denies any side effects from these medications and does state that they did help. He is also prescribed gabapentin 600 mg 3 times a day from his PCP. His Matthew reviewed and is appropriate. Review of Systems: General: No recent weight changes, no fever, no sleep disturbances Respiratory: No cough, no shortness of air, no recurring pulmonary infections Cardiovascular/peripheral vascular: No chest pain, no palpitations, no edema, no shortness of breath Gastrointestinal: No new onset incontinence, normal bowel movements reported Genitourinary: No new onset incontinence Musculoskeletal: Low back pain Psychiatric: [Normal mood/affect] Neurological: [Denies weakness in extremities], [denies balance issues] Objective:: Physical Exam: General: Alert and oriented x3, no acute distress, pleasant and cooperative Lungs: Respirations even and unlabored, symmetrical chest expansion Eyes: PERRL Musculoskeletal: Flexion and extension of lumbar [spine] somewhat guarded secondary to pain, [antalgic gait noted] Neurological: Speech clear, no gross sensory deficit Assessment:: Degenerative disc disease of lumbar spine with lumbar radiculopathy symptoms, lumbar spinal stenosis, chronic low back pain, left hip pain, right knee pain, buttocks pain Plan:: Continues to experience significant pain throughout his low back and legs with limited range of motion. I have discussed with the patient once we get the updated imaging that it may be beneficial to send him to neurosurgery for consult. Patient is agreeable to this option. We will follow-up at his next visit regarding this. I have discussed with the patient due to his chronic pain that I will send in refills of his Skelaxin 800 mg 3 times a day and also do the [place] 5 mg twice a day with a 30-day supply of this medication. I will also order the patient compounded cream. Patient will return to clinic in 2 weeks for reevaluation and plan of care. Patient has been advised of risks of oversedation with the prescribed medication. Narcan has been offered to the patient in the event of oversedation. Patient has been advised that a family member should also be educated regarding administration of Narcan. Patient has been instructed to contact the clinic with any concerns before the next appointment. Dr. Read has reviewed this note and agrees with this plan of care. This note was dictated using voice recognition software and make contain errors or omissions. [facility] Disclaimer: The information contained in this section may have been updated after the patient was seen, as this information can be updated by other users. Medical History Anxiety Atrial fibrillation COPD (chronic obstructive pulmonary disease) Dental caries limited to enamel Depression Diabetes mellitus, type 2 Encounter for postoperative care Facial cellulitis History of stroke Hyperlipidemia Hypertension Loss of taste Parotid abscess Swelling of left parotid gland Swelling of right parotid gland Surgical History History of cholecystectomy Hx of cardiac catheterization Family History Other Family history of cancer Family history of hyperlipidemia Family history of hypertension Family history of myocardial infarction Social History Smoking Status: Current every day smoker alcohol intake: never substance use type: denies use current occupational status: other Travel in the last 8 weeks: None
[2023-06-22 11:55] VITALS: BP 160/65; PULSE 64; RESP 18; O2SAT 97; BMI 37.6
== END | disposition home or self-care (01) ==
PROVIDERS: PCP Nurse Practitioner Family; Visit Provider Nurse Practitioner Family
DX: M51.16 Intervertebral disc disorders with radiculopathy, lumbar region (principal); M48.061 Spinal stenosis, lumbar region without neurogenic claudication; M25.552 Pain in left hip; M25.561 Pain in right knee; M79.18 Myalgia, other site; G89.29 Other chronic pain
CPT/HCPCS: 99212; G0463

== ENCOUNTER 2023-06-24 13:48 | Outpatient (CLI) | payer OTHER, SELFPAY ==
--- NOTE | 2023-06-24 13:51 | MR_ITS ---
FINAL REPORT CLINICAL HISTORY: LOW BACK PAIN COMPARISON: 09/20/2022 FINDINGS: Multiplanar MR imaging of the lumbar spine was performed without contrast. On the sagittal T2-weighted images, there is abnormal decreased signal at the L3-4, L4-5, and L5-S1 levels.. The vertebrae are of normal height. The vertebral alignment is normal. L1-2: There is no significant canal stenosis or neural foraminal narrowing. L2-3: There is no significant canal stenosis or neural foraminal narrowing. L3-4: There is a small annular bulge and a right posterolateral disc protrusion with moderate right neural foraminal narrowing. These findings are stable since the prior MRI of 2022. L4-5: A small annular bulge is present with endplate hypertrophy eccentric to the left. There is moderate to severe left neural foraminal narrowing, stable since the prior MRI. L5-S1: A small annular bulge is present with endplate hypertrophy eccentric to the right, with severe right neural foraminal narrowing, more prominent than noted on the prior MR. IMPRESSION: Lower lumbar degenerative change as described, with worsening of the endplate hypertrophy eccentric to the right at the L5-S1 level, which produces severe right neural foraminal narrowing. Reviewed, Interpreted and Dictated by Brian Hannah MD Transcribed by Tova Allred Authenticated and [facility]
--- NOTE | 2023-06-24 14:38 | MR_ITS ---
FINAL REPORT CLINICAL HISTORY: TRANSIENT CEREBRAL ISCHEMIA, ISCHEMC ATTACK FINDINGS: Multi planar MR imaging was obtained through the brain without contrast. The midline structures appear intact. There is no evidence of Chiari malformation. There are few tiny scattered foci of increased signal in the deep white matter which are nonspecific. On diffusion-weighted images there is no evidence of restricted diffusion. There is extensive abnormal signal in the right mastoid air cells consistent with chronic mastoiditis. There is abnormal signal in the right petrous apex. The seventh and eighth nerve root complexes are intact. IMPRESSION: Right mastoiditis and minimal changes of chronic microvascular ischemia. Apical petrositis. Reviewed, Interpreted and Dictated by Brian Hannah MD Transcribed by Coco Harvey Authenticated and [facility]
== END 2023-06-24 23:59 ==
PROVIDERS: PCP Nurse Practitioner Family; Visit Provider Nurse Practitioner Family
DX: M54.50 Low back pain, unspecified (principal); G45.8 Other transient cerebral ischemic attacks and related syndromes
CPT/HCPCS: 70551; 72148; 76376

== ENCOUNTER → 2023-07-07 10:05 | Outpatient (POV) | payer OTHER, SELFPAY ==
[2023-07-07 10:36] VITALS: BP 111/59; PULSE 67; RESP 18; O2SAT 92; BMI 37.6
--- NOTE | 2023-07-07 10:47 | A.OFFVIS_ITS ---
[facility] Pain Management SOAP Note Subjective:: Patient is a pleasant 62-year-old male who presents today for follow-up of lumbar MRI. We are currently treating the patient for degenerative disc disease of lumbar spine with lumbar radiculopathy symptoms, lumbar spinal stenosis, chronic low back pain, left hip pain, right knee pain, buttocks pain. Today he rates his pain a 6 out of 10. Patient denies any new trauma or injury. He states he continues to have chronic low back pain that does have some radiating symptoms into his lower extremities. Patient describes this as a constant aching, throbbing sensation with some numbness and tingling. Patient is currently managed with [place] 5 mg twice a day and Skelaxin 800 mg 3 times a day from our office. Patient denies any side effects from this medication. He does state that even with the pain medication it still just takes the edge off. He states he feels like in the middle of the day he does experience worsening pain that is debilitating. He is prescribed gabapentin 600 mg 3 times a day from his primary care provider. His Matthew has been reviewed and is appropriate. Review of Systems: General: No recent weight changes, no fever, no sleep disturbances Respiratory: No cough, no shortness of air, no recurring pulmonary infections Cardiovascular/peripheral vascular: No chest pain, no palpitations, no edema, no shortness of breath Gastrointestinal: No new onset incontinence, normal bowel movements reported Genitourinary: No new onset incontinence Musculoskeletal: Low back pain, leg pain Psychiatric: [Normal mood/affect] Neurological: [Denies weakness in extremities], [denies balance issues] Objective:: Physical Exam: General: Alert and oriented x3, no acute distress, pleasant and cooperative Lungs: Respirations even and unlabored, symmetrical chest expansion Eyes: PERRL Musculoskeletal: Flexion and extension of lumbar [spine] somewhat guarded secondary to pain, [antalgic gait noted] Neurological: Speech clear, no gross sensory deficit FINDINGS: Multiplanar MR imaging of the lumbar spine was performed without contrast. On the sagittal T2-weighted images, there is abnormal decreased signal at the L3-4, L4-5, and L5-S1 levels.. The vertebrae are of normal height. The vertebral alignment is normal. L1-2: There is no significant canal stenosis or neural foraminal narrowing. L2-3: There is no significant canal stenosis or neural foraminal narrowing. L3-4: There is a small annular bulge and a right posterolateral disc protrusion with moderate right neural foraminal narrowing. These findings are stable since the prior MRI of 2022. L4-5: A small annular bulge is present with endplate hypertrophy eccentric to the left. There is moderate to severe left neural foraminal narrowing, stable since the prior MRI. L5-S1: A small annular bulge is present with endplate hypertrophy eccentric to the right, with severe right neural foraminal narrowing, more prominent than noted on the prior MR. IMPRESSION: Lower lumbar degenerative change as described, with worsening of the endplate hypertrophy eccentric to the right at the L5-S1 level, which produces severe right neural foraminal narrowing. Reviewed, Interpreted and Dictated by Brian Hannah MD Transcribed by Tova Allred Authenticated and [facility] Assessment:: Degenerative disc disease of lumbar spine with lumbar radiculopathy symptoms, lumbar spinal stenosis, chronic low back pain, left hip pain, right knee pain, buttocks pain, chronic pain syndrome Plan:: Patient continues to experience significant pain in his low back with radiating symptoms to his legs. Patient did have limited range of motion of his lumbar spine. I have discussed with the patient that I will send him for referral to [facility] for evaluation for possible lumbar spinal surgery. I have also discussed with the patient that he may benefit from intrathecal pain pump trial in the future. Educational handouts and risk and benefits were reviewed over with the patient during today's visit. I will also send in refills of his [place] 5 mg and change it to 3 times a day with a 1 month supply. I will also send in Skelaxin 800 mg 3 times a day refills. Patient will return to clinic in 1 month for reevaluation of symptoms and plan of care. Risks and benefits of the medication have been explained in detail to the patient. The patient does understand the risk of dependence on the medication when given over a prolonged period. Patient has been advised of risks of oversedation with the prescribed medication. Narcan has been offered to the paitent in the event of oversedation. Patient has been advised that a family member should also be educated regarding administration of Narcan. The patient has been advised to consult with his/her primary care provider and pharmacist regarding drug-drug interaction of medications currently prescribed. Patient has been prescribed a controlled substance after being counseled on the medication, medication safety, and possible side effects. Opioid contract was reviewed and signed by the patient, and that they have agreed to all of the terms set forth by our compliance program. Patient has been instructed to contact the clinic with any concerns before the next appointment. Dr. Read has reviewed this note and agrees with this plan of care. This note was dictated using voice recognition software and make contain errors or omissions. [facility] Disclaimer: The information contained in this section may have been updated after the patient was seen, as this information can be updated by other users. Medical History Anxiety Atrial fibrillation COPD (chronic obstructive pulmonary disease) Dental caries limited to enamel Depression Diabetes mellitus, type 2 Encounter for postoperative care Facial cellulitis History of stroke Hyperlipidemia Hypertension Loss of taste Parotid abscess Swelling of left parotid gland Swelling of right parotid gland Surgical History History of cholecystectomy Hx of cardiac catheterization Family History Other Family history of cancer Family history of hyperlipidemia Family history of hypertension Family history of myocardial infarction Social History Smoking Status: Current every day smoker alcohol intake: never substance use type: denies use current occupational status: retired Travel in the last 8 weeks: None
== END | disposition home or self-care (01) ==
PROVIDERS: PCP Nurse Practitioner Family; Visit Provider Nurse Practitioner Family
DX: M51.16 Intervertebral disc disorders with radiculopathy, lumbar region (principal); M48.061 Spinal stenosis, lumbar region without neurogenic claudication; M54.50 Low back pain, unspecified; G89.29 Other chronic pain; M25.552 Pain in left hip; M25.561 Pain in right knee; M79.18 Myalgia, other site; G89.4 Chronic pain syndrome
CPT/HCPCS: 99212; G0463

== ENCOUNTER 2023-08-08 10:52 | Outpatient (POV) | payer OTHER, SELFPAY ==
--- NOTE | 2023-08-08 10:57 | EXP.PAIN.SOA ---
[facility] Pain Management SOAP Note Subjective:: Patient is a pleasant 62-year-old male who presents today for follow-up and medication refill. We are currently treating the patient for degenerative disc disease of lumbar spine with lumbar radiculopathy symptoms, lumbar spinal stenosis, chronic low back pain, left hip pain, right knee pain, buttocks pain. Today he rates his pain a out of 10. Patient denies any new trauma or injury. He does state from our last visit he has been to see Him over at [facility]. He does state that they did diagnose him with diffuse idiopathic skeletal hypertosis and nerve root compression. He states that he is not a surgical candidate. He states that our office was recommending chiropractor therapy and additional injections. Patient has had injections in the past however they were very temporary and states he is not sure if he wants to proceed forward with additional injections. Patient is currently managed with [place] 5 mg 3 times a day and Skelaxin 800 mg 3 times a day from our office. Patient denies any side effects from this medication. He does state that even with the pain medication it still just takes the edge off. He states he feels like in the middle of the day he does experience worsening pain that is debilitating. He is prescribed gabapentin 600 mg 3 times a day from his primary care provider. He does state that he can get his muscle relaxer for cheaper through [facility] with a 90-day supply and is requesting that we send this medication to this pharmacy. His Matthew has been reviewed and is appropriate. Review of Systems: General: No recent weight changes, no fever, no sleep disturbances Respiratory: No cough, no shortness of air, no recurring pulmonary infections Cardiovascular/peripheral vascular: No chest pain, no palpitations, no edema, no shortness of breath Gastrointestinal: No new onset incontinence, normal bowel movements reported Genitourinary: No new onset incontinence Musculoskeletal: Low back pain, leg pain Psychiatric: [Normal mood/affect] Neurological: [Denies weakness in extremities], [denies balance issues] Objective:: Physical Exam: General: Alert and oriented x3, no acute distress, pleasant and cooperative Lungs: Respirations even and unlabored, symmetrical chest expansion Eyes: PERRL Musculoskeletal: Flexion and extension of lumbar [spine] somewhat guarded secondary to pain, [antalgic gait noted] Neurological: Speech clear, no gross sensory deficit Assessment:: Degenerative disc disease of lumbar spine with lumbar radiculopathy symptoms, lumbar spinal stenosis,Chronic low back pain, right knee pain, buttocks pain Plan:: I will refill the patient's [place] 5 mg 3 times a day Skelaxin 800 mg 3 times a day and provide a 1 month supply of the pain medication and a 3-month supply of the muscle relaxer to [facility]. I have discussed with patient in future he may benefit from additional injections as well as possible intrathecal pump trial in the future. We will follow-up with this option at future visits. Patient will return to clinic in 1 month for reevaluation of symptoms and plan of care. Risks and benefits of the medication have been explained in detail to the patient. The patient does understand the risk of dependence on the medication when given over a prolonged period. Patient has been advised of risks of oversedation with the prescribed medication. Narcan has been offered to the paitent in the event of oversedation. Patient has been advised that a family member should also be educated regarding administration of Narcan. The patient has been advised to consult with his/her primary care provider and pharmacist regarding drug-drug interaction of medications currently prescribed. Patient has been prescribed a controlled substance after being counseled on the medication, medication safety, and possible side effects. Opioid contract was reviewed and signed by the patient, and that they have agreed to all of the terms set forth by our compliance program. Patient has been instructed to contact the clinic with any concerns before the next appointment. Dr. Read has reviewed this note and agrees with this plan of care. This note was dictated using voice recognition software and make contain errors or omissions. [facility] Disclaimer: The information contained in this section may have been updated after the patient was seen, as this information can be updated by other users. Medical History Anxiety Atrial fibrillation COPD (chronic obstructive pulmonary disease) Dental caries limited to enamel Depression Diabetes mellitus, type 2 Encounter for postoperative care Facial cellulitis History of stroke Hyperlipidemia Hypertension Loss of taste Parotid abscess Swelling of left parotid gland Swelling of right parotid gland Surgical History History of cholecystectomy Hx of cardiac catheterization Family History Other Family history of cancer Family history of hyperlipidemia Family history of hypertension Family history of myocardial infarction Social History (Updated 08/01/23 @ 15:26 by Yajaira Duvall) Smoking Status: Current every day smoker alcohol intake: current substance use type: denies use current occupational status: retired Travel in the last 8 weeks: None household members: spouse housing: house marital status:
[2023-08-08 11:04] VITALS: BP 151/69; PULSE 79; RESP 18; BMI 44.3
[2023-08-08 12:39] LABS: Erythrocyte Sedimentation Rate 22 mm/hr (0-20)
[2023-08-08 12:50] LABS: Barbiturates Screen,Urine Negative ng/ml (<200); Benzodiazepines Screen,Urine Negative ng/ml (<200)
[2023-08-08 12:51] LABS: Amphetamine/Metha Screen,Urine Negative ng/ml (<1000)
[2023-08-08 12:53] LABS: Cannabinoid Screen,Urine Negative ng/ml (<50)
[2023-08-08 12:54] LABS: Cocaine Screen,Urine Negative ng/ml (<300); Methadone Screen,Urine Negative ng/ml (<300)
[2023-08-08 12:55] LABS: Opiate Screen,Urine Positive ng/ml (<300); Phencyclidine Screen,Urine Negative ng/ml (<25)
[2023-08-08 15:38] LABS: Vitamin B12 313 pg/mL (239-931)
[2023-08-08 15:39] LABS: Folate 9.76 ng/mL
[2023-08-14 12:17] LABS: Codeine Negative (Cutoff=100); Hydrocodone Positive (.); Hydromorphone Negative (Cutoff=100); Morphine Negative (Cutoff=100); Opiates Positive (.)
== END 2023-08-08 23:59 | disposition home or self-care (01) ==
PROVIDERS: Nurse Practitioner Family; PCP Nurse Practitioner Family; Visit Provider Nurse Practitioner Family
DX: M51.16 Intervertebral disc disorders with radiculopathy, lumbar region (principal); M48.061 Spinal stenosis, lumbar region without neurogenic claudication; M54.50 Low back pain, unspecified; G89.29 Other chronic pain; M25.561 Pain in right knee; M79.18 Myalgia, other site
CPT/HCPCS: 36415; 80307; 80361; 80365; 82607; 82746; 85651; 86140; 99212; G0463; G0480

== ENCOUNTER 2023-08-15 12:57 | Outpatient (CLI) | payer OTHER, SELFPAY ==
--- NOTE | 2023-08-15 | CA_ITS ---
FINAL REPORT TECHNIQUE: Color Doppler, duplex Doppler and trejo scale sonography of the bilateral neck vasculature was performed. Velocities were measured in the carotid arteries. Stenosis evaluation based on velocity criteria. CLINICAL HISTORY: DM, HLD, COPD, AFIB, SMOKER COMPARISON: None FINDINGS: The peak systolic velocity of the right common carotid artery is 112 cm/sec and internal carotid artery 78 cm/sec. The diastolic velocity in the internal carotid artery is 23 cm/sec. The ICA/CCA ratio is 0.87. Visually, a small amount of plaque is seen. These findings are consistent with less than 50% stenosis. The external carotid artery is patent. The right vertebral artery is patent with antegrade flow. The peak systolic velocity of the left common carotid artery is 75 cm/sec and internal carotid artery 125 cm/sec. The diastolic velocity in the internal carotid artery is 42 cm/sec. The ICA/CCA ratio is 2. Visually, a small amount of plaque is seen. These findings are consistent with less than 50% stenosis. The external carotid artery is patent. The left vertebral artery is patent with antegrade flow. IMPRESSION: No evidence of significant carotid stenosis. Bilateral patent vertebral arteries. If indicated, CTA or MRA could further evaluate. Reviewed, Interpreted and Dictated by Michael Duke III, MD Transcribed by Tova Allred Authenticated and [facility]
== END 2023-08-15 23:59 ==
LOC: RT 12:58
PROVIDERS: PCP Nurse Practitioner Family; Visit Provider Nurse Practitioner Family
DX: G45.9 Transient cerebral ischemic attack, unspecified (principal)
CPT/HCPCS: 93880

== ENCOUNTER 2023-09-05 09:23 | Outpatient (CLI) | payer OTHER, SELFPAY ==
[2023-09-05 09:59] LABS: Blood Urea Nitrogen 13 mg/dl (9-20); Estimated Glomerular Filt Rate 98 ml/min (>60); GFR (African American) 118 ML/MIN (>60)
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
== END 2023-09-05 23:59 ==
LOC: RAD 09:23
PROVIDERS: PCP Nurse Practitioner Family; Visit Provider Nurse Practitioner Family
DX: R29.818 Other symptoms and signs involving the nervous system (principal)
CPT/HCPCS: 36415; 82565; 84520

== ENCOUNTER 2023-09-14 10:38 | Outpatient (POV) | payer OTHER, SELFPAY ==
[2023-09-14 10:39] VITALS: BP 145/67; PULSE 75; RESP 20; O2SAT 93; BMI 38.7
--- NOTE | 2023-09-14 11:03 | A.OFFVIS_ITS ---
[facility] Pain Management SOAP Note Subjective:: Patient is a pleasant 62-year-old male who presents today for 1 month follow-up and medication refill. Today he rates his pain a 4 out of 10. Patient denies any new trauma or injury. He does state that his pain is all in his low back. Patient is currently managed with [place] 5 mg 3 times a day and Skelaxin 800 mg 3 times a day. He denies any side effects from this medication. At his last visit he was given a 3-month supply of his Skelaxin and will not need this refilled until around October. He is prescribed gabapentin from an outside provider. His Matthew has been reviewed and is appropriate. Review of Systems: General: No recent weight changes, no fever, no sleep disturbances Respiratory: No cough, no shortness of air, no recurring pulmonary infections Cardiovascular/peripheral vascular: No chest pain, no palpitations, no edema, no shortness of breath Gastrointestinal: No new onset incontinence, normal bowel movements reported Genitourinary: No new onset incontinence Musculoskeletal: Low back pain Psychiatric: [Normal mood/affect] Neurological: [Denies weakness in extremities], [denies balance issues] Objective:: Physical Exam: General: Alert and oriented x3, no acute distress, pleasant and cooperative Lungs: Respirations even and unlabored, symmetrical chest expansion Eyes: PERRL Musculoskeletal: Flexion and extension of lumbar [spine] somewhat guarded secondary to pain, [antalgic gait noted] Neurological: Speech clear, no gross sensory deficit Assessment:: Degenerative disc disease of lumbar spine with lumbar radiculopathy symptoms, right knee pain, buttocks pain Plan:: I will refill the patient's [place] 5 mg 3 times a day and provide a 1 month supply of this medication. Patient will return to clinic in 1 month for reevaluation of symptoms and plan of care. Risks and benefits of the medication have been explained in detail to the patient. The patient does understand the risk of dependence on the medication when given over a prolonged period. Patient has been advised of risks of oversedation with the prescribed medication. Narcan has been offered to the paitent in the event of oversedation. Patient has been advised that a family member should also be educated regarding administration of Narcan. The patient has been advised to consult with his/her primary care provider and pharmacist regarding drug-drug interaction of medications currently prescribed. Patient has been prescribed a controlled substance after being counseled on the medication, medication safety, and possible side effects. Opioid contract was reviewed and signed by the patient, and that they have agreed to all of the terms set forth by our compliance program. Patient has been instructed to contact the clinic with any concerns before the next appointment. Dr. Read has reviewed this note and agrees with this plan of care. This note was dictated using voice recognition software and make contain errors or omissions. [facility] Disclaimer: The information contained in this section may have been updated after the patient was seen, as this information can be updated by other users. Medical History Encounter for postoperative care Loss of taste Swelling of right parotid gland Swelling of left parotid gland Parotid abscess Dental caries limited to enamel Facial cellulitis Depression Anxiety Diabetes mellitus, type 2 History of stroke COPD (chronic obstructive pulmonary disease) Atrial fibrillation Status postcardiac ablation, active follow-up with [facility] in [place] Hyperlipidemia Hypertension Surgical History Hx of cardiac catheterization History of cholecystectomy Family History Other Family history of cancer Family history of hyperlipidemia Family history of hypertension Family history of myocardial infarction Social History Smoking Status: Current every day smoker alcohol intake: current substance use type: denies use current occupational status: unemployed Travel in the last 8 weeks: None household members: spouse housing: house marital status:
== END 2023-09-14 23:59 | disposition home or self-care (01) ==
PROVIDERS: PCP Nurse Practitioner Family; Visit Provider Nurse Practitioner Family
DX: M51.16 Intervertebral disc disorders with radiculopathy, lumbar region (principal); M25.561 Pain in right knee; M79.18 Myalgia, other site
CPT/HCPCS: 99212; G0463

== ENCOUNTER 2023-10-13 10:45 | Outpatient (POV) | payer OTHER, SELFPAY ==
[2023-10-13 11:05] VITALS: BP 143/59; PULSE 74; RESP 18; BMI 38.7
--- NOTE | 2023-10-13 11:30 | EXP.PAIN.SOA ---
[facility] Pain Management SOAP Note Subjective:: Patient is a pleasant 62-year-old male who presents today for 1 month follow-up and medication refill. Today he states he is having a really good day and rates the pain a 2 out of 10. Patient does state however yesterday was a really bad day and that he feels like he is having a lot more bad days versus good days. He does describe his pain as a chronic aching that is worse with increased activity or ambulation. In the past we have discussed that he may be a beneficial candidate of a intrathecal pain pump trial. Patient does state that he really would like to proceed forward with this option due to the continued pain. He is currently managed with [place] 5 mg 3 times a day and Skelaxin 800 mg 3 times a day. He denies any side effects from this medications and is requesting a refill. He is prescribed gabapentin from an outside provider. His Matthew has been reviewed and is appropriate. Review of Systems: General: No recent weight changes, no fever, no sleep disturbances Respiratory: No cough, no shortness of air, no recurring pulmonary infections Cardiovascular/peripheral vascular: No chest pain, no palpitations, no edema, no shortness of breath Gastrointestinal: No new onset incontinence, normal bowel movements reported Genitourinary: No new onset incontinence Musculoskeletal: Low back pain Psychiatric: [Normal mood/affect] Neurological: [Denies weakness in extremities], [denies balance issues] Objective:: Physical Exam: General: Alert and oriented x3, no acute distress, pleasant and cooperative Lungs: Respirations even and unlabored, symmetrical chest expansion Eyes: PERRL Musculoskeletal: Flexion and extension of lumbar [spine] somewhat guarded secondary to pain, [antalgic gait noted] Neurological: Speech clear, no gross sensory deficit Assessment:: Degenerative disc disease of lumbar spine with lumbar radiculopathy symptoms, right knee pain, buttocks pain Plan:: I will refill the patient's Skelaxin and [place] and provide a 1 month supply of his pain medicine at the 3-month supply of this muscle relaxer. I have gone over the risk and benefits of the intrathecal pain pump trial. Patient would like to proceed forward with this option. I will order the patient a psychological evaluation and if he is deemed an appropriate candidate we will proceed forward with a trial at a later date. Patient will return to clinic in 1 month for reevaluation of symptoms and plan of care. Risks and benefits of the medication have been explained in detail to the patient. The patient does understand the risk of dependence on the medication when given over a prolonged period. Patient has been advised of risks of oversedation with the prescribed medication. Narcan has been offered to the paitent in the event of oversedation. Patient has been advised that a family member should also be educated regarding administration of Narcan. The patient has been advised to consult with his/her primary care provider and pharmacist regarding drug-drug interaction of medications currently prescribed. Patient has been prescribed a controlled substance after being counseled on the medication, medication safety, and possible side effects. Opioid contract was reviewed and signed by the patient, and that they have agreed to all of the terms set forth by our compliance program. Patient has been instructed to contact the clinic with any concerns before the next appointment. Dr. Read has reviewed this note and agrees with this plan of care. This note was dictated using voice recognition software and make contain errors or omissions. [facility] Disclaimer: The information contained in this section may have been updated after the patient was seen, as this information can be updated by other users. Medical History Encounter for postoperative care Loss of taste Swelling of right parotid gland Swelling of left parotid gland Parotid abscess Dental caries limited to enamel Facial cellulitis Depression Anxiety Diabetes mellitus, type 2 History of stroke COPD (chronic obstructive pulmonary disease) Atrial fibrillation Status postcardiac ablation, active follow-up with [facility] in [place] Hyperlipidemia Hypertension Surgical History Hx of cardiac catheterization History of cholecystectomy Family History Other Family history of cancer Family history of hyperlipidemia Family history of hypertension Family history of myocardial infarction Social History Smoking Status: Current every day smoker alcohol intake: current alcohol intake frequency: a few times a month substance use type: denies use current occupational status: other Travel in the last 8 weeks: None household members: spouse housing: house marital status:
== END 2023-10-13 23:59 | disposition home or self-care (01) ==
PROVIDERS: PCP Nurse Practitioner Family; Visit Provider Nurse Practitioner Family
DX: M51.16 Intervertebral disc disorders with radiculopathy, lumbar region (principal); M25.561 Pain in right knee; M79.18 Myalgia, other site
CPT/HCPCS: 99212; G0463

== ENCOUNTER 2023-11-14 10:56 | Outpatient (POV) | payer OTHER, SELFPAY ==
--- NOTE | 2023-11-14 11:18 | A.OFFVIS_ITS ---
[facility] Pain Management SOAP Note Subjective:: Patient is a pleasant 62-year-old male who presents today for medication refill and psychological evaluation follow-up. Today he rates his pain a 3 out of 10. Patient denies any new trauma or injury. He does state he still has good days and bad days and today has not been too bad overall. Patient is prescribed Frank[place] 5 mg 3 times a day and Skelaxin 800 mg 3 times a day. He denies any side effects to these medications. He did just get a 3-month supply of his Skelaxin and will not need refills till around December. Patient does state he has reviewed over the material regarding the intrathecal pain pump trial and states he would like to proceed forward with this plan of care. Patient states in general he has chronic aching pain throughout his low back that will go up to a 6 or 7 out of 10 on a regular basis with increased activity. Patient states the pain does interfere with his ability perform activities of daily living. Patient has tried and failed conservative therapy. His Matthew has been reviewed and is appropriate. Review of Systems: General: No recent weight changes, no fever, no sleep disturbances Respiratory: No cough, no shortness of air, no recurring pulmonary infections Cardiovascular/peripheral vascular: No chest pain, no palpitations, no edema, no shortness of breath Gastrointestinal: No new onset incontinence, normal bowel movements reported Genitourinary: No new onset incontinence Musculoskeletal: Low back pain Psychiatric: [Normal mood/affect] Neurological: [Denies weakness in extremities], [denies balance issues] Objective:: Physical Exam: General: Alert and oriented x3, no acute distress, pleasant and cooperative Lungs: Respirations even and unlabored, symmetrical chest expansion Eyes: PERRL Musculoskeletal: Flexion and extension of lumbar [spine] somewhat guarded secondary to pain, [antalgic gait noted] Neurological: Speech clear, no gross sensory deficit Assessment:: Degenerative disc disease of lumbar spine with lumbar radiculopathy symptoms, right knee pain, buttocks pain Plan:: Will refill the patient's Frankfort and provide a 1 month supply of this medication. I have reviewed over the risk and benefits of the intrathecal pain pump trial and he would like to proceed forward with this plan of care. Patient is on Xarelto that is written by Shari Sierra out of [place]. We will reach out to her office and confirm that he can stop this medication prior to this procedure. Patient is agreeable to this plan of care. Patient has tried and failed conservative therapy including oral medication, heat and ice, topicals, prior physical therapy with continued at home exercising and stretching for longer than 6 weeks. Patient will be scheduled for intrathecal pain pump trial under fluoroscopy and also having 1 month follow-up for medication refill. Risks and benefits of the medication have been explained in detail to the patient. The patient does understand the risk of dependence on the medication when given over a prolonged period. Patient has been advised of risks of oversedation with the prescribed medication. Narcan has been offered to the paitent in the event of o versedation. Patient has been advised that a family member should also be educated regarding administration of Narcan. The patient has been advised to consult with his/her primary care provider and pharmacist regarding drug-drug interaction of medications currently prescribed. Patient has been prescribed a controlled substance after being counseled on the medication, medication safety, and possible side effects. Opioid contract was reviewed and signed by the patient, and that they have agreed to all of the terms set forth by our compliance program. Patient has been instructed to contact the clinic with any concerns before the next appointment. Dr. Read has reviewed this note and agrees with this plan of care. This note was dictated using voice recognition software and make contain errors or omissions. [facility] Disclaimer: The information contained in this section may have been updated after the patient was seen, as this information can be updated by other users. Medical History Encounter for postoperative care Loss of taste Swelling of right parotid gland Swelling of left parotid gland Parotid abscess Dental caries limited to enamel Facial cellulitis Depression Anxiety Diabetes mellitus, type 2 History of stroke COPD (chronic obstructive pulmonary disease) Atrial fibrillation Status postcardiac ablation, active follow-up with [facility] in [place] Hyperlipidemia Hypertension Surgical History Hx of cardiac catheterization History of cholecystectomy Family History Other Family history of cancer Family history of hyperlipidemia Family history of hypertension Family history of myocardial infarction Social History Smoking Status: Current every day smoker alcohol intake: current alcohol intake frequency: a few times a month substance use type: denies use current occupational status: other Travel in the last 8 weeks: None household members: spouse housing: house marital status:
[2023-11-14 11:51] VITALS: BP 145/65; PULSE 66; RESP 18; O2SAT 94; BMI 35.2
== END 2023-11-14 23:59 | disposition home or self-care (01) ==
PROVIDERS: PCP Nurse Practitioner Family; Visit Provider Nurse Practitioner Family
DX: M51.16 Intervertebral disc disorders with radiculopathy, lumbar region (principal); M25.561 Pain in right knee; M79.18 Myalgia, other site
CPT/HCPCS: 99212; G0463

== ENCOUNTER 2023-12-14 10:12 | Outpatient (POV) | payer OTHER, SELFPAY ==
--- NOTE | 2023-12-14 10:41 | A.OFFVIS_ITS ---
[facility] Disclaimer: The information contained in this section may have been updated after the patient was seen, as this information can be updated by other users. Medical History Encounter for postoperative care Loss of taste Swelling of right parotid gland Swelling of left parotid gland Parotid abscess Dental caries limited to enamel Facial cellulitis Depression Anxiety Diabetes mellitus, type 2 History of stroke COPD (chronic obstructive pulmonary disease) Atrial fibrillation Status postcardiac ablation, active follow-up with [facility] in [place] Hyperlipidemia Hypertension Surgical History Hx of cardiac catheterization History of cholecystectomy Family History Other Family history of cancer Family history of hyperlipidemia Family history of hypertension Family history of myocardial infarction Social History Smoking Status: Current every day smoker alcohol intake: current alcohol intake frequency: a few times a month substance use type: denies use current occupational status: retired Travel in the last 8 weeks: None household members: spouse housing: house marital status: PM Subjective & Objective Subjective Subjective:: Patient is a pleasant 63-year-old male who presents today for medication refill and follow-up. Today he rates his pain a 4 out of 10. Patient denies any new trauma or injury. He does state that he feels like he is having a lot more worst days in comparison to good. Patient does state he still wants to proceed forward with the pump trial however his tool grinding technician will not clear him to stop his Xarelto for this procedure. Patient states that they are wanting him to be seen by a vascular doctor before proceeding forward. Patient does state that this is currently in the works however they do not have an official appointment or doctor that they will be going to see. Patient is prescribed Rosamond 5 mg 3 times a day and Skelaxin 800 mg 3 times a day. He denies any side effects to these medications. He does feel like this medication does bare minimum when his pain is severe. He is asking if he can make any additional changes to this. He did just get a 3-month supply of his Skelaxin and will not need refills till around December. He does state that even the muscle relaxer does not seem to be working as well and is asking if we can make any additional adjustment to that. Patient states he was on Flexeril in the past however it has been years since he tried this medication. His Matthew has been reviewed and is appropriate. Review of Systems: General: No recent weight changes, no fever, no sleep disturbances Respiratory: No cough, no shortness of air, no recurring pulmonary infections Cardiovascular/peripheral vascular: No chest pain, no palpitations, no edema, no shortness of breath Gastrointestinal: No new onset incontinence, normal bowel movements reported Genitourinary: No new onset incontinence Musculoskeletal: Low back pain Psychiatric: [Normal mood/affect] Neurological: [Denies weakness in extremities], [denies balance issues] Pain at rest (0-10 scale): 4 Objective Objective:: Physical Exam: General: Alert and oriented x3, no acute distress, pleasant and cooperative Lungs: Respirations even and unlabored, symmetrical chest expansion Eyes: PERRL Musculoskeletal: Flexion and extension of lumbar [spine] somewhat guarded secondary to pain, [antalgic gait noted] Neurological: Speech clear, no gross sensory deficit Has patient had previous pain injection?: No Conservative treatment options previously tried: Home exercise plan Length of treatment: Longer than 6 weeks and Prescription medications Length of treatment: Longer than 6 weeks Meds Home Medications and Allergies Home Medications Medication Instructions Recorded Confirmed Type montelukast 10 mg tablet 10 mg PO QPM Breathing problems 11/17/17 11/14/23 History (Singulair) potassium chloride 10 mEq 10 meq PO BID Supplement 11/17/17 11/14/23 History capsule,extended release propafenone 425 mg 425 mg PO Q12H Heart disease 11/17/17 11/14/23 History capsule,extended release 12 hr (Rythmol SR) atorvastatin 20 mg tablet 20 mg PO DAILY Cholesterol 04/11/22 11/14/23 History bumetanide 2 mg tablet 2 mg PO DAILY Fluid 04/11/22 11/14/23 History gabapentin 600 mg tablet 600 mg PO TID Pain 04/11/22 11/14/23 History lisinopril 40 mg tablet 40 mg PO DAILY High blood pressure 04/11/22 11/14/23 History metoprolol tartrate 100 mg tablet 100 mg PO BID High blood pressure 04/11/22 11/14/23 History rivaroxaban 20 mg tablet (Xarelto) 20 mg PO DAILY AFIB 04/11/22 11/14/23 History tizanidine 4 mg tablet 4 mg PO BID Pain 04/11/22 11/14/23 History amlodipine 10 mg tablet 10 mg PO DAILY . 04/20/22 11/14/23 History albuterol sulfate 90 mcg/actuation 2 puff inhalation DIRECTED PRN 08/01/23 11/14/23 History aerosol inhaler Breathing Problems cetirizine 10 mg tablet (All Day 10 mg PO DAILY 08/01/23 11/14/23 History Allergy (cetirizine)) ergocalciferol (vitamin D2) 1,250 50,000 unit PO WEEKLY 08/01/23 11/14/23 History mcg (50,000 unit) capsule fluticasone fur. 100 mcg-umeclid 1 inh inhalation DAILY 08/01/23 11/14/23 History 62.5 mcg-vilant 25 mcg inhalat.powder (Trelegy Ellipta) methocarbamol 750 mg tablet 750 mg PO TID 08/01/23 11/14/23 History nitroglycerin 0.4 mg sublingual 0.4 mg sublingual Q5M PRN Chest 08/01/23 11/14/23 History tablet Pain trazodone 50 mg tablet 100 mg PO HS Insomnia 08/01/23 11/14/23 History omeprazole 20 mg capsule,delayed 20 mg PO DAILY 09/13/23 11/14/23 History release sertraline 50 mg tablet 100 mg PO DAILY Depression 09/13/23 11/14/23 History metaxalone 800 mg tablet 800 mg PO TID PRN muscle pain #270 10/13/23 11/14/23 Rx tabs hydrocodone 5 mg-acetaminophen 325 1 tab PO TID #90 tabs 11/14/23 Rx mg tablet New Prescriptions to Start Prescriptions: Allergies Allergy/AdvReac Type Severity Reaction Status Date / Time levofloxacin Allergy Mild I-RASH Verified 06/07/23 11:08 niacin Allergy Mild Verified 06/07/23 11:08 ofloxacin Allergy Mild Verified 06/07/23 11:08 sulfamethoxazole Allergy Mild I-RASH Verified 06/07/23 11:08 [From Bactrim] trimethoprim [From Bactrim] Allergy Mild I-RASH Verified 06/07/23 11:08 oxytetracycline Allergy Unknown Verified 06/07/23 11:08 Penicillins Allergy Unknown Verified 06/07/23 11:08 Assessment and Plan *Assessment and plan (1) Lumbar radiculopathy: Status: Chronic Category: Medical Code(s): M54.16 - Radiculopathy, lumbar region (2) Degenerative joint disease (DJD) of lumbar spine: Status: Chronic Qualifiers: Spinal osteoarthritis complication: with radiculopathy Qualified Code(s): M47.26 - Other spondylosis with radiculopathy, lumbar region Category: Medical Code(s): M47.816 - Spondylosis without myelopathy or radiculopathy, lumbar region Plan I will refill the patient's Rosamond and change it to 7.5 mg 3 tablets a day provide will both supply of this medication. I will also send in a 2-week dose of Flexeril 10 mg 3 times a day. Patient was counseled to discontinue use on the Skelaxin while he is trying the Flexeril. Patient will return to clinic in 1 month for reevaluation of symptoms and plan of care. We will plan on following up with the pain pump trial in future after his vascular consult. Risks and benefits of the medication have been explained in detail to the patient. The patient does understand the risk of dependence on the medication when given over a prolonged period. Patient has been advised of risks of oversedation with the prescribed medication. Narcan has been offered to the paitent in the event of oversedation. Patient has been advised that a family member should also be educated regarding administration of Narcan. The patient has been advised to consult with his/her primary care provider and pharmacist regarding drug-drug interaction of medications currently prescribed. Patient has been prescribed a controlled substance after being counseled on the medication, medication safety, and possible side effects. Opioid contract was reviewed and signed by the patient, and that they have agreed to all of the terms set forth by our compliance program. Patient has been instructed to contact the clinic with any concerns before the next appointment. Dr. Read has reviewed this note and agrees with this plan of care. This note was dictated using voice recognition software and make contain errors or omissions.
[2023-12-14 10:49] VITALS: BP 163/66; PULSE 71; RESP 22; O2SAT 94; BMI 34.9
== END 2023-12-14 23:59 | disposition home or self-care (01) ==
PROVIDERS: PCP Nurse Practitioner Family; Visit Provider Nurse Practitioner Family
DX: M47.26 Other spondylosis with radiculopathy, lumbar region (principal); F17.210 Nicotine dependence, cigarettes, uncomplicated; Z79.899 Other long term (current) drug therapy
CPT/HCPCS: 99212; G0463

== ENCOUNTER 2024-01-11 10:33 | Outpatient (POV) | payer OTHER, SELFPAY ==
--- NOTE | 2024-01-11 11:14 | A.OFFVIS_ITS ---
[facility] Disclaimer: The information contained in this section may have been updated after the patient was seen, as this information can be updated by other users. Medical History Encounter for postoperative care Loss of taste Swelling of right parotid gland Swelling of left parotid gland Parotid abscess Dental caries limited to enamel Facial cellulitis Depression Anxiety Diabetes mellitus, type 2 History of stroke COPD (chronic obstructive pulmonary disease) Atrial fibrillation Status postcardiac ablation, active follow-up with [facility] in [place] Hyperlipidemia Hypertension Surgical History Hx of cardiac catheterization History of cholecystectomy Family History Other Family history of cancer Family history of hyperlipidemia Family history of hypertension Family history of myocardial infarction Social History Smoking Status: Current every day smoker alcohol intake: current alcohol intake frequency: a few times a month substance use type: denies use current occupational status: retired Travel in the last 8 weeks: None household members: spouse housing: house marital status: PM Subjective & Objective Subjective Subjective:: Patient is a pleasant 53-year-old male who presents today for medication refill and follow-up. Today he rates his pain a 3 out of 10. Patient denies any new trauma or injury. He is currently waiting on insurance approval for the pain pump trial. Patient does state he still would like to proceed forward with this patient does have questions regarding the pump medications that we will be trying. Patient is currently managed with [place] 5 mg 3 times a day and will recently sent in a temporary dose of Flexeril 10 mg 3 times daily. Patient does state that that medication did seem to help better than the Skelaxin. His Matthew has been reviewed and is appropriate. Review of Systems: General: No recent weight changes, no fever, no sleep disturbances Respiratory: No cough, no shortness of air, no recurring pulmonary infections Cardiovascular/peripheral vascular: No chest pain, no palpitations, no edema, no shortness of breath Gastrointestinal: No new onset incontinence, normal bowel movements reported Genitourinary: No new onset incontinence Musculoskeletal: Low back pain Psychiatric: [Normal mood/affect] Neurological: [Denies weakness in extremities], [denies balance issues] Pain at rest (0-10 scale): 3 Objective Objective:: Physical Exam: General: Alert and oriented x3, no acute distress, pleasant and cooperative Lungs: Respirations even and unlabored, symmetrical chest expansion Eyes: PERRL Musculoskeletal: Flexion and extension of lumbar [spine] somewhat guarded second bridgett to pain, [antalgic gait noted] Neurological: Speech clear, no gross sensory deficit Has patient had previous pain injection?: No Conservative treatment options previously tried: Prescription medications Length of treatment: Longer than 6 weeks Meds Home Medications and Allergies Home Medications ?Medication ?Instructions ?Recorded ?Confirmed ?Type montelukast 10 mg tablet 10 mg PO QPM Breathing problems 11/17/17 12/14/23 History (Singulair) potassium chloride 10 mEq 10 meq PO BID Supplement 11/17/17 12/14/23 History capsule,extended release propafenone 425 mg 425 mg PO Q12H Heart disease 11/17/17 12/14/23 History capsule,extended release 12 hr (Rythmol SR) atorvastatin 20 mg tablet 20 mg PO DAILY Cholesterol 04/11/22 12/14/23 History bumetanide 2 mg tablet 2 mg PO DAILY Fluid 04/11/22 12/14/23 History gabapentin 600 mg tablet 600 mg PO TID Pain 04/11/22 12/14/23 History lisinopril 40 mg tablet 40 mg PO DAILY High blood pressure 04/11/22 12/14/23 History metoprolol tartrate 100 mg tablet 100 mg PO BID High blood pressure 04/11/22 12/14/23 History rivaroxaban 20 mg tablet (Xarelto) 20 mg PO DAILY AFIB 04/11/22 12/14/23 History tizanidine 4 mg tablet 4 mg PO BID Pain 04/11/22 12/14/23 History amlodipine 10 mg tablet 10 mg PO DAILY . 04/20/22 12/14/23 History albuterol sulfate 90 mcg/actuation 2 puff inhalation DIRECTED PRN 08/01/23 12/14/23 History aerosol inhaler Breathing Problems cetirizine 10 mg tablet (All Day 10 mg PO DAILY 08/01/23 12/14/23 History Allergy (cetirizine)) ergocalciferol (vitamin D2) 1,250 50,000 unit PO WEEKLY 08/01/23 12/14/23 History mcg (50,000 unit) capsule fluticasone fur. 100 mcg-umeclid 1 inh inhalation DAILY 08/01/23 12/14/23 History 62.5 mcg-vilant 25 mcg inhalat.powder (Trelegy Ellipta) methocarbamol 750 mg tablet 750 mg PO TID 08/01/23 12/14/23 History nitroglycerin 0.4 mg sublingual 0.4 mg sublingual Q5M PRN Chest 08/01/23 12/14/23 History tablet Pain trazodone 50 mg tablet 100 mg PO HS Insomnia 08/01/23 12/14/23 History omeprazole 20 mg capsule,delayed 20 mg PO DAILY 09/13/23 12/14/23 History release sertraline 50 mg tablet 100 mg PO DAILY Depression 09/13/23 12/14/23 History metaxalone 800 mg tablet 800 mg PO TID PRN muscle pain #270 10/13/23 12/14/23 Rx tabs hydrocodone 5 mg-acetaminophen 325 1 tab PO TID #90 tabs 11/14/23 12/14/23 Rx mg tablet cyclobenzaprine 10 mg tablet 10 mg PO TID #42 tabs 12/14/23 Rx hydrocodone 7.5 mg-acetaminophen 1 tab PO TID #90 tabs 12/14/23 Rx 325 mg tablet New Prescriptions to Start Prescriptions: Allergies Allergy/AdvReac Type Severity Reaction Status Date / Time levofloxacin Allergy Mild I-RASH Verified 06/07/23 11:08 niacin Allergy Mild Verified 06/07/23 11:08 ofloxacin Allergy Mild Verified 06/07/23 11:08 sulfamethoxazole Allergy Mild I-RASH Verified 06/07/23 11:08 [From Bactrim] trimethoprim [From Bactrim] Allergy Mild I-RASH Verified 06/07/23 11:08 oxytetracycline Allergy Unknown Verified 06/07/23 11:08 Penicillins Allergy Unknown Verified 06/07/23 11:08 Assessment and Plan *Assessment and plan (1) Degenerative joint disease (DJD) of lumbar spine: Status: Chronic Qualifiers: Spinal osteoarthritis complication: with radiculopathy Qualified Code(s): M47.26 - Other spondylosis with radiculopathy, lumbar region Category: Medical Code(s): M47.816 - Spondylosis without myelopathy or radiculopathy, lumbar region (2) Lumbar radiculopathy: Status: Chronic Category: Medical Code(s): M54.16 - Radiculopathy, lumbar region Plan I will refill the patient's [place] and provide a 1 month supply of this medication and also send in a prescription of the Flexeril 10 mg 3 times a day and provide a 90-day supply of this medication. Patient was counseled over the medication we typically use for the pump trial and he does state that in the past he did have a severe reaction to the fentanyl where he was very combative and talking out of his head. Patient is adamant that he does not want this use for his trial. I have discussed with the patient that I will reach out to Dr. Read and discussed with him what medication he would like to change this to. Patient was also counseled that he is aware he has to taper his oral pain medication 50% within 48 hours of the pump trial. Risks and benefits of the medication have been explained in detail to the patient. The patient does understand the risk of dependence on the medication when given over a prolonged period. Patient has been advised of risks of oversedation with the prescribed medication. Narcan has been offered to the paitent in the event of oversedation. Patient has been advised that a family member should also be educated regarding administration of Narcan. The patient has been advised to consult with his/her primary care provider and pharmacist regarding drug-drug interaction of medications currently prescribed. Patient has been prescribed a controlled substance after being counseled on the medication, medication safety, and possible side effects. Opioid contract was reviewed and signed by the patient, and that they have agreed to all of the terms set forth by our compliance program. Patient has been instructed to contact the clinic with any concerns before the next appointment. Dr. Read has reviewed this note and agrees with this plan of care. This note was dictated using voice recognition software and make contain errors or omissions.
[2024-01-11 11:27] VITALS: BP 137/66; PULSE 67; RESP 18; O2SAT 94; BMI 38.9
== END 2024-01-11 23:59 | disposition home or self-care (01) ==
PROVIDERS: PCP Nurse Practitioner Family; Visit Provider Nurse Practitioner Family
DX: M47.26 Other spondylosis with radiculopathy, lumbar region (principal); Z87.891 Personal history of nicotine dependence; Z79.899 Other long term (current) drug therapy
CPT/HCPCS: 99212; G0463

== ENCOUNTER 2024-01-20 13:48 | Outpatient (POV) | payer OTHER, SELFPAY ==
[2024-01-20 14:00] VITALS: BP 124/58; PULSE 75; RESP 16; TEMP 36.7; O2SAT 93; BMI 38.7
--- NOTE | 2024-01-20 16:17 | EXP.PAIN.SOA ---
[facility] Disclaimer: The information contained in this section may have been updated after the patient was seen, as this information can be updated by other users. Medical History Encounter for postoperative care Loss of taste Swelling of right parotid gland Swelling of left parotid gland Parotid abscess Dental caries limited to enamel Facial cellulitis Depression Anxiety Diabetes mellitus, type 2 History of stroke COPD (chronic obstructive pulmonary disease) Atrial fibrillation Status postcardiac ablation, active follow-up with [facility] in [place] Hyperlipidemia Hypertension Surgical History Hx of cardiac catheterization History of cholecystectomy Family History Other Family history of cancer Family history of hyperlipidemia Family history of hypertension Family history of myocardial infarction Social History Smoking Status: Current every day smoker alcohol intake: current alcohol intake frequency: a few times a month substance use type: denies use current occupational status: other Travel in the last 8 weeks: None household members: spouse housing: house marital status: PM Subjective & Objective Subjective Subjective:: This patient is a pleasant 63-year-old white male who is currently on hydrocodone and Flexeril. He is here to discuss intrathecal therapy as an option. He has a reaction to intrathecal fentanyl. Also the patient is currently on blood thinners and the last time he came off of his blood thinner he had a TIA. And he has had significant abdominal surgeries. Given his significant comorbidities and risk of coming off blood thinner I do not believe he has a candidate for intrathecal therapy. Patient says he is doing well on his hydrocodone and Flexeril. We can increase to hydrocodone to 4 times a day in the future if needed. However, optimizing his oral medication may be the best for him given his increased risk with any surgery. Pain at rest (0-10 scale): 5 Objective Objective:: Alert and oriented x 3 in no acute distress. Patient does have antalgic gait motor strength of lower extremities is 5/5. There is no gross sensory deficit. Has patient had previous pain injection?: No Conservative treatment options previously tried: NSAIDS Length of treatment: Unknown, Physical Therapy Length of treatment: Unknown and Chiropractor Length of treatment: Unknown Meds Home Medications and Allergies Home Medications ?Medication ?Instructions ?Recorded ?Confirmed ?Type montelukast 10 mg tablet 10 mg PO QPM Breathing problems 11/17/17 01/20/24 History (Singulair) potassium chloride 10 mEq 10 meq PO BID Supplement 11/17/17 01/20/24 History capsule,extended release propafenone 425 mg 425 mg PO Q12H Heart disease 11/17/17 01/20/24 History capsule,extended release 12 hr (Rythmol SR) atorvastatin 20 mg tablet 20 mg PO DAILY Cholesterol 04/11/22 01/20/24 History bumetanide 2 mg tablet 2 mg PO DAILY Fluid 04/11/22 01/20/24 History gabapentin 600 mg tablet 600 mg PO TID Pain 04/11/22 01/20/24 History lisinopril 40 mg tablet 40 mg PO DAILY High blood pressure 04/11/22 01/20/24 History metoprolol tartrate 100 mg tablet 100 mg PO BID High blood pressure 04/11/22 01/20/24 History rivaroxaban 20 mg tablet (Xarelto) 20 mg PO DAILY AFIB 04/11/22 01/20/24 History tizanidine 4 mg tablet 4 mg PO BID Pain 04/11/22 01/20/24 History amlodipine 10 mg tablet 10 mg PO DAILY . 04/20/22 01/20/24 History albuterol sulfate 90 mcg/actuation 2 puff inhalation DIRECTED PRN 08/01/23 01/20/24 History aerosol inhaler Breathing Problems cetirizine 10 mg tablet (All Day 10 mg PO DAILY 08/01/23 01/20/24 History Allergy (cetirizine)) ergocalciferol (vitamin D2) 1,250 50,000 unit PO WEEKLY 08/01/23 01/20/24 History mcg (50,000 unit) capsule fluticasone fur. 100 mcg-umeclid 1 inh inhalation DAILY 08/01/23 01/20/24 History 62.5 mcg-vilant 25 mcg inhalat.powder (Trelegy Ellipta) methocarbamol 750 mg tablet 750 mg PO TID 08/01/23 01/20/24 History nitroglycerin 0.4 mg sublingual 0.4 mg sublingual Q5M PRN Chest 08/01/23 01/20/24 History tablet Pain trazodone 50 mg tablet 100 mg PO HS Insomnia 08/01/23 01/20/24 History omeprazole 20 mg capsule,delayed 20 mg PO DAILY 09/13/23 01/20/24 History release sertraline 50 mg tablet 100 mg PO DAILY Depression 09/13/23 01/20/24 History metaxalone 800 mg tablet 800 mg PO TID PRN muscle pain #270 10/13/23 01/20/24 Rx tabs hydrocodone 5 mg-acetaminophen 325 1 tab PO TID #90 tabs 11/14/23 01/20/24 Rx mg tablet cyclobenzaprine 10 mg tablet 10 mg PO TID #270 tabs 01/11/24 01/20/24 Rx hydrocodone 7.5 mg-acetaminophen 1 tab PO TID #90 tabs 01/11/24 01/20/24 Rx 325 mg tablet New Prescriptions to Start Prescriptions: Allergies Allergy/AdvReac Type Severity Reaction Status Date / Time levofloxacin Allergy Mild I-RASH Verified 01/20/24 14:01 niacin Allergy Mild Verified 01/20/24 14:01 ofloxacin Allergy Mild Verified 01/20/24 14:01 sulfamethoxazole Allergy Mild I-RASH Verified 01/20/24 14:01 [From Bactrim] trimethoprim [From Bactrim] Allergy Mild I-RASH Verified 01/20/24 14:01 oxytetracycline Allergy Unknown Verified 01/20/24 14:01 Penicillins Allergy Unknown Verified 01/20/24 14:01 Assessment and Plan *Assessment and plan (1) Degenerative disc disease, lumbar: Status: Acute Category: Medical Code(s): M51.36 - Other intervertebral disc degeneration, lumbar region (2) Lumbar radiculopathy: Status: Chronic Category: Medical Code(s): M54.16 - Radiculopathy, lumbar region Plan This patient is not a good candidate for intrathecal therapy. We will thus optimize his oral medication. He currently is doing very well on his current dose of hydrocodone and Flexeril. He is to going to start chiropractic therapy and some physical therapy. Will follow-up with him next month we will reevaluate his symptoms at that time.
== END 2024-01-20 23:59 | disposition home or self-care (01) ==
LOC: SC.PAIN 13:48
PROVIDERS: PCP Nurse Practitioner Family; Visit Provider Anesthesiology
DX: M51.16 Intervertebral disc disorders with radiculopathy, lumbar region (principal); F17.210 Nicotine dependence, cigarettes, uncomplicated; Z79.01 Long term (current) use of anticoagulants; Z79.899 Other long term (current) drug therapy; Z86.73 Personal history of transient ischemic attack (TIA), and cerebral infarction without residual deficits
CPT/HCPCS: 99212; G0463

== ENCOUNTER 2024-02-09 10:19 | Outpatient (POV) | payer OTHER, SELFPAY ==
[2024-02-09 10:50] VITALS: BP 154/71; PULSE 66; RESP 18; O2SAT 94; BMI 38.8
--- NOTE | 2024-02-09 10:54 | EXP.PAIN.SOA ---
[facility] Disclaimer: The information contained in this section may have been updated after the patient was seen, as this information can be updated by other users. Medical History Encounter for postoperative care Loss of taste Swelling of right parotid gland Swelling of left parotid gland Parotid abscess Dental caries limited to enamel Facial cellulitis Depression Anxiety Diabetes mellitus, type 2 History of stroke COPD (chronic obstructive pulmonary disease) Atrial fibrillation Status postcardiac ablation, active follow-up with [facility] in [place] Hyperlipidemia Hypertension Surgical History Hx of cardiac catheterization History of cholecystectomy Family History Other Family history of cancer Family history of hyperlipidemia Family history of hypertension Family history of myocardial infarction Social History Smoking Status: Current every day smoker alcohol intake: current alcohol intake frequency: a few times a month substance use type: denies use current occupational status: retired Travel in the last 8 weeks: None household members: spouse housing: house marital status: PM Subjective & Objective Subjective Subjective:: Patient is a pleasant 63-year-old male who presents today for medication refill and follow-up. Today he rates his pain a 4 out of 10. He states overall his back is a 2 out of 10. Patient does state that he has been having a little bit more neck pain due to recently going to a conference where he sat too long and got more stiff. Patient was prescribed oral steroids from his PCP and states this did help. Patient does state from her last visit he did end up talking to Dr. Read and they have decided to forego the intrathecal pump trial due to being higher risk. Patient is currently managed with [place] 7.5 mg 3 times a day and Flexeril 10 mg 3 times a day. He denies any side effects from this medication. His Matthew has been reviewed and is appropriate. Review of Systems: General: No recent weight changes, no fever, no sleep disturbances Respiratory: No cough, no shortness of air, no recurring pulmonary infections Cardiovascular/peripheral vascular: No chest pain, no palpitations, no edema, no shortness of breath Gastrointestinal: No new onset incontinence, normal bowel movements reported Genitourinary: No new onset incontinence Musculoskeletal: Low back pain, neck pain Psychiatric: [Normal mood/affect] Neurological: [Denies weakness in extremities], [denies balance issues] Pain at rest (0-10 scale): 4 Objective Objective:: Physical Exam: General: Alert and oriented x3, no acute distress, pleasant and cooperative Lungs: Respirations even and unlabored, symmetrical chest expansion Eyes: PERRL Musculoskeletal: Flexion and extension of cervical [spine] somewhat guarded secondary to pain, [antalgic gait noted] Neurological: Speech clear, no gross sensory deficit Has patient had previous pain injection?: No Conservative treatment options previously tried: Prescription medications Length of treatment: Longer than 12 weeks Meds Home Medications and Allergies Home Medications ?Medication ?Instructions ?Recorded ?Confirmed ?Type montelukast 10 mg tablet 10 mg PO QPM Breathing problems 11/17/17 02/09/24 History (Singulair) potassium chloride 10 mEq 10 meq PO BID Supplement 11/17/17 02/09/24 History capsule,extended release propafenone 425 mg 425 mg PO Q12H Heart disease 11/17/17 02/09/24 History capsule,extended release 12 hr (Rythmol SR) atorvastatin 20 mg tablet 20 mg PO DAILY Cholesterol 04/11/22 02/09/24 History bumetanide 2 mg tablet 2 mg PO DAILY Fluid 04/11/22 02/09/24 History gabapentin 600 mg tablet 600 mg PO TID Pain 04/11/22 02/09/24 History lisinopril 40 mg tablet 40 mg PO DAILY High blood pressure 04/11/22 02/09/24 History metoprolol tartrate 100 mg tablet 100 mg PO BID High blood pressure 04/11/22 02/09/24 History rivaroxaban 20 mg tablet (Xarelto) 20 mg PO DAILY AFIB 04/11/22 02/09/24 History tizanidine 4 mg tablet 4 mg PO BID Pain 04/11/22 02/09/24 History amlodipine 10 mg tablet 10 mg PO DAILY . 04/20/22 02/09/24 History albuterol sulfate 90 mcg/actuation 2 puff inhalation DIRECTED PRN 08/01/23 02/09/24 History aerosol inhaler Breathing Problems cetirizine 10 mg tablet (All Day 10 mg PO DAILY 08/01/23 02/09/24 History Allergy (cetirizine)) ergocalciferol (vitamin D2) 1,250 50,000 unit PO WEEKLY 08/01/23 02/09/24 History mcg (50,000 unit) capsule fluticasone fur. 100 mcg-umeclid 1 inh inhalation DAILY 08/01/23 02/09/24 History 62.5 mcg-vilant 25 mcg inhalat.powder (Trelegy Ellipta) methocarbamol 750 mg tablet 750 mg PO TID 08/01/23 02/09/24 History nitroglycerin 0.4 mg sublingual 0.4 mg sublingual Q5M PRN Chest 08/01/23 02/09/24 History tablet Pain trazodone 50 mg tablet 100 mg PO HS Insomnia 08/01/23 02/09/24 History omeprazole 20 mg capsule,delayed 20 mg PO DAILY 09/13/23 02/09/24 History release sertraline 50 mg tablet 100 mg PO DAILY Depression 09/13/23 02/09/24 History metaxalone 800 mg tablet 800 mg PO TID PRN muscle pain #270 10/13/23 02/09/24 Rx tabs cyclobenzaprine 10 mg tablet 10 mg PO TID #270 tabs 01/11/24 02/09/24 Rx hydrocodone 7.5 mg-acetaminophen 1 tab PO TID #90 tabs 01/11/24 02/09/24 Rx 325 mg tablet New Prescriptions to Start Prescriptions: Allergies Allergy/AdvReac Type Severity Reaction Status Date / Time levofloxacin Allergy Mild I-RASH Verified 01/20/24 14:01 niacin Allergy Mild Verified 01/20/24 14:01 ofloxacin Allergy Mild Verified 01/20/24 14:01 sulfamethoxazole Allergy Mild I-RASH Verified 01/20/24 14:01 [From Bactrim] trimethoprim [From Bactrim] Allergy Mild I-RASH Verified 01/20/24 14:01 oxytetracycline Allergy Unknown Verified 01/20/24 14:01 Penicillins Allergy Unknown Verified 01/20/24 14:01 Assessment and Plan *Assessment and plan (1) Degenerative disc disease, lumbar: Status: Acute Category: Medical Code(s): M51.36 - Other intervertebral disc degeneration, lumbar region (2) Neck pain: Status: Acute Category: Medical Code(s): M54.2 - Cervicalgia (3) Spinal stenosis of lumbar region: Status: Acute Category: Medical Code(s): M48.061 - Spinal stenosis, lumbar region without neurogenic claudication Plan I will refill the patient's [place] and provide a 1 month supply of this medication. Patient did get a 3-month supply of his muscle relaxer and does not need refills of that at this time. Patient will return to clinic in 1 month for reevaluation of symptoms and plan of care. Risks and benefits of the medication have been explained in detail to the patient. The patient does understand the risk of dependence on the medication when given over a prolonged period. Patient has been advised of risks of oversedation with the prescribed medication. Narcan has been offered to the paitent in the event of oversedation. Patient has been advised that a family member should also be educated regarding administration of Narcan. The patient has been advised to consult with his/her primary care provider and pharmacist regarding drug-drug interaction of medications currently prescribed. Patient has been prescribed a controlled substance after being counseled on the medication, medication safety, and possible side effects. Opioid contract was reviewed and signed by the patient, and that they have agreed to all of the terms set forth by our compliance program. Patient has been instructed to contact the clinic with any concerns before the next appointment. Dr. Read has reviewed this note and agrees with this plan of care. This note was dictated using voice recognition software and make contain errors or omissions.
== END 2024-02-09 23:59 | disposition home or self-care (01) ==
PROVIDERS: PCP Nurse Practitioner Family; Visit Provider Nurse Practitioner Family
DX: M51.36 Other intervertebral disc degeneration, lumbar region (principal); M54.2 Cervicalgia; M48.061 Spinal stenosis, lumbar region without neurogenic claudication; F17.210 Nicotine dependence, cigarettes, uncomplicated; Z79.899 Other long term (current) drug therapy
CPT/HCPCS: 99212; G0463

== ENCOUNTER 2024-03-07 11:00 | Outpatient (RCR) | payer OTHER, SELFPAY | END 2024-03-07 23:59 | disposition home or self-care (01) | LOC: PT 11:00 | PROVIDERS: Visit Provider Nurse Practitioner Family | DX: M54.2 Cervicalgia (principal) | CPT/HCPCS: 97110; 97140; 97163 ==

== ENCOUNTER 2024-03-14 11:06 | Outpatient (POV) | payer OTHER, SELFPAY ==
[2024-03-14 11:23] VITALS: BP 161/82; PULSE 80; RESP 18; O2SAT 94; BMI 38.8
--- NOTE | 2024-03-14 12:10 | A.OFFVIS_ITS ---
[facility] Disclaimer: The information contained in this section may have been updated after the patient was seen, as this information can be updated by other users. Medical History Encounter for postoperative care Loss of taste Swelling of right parotid gland Swelling of left parotid gland Parotid abscess Dental caries limited to enamel Facial cellulitis Depression Anxiety Diabetes mellitus, type 2 History of stroke COPD (chronic obstructive pulmonary disease) Atrial fibrillation Status postcardiac ablation, active follow-up with [facility] in [place] Hyperlipidemia Hypertension Surgical History Hx of cardiac catheterization History of cholecystectomy Family History Other Family history of cancer Family history of hyperlipidemia Family history of hypertension Family history of myocardial infarction Social History Smoking Status: Current every day smoker alcohol intake: current alcohol intake frequency: a few times a month substance use type: denies use current occupational status: retired Travel in the last 8 weeks: None household members: spouse housing: house marital status: PM Subjective & Objective Subjective Subjective:: Patient is a pleasant 63-year-old male who presents today for medication refill and follow-up. Today he rates his pain a 2 out of 10. Patient denies any new trauma or injury. He does state that he is finishing up with physical therapy for his neck pain. Patient does state that it has helped some and he does feel like he has a little bit better range of movement however he still will have stiffness from time to time. Patient is currently managed with [place] 7.5 mg 3 times a day and Flexeril 10 mg 3 times a day. He denies any side effects from this medication. His Matthew has been reviewed and is appropriate. Review of Systems: General: No recent weight changes, no fever, no sleep disturbances Respiratory: No cough, no shortness of air, no recurring pulmonary infections Cardiovascular/peripheral vascular: No chest pain, no palpitations, no edema, no shortness of breath Gastrointestinal: No new onset incontinence, normal bowel movements reported Genitourinary: No new onset incontinence Musculoskeletal: Low back pain Psychiatric: [Normal mood/affect] Neurological: [Denies weakness in extremities], [denies balance issues] Pain at rest (0-10 scale): 2 Objective Objective:: Physical Exam: General: Alert and oriented x3, no acute distress, pleasant and cooperative Lungs: Respirations even and unlabored, symmetrical chest expansion Eyes: PERRL Musculoskeletal: Flexion and extension of lumbar [spine] somewhat guarded secondary to pain, [antalgic gait noted] Neurological: Speech clear, no gross sensory deficit Has patient had previous pain injection?: No Conservative treatment options previously tried: Physical Therapy Length of treatment: Longer than 6 weeks Meds Home Medications and Allergies Home Medications ?Medication ?Instructions ?Recorded ?Confirmed ?Type montelukast 10 mg tablet 10 mg PO QPM Breathing problems 11/17/17 03/14/24 History (Singulair) potassium chloride 10 mEq 10 meq PO BID Supplement 11/17/17 03/14/24 History capsule,extended release propafenone 425 mg 425 mg PO Q12H Heart disease 11/17/17 03/14/24 History capsule,extended release 12 hr (Rythmol SR) atorvastatin 20 mg tablet 20 mg PO DAILY Cholesterol 04/11/22 03/14/24 History bumetanide 2 mg tablet 2 mg PO DAILY Fluid 04/11/22 03/14/24 History gabapentin 600 mg tablet 600 mg PO TID Pain 04/11/22 03/14/24 History lisinopril 40 mg tablet 40 mg PO DAILY High blood pressure 04/11/22 03/14/24 History metoprolol tartrate 100 mg tablet 100 mg PO BID High blood pressure 04/11/22 03/14/24 History rivaroxaban 20 mg tablet (Xarelto) 20 mg PO DAILY AFIB 04/11/22 03/14/24 History tizanidine 4 mg tablet 4 mg PO BID Pain 04/11/22 03/14/24 History amlodipine 10 mg tablet 10 mg PO DAILY . 04/20/22 03/14/24 History albuterol sulfate 90 mcg/actuation 2 puff inhalation DIRECTED PRN 08/01/23 03/14/24 History aerosol inhaler Breathing Problems cetirizine 10 mg tablet (All Day 10 mg PO DAILY 08/01/23 03/14/24 History Allergy (cetirizine)) ergocalciferol (vitamin D2) 1,250 50,000 unit PO WEEKLY 08/01/23 03/14/24 History mcg (50,000 unit) capsule fluticasone fur. 100 mcg-umeclid 1 inh inhalation DAILY 08/01/23 03/14/24 History 62.5 mcg-vilant 25 mcg inhalat.powder (Trelegy Ellipta) methocarbamol 750 mg tablet 750 mg PO TID 08/01/23 03/14/24 History nitroglycerin 0.4 mg sublingual 0.4 mg sublingual Q5M PRN Chest 08/01/23 03/14/24 History tablet Pain trazodone 50 mg tablet 100 mg PO HS Insomnia 08/01/23 03/14/24 History omeprazole 20 mg capsule,delayed 20 mg PO DAILY 09/13/23 03/14/24 History release sertraline 50 mg tablet 100 mg PO DAILY Depression 09/13/23 03/14/24 History metaxalone 800 mg tablet 800 mg PO TID PRN muscle pain #270 10/13/23 03/14/24 Rx tabs cyclobenzaprine 10 mg tablet 10 mg PO TID #270 tabs 01/11/24 03/14/24 Rx hydrocodone 7.5 mg-acetaminophen 1 tab PO TID #12 tabs 02/27/24 03/14/24 Rx 325 mg tablet New Prescriptions to Start Prescriptions: Allergies Allergy/AdvReac Type Severity Reaction Status Date / Time levofloxacin Allergy Mild I-RASH Verified 01/20/24 14:01 niacin Allergy Mild Verified 01/20/24 14:01 ofloxacin Allergy Mild Verified 01/20/24 14:01 sulfamethoxazole Allergy Mild I-RASH Verified 01/20/24 14:01 [From Bactrim] trimethoprim [From Bactrim] Allergy Mild I-RASH Verified 01/20/24 14:01 oxytetracycline Allergy Unknown Verified 01/20/24 14:01 Penicillins Allergy Unknown Verified 01/20/24 14:01 Assessment and Plan *Assessment and plan (1) Neck pain: Status: Acute Category: Medical Code(s): M54.2 - Cervicalgia (2) Degenerative disc disease, lumbar: Status: Acute Category: Medical Code(s): M51.36 - Other intervertebral disc degeneration, lumbar region Plan I will refill the patient's [place] and Flexeril and provide a 1 month supply of his pain medication and a 3-month supply of his muscle relaxer. Patient will return to clinic in 1 month for reevaluation of symptoms and plan of care. Risks and benefits of the medication have been explained in detail to the patient. The patient does understand the risk of dependence on the medication when given over a prolonged period. Patient has been advised of risks of oversedation with the prescribed medication. Narcan has been offered to the paitent in the event of oversedation. Patient has been advised that a family member should also be educated regarding administration of Narcan. The patient has been advised to consult with his/her primary care provider and pharmacist regarding drug-drug interaction of medications currently prescribed. Patient has been prescribed a controlled substance after being counseled on the medication, medication safety, and possible side effects. Opioid contract was reviewed and signed by the patient, and that they have agreed to all of the terms set forth by our compliance program. Patient has been instructed to contact the clinic with any concerns before the next appointment. Dr. Read has reviewed this note and agrees with this plan of care. This note was dictated using voice recognition software and make contain errors or omissions.
== END 2024-03-14 23:59 | disposition home or self-care (01) ==
PROVIDERS: PCP Nurse Practitioner Family; Visit Provider Nurse Practitioner Family
DX: M54.2 Cervicalgia (principal); M51.369 Other intervertebral disc degeneration, lumbar region without mention of lumbar back pain or lower extremity pain; F17.210 Nicotine dependence, cigarettes, uncomplicated; Z79.899 Other long term (current) drug therapy
CPT/HCPCS: 99212; G0463

== ENCOUNTER 2024-04-16 10:39 | Outpatient (POV) | payer OTHER, SELFPAY ==
--- NOTE | 2024-04-16 11:13 | EXP.PAIN.SOA ---
[facility] Disclaimer: The information contained in this section may have been updated after the patient was seen, as this information can be updated by other users. Medical History Encounter for postoperative care Loss of taste Swelling of right parotid gland Swelling of left parotid gland Parotid abscess Dental caries limited to enamel Facial cellulitis Depression Anxiety Diabetes mellitus, type 2 History of stroke COPD (chronic obstructive pulmonary disease) Atrial fibrillation Status postcardiac ablation, active follow-up with [facility] in [place] Hyperlipidemia Hypertension Surgical History Hx of cardiac catheterization History of cholecystectomy Family History Other Family history of cancer Family history of hyperlipidemia Family history of hypertension Family history of myocardial infarction Social History Smoking Status: Current every day smoker alcohol intake: current alcohol intake frequency: a few times a month substance use type: denies use current occupational status: retired Travel in the last 8 weeks: None household members: spouse housing: house marital status: PM Subjective & Objective Subjective Subjective:: Patient is a pleasant 63-year-old male who presents today for medication refill and follow-up. Today he rates his pain a 4 out of 10. Patient denies any new trauma or injury. Patient does state that he did end up trying again the between our last visit and nail. He states that he was not sure what he had bought however it caused him to be a little extra loopy for about 4 hours. Patient's does say that it ended up being a delta 8. Patient has not done this since. Patient states he is possibly going to try the CBD products. Patient is currently managed with [place] 7.5 mg 3 times a day and Flexeril 10 mg 3 times a day. Patient does not need refills on his muscle relaxer. His Matthew has been reviewed and is appropriate. Review of Systems: General: No recent weight changes, no fever, no sleep disturbances Respiratory: No cough, no shortness of air, no recurring pulmonary infections Cardiovascular/peripheral vascular: No chest pain, no palpitations, no edema, no shortness of breath Gastrointestinal: No new onset incontinence, normal bowel movements reported Genitourinary: No new onset incontinence Musculoskeletal: Low back pain, neck pain Psychiatric: [Normal mood/affect] Neurological: [Denies weakness in extremities], [denies balance issues] Pain at rest (0-10 scale): 4 Objective Objective:: Physical Exam: General: Alert and oriented x3, no acute distress, pleasant and cooperative Lungs: Respirations even and unlabored, symmetrical chest expansion Eyes: PERRL Musculoskeletal: Flexion and extension of cervical [spine] somewhat guarded secondary to pain, [antalgic gait noted] Neurological: Speech clear, no gross sensory deficit Has patient had previous pain injection?: No Conservative treatment options previously tried: Home exercise plan Length of treatment: Longer than 12 weeks Meds Home Medications and Allergies Home Medications ?Medication ?Instructions ?Recorded ?Confirmed ?Type montelukast 10 mg tablet 10 mg PO QPM Breathing problems 11/17/17 03/14/24 History (Singulair) potassium chloride 10 mEq 10 meq PO BID Supplement 11/17/17 03/14/24 History capsule,extended release propafenone 425 mg 425 mg PO Q12H Heart disease 11/17/17 03/14/24 History capsule,extended release 12 hr (Rythmol SR) atorvastatin 20 mg tablet 20 mg PO DAILY Cholesterol 04/11/22 03/14/24 History bumetanide 2 mg tablet 2 mg PO DAILY Fluid 04/11/22 03/14/24 History gabapentin 600 mg tablet 600 mg PO TID Pain 04/11/22 03/14/24 History lisinopril 40 mg tablet 40 mg PO DAILY High blood pressure 04/11/22 03/14/24 History metoprolol tartrate 100 mg tablet 100 mg PO BID High blood pressure 04/11/22 03/14/24 History rivaroxaban 20 mg tablet (Xarelto) 20 mg PO DAILY AFIB 04/11/22 03/14/24 History tizanidine 4 mg tablet 4 mg PO BID Pain 04/11/22 03/14/24 History amlodipine 10 mg tablet 10 mg PO DAILY . 04/20/22 03/14/24 History albuterol sulfate 90 mcg/actuation 2 puff inhalation DIRECTED PRN 08/01/23 03/14/24 History aerosol inhaler Breathing Problems cetirizine 10 mg tablet (All Day 10 mg PO DAILY 08/01/23 03/14/24 History Allergy (cetirizine)) ergocalciferol (vitamin D2) 1,250 50,000 unit PO WEEKLY 08/01/23 03/14/24 History mcg (50,000 unit) capsule fluticasone fur. 100 mcg-umeclid 1 inh inhalation DAILY 08/01/23 03/14/24 History 62.5 mcg-vilant 25 mcg inhalat.powder (Trelegy Ellipta) methocarbamol 750 mg tablet 750 mg PO TID 08/01/23 03/14/24 History nitroglycerin 0.4 mg sublingual 0.4 mg sublingual Q5M PRN Chest 08/01/23 03/14/24 History tablet Pain trazodone 50 mg tablet 100 mg PO HS Insomnia 08/01/23 03/14/24 History omeprazole 20 mg capsule,delayed 20 mg PO DAILY 09/13/23 03/14/24 History release sertraline 50 mg tablet 100 mg PO DAILY Depression 09/13/23 03/14/24 History metaxalone 800 mg tablet 800 mg PO TID PRN muscle pain #270 10/13/23 03/14/24 Rx tabs cyclobenzaprine 10 mg tablet 10 mg PO TID #270 tabs 03/14/24 Rx hydrocodone 7.5 mg-acetaminophen 1 tab PO TID #90 tabs 03/14/24 Rx 325 mg tablet [id number] 140 gram-sod sulfate 9 See Rx Instructions PO .COMPLEX #3 03/28/24 Rx gram-NaCl 5.2gram-KCl-C oral pwdr ea packs (Plenvu) New Prescriptions to Start Prescriptions: Allergies Allergy/AdvReac Type Severity Reaction Status Date / Time levofloxacin Allergy Mild I-RASH Verified 01/20/24 14:01 niacin Allergy Mild Verified 01/20/24 14:01 ofloxacin Allergy Mild Verified 01/20/24 14:01 sulfamethoxazole (From Allergy Mild I-RASH Verified 01/20/24 14:01 Bactrim) trimethoprim (From Bactrim) Allergy Mild I-RASH Verified 01/20/24 14:01 oxytetracycline Allergy Unknown Verified 01/20/24 14:01 Penicillins Allergy Unknown Verified 01/20/24 14:01 Assessment and Plan *Assessment and plan (1) Neck pain: Status: Acute Category: Medical Code(s): M54.2 - Cervicalgia (2) Degenerative disc disease, lumbar: Status: Acute Category: Medical Code(s): M51.36 - Other intervertebral disc degeneration, lumbar region Plan I will refill the patient's [place] and provide a 1 month supply of this medication. Patient will return to clinic in 1 month for reevaluation of symptoms and plan of care. Risks and benefits of the medication have been explained in detail to the patient. The patient does understand the risk of dependence on the medication when given over a prolonged period. Patient has been advised of risks of oversedation with the prescribed medication. Narcan has been offered to the paitent in the event of oversedation. Patient has been advised that a family member should also be educated regarding administration of Narcan. The patient has been advised to consult with his/her primary care provider and pharmacist regarding drug-drug interaction of medications currently prescribed. Patient has been prescribed a controlled substance after being counseled on the medication, medication safety, and possible side effects. Opioid contract was reviewed and signed by the patient, and that they have agreed to all of the terms set forth by our compliance program. Patient has been instructed to contact the clinic with any concerns before the next appointment. Dr. Read has reviewed this note and agrees with this plan of care. This note was dictated using voice recognition software and make contain errors or omissions.
[2024-04-16 12:02] VITALS: BP 138/72; PULSE 79; RESP 14; O2SAT 95; BMI 38.7
== END 2024-04-16 23:59 | disposition home or self-care (01) ==
PROVIDERS: PCP Nurse Practitioner Family; Visit Provider Nurse Practitioner Family
DX: M54.2 Cervicalgia (principal); M51.369 Other intervertebral disc degeneration, lumbar region without mention of lumbar back pain or lower extremity pain; F17.210 Nicotine dependence, cigarettes, uncomplicated; Z79.899 Other long term (current) drug therapy; Z79.01 Long term (current) use of anticoagulants
CPT/HCPCS: 99212; G0463

== ENCOUNTER 2024-05-14 10:39 | Outpatient (POV) | payer OTHER, SELFPAY ==
--- NOTE | 2024-05-14 10:42 | EXP.PAIN.SOA ---
[facility] Disclaimer: The information contained in this section may have been updated after the patient was seen, as this information can be updated by other users. Medical History (Updated 04/19/24 @ 15:54 by Franklin Boo MD) Encounter for screening for malignant neoplasm of lung Dyspnea on exertion History of COPD Smoking greater than 30 pack years Encounter for postoperative care Loss of taste Swelling of right parotid gland Swelling of left parotid gland Parotid abscess Dental caries limited to enamel Facial cellulitis Depression Anxiety Diabetes mellitus, type 2 History of stroke COPD (chronic obstructive pulmonary disease) Atrial fibrillation Hyperlipidemia Hypertension Surgical History Hx of cardiac catheterization History of cholecystectomy Family History Other Family history of cancer Family history of hyperlipidemia Family history of hypertension Family history of myocardial infarction Social History Smoking Status: Current every day smoker alcohol intake: current alcohol intake frequency: a few times a month substance use type: denies use current occupational status: other Travel in the last 8 weeks: None household members: spouse housing: house marital status: PM Subjective & Objective Subjective Subjective:: Patient is a pleasant 63-year-old male who presents today for 1 month medication refill. Today he rates his pain a 5 out of 10. Patient denies any new changes from his last appointment patient is currently managed with [place] 7.5 mg 3 times a day and Flexeril 10 mg 3 times a day. His Matthew has been reviewed and is appropriate. Review of Systems: General: No recent weight changes, no fever, no sleep disturbances Respiratory: No cough, no shortness of air, no recurring pulmonary infections Cardiovascular/peripheral vascular: No chest pain, no palpitations, no edema, no shortness of breath Gastrointestinal: No new onset incontinence, normal bowel movements reported Genitourinary: No new onset incontinence Musculoskeletal: Low back pain, neck pain Psychiatric: [Normal mood/affect] Neurological: [Denies weakness in extremities], [denies balance issues] Pain at rest (0-10 scale): 5 Objective Objective:: Physical Exam: General: Alert and oriented x3, no acute distress, pleasant and cooperative Lungs: Respirations even and unlabored, symmetrical chest expansion Eyes: PERRL Musculoskeletal: Flexion and extension of lumbar [spine] somewhat guarded secondary to pain, [antalgic gait noted] Neurological: Speech clear, no gross sensory deficit Has patient had previous pain injection?: No Conservative treatment options previously tried: Prescription medications Length of treatment: Longer than 12 weeks Meds Home Medications and Allergies Home Medications ?Medication ?Instructions ?Recorded ?Confirmed ?Type montelukast 10 mg tablet 10 mg PO QPM Breathing problems 11/17/17 05/14/24 History (Singulair) potassium chloride 10 mEq 10 meq PO BID Supplement 11/17/17 05/14/24 History capsule,extended release propafenone 425 mg 425 mg PO Q12H Heart disease 11/17/17 05/14/24 History capsule,extended release 12 hr (Rythmol SR) atorvastatin 20 mg tablet 20 mg PO DAILY Cholesterol 04/11/22 05/14/24 History bumetanide 2 mg tablet 2 mg PO DAILY Fluid 04/11/22 05/14/24 History gabapentin 600 mg tablet 600 mg PO TID Pain 04/11/22 05/14/24 History lisinopril 40 mg tablet 40 mg PO DAILY High blood pressure 04/11/22 05/14/24 History metoprolol tartrate 100 mg tablet 100 mg PO BID High blood pressure 04/11/22 05/14/24 History rivaroxaban 20 mg tablet (Xarelto) 20 mg PO DAILY AFIB 04/11/22 05/14/24 History amlodipine 10 mg tablet 10 mg PO DAILY . 04/20/22 05/14/24 History albuterol sulfate 90 mcg/actuation 2 puff inhalation DIRECTED PRN 08/01/23 05/14/24 History aerosol inhaler Breathing Problems cetirizine 10 mg tablet (All Day 10 mg PO DAILY 08/01/23 05/14/24 History Allergy (cetirizine)) fluticasone fur. 100 mcg-umeclid 1 inh inhalation DAILY 08/01/23 05/14/24 History 62.5 mcg-vilant 25 mcg inhalat.powder (Trelegy Ellipta) nitroglycerin 0.4 mg sublingual 0.4 mg sublingual Q5M PRN Chest 08/01/23 05/14/24 History tablet Pain trazodone 50 mg tablet 100 mg PO HS Insomnia 08/01/23 05/14/24 History omeprazole 20 mg capsule,delayed 20 mg PO DAILY 09/13/23 05/14/24 History release sertraline 50 mg tablet 100 mg PO DAILY Depression 09/13/23 05/14/24 History [id number] 140 gram-sod sulfate 9 See Rx Instructions PO .COMPLEX #3 03/28/24 05/14/24 Rx gram-NaCl 5.2gram-KCl-C oral pwdr ea packs (Plenvu) fluticasone fur. 100 mcg-umeclid 1 inh inhalation DAILY 90 days #90 04/19/24 05/14/24 Rx 62.5 mcg-vilant 25 mcg ea inhalat.powder (Trelegy Ellipta) cyclobenzaprine 10 mg tablet 10 mg PO TID #270 tabs 05/14/24 Rx hydrocodone 7.5 mg-acetaminophen 1 tab PO TID #90 tabs 05/14/24 Rx 325 mg tablet New Prescriptions to Start Prescriptions: cyclobenzaprine Mas,Brianne A hydrocodone-acetaminophen Mas,Brianne A Allergies Allergy/AdvReac Type Severity Reaction Status Date / Time levofloxacin Allergy Mild I-RASH Verified 04/19/24 15:07 niacin Allergy Mild Verified 04/19/24 15:07 ofloxacin Allergy Mild Verified 04/19/24 15:07 sulfamethoxazole (From Allergy Mild I-RASH Verified 04/19/24 15:07 Bactrim) trimethoprim (From Bactrim) Allergy Mild I-RASH Verified 04/19/24 15:07 oxytetracycline Allergy Unknown Verified 04/19/24 15:07 Penicillins Allergy Unknown Verified 04/19/24 15:07 Assessment and Plan *Assessment and plan (1) Degenerative disc disease, lumbar: Status: Acute Category: Medical Code(s): M51.369 - Other intervertebral disc degeneration, lumbar region without mention of lumbar back pain or lower extremity pain (2) Neck pain: Status: Acute Category: Medical Code(s): M54.2 - Cervicalgia (3) Spinal stenosis of lumbar region: Status: Acute Category: Medical Code(s): M48.061 - Spinal stenosis, lumbar region without neurogenic claudication Plan I will send in a 3-month supply of his muscle relaxer and then refill his [place] with a 1 month supply. Patient will return to clinic in 1 month for reevaluation of symptoms and plan of care. Risks and benefits of the medication have been explained in detail to the patient. The patient does understand the risk of dependence on the medication when given over a prolonged period. Patient has been advised of risks of oversedation with the prescribed medication. Narcan has been offered to the paitent in the event of oversedation. Patient has been advised that a family member should also be educated regarding administration of Narcan. The patient has been advised to consult with his/her primary care provider and pharmacist regarding drug-drug interaction of medications currently prescribed. Patient has been prescribed a controlled substance after being counseled on the medication, medication safety, and possible side effects. Opioid contract was reviewed and signed by the patient, and that they have agreed to all of the terms set forth by our compliance program. A UDS is needed to verify patient's compliance with our office pain contract. This is ordered based off specific treatments related to chronic pain with the potential to abuse certain medications. Patient has been instructed to contact the clinic with any concerns before the next appointment. Dr. Read has reviewed this note and agrees with this plan of care. This note was dictated using voice recognition software and make contain errors or omissions.
[2024-05-14 13:40] VITALS: BP 146/78; PULSE 69; RESP 16; O2SAT 91; BMI 38.7
== END 2024-05-14 23:59 | disposition home or self-care (01) ==
PROVIDERS: PCP Nurse Practitioner Family; Visit Provider Nurse Practitioner Family
DX: M51.369 Other intervertebral disc degeneration, lumbar region without mention of lumbar back pain or lower extremity pain (principal); M54.2 Cervicalgia; M48.061 Spinal stenosis, lumbar region without neurogenic claudication; F17.210 Nicotine dependence, cigarettes, uncomplicated; Z79.899 Other long term (current) drug therapy
CPT/HCPCS: 99212; G0463

== ENCOUNTER → 2024-06-01 07:36 | Day surgery (SDC) | payer OTHER, SELFPAY ==
--- NOTE | 2024-06-01 08:04 | HMH.SCOPE ---
Procedure: Date: 06/01/24 Patient Date of :: 1960 Indications:: Patient is a 63-year-old male smoker with history of COPD, obstructive sleep apnea, TIA, diabetes, hyperlipidemia, atrial fibrillation status post ablation on Xarelto referred for surveillance colonoscopy due to positive Cologuard. Performing Provider:: Michael Howard MD Referring Provider:: Judith Reno .
[2024-06-01 08:05] VITALS: BP 168/85; PULSE 86; RESP 16; TEMP 36.4; O2SAT 97; BMI 38.7
[2024-06-01 08:09] LABS: POC Glucose,Bedside 157 (70-110)
[2024-06-01] MEDS: LACTATED RINGERS 1000ML 1,000 ML 25 ML IV (08:12)
--- NOTE | 2024-06-01 08:14 | EXP.ANES.CKL ---
[facility] Disclaimer: The information contained in this section may have been updated after the patient was seen, as this information can be updated by other users. Medical History Encounter for screening for malignant neoplasm of lung Dyspnea on exertion History of COPD Smoking greater than 30 pack years Encounter for postoperative care Loss of taste Swelling of right parotid gland Swelling of left parotid gland Parotid abscess Dental caries limited to enamel Facial cellulitis Depression Anxiety Diabetes mellitus, type 2 History of stroke COPD (chronic obstructive pulmonary disease) Atrial fibrillation Hyperlipidemia Hypertension Surgical History Hx of cardiac catheterization History of cholecystectomy Family History Other Family history of cancer Family history of hyperlipidemia Family history of hypertension Family history of myocardial infarction Social History (Updated 06/01/24 @ 08:01 by Hattie Ratliff) Smoking Status: Current every day smoker alcohol intake: never substance use type: denies use current occupational status: other Travel in the last 8 weeks: None household members: spouse housing: house marital status: caffeine: No [facility] Anesthesia Checklist Patient Identification Patient Identification: Arm Band, Family and Verbal (Name & ) Structural Data Admitted From: Home Planned Operative Procedure/s: Colonoscopy Consent for Planned Operative Procedure(s) Verified: Yes Verified Documents: Surgical Consent and History and Physical NPO Status Verified Time NPO: 00:00 Chart Verification Results Verified: CBC, BMP and ECG Additional verifications Fingerstick Blood Glucose: 157 Patient : No Anesthesia Reactions: No Hx Blood Transfusions: No Blood Transfusion Reaction: No Cardiovascular Assessment Heart Sounds: S1 & S2 Pulse Rhythm: Irregular Peripheral Edema: No Airway Assessment Mallampati Score:: Class II C-Spine Mobility Assessed: Yes (Limited extension) TMJ Mobility Assessed: Yes Dentition: Poor Dentition (Nothing loose per pt.) Neurological Assessment Level of Consciousness: Awake, Alert, Appropriate and Follows Commands Hx Seizures: No Numbness or tingling in extremities: No Anesthesia Plan Anesthesia Risk discussed: Yes Anesthesia Plan: Verified ASA Class: III Anesthesia Type: MAC
--- NOTE | 2024-06-04 14:15 | SUR.PREOP ---
procedure cancelled per MD Howard and anesthesia team due to pt stopping his lovenox (1) day too soon
== END ==
LOC: OUTP 07:37
PROVIDERS: PCP Nurse Practitioner Family; Visit Provider Surgery
PROC: 0DJD8ZZ Inspection of Lower Intestinal Tract, Via Natural or Artificial Opening Endoscopic (ICD-10-PCS; principal; 2024-06-01 08:30)
DX: Z53.8 Procedure and treatment not carried out for other reasons (principal)
CPT/HCPCS: 82962; J7120

== ENCOUNTER 2024-06-14 11:45 | Outpatient (POV) | payer OTHER, SELFPAY ==
--- NOTE | 2024-06-14 12:14 | A.OFFVIS_ITS ---
[facility] Disclaimer: The information contained in this section may have been updated after the patient was seen, as this information can be updated by other users. Medical History Encounter for screening for malignant neoplasm of lung Dyspnea on exertion History of COPD Smoking greater than 30 pack years Encounter for postoperative care Loss of taste Swelling of right parotid gland Swelling of left parotid gland Parotid abscess Dental caries limited to enamel Facial cellulitis Depression Anxiety Diabetes mellitus, type 2 History of stroke COPD (chronic obstructive pulmonary disease) Atrial fibrillation Hyperlipidemia Hypertension Surgical History Hx of cardiac catheterization History of cholecystectomy Family History Other Family history of cancer Family history of hyperlipidemia Family history of hypertension Family history of myocardial infarction Social History (Updated 06/01/24 @ 08:01 by Hattie Ratliff) Smoking Status: Current every day smoker alcohol intake: never substance use type: denies use current occupational status: other Travel in the last 8 weeks: None household members: spouse housing: house marital status: caffeine: No PM Subjective & Objective Subjective Subjective:: Patient is a pleasant 63-year-old male who presents today medication refills. He rates his pain a 4 out of 10. He denies any new injuries. He is currently prescribed Becker 7.5 mg 3 times a day and Flexeril 10 mg 3 times a day. He denies any side effects. He does state that he had issues with the pharmacy for his last prescriptions however is unsure exactly what it was. His Matthew has been reviewed and is appropriate. Review of Systems: General: No recent weight changes, no fever, no sleep disturbances Respiratory: No cough, no shortness of air, no recurring pulmonary infections Cardiovascular/peripheral vascular: No chest pain, no palpitations, no edema, no shortness of breath Gastrointestinal: No new onset incontinence, normal bowel movements reported Genitourinary: No new onset incontinence Musculoskeletal: Low back pain Psychiatric: [Normal mood/affect] Neurological: [Denies weakness in extremities], [denies balance issues] Pain at rest (0-10 scale): 4 Objective Objective:: Physical Exam: General: Alert and oriented x3, no acute distress, pleasant and cooperative Lungs: Respirations even and unlabored, symmetrical chest expansion Eyes: PERRL Musculoskeletal: Flexion and extension of lumbar [spine] somewhat guarded secondary to pain, [antalgic gait noted] Neurological: Speech clear, no gross sensory deficit Has patient had previous pain injection?: No Conservative treatment options previously tried: Prescription medications Length of treatment: Longer than 12 weeks Meds Home Medications and Allergies Home Medications ?Medication ?Instructions ?Recorded ?Confirmed ?Type montelukast 10 mg tablet 10 mg PO QPM Breathing problems 11/17/17 06/01/24 History (Singulair) potassium chloride 10 mEq 10 meq PO BID Supplement 11/17/17 06/01/24 History capsule,extended release propafenone 425 mg 425 mg PO Q12H Heart disease 11/17/17 06/01/24 History capsule,extended release 12 hr (Rythmol SR) atorvastatin 20 mg tablet 20 mg PO DAILY Cholesterol 04/11/22 06/01/24 History bumetanide 2 mg tablet 2 mg PO DAILY Fluid 04/11/22 06/01/24 History gabapentin 600 mg tablet 600 mg PO TID Pain 04/11/22 06/01/24 History lisinopril 40 mg tablet 40 mg PO DAILY High blood pressure 04/11/22 06/01/24 History metoprolol tartrate 100 mg tablet 100 mg PO BID High blood pressure 04/11/22 06/01/24 History rivaroxaban 20 mg tablet (Xarelto) 20 mg PO DAILY AFIB 04/11/22 06/01/24 History amlodipine 10 mg tablet 10 mg PO DAILY . 04/20/22 06/01/24 History albuterol sulfate 90 mcg/actuation 2 puff inhalation DIRECTED PRN 08/01/23 06/01/24 History aerosol inhaler Breathing Problems cetirizine 10 mg tablet (All Day 10 mg PO DAILY 08/01/23 06/01/24 History Allergy (cetirizine)) fluticasone fur. 100 mcg-umeclid 1 inh inhalation DAILY 08/01/23 06/01/24 History 62.5 mcg-vilant 25 mcg inhalat.powder (Trelegy Ellipta) nitroglycerin 0.4 mg sublingual 0.4 mg sublingual Q5M PRN Chest 08/01/23 06/01/24 History tablet Pain trazodone 50 mg tablet 100 mg PO HS Insomnia 08/01/23 06/01/24 History omeprazole 20 mg capsule,delayed 20 mg PO DAILY 09/13/23 06/01/24 History release sertraline 50 mg tablet 100 mg PO DAILY Depression 09/13/23 06/01/24 History fluticasone fur. 100 mcg-umeclid 1 inh inhalation DAILY 90 days #90 04/19/24 06/01/24 Rx 62.5 mcg-vilant 25 mcg ea inhalat.powder (Trelegy Ellipta) cyclobenzaprine 10 mg tablet 10 mg PO TID #270 tabs 05/14/24 06/01/24 Rx hydrocodone 7.5 mg-acetaminophen 1 tab PO TID #90 tabs 05/14/24 06/01/24 Rx 325 mg tablet New Prescriptions to Start Prescriptions: Allergies Allergy/AdvReac Type Severity Reaction Status Date / Time levofloxacin Allergy Mild I-RASH Verified 06/01/24 08:05 niacin Allergy Mild Rash Verified 06/01/24 08:05 ofloxacin Allergy Mild Rash Verified 06/01/24 08:05 sulfamethoxazole (From Allergy Mild I-RASH Verified 06/01/24 08:05 Bactrim) trimethoprim (From Bactrim) Allergy Mild I-RASH Verified 06/01/24 08:05 oxytetracycline Allergy Unknown Rash Verified 06/01/24 08:05 Penicillins Allergy Unknown Rash Verified 06/01/24 08:05 Assessment and Plan *Assessment and plan (1) Degenerative disc disease, lumbar: Status: Acute Category: Medical Code(s): M51.369 - Other intervertebral disc degeneration, lumbar region without mention of lumbar back pain or lower extremity pain (2) Lumbar radiculopathy: Status: Chronic Category: Medical Code(s): M54.16 - Radiculopathy, lumbar region Plan I will refill the patient's Becker and provide a 1 month supply of this medication. Patient will return to clinic in 1 month for reevaluation of symptoms and plan of care. Risks and benefits of the medication have been explained in detail to the patient. The patient does understand the risk of dependence on the medication when given over a prolonged period. Patient has been advised of risks of oversedation with the prescribed medication. Narcan has been offered to the paitent in the event of oversedation. Patient has been advised that a family member should also be educated regarding administration of Narcan. The patient has been advised to consult with his/her primary care provider and pharmacist regarding drug-drug interaction of medications currently prescribed. Patient has been prescribed a controlled substance after being counseled on the medication, medication safety, and possible side effects. Opioid contract was reviewed and signed by the patient, and that they have agreed to all of the terms set forth by our compliance program. A UDS is needed to verify patient's compliance with our office pain contract. This is ordered based off specific treatments related to chronic pain with the potential to abuse certain medications. Patient has been instructed to contact the clinic with any concerns before the next appointment. Dr. Read has reviewed this note and agrees with this plan of care. This note was dictated using voice recognition software and make contain errors or omissions.
[2024-06-14 12:58] VITALS: BP 133/77; PULSE 92; RESP 18; O2SAT 94; BMI 38.8
== END 2024-06-14 23:59 | disposition home or self-care (01) ==
PROVIDERS: PCP Nurse Practitioner Family; Visit Provider Nurse Practitioner Family
DX: M51.16 Intervertebral disc disorders with radiculopathy, lumbar region (principal); F17.210 Nicotine dependence, cigarettes, uncomplicated; Z79.899 Other long term (current) drug therapy
CPT/HCPCS: 99212; G0463

== ENCOUNTER 2024-06-29 13:06 | Outpatient (CLI) | payer OTHER, SELFPAY ==
--- NOTE | 2024-06-29 14:17 | CT_ITS ---
FINAL REPORT TECHNIQUE: Axial CT images of the chest were obtained without contrast. Coronal and sagittal reconstructions images are obtained and reviewed. Low-dose protocol was utilized. This study was performed with techniques to keep radiation doses as low as reasonably achievable (ALARA). Individualized dose reduction techniques using automated exposure control or adjustment of mA and/or kV according to the patient's size were employed. CLINICAL HISTORY: lung cancer screening current smoker 1 ppd x 57 yrs 108.38 DLP COMPARISON: 12/22/2022 FINDINGS: CT CHEST WITHOUT, LOW DOSE SCREENING CTDl vol(mGy): 2.9 DLP (mGy-cm): 108.38 There is a densely calcified subcarinal lymph node. There is moderate left effusion with overlying atelectasis. The previously noted nodule in the anterior right upper lobe measures 4 mm, image 30 series 3. The previously noted ill-defined nodule in the medial right upper lobe is no longer seen. IMPRESSION: Lung RADS category 0S. Recommend repeat low-dose CT after resolution of effusion. . Modifier S: New moderate left effusion. Reviewed, Interpreted and Dictated by Brian Hannah MD Transcribed by Bethany Orozco Authenticated and [facility]
[2024-06-29] MEDS: ALBUTEROL 0.083% 2.5 MG/3 ML NEB IH (14:22)
== END 2024-06-29 23:59 | disposition home or self-care (01) ==
LOC: RT 13:08
PROVIDERS: PCP Nurse Practitioner Family; Visit Provider Internal Medicine Pulmonary Disease
DX: R06.02 Shortness of breath (principal); F17.210 Nicotine dependence, cigarettes, uncomplicated
CPT/HCPCS: 71271; 94060; 94618; 94726; 94729; J7613

== ENCOUNTER 2024-07-13 14:37 | Inpatient (IN) | payer OTHER, SELFPAY ==
[2024-07-13] VITALS (28 sets, daily range): BP systolic 87–160; BP diastolic 61–112; PULSE 56–93; RESP 15–38; TEMP 36.2–37.2; O2SAT 91–99; BMI 38.0; BMI 35.3
[2024-07-13 14:54] LABS: Coronavirus 19, PCR Not Detected (NotDetected); Influenza A, PCR Not Detected (NotDetected); Influenza B, PCR Not Detected (NotDetected)
--- NOTE | 2024-07-13 14:54 | XR_ITS ---
PROCEDURE INFORMATION: Exam: XR Chest Exam date and time: 07/13/2024 3:31 PM Age: 63 years old Clinical indication: Wheezing; Additional info: SOA cp TECHNIQUE: Imaging protocol: Radiologic exam of the chest. Views: 2 views. COMPARISON: CT LUNG SCREENING 06/29/2024 2:33 PM FINDINGS: Lungs: Near complete collapse of the left lung. Clear right lung. Pleural spaces: Large left pneumothorax. Small left pleural effusion. Heart/Mediastinum: Normal. No cardiomegaly. Bones/joints: Unremarkable. IMPRESSION: Large left pneumothorax and small pleural effusion with near complete collapse of the left lung.
--- NOTE | 2024-07-13 14:56 | ED_ITS ---
Discharge Plan Disposition Patient Disposition: Admitted Condition: Fair Clinical Impressions Clinical Impression: Pneumothorax Discharge ED Provider: Katy Pathak [facility] <Maisha Teague APRN - Last Filed: 07/13/24 20:59> General Chief Complaint: Shortness of Breath/Dyspnea Stated Complaint: soa x3 days, coughing up blood Time Seen by Provider: 07/13/24 14:49 Mode of Arrival: Wheelchair Source of Information: Patient and Spouse Limitations: No Limitations Description of Symptoms (Recalled from ER Triage Doc. by RN): Patient presents via wheelchair to triage. Patient is a poor historian and depends upon his to answer questions. States the patient has been short of air x3 days. States the patient has a history of COPD. Wears oxygen at home as needed. States the last couple of day she has been coughing up yellow mucus. Denies seeking care prior to today. states he saw a machine i coremaker last week after a pleural effusion was seen on an X-ray. Related Data Home Medications ?Medication ?Instructions ?Recorded ?Confirmed montelukast 10 mg tablet 10 mg PO QPM Breathing problems 11/17/17 07/05/24 (Singulair) potassium chloride 10 mEq 10 meq PO BID Supplement 11/17/17 07/05/24 capsule,extended release propafenone 425 mg 425 mg PO Q12H Heart disease 11/17/17 07/05/24 capsule,extended release 12 hr (Rythmol SR) atorvastatin 20 mg tablet 20 mg PO DAILY Cholesterol 04/11/22 07/05/24 bumetanide 2 mg tablet 2 mg PO DAILY Fluid 04/11/22 07/05/24 gabapentin 600 mg tablet 600 mg PO TID Pain 04/11/22 07/05/24 lisinopril 40 mg tablet 40 mg PO DAILY High blood pressure 04/11/22 07/05/24 metoprolol tartrate 100 mg tablet 100 mg PO BID High blood pressure 04/11/22 07/05/24 rivaroxaban 20 mg tablet (Xarelto) 20 mg PO DAILY AFIB 04/11/22 07/05/24 amlodipine 10 mg tablet 10 mg PO DAILY . 04/20/22 07/05/24 albuterol sulfate 90 mcg/actuation 2 puff inhalation DIRECTED PRN 08/01/23 07/05/24 aerosol inhaler Breathing Problems cetirizine 10 mg tablet (All Day 10 mg PO DAILY 08/01/23 07/05/24 Allergy (cetirizine)) fluticasone fur. 100 mcg-umeclid 1 inh inhalation DAILY 08/01/23 07/05/24 62.5 mcg-vilant 25 mcg inhalat.powder (Trelegy Ellipta) nitroglycerin 0.4 mg sublingual 0.4 mg sublingual Q5M PRN Chest 08/01/23 07/05/24 tablet Pain omeprazole 20 mg capsule,delayed 20 mg PO DAILY 09/13/23 07/05/24 release empagliflozin 10 mg tablet 10 mg PO DAILY 07/05/24 07/05/24 (Jardiance) sertraline 100 mg tablet 100 mg PO DAILY 07/05/24 07/05/24 trazodone 100 mg tablet 100 mg PO HS 07/05/24 07/05/24 Previous Rx's ?Medication ?Instructions ?Recorded fluticasone fur. 100 mcg-umeclid 1 inh inhalation DAILY 90 days #90 04/19/24 62.5 mcg-vilant 25 mcg ea inhalat.powder (Trelegy Ellipta) cyclobenzaprine 10 mg tablet 10 mg PO TID #270 tabs 05/14/24 hydrocodone 7.5 mg-acetaminophen 1 tab PO TID #90 tabs 06/14/24 325 mg tablet Allergies Allergy/AdvReac Type Severity Reaction Status Date / Time levofloxacin Allergy Mild I-RASH Verified 07/05/24 11:08 niacin Allergy Mild Rash Verified 07/05/24 11:08 ofloxacin Allergy Mild Rash Verified 07/05/24 11:08 sulfamethoxazole (From Allergy Mild I-RASH Verified 07/05/24 11:08 Bactrim) trimethoprim (From Bactrim) Allergy Mild I-RASH Verified 07/05/24 11:08 oxytetracycline Allergy Unknown Rash Verified 07/05/24 11:08 Penicillins Allergy Unknown Rash Verified 07/05/24 11:08 fentanyl Allergy Confusion Verified 07/13/24 20:58 [facility] <Maisha Teague APRN - Last Filed: 07/13/24 20:59> [facility] Disclaimer: The information contained in this section may have been updated after the patient was seen, as this information can be updated by other users. Medical History (Updated 07/13/24 @ 20:36 by Alla Donato RN) Pleural effusion, left Encounter for screening for malignant neoplasm of lung Dyspnea on exertion History of COPD Smoking greater than 30 pack years Encounter for postoperative care Loss of taste Swelling of right parotid gland Swelling of left parotid gland Parotid abscess Dental caries limited to enamel Facial cellulitis Depression Anxiety Diabetes mellitus, type 2 History of stroke COPD (chronic obstructive pulmonary disease) Atrial fibrillation Hyperlipidemia Hypertension Surgical History Hx of cardiac catheterization History of cholecystectomy Family History Other Family history of cancer Family history of hyperlipidemia Family history of hypertension Family history of myocardial infarction Social History Smoking Status: Current every day smoker alcohol intake: never substance use type: denies use current occupational status: retired Travel in the last 8 weeks: None household members: spouse housing: house marital status: caffeine: No Have you lived/traveled outside [place] in past 30 days?: No Contact w/someone who lives/traveled outside US past 30 days?: No Exposure to someone with infectious disease in past 14 days?: No Do you have a fever (greater than 100.4 F or 38 C)?: No Have you tested positive for COVID-19: No Exposed to someone with COVID-19 in past 14 days?: No Do you have a sore throat?: No Do you have a cough?: Yes Do you have any weakness?: No Do you have any diarrhea?: No Are you experiencing any unusual bleeding?: No Do you have any muscle aches/pain?: No Do you have any abdominal pain?: No Are you experiencing loss of taste or smell?: No Other Medical History Have you received the Flu Vaccine for this season: No Have you received the Pneumonia Vaccine: Yes <Maisha Teague APRN - Last Filed: 07/13/24 20:59> ROS Obtained: Yes Systems reviewed as appropriate & no additional complaints except as documented Physical Exam <Maisha Teague APRN - Last Filed: 07/13/24 20:59> General General appearance: alert and in no apparent distress Head Head exam: atraumatic and normocephalic Eye Eye exam: Present normal appearance and PERRL ENT ENT exam: Present normal exam Neck Neck exam: Present normal inspection Chest Chest inspection: Present normal inspection and symmetric chest wall rise; Absent tenderness Respiratory Respiratory exam: Present respiratory distress, wheezes and other (No breath sounds on left) Cardiovascular Cardiovascular exam: Present regular rate Abdominal Exam Abdominal exam: Present soft and normal bowel sounds; Absent tenderness Extremities Exam Extremities exam: Present normal inspection and full ROM Back Exam Back exam: Present normal inspection and full ROM Neurological Exam Neurological exam: Present alert and oriented X3 Psychiatric Psychiatric exam: Present normal affect and normal mood Skin Skin exam: Present warm and dry HEART Score <Maisha Teague APRN - Last Filed: 07/13/24 20:59> HEART Score HEART Score assessment performed?: Yes History (anamnesis): Moderately suspicious ECG: Non-specific disturbance Age: 45-65 years Risk factors: 3 or more risk factors Troponin: </= normal limit HEART Score: 5 Procedures <Katy Pathak MD - Last Filed: 07/13/24 20:59> Chest Tube Chest Tube 1: Chest Tube Location: left Size of Tube (cm): 14 Chest Tube Prep: Yes sterile drapes applied Local Anesthetic: lidocaine 1% and with epi Amount of anesthesia used (mL): 10 Incision Made With: #11 blade Post Procedure: sutured to skin and sterile dressing applied Tube Drainage: fluid Amount of initial drainage (mL): 500 Post Procedure CXR?: Yes Patient Tolerated Procedure: Yes Critical Care <Maisha Teague APRN - Last Filed: 07/13/24 20:59> Critical Care Time Critical Care Time: No Medical Decision Making <Maisha Teague APRN - Last Filed: 07/13/24 20:59> Matthew Inquiry Pt receiving controlled substance: No Matthew was queried for this patient: No Vital Signs Vital Signs: 07/13/24 14:40 07/13/24 15:00 07/13/24 15:30 Temperature 97.2 F L Temperature Source Temporal Artery Scan Pulse Rate 88 74 Pulse Rate [Radial] 85 Respiratory Rate 22 Blood Pressure 120/72 144/94 H Blood Pressure [R Arm] 117/70 Blood Pressure Mean Blood Pressure Mean [R Arm] 85 Blood Pressure Source [R Arm] Automatic Cuff 02 Sat by Pulse Oximetry 91 L 92 L 92 L Oxygen Delivery Method Nasal Cannula Oxygen Flow Rate (LPM) 3 02/14/25 15:31 07/13/24 15:31 07/13/24 16:00 Temperature Temperature Source Pulse Rate 84 87 71 Pulse Rate [Radial] Respiratory Rate Blood Pressure 87/61 L Blood Pressure [R Arm] Blood Pressure Mean Blood Pressure Mean [R Arm] Blood Pressure Source [R Arm] 02 Sat by Pulse Oximetry 92 L Oxygen Delivery Method Oxygen Flow Rate (LPM) 07/13/24 16:15 07/13/24 16:30 07/13/24 17:00 Temperature Temperature Source Pulse Rate 90 90 80 Pulse Rate [Radial] Respiratory Rate Blood Pressure 133/89 114/84 149/112 H Blood Pressure [R Arm] Blood Pressure Mean Blood Pressure Mean [R Arm] Blood Pressure Source [R Arm] 02 Sat by Pulse Oximetry 93 L 92 L 91 L Oxygen Delivery Method Oxygen Flow Rate (LPM) 07/13/24 17:30 07/13/24 18:00 07/13/24 19:15 Temperature Temperature Source Pulse Rate 56 L 77 90 Pulse Rate [Radial] Respiratory Rate 20 Blood Pressure 133/82 113/65 144/93 H Blood Pressure [R Arm] Blood Pressure Mean 104 Blood Pressure Mean [R Arm] Blood Pressure Source [R Arm] 02 Sat by Pulse Oximetry 91 L 91 L 99 Oxygen Delivery Method Oxygen Flow Rate (LPM) 07/13/24 19:28 07/13/24 19:31 07/13/24 19:40 Temperature Temperature Source Pulse Rate 78 90 91 H Pulse Rate [Radial] Respiratory Rate 20 20 38 H Blood Pressure 148/87 H 150/96 H Blood Pressure [R Arm] Blood Pressure Mean 97 106 Blood Pressure Mean [R Arm] Blood Pressure Source [R Arm] 02 Sat by Pulse Oximetry 99 99 99 Oxygen Delivery Method Oxygen Flow Rate (LPM) 07/13/24 19:40 07/13/24 19:45 07/13/24 19:45 Temperature Temperature Source Pulse Rate 89 Pulse Rate [Radial] Respiratory Rate 22 Blood Pressure 160/100 H 144/91 H Blood Pressure [R Arm] Blood Pressure Mean 120 109 Blood Pressure Mean [R Arm] Blood Pressure Source [R Arm] 02 Sat by Pulse Oximetry 99 Oxygen Delivery Method Oxygen Flow Rate (LPM) 07/13/24 19:50 07/13/24 19:50 07/13/24 19:55 Temperature Temperature Source Pulse Rate 90 90 Pulse Rate [Radial] Respiratory Rate 17 30 H Blood Pressure 136/86 Blood Pressure [R Arm] Blood Pressure Mean 101 Blood Pressure Mean [R Arm] Blood Pressure Source [R Arm] 02 Sat by Pulse Oximetry 99 98 Oxygen Delivery Method Oxygen Flow Rate (LPM) 07/13/24 19:55 07/13/24 20:00 07/13/24 20:00 Temperature Temperature Source Pulse Rate 89 Pulse Rate [Radial] Respiratory Rate 27 H Blood Pressure 134/82 133/86 Blood Pressure [R Arm] Blood Pressure Mean 91 97 Blood Pressure Mean [R Arm] Blood Pressure Source [R Arm] 02 Sat by Pulse Oximetry 98 Oxygen Delivery Method Oxygen Flow Rate (LPM) 07/13/24 20:05 07/13/24 20:05 07/13/24 20:10 Temperature Temperature Source Pulse Rate 89 Pulse Rate [Radial] Respiratory Rate 15 Blood Pressure 137/87 123/90 Blood Pressure [R Arm] Blood Pressure Mean 103 94 Blood Pressure Mean [R Arm] Blood Pressure Source [R Arm] 02 Sat by Pulse Oximetry 99 Oxygen Delivery Method Oxygen Flow Rate (LPM) 07/13/24 20:10 07/13/24 20:15 07/13/24 20:15 Temperature Temperature Source Pulse Rate 89 85 Pulse Rate [Radial] Respiratory Rate 16 26 H Blood Pressure 130/83 Blood Pressure [R Arm] Blood Pressure Mean 96 Blood Pressure Mean [R Arm] Blood Pressure Source [R Arm] 02 Sat by Pulse Oximetry 94 L 94 L Oxygen Delivery Method Oxygen Flow Rate (LPM) 07/13/24 20:21 07/13/24 20:21 07/13/24 20:25 Temperature Temperature Source Pulse Rate 93 H 85 Pulse Rate [Radial] Respiratory Rate 17 26 H Blood Pressure 133/85 Blood Pressure [R Arm] Blood Pressure Mean 98 Blood Pressure Mean [R Arm] Blood Pressure Source [R Arm] 02 Sat by Pulse Oximetry 92 L 94 L Oxygen Delivery Method Oxygen Flow Rate (LPM) 07/13/24 20:25 07/13/24 20:29 07/13/24 20:29 Temperature Temperature Source Pulse Rate 85 Pulse Rate [Radial] Respiratory Rate 16 Blood Pressure 129/85 132/81 Blood Pressure [R Arm] Blood Pressure Mean 97 92 Blood Pressure Mean [R Arm] Blood Pressure Source [R Arm] 02 Sat by Pulse Oximetry 93 L Oxygen Delivery Method Oxygen Flow Rate (LPM) 07/13/24 20:30 07/13/24 20:31 Temperature 98.9 F Temperature Source Oral Pulse Rate 86 84 Pulse Rate [Radial] Respiratory Rate 16 16 Blood Pressure 132/81 Blood Pressure [R Arm] Blood Pressure Mean Blood Pressure Mean [R Arm] Blood Pressure Source [R Arm] 02 Sat by Pulse Oximetry 94 L Oxygen Delivery Method Nasal Cannula Oxygen Flow Rate (LPM) 3 Lab Data Labs: Lab Results 07/13/24 14:46: SARS-CoV-2 (PCR) Not detected, Influenza A Untype (PCR) Not detected, Influenza Type B (PCR) Not detected 07/13/24 15:20: WBC 14.3 H, RBC 5.59, Hgb 15.7, Hct 48.5, MCV 86.8, MCH 28.1, MCHC 32.4, RDW 15.9, Plt Count 428 H, MPV 9.8, Neut % (Auto) 73.0, Lymph % (Auto) 11.2, [place] % (Auto) 11.6 H, Eos % (Auto) 2.9, Baso % (Auto) 1.0, Neut # (Auto) 10.5 H, Lymph # (Auto) 1.6, [place] # (Auto) 1.7 H, Eos # (Auto) 0.4, Baso # (Auto) 0.1, PT 12.4, INR 1.12 H, APTT 31.6 H, Sodium 140, Potassium 3.4 L, C hloride 96 L, Carbon Dioxide 37 H, Anion Gap 10.4, BUN 25 H, Creatinine 1.10, Estimated Creat Clear 122, Estimated GFR 67, Est GFR ( Amer) 82, Glucose 177 H, Calcium 8.7, Total Bilirubin 1.0, AST 38, ALT 34, Alkaline Phosphatase 88, Troponin I < 0.01, NT-Pro-B Natriuret Pep 464 H, Total Protein 8.8 H D, Albumin 4.6, Globulin 4.2 H, Albumin/Globulin Ratio 1.1, Procalcitonin 0.059, HCV Ab NANCY w/Rflx PCR Qn Negative, HIV Ag/Ab Combo Qual Negative 07/13/24 18:07: Troponin I < 0.01 07/13/24 19:18: Blood Type A Positive, Antibody Screen Negative 07/13/24 15:20 07/13/24 15:20 Response Orders (Tests/Meds): ED MEDICATIONS Generic Name Dose Route Start Last Admin Trade Name Sam PRN Reason Stop Dose Admin Albuterol/Ipratropium 3 ml 07/13/24 22:00 Ipratropium/Albuterol 3 Ml Neb IH 08/12/24 21:59 Q4RT KARUNA Prednisone 40 mg 07/14/24 09:00 Prednisone 20mg Tab PO 08/13/24 08:59 DAILY KARUNA Discontinued Medications Generic Name Dose Route Start Last Admin Trade Name Sam PRN Reason Stop Dose Admin Albuterol/Ipratropium 9 ml 07/13/24 15:16 07/13/24 15:28 Ipratropium/Albuterol 3 Ml Neb IH 07/13/24 15:17 9 ml ONCE ONE Administration Lidocaine/Epinephrine 10 ml 07/13/24 18:45 07/13/24 20:08 Lidocaine 1% W/Epi 1:100,000 20ml Vial SQ 07/13/24 18:46 1 ml ONCE ONE Administration Midazolam HCl 5 mg 07/13/24 18:45 07/13/24 19:13 Midazolam 2mg/2ml Vial IV 07/13/24 18:46 Not Given ONCE ONE Midazolam HCl 5 mg 07/13/24 19:12 07/13/24 20:08 Midazolam 5mg/Ml 1ml Vial IV 07/13/24 19:13 5 mg ONCE ONE Administration ORDERS Category Date Time Status Type and Screen Stat BBK 07/13/24 19:[address] chest wo con Stat Cat Scan 07/13/24 18:13 Completed Consult to Pulmonology [CONS] Routine Cons 07/13/24 20:24 Active CXR --portable [XR chest portable] Stat Exams 07/13/24 19:51 Completed CXR 2 view (NOT portable) [XR chest 2V] Stat Exams 07/13/24 14:54 Completed POCUS Point of Care (ER Only) Stat Exams 07/13/24 15:03 Completed XR chest portable Routine Exams 07/14/24 06:00 Ordered BNP [NT Pro Brain Natriuretic Pep.] Stat Lab 07/13/24 15:20 Completed Basic Metabolic Panel AMLAB Lab 07/14/24 06:00 Ordered CBC w/Auto Diff [Complete Blood Count Auto Diff] Stat Lab 07/13/24 15:20 Completed CMP [Comprehensive Metabolic Panel] Stat Lab 07/13/24 15:20 Completed Complete Blood Count Auto Diff AMLAB Lab 07/14/24 06:00 Ordered HIV Combo Stat Lab 07/13/24 15:20 Completed Hepatitis C Ab Qual. W/ RFX Stat Lab 07/13/24 15:20 Completed PT INR [Prothrombin Time INR] Stat Lab 07/13/24 18:59 Ordered PT/PTT Stat Lab 07/13/24 15:20 Completed Procalcitonin Stat Lab 07/13/24 15:20 Completed Rapid PCR Covid and Flu A/B Stat Lab 07/13/24 14:46 Completed Trop I [Troponin I] Stat Lab 07/13/24 15:20 Completed Troponin I Q3H Lab 07/13/24 18:07 Completed Troponin I Q3H Lab 07/13/24 21:00 Ordered MDM Narrative Medical Decision Narrative: In summary, patient is a 63-year-old male PMHx COPD (2L NC), TIA, A-fib, history of tobacco use, malignant neoplasm of lung, left moderate pleural effusion, hypertension, hyperlipidemia who presents to the ED for chest pain and shortness of breath. Patient states he has had increase his oxygen to 3L at home. Patient states he was recently diagnosed with a moderate left-sided pleural effusion which they are monitoring and advised him to increase his Lasix. He states that he wears a BiPAP at night, however his shortness of breath and dyspnea he at rest is worsening. Upon initial exam, patient is alert, oriented and cooperative. Patient is hemodynamically stable. Physical exam remarkable for mild respiratory distress, retractions, speaking in short sentences. Differential diagnosis includes ACS, dissection, COPD exacerbation, pleural effusion, dissection, pneumonia, pneumothorax, among others Initial workup will be conducted with hematologic labs, imaging, EKG. Interinventions include DuoNeb continuous. Records reviewed, patient had CT of the lung on 06/29/2024 which was remarkable for calcified lymph node, moderate left effusion with overlying atelectasis, lung nodule. Initial workup reviewed by me. Hematologic labs remarkable for leukocytosis, WBC 14.3, stable H&H. Platelet 428. COVID and influenza swab negative. INR 1.12. aPTT 31.6. CMP remarkable for hypokalemia, potassium 3.4, CO2 37, BUN 25, creatinine 1.10. First troponin < 0.01. Discussed with patient that it appears he has a left-sided pneumothorax which is new from previous CT in April 2024. I spoke with the machine i coremaker who advises that chest tube needs placed and the patient can stay at [facility]. I informally interpreted the imaging as left-sided pneumothorax. Final read reports large left pneumothorax and small pleural effusion and near complete collapse of the lung. CT shows mass effect tension pneumo for final read. Decision to place chest tube made by the ED attending. See procedure note. Patient remained hemodynamically stable during this stay. He was admitted to hospital medicine services at [facility]. I was consulted by the [facility], and we discussed the complexity of problems being addressed. I approved the treatment and management plan for this patient's care in the emergency department, thus performing a substantial portion of the medical decision making. Katy Pathak MD Limited lung ultrasound A focused ultrasound exam of the pleural spaces was performed to evaluate for pneumothorax, pulmonary edema, pleural effusion and/or consolidation. The ultrasound was performed with the following indications, as noted in the H&P: Dyspnea Identified structures: Bilateral thoracic cavities were examined. Findings: Lung sliding: -Left absent right present B-lines: -Negative bilaterally Pleural effusion: -Left present Impression: - Pneumothorax left present - Pleural effusion left present Images saved to permanent archive The study was technically adequate CPT 80882-70 This study was performed by me, and I personally interpreted all images/videos. Based on my clinical judgement, these images were [adequate/inadequate] and [did/did not] necessitate further imaging. <Katy Pathak MD - Last Filed: 07/13/24 20:59> Vital Signs Vital Signs: 07/13/24 14:40 07/13/24 15:00 07/13/24 15:30 Temperature 97.2 F L Temperature Source Temporal Artery Scan Pulse Rate 88 74 Pulse Rate [Radial] 85 Respiratory Rate 22 Blood Pressure 120/72 144/94 H Blood Pressure [R Arm] 117/70 Blood Pressure Mean Blood Pressure Mean [R Arm] 85 Blood Pressure Source [R Arm] Automatic Cuff 02 Sat by Pulse Oximetry 91 L 92 L 92 L Oxygen Delivery Method Nasal Cannula Oxygen Flow Rate (LPM) 3 07/13/24 15:31 07/13/24 15:31 07/13/24 16:00 Temperature Temperature Source Pulse Rate 84 87 71 Pulse Rate [Radial] Respiratory Rate Blood Pressure 87/61 L Blood Pressure [R Arm] Blood Pressure Mean Blood Pressure Mean [R Arm] Blood Pressure Source [R Arm] 02 Sat by Pulse Oximetry 92 L Oxygen Delivery Method Oxygen Flow Rate (LPM) 07/13/24 16:15 07/13/24 16:30 07/13/24 17:00 Temperature Temperature Source Pulse Rate 90 90 80 Pulse Rate [Radial] Respiratory Rate Blood Pressure 133/89 114/84 149/112 H Blood Pressure [R Arm] Blood Pressure Mean Blood Pressure Mean [R Arm] Blood Pressure Source [R Arm] 02 Sat by Pulse Oximetry 93 L 92 L 91 L Oxygen Delivery Method Oxygen Flow Rate (LPM) 07/13/24 17:30 07/13/24 18:00 07/13/24 19:15 Temperature Temperature Source Pulse Rate 56 L 77 90 Pulse Rate [Radial] Respiratory Rate 20 Blood Pressure 133/82 113/65 144/93 H Blood Pressure [R Arm] Blood Pressure Mean 104 Blood Pressure Mean [R Arm] Blood Pressure Source [R Arm] 02 Sat by Pulse Oximetry 91 L 91 L 99 Oxygen Delivery Method Oxygen Flow Rate (LPM) 07/13/24 19:28 07/13/24 19:31 07/13/24 19:40 Temperature Temperature Source Pulse Rate 78 90 91 H Pulse Rate [Radial] Respiratory Rate 20 20 38 H Blood Pressure 148/87 H 150/96 H Blood Pressure [R Arm] Blood Pressure Mean 97 106 Blood Pressure Mean [R Arm] Blood Pressure Source [R Arm] 02 Sat by Pulse Oximetry 99 99 99 Oxygen Delivery Method Oxygen Flow Rate (LPM) 07/13/24 19:40 07/13/24 19:45 07/13/24 19:45 Temperature Temperature Source Pulse Rate 89 Pulse Rate [Radial] Respiratory Rate 22 Blood Pressure 160/100 H 144/91 H Blood Pressure [R Arm] Blood Pressure Mean 120 109 Blood Pressure Mean [R Arm] Blood Pressure Source [R Arm] 02 Sat by Pulse Oximetry 99 Oxygen Delivery Method Oxygen Flow Rate (LPM) 07/13/24 19:50 07/13/24 19:50 07/13/24 19:55 Temperature Temperature Source Pulse Rate 90 90 Pulse Rate [Radial] Respiratory Rate 17 30 H Blood Pressure 136/86 Blood Pressure [R Arm] Blood Pressure Mean 101 Blood Pressure Mean [R Arm] Blood Pressure Source [R Arm] 02 Sat by Pulse Oximetry 99 98 Oxygen Delivery Method Oxygen Flow Rate (LPM) 07/13/24 19:55 07/13/24 20:00 07/13/24 20:00 Temperature Temperature Source Pulse Rate 89 Pulse Rate [Radial] Respiratory Rate 27 H Blood Pressure 134/82 133/86 Blood Pressure [R Arm] Blood Pressure Mean 91 97 Blood Pressure Mean [R Arm] Blood Pressure Source [R Arm] 02 Sat by Pulse Oximetry 98 Oxygen Delivery Method Oxygen Flow Rate (LPM) 07/13/24 20:05 07/13/24 20:05 07/13/24 20:10 Temperature Temperature Source Pulse Rate 89 Pulse Rate [Radial] Respiratory Rate 15 Blood Pressure 137/87 123/90 Blood Pressure [R Arm] Blood Pressure Mean 103 94 Blood Pressure Mean [R Arm] Blood Pressure Source [R Arm] 02 Sat by Pulse Oximetry 99 Oxygen Delivery Method Oxygen Flow Rate (LPM) 07/13/24 20:10 07/13/24 20:15 07/13/24 20:15 Temperature Temperature Source Pulse Rate 89 85 Pulse Rate [Radial] Respiratory Rate 16 26 H Blood Pressure 130/83 Blood Pressure [R Arm] Blood Pressure Mean 96 Blood Pressure Mean [R Arm] Blood Pressure Source [R Arm] 02 Sat by Pulse Oximetry 94 L 94 L Oxygen Delivery Method Oxygen Flow Rate (LPM) 07/13/24 20:21 07/13/24 20:21 07/13/24 20:25 Temperature Temperature Source Pulse Rate 93 H 85 Pulse Rate [Radial] Respiratory Rate 17 26 H Blood Pressure 133/85 Blood Pressure [R Arm] Blood Pressure Mean 98 Blood Pressure Mean [R Arm] Blood Pressure Source [R Arm] 02 Sat by Pulse Oximetry 92 L 94 L Oxygen Delivery Method Oxygen Flow Rate (LPM) 07/13/24 20:25 07/13/24 20:29 07/13/24 20:29 Temperature Temperature Source Pulse Rate 85 Pulse Rate [Radial] Respiratory Rate 16 Blood Pressure 129/85 132/81 Blood Pressure [R Arm] Blood Pressure Mean 97 92 Blood Pressure Mean [R Arm] Blood Pressure Source [R Arm] 02 Sat by Pulse Oximetry 93 L Oxygen Delivery Method Oxygen Flow Rate (LPM) 07/13/24 20:30 07/13/24 20:31 Temperature 98.9 F Temperature Source Oral Pulse Rate 86 84 Pulse Rate [Radial] Respiratory Rate 16 16 Blood Pressure 132/81 Blood Pressure [R Arm] Blood Pressure Mean Blood Pressure Mean [R Arm] Blood Pressure Source [R Arm] 02 Sat by Pulse Oximetry 94 L Oxygen Delivery Method Nasal Cannula Oxygen Flow Rate (LPM) 3 Lab Data Labs: Lab Results 07/13/24 14:46: SARS-CoV-2 (PCR) Not detected, Influenza A Untype (PCR) Not detected, Influenza Type B (PCR) Not detected 07/13/24 15:20: WBC 14.3 H, RBC 5.59, Hgb 15.7, Hct 48.5, MCV 86.8, MCH 28.1, MCHC 32.4, RDW 15.9, Plt Count 428 H, MPV 9.8, Neut % (Auto) 73.0, Lymph % (Auto) 11.2, [place] % (Auto) 11.6 H, Eos % (Auto) 2.9, Baso % (Auto) 1.0, Neut # (Auto) 10.5 H, Lymph # (Auto) 1.6, [place] # (Auto) 1.7 H, Eos # (Auto) 0.4, Baso # (Auto) 0.1, PT 12.4, INR 1.12 H, APTT 31.6 H, Sodium 140, Potassium 3.4 L, C hloride 96 L, Carbon Dioxide 37 H, Anion Gap 10.4, BUN 25 H, Creatinine 1.10, Estimated Creat Clear 122, Estimated GFR 67, Est GFR ( Amer) 82, Glucose 177 H, Calcium 8.7, Total Bilirubin 1.0, AST 38, ALT 34, Alkaline Phosphatase 88, Troponin I < 0.01, NT-Pro-B Natriuret Pep 464 H, Total Protein 8.8 H D, Albumin 4.6, Globulin 4.2 H, Albumin/Globulin Ratio 1.1, Procalcitonin 0.059, HCV Ab NANCY w/Rflx PCR Qn Negative, HIV Ag/Ab Combo Qual Negative 07/13/24 18:07: Troponin I < 0.01 07/13/24 19:18: Blood Type A Positive, Antibody Screen Negative Response Orders (Tests/Meds): ED MEDICATIONS Generic Name Dose Route Start Last Admin Trade Name Freq PRN Reason Stop Dose Admin Albuterol/Ipratropium 3 ml 07/13/24 22:00 Ipratropium/Albuterol 3 Ml [facility] 08/12/24 21:59 Q4RT KARUNA Prednisone 40 mg 07/14/24 09:00 Prednisone 20mg Tab PO 08/13/24 08:59 DAILY KARUNA Discontinued Medications Generic Name Dose Route Start Last Admin Trade Name Freq PRN Reason Stop Dose Admin Albuterol/Ipratropium 9 ml 07/13/24 15:16 07/13/24 15:28 Ipratropium/Albuterol 3 Ml [facility] 07/13/24 15:17 9 ml ONCE ONE Administration Lidocaine/Epinephrine 10 ml 07/13/24 18:45 07/13/24 20:08 Lidocaine 1% W/Epi 1:100,000 20ml Vial SQ 07/13/24 18:46 1 ml ONCE ONE Administration Midazolam HCl 5 mg 07/13/24 18:45 07/13/24 19:13 Midazolam 2mg/2ml Vial IV 07/13/24 18:46 Not Given ONCE ONE Midazolam HCl 5 mg 07/13/24 19:12 07/13/24 20:08 Midazolam 5mg/Ml 1ml Vial IV 07/13/24 19:13 5 mg ONCE ONE Administration ORDERS Category Date Time Status Type and Screen Stat BBK 07/13/24 19:[address] chest wo con Stat Cat Scan 07/13/24 18:13 Completed Consult to Pulmonology [CONS] Routine Cons 07/13/24 20:24 Active CXR --portable [XR chest portable] Stat Exams 07/13/24 19:51 Completed CXR 2 view (NOT portable) [XR chest 2V] Stat Exams 07/13/24 14:54 Completed POCUS Point of Care (ER Only) Stat Exams 07/13/24 15:03 Completed XR chest portable Routine Exams 07/14/24 06:00 Ordered BNP [NT Pro Brain Natriuretic Pep.] Stat Lab 07/13/24 15:20 Completed Basic Metabolic Panel AMLAB Lab 07/14/24 06:00 Ordered CBC w/Auto Diff [Complete Blood Count Auto Diff] Stat Lab 07/13/24 15:20 Completed CMP [Comprehensive Metabolic Panel] Stat Lab 07/13/24 15:20 Completed Complete Blood Count Auto Diff AMLAB Lab 07/14/24 06:00 Ordered HIV Combo Stat Lab 07/13/24 15:20 Completed Hepatitis C Ab Qual. W/ RFX Stat Lab 07/13/24 15:20 Completed PT INR [Prothrombin Time INR] Stat Lab 07/13/24 18:59 Ordered PT/PTT Stat Lab 07/13/24 15:20 Completed Procalcitonin Stat Lab 07/13/24 15:20 Completed Rapid PCR Covid and Flu A/B Stat Lab 07/13/24 14:46 Completed Trop I [Troponin I] Stat Lab 07/13/24 15:20 Completed Troponin I Q3H Lab 07/13/24 18:07 Completed Troponin I Q3H Lab 07/13/24 21:00 Ordered MDM Narrative Medical Decision Narrative: In summary, patient is a 63-year-old male PMHx COPD (2L NC), TIA, A-fib, history of tobacco use, malignant neoplasm of lung, left moderate pleural effusion, hypertension, hyperlipidemia who presents to the ED for chest pain and shortness of breath. Patient states he has had increase his oxygen to 3L at home. Patient states he was recently diagnosed with a moderate left-sided pleural effusion which they are monitoring and advised him to increase his Lasix. He states that he wears a BiPAP at night, however his shortness of breath and dyspnea he at rest is worsening. Upon initial exam, patient is alert, oriented and cooperative. Patient is hemodynamically stable. Physical exam remarkable for mild respiratory distress, retractions, speaking in short sentences. Differential diagnosis includes ACS, dissection, COPD exacerbation, pleural effusion, dissection, pneumonia, pneumothorax, among others Initial workup will be conducted with hematologic labs, imaging, EKG. Initial inventions include Records reviewed, patient had CT of the lung on 06/29/2024 which was remarkable for calcified lymph node, moderate left effusion with overlying atelectasis, lung nodule. Initial workup reviewed by me. Hematologic labs remarkable for leukocytosis, WBC 14.3, stable H&H. Platelet 428. COVID and influenza swab negative. INR 1.12. aPTT 31.6. CMP remarkable for hypokalemia, potassium 3.4, CO2 37, BUN 25, creatinine 1.10. First troponin < 0.01. Discussed with patient that it appears he has a left-sided pneumothorax which is new from previous CT in April 2024. I discussed with patient that I am concerned for an obstructive neoplasm, patient states that pulmonology has told him he has lung nodules that do not need further evaluation, per patient. Advised them that I spoke to hospital medicine. [facility] who advises patient needs higher level of care. I informally interpreted the imaging as Upon repeat evaluation, patient had an acceptable resolution of symptoms. They were ambulatory in the ED. Able to tolerate p.o. Given this [patient is appropriate for discharge at this time will be discharged with a prescription for? The case was discussed with hospital medicine regarding management and they will admit the patient to their service for continued evaluation at this time? Etc.] I was consulted by the TRINIDAD, and we discussed the complexity of problems being addressed. I approved the treatment and management plan for this patient's care in the emergency department, thus performing a substantial portion of the medical decision making. Katy Pathak MD Limited lung ultrasound A focused ultrasound exam of the pleural spaces was performed to evaluate for pneumothorax, pulmonary edema, pleural effusion and/or consolidation. The ultrasound was performed with the following indications, as noted in the H&P: Dyspnea Identified structures: Bilateral thoracic cavities were examined. Findings: Lung sliding: -Left absent right present B-lines: -Negative bilaterally Pleural effusion: -Left present Impression: - Pneumothorax left present - Pleural effusion left present Images saved to permanent archive The study was technically adequate CPT 07429-83 This study was performed by me, and I personally interpreted all images/videos. Based on my clinical judgement, these images were [adequate/inadequate] and [did/did not] necessitate further imaging.
[2024-07-13] MEDS: IPRATROPIUM/ALBUTEROL 3 ML NEB 9 ML IH (15:28)
[2024-07-13 15:29] LABS: Basophils # 0.1 K/mm3 (0-0.2); Eosinophils # 0.4 K/mm3 (0.0-0.4); Eosinophils % 2.9 % (0.1-12.0); Hematocrit 48.5 % (42.0-52.0); Hemoglobin 15.7 g/dL (14.1-18.0); Lymphocytes # 1.6 K/mm3 (0.7-4.5); Lymphocytes % 11.2 % (10-50); Mean Corpuscular HGB Conc 32.4 g/dL (31.8-35.4); Mean Corpuscular Hemoglobin 28.1 pg (27.0-31.2); Mean Corpuscular Volume 86.8 fl (80-94); Mean Platelet Volume 9.8 fl (7.4-10.4); Monocytes # 1.7 K/mm3 (0.1-1.0); Monocytes % 11.6 % (1.7-9.3); Neutrophils # 10.5 K/mm3 (1.8-7.8); Platelet Count 428 K/mm3 (142-424); Red Blood Count 5.59 M/mm3 (4.60-6.20); Red Cell Distribution Width 15.9 % (11.5-17.5); White Blood Count 14.3 K/mm3 (4.8-10.8)
--- NOTE | 2024-07-13 15:29 | ECG_ITS ---
APPROVED REPORT Exam: Resting ECG HR:83 bpm ECG Measurements Heart Rate 83 AXES TX 136 P 231 QRSd 109 QRS 67 QT 377 T 74 QTc 417 Conclusion SINUS RHYTHM NONSPECIFIC T-WAVE ABNORMALITY BORDERLINE ECG Electronically signed by : FIDEL JACOBO, 07/15/2024 16:57:59
[2024-07-13 15:37] LABS: Albumin Level 4.6 g/dl (3.5-5.0); Chloride 96 mmol/L (98-107); Sodium 140 mmol/L (136-145)
[2024-07-13 15:38] LABS: Potassium 3.4 mmoL/L (3.5-5.1)
[2024-07-13 15:39] LABS: Activated Partial Thrombo Time 31.6 seconds (22.8-30.6); INR 1.12 (0.9-1.1); Prothrombin Time 12.4 seconds (10.1-12.5)
[2024-07-13 15:40] LABS: Alanine Aminotransferase 34 U/L (12-78); Albumin/Globulin Ratio 1.1 (1.1-1.8); Alkaline Phosphatase 88 U/L (38-126); Anion Gap 10.4 mEq/L (5-15); Aspartate Amino Transferase 38 U/L (17-59); Blood Urea Nitrogen 25 mg/dl (9-20); Carbon Dioxide 37 mmol/L (22.0-30.0); Creatinine Clearance Estimated 122 mL/min (50-200); Estimated Glomerular Filt Rate 67 ml/min (>60); GFR (African American) 82 ML/MIN (>60); Globulin 4.2 g/dL (1.3-3.2); Total Protein,Serum 8.8 g/dl (6.3-8.2)
[2024-07-13 15:41] LABS: Calcium 8.7 mg/dl (8.4-10.2); Glucose 177 mg/dl (74-100)
[2024-07-13 15:50] LABS: NT Pro Brain Natriuretic Pep. 464 pg/mL (0-125)
[2024-07-13 15:54] LABS: Troponin I < 0.01 ng/ml (0.00-0.034)
[2024-07-13 15:58] LABS: Procalcitonin 0.059 ng/mL (0.0-2.0)
--- NOTE | 2024-07-13 16:00 | PC.NURSE ---
Asked Radiology to power-share cxr images and recent ct scan to [facility]. They also prepared a disc
[2024-07-13 17:10] LABS: HIV Combo NEGATIVE (Negative)
[2024-07-13 17:18] LABS: Hepatitis C Ab Qual. W/ RFX NEGATIVE (Negative)
--- NOTE | 2024-07-13 17:30 | PC.NURSE ---
I rounded on the pt. I took him a few ice chips with permission from . no other needs voiced. no new complaints. call wright in reach.
--- NOTE | 2024-07-13 17:40 | PC.NURSE ---
pts notified me that he had bloody sputum production. Upon assessing there was scant bright red blood mixed with think brown sputum. I notified Kate KELLEY. no new orders received. call wright in reach.
--- NOTE | 2024-07-13 17:45 | PC.NURSE ---
Asked Radiology to power-share ct lung from 06/29 and CXR today 07/13.
--- NOTE | 2024-07-13 17:47 | PC.NURSE ---
Rosette Teague APRN
--- NOTE | 2024-07-13 17:48 | PC.NURSE ---
Registration states they called Dr. Boo and left a message for him to return call to the ER. TRINIDAD aware.
--- NOTE | 2024-07-13 18:06 | PC.NURSE ---
Dr. Boo paged at this time.
--- NOTE | 2024-07-13 18:07 | PC.NURSE ---
Latrice Teague APRN s/w Dr Boo for pulm consult
--- NOTE | 2024-07-13 18:09 | PC.NURSE ---
1809: Troponin collected and sent to lab.
--- NOTE | 2024-07-13 18:13 | CT_ITS ---
PROCEDURE INFORMATION: Exam: CT Chest Without Contrast; Diagnostic Exam date and time: 07/13/2024 6:32 PM Age: 63 years old Clinical indication: Shortness of breath; Additional info: SOA pneumo TECHNIQUE: Imaging protocol: Diagnostic computed tomography of the chest without contrast. Radiation optimization: All CT scans at this facility use at least one of these dose optimization techniques: automated exposure control; mA and/or kV adjustment per patient size (includes targeted exams where dose is matched to clinical indication); or iterative reconstruction. COMPARISON: CT LUNG SCREENING 06/29/2024 2:33 PM FINDINGS: Lungs: Complete consolidation of the left upper lobe and the lingula with partial consolidation of the left lower lobe. Pleural spaces: Large left pneumothorax is causing deviation of the mediastinal structures to the right. Small left pleural effusion. Heart: Unremarkable. No cardiomegaly. No pericardial effusion. Coronary arteries: Moderate coronary artery calcification. Lymph nodes: Moderate emphysema. Calcified subcarinal and right hilar lymph nodes. No adenopathy. Vasculature: Unremarkable. No aortic aneurysm. Gallbladder and biliary ducts: Status post cholecystectomy. Kidneys: 2.8 cm anterior right renal cyst. 1.9 cm anterior left renal cyst. Bones/joints: Mild thoracic spine degenerative change. Soft tissues: Unremarkable. IMPRESSION: 1. Large left pneumothorax is causing deviation of the mediastinal structures to the right consistent with a tension pneumothorax. 2. Small left pleural effusion. 3. Complete consolidation of the left upper lobe and the lingula with partial consolidation of the left lower lobe. It is difficult to exclude an underlying mass lesion given the near complete collapse of the left lung. 4. Moderate emphysema. 5. Prior granulomatous disease. COMMENTS: Consistent with the [employer]'s Incidental Findings Committee white paper (J Am Alin Radiol 2018): Any incidental renal lesion less than 1 cm or classified as too small to characterize, or any incidental cystic renal lesion characterized as simple-appearing, is likely benign. No follow-up imaging is recommended for these lesions per consensus recommendations based on imaging criteria.
[2024-07-13 18:55] LABS: Troponin I < 0.01 ng/ml (0.00-0.034)
--- NOTE | 2024-07-13 19:51 | XR_ITS ---
PROCEDURE INFORMATION: Exam: XR Chest Exam date and time: 07/13/2024 7:53 PM Age: 63 years old Clinical indication: Device placement; Chest tube; Additional info: Post chest tube TECHNIQUE: Imaging protocol: Radiologic exam of the chest. Views: 1 view. COMPARISON: 1. CT CHEST WO CON 07/13/2024 6:32 PM 2. CR XR CHEST 2V 07/13/2024 3:31 PM FINDINGS: Tubes, catheters and devices: Chest tube has been placed in the inferior left pleural space. Lungs: There has only been minimal improvement in the near subtotal collapse of the left lung. Ground-glass density throughout the right lung is probably atelectasis. Pleural spaces: Mild decrease in the left pneumothorax. Heart/Mediastinum: Normal. No cardiomegaly. Bones/joints: Unremarkable. IMPRESSION: 1. Chest tube has been placed in the inferior left pleural space. 2. Mild decrease in the left pneumothorax. 3. There has only been minimal improvement in the near subtotal collapse of the left lung.
[2024-07-13] MEDS: LIDOCAINE 1% W/EPI 1:100,000 20ML VIAL 10 ML SQ (20:08)
[2024-07-13] MEDS: MIDAZOLAM 5MG/ML 1ML VIAL 5 MG IV (20:08)
--- NOTE | 2024-07-13 20:33 | PC.NURSE ---
TIME OUT FOR LEFT SIDED CHEST TUBE @ 1916 WITH PROVIDER AND MEDIC.CONSENT SIGNED. MEDS GIVEN @ 1919. PT A&OX3 @ 2004
--- NOTE | 2024-07-13 20:36 | PC.NURSE ---
pt arrived to floor at this time
[2024-07-13] MEDS: IPRATROPIUM/ALBUTEROL 3 ML NEB IH (21:15)
[2024-07-13 21:43] LABS: Troponin I < 0.01 ng/ml (0.00-0.034)
--- NOTE | 2024-07-13 21:45 | P.HP_ITS ---
<Statement entered by Selvin Carias MD - 07/17/24 14:23> I personally examined the patient and agree with the plan of care outlined by the ENVIRONMENTAL HEALTH SANITARIAN. History of Present Illness *Admission Date: 07/13/24 *Reason for visit:: Shortness of breath *History of present illness: This is a very pleasant 63-year-old male with a 32-awon-hsmd smoking history, A- fib on Xarelto, congestive heart failure hypertension, hyperlipidemia, COPD on 2 L nightly who presents to the emergency department for shortness of breath. is at bedside and aids in collateral and states that he has had worsening shortness of breath for the last 3 days. It is noted that he has been noncomp liant with his home medications in the past. She states that they saw pulmonology for the first time several weeks ago. States that since seeing pulmonology he has had worsening shortness of breath. On workup at pulmonology office, he was noted to have large left pleural effusion and 5 mm right upper lobe nodule. At that time he was treated with diuretics for pleural effusion and continued on home bronchodilators. Today he presents with a 3-day history of worsening shortness of breath. states that he has had significant dyspnea with coughing of yellow sputum. He denies fever or chills. Denies any sick contacts. Emergency department workup notable for near-total left lung collapse on chest x-ray. CT imaging notable for large left pneumothorax with mediastinal structures pushing to the right consistent with tension. On exam with this finding he is mildly tachypneic but oxygenating well on 2 L nasal cannula with oxygen saturations in the mid 90s. Denies any significant discomfort. Chest tube placed by ED provider with mild improvement in total collapse of left lung. He is hemodynamically stable, oxygenating well on his 2 L. Notable wheezing with COPD exacerbation as well. [facility] Disclaimer: The information contained in this section may have been updated after the patient was seen, as this information can be updated by other users. Medical History Hiatal hernia Pleural effusion, left Encounter for screening for malignant neoplasm of lung Dyspnea on exertion History of COPD Smoking greater than 30 pack years Encounter for postoperative care Loss of taste Swelling of right parotid gland Swelling of left parotid gland Parotid abscess Dental caries limited to enamel Facial cellulitis Depression Anxiety Diabetes mellitus, type 2 History of stroke COPD (chronic obstructive pulmonary disease) Atrial fibrillation Hyperlipidemia Hypertension Surgical History (Updated 07/13/24 @ 21:06 by Leti Wagner RN) H/O ventral hernia repair Hx of cardiac catheterization History of cholecystectomy Family History Other Family history of cancer Family history of hyperlipidemia Family history of hypertension Family history of myocardial infarction Social History Smoking Status: Current every day smoker alcohol intake: never substance use type: denies use current occupational status: retired Travel in the last 8 weeks: None household members: spouse housing: house marital status: caffeine: No Have you lived/traveled outside [place] in past 30 days?: No Contact w/someone who lives/traveled outside US past 30 days?: No Exposure to someone with infectious disease in past 14 days?: No Do you have a fever (greater than 100.4 F or 38 C)?: No Have you tested positive for COVID-19: No Exposed to someone with COVID-19 in past 14 days?: No Do you have a sore throat?: No Do you have a cough?: Yes Do you have any weakness?: No Are you experiencing any nausea/vomitting?: No Do you have any diarrhea?: No Are you experiencing any unusual bleeding?: No Do you have any muscle aches/pain?: No Do you have any abdominal pain?: No Are you experiencing loss of taste or smell?: No Other Medical History Have you received the Flu Vaccine for this season: Yes Have you received the Pneumonia Vaccine: Yes Review of Systems Review of Systems Review of systems:: pertinent systems reviewed and negative unless documented below Review of systems (narrative): Negative except for HPI Meds Home Medications and Allergies Home Medications ?Medication ?Instructions ?Recorded ?Confirmed ?Type montelukast 10 mg tablet 10 mg PO QPM Breathing problems 11/17/17 07/13/24 Hist ory (Singulair) potassium chloride 10 mEq 10 meq PO BID Supplement 11/17/17 07/13/24 History capsule,extended release propafenone 425 mg 425 mg PO Q12H Heart disease 11/17/17 07/13/24 History capsule,extended release 12 hr (Rythmol SR) atorvastatin 20 mg tablet 20 mg PO DAILY Cholesterol 04/11/22 07/13/24 History bumetanide 2 mg tablet 2 mg PO DAILY Fluid 04/11/22 07/13/24 History gabapentin 600 mg tablet 600 mg PO TID Pain 04/11/22 07/13/24 History lisinopril 40 mg tablet 40 mg PO DAILY High blood pressure 04/11/22 07/13/24 History metoprolol tartrate 100 mg tablet 100 mg PO BID High blood pressure 04/11/22 07/13/24 History rivaroxaban 20 mg tablet (Xarelto) 20 mg PO DAILY AFIB 04/11/22 07/13/24 History amlodipine 10 mg tablet 10 mg PO DAILY . 04/20/22 07/13/24 History albuterol sulfate 90 mcg/actuation 2 puff inhalation DIRECTED PRN 08/01/23 07/13/24 History aerosol inhaler Breathing Problems cetirizine 10 mg tablet (All Day 10 mg PO DAILY 08/01/23 07/13/24 History Allergy (cetirizine)) nitroglycerin 0.4 mg sublingual 0.4 mg sublingual Q5M PRN Chest 08/01/23 07/13/24 History tablet Pain omeprazole 20 mg capsule,delayed 20 mg PO DAILY 09/13/23 07/13/24 History release fluticasone fur. 100 mcg-umeclid 1 inh inhalation DAILY 90 days #90 04/19/24 07/13/24 Rx 62.5 mcg-vilant 25 mcg ea inhalat.powder (Trelegy Ellipta) hydrocodone 7.5 mg-acetaminophen 1 tab PO TID #90 tabs 06/14/24 07/13/24 Rx 325 mg tablet empagliflozin 10 mg tablet 10 mg PO DAILY 07/05/24 07/13/24 History (Jardiance) sertraline 100 mg tablet 100 mg PO DAILY 07/05/24 07/13/24 History trazodone 100 mg tablet 100 mg PO HS 07/05/24 07/13/24 History New Prescriptions to Start Prescriptions: Allergies Allergy/AdvReac Type Severity Reaction Status Date / Time levofloxacin Allergy Mild I-RASH Verified 07/05/24 11:08 niacin Allergy Mild Rash Verified 07/05/24 11:08 ofloxacin Allergy Mild Rash Verified 07/05/24 11:08 sulfamethoxazole (From Allergy Mild I-RASH Verified 07/05/24 11:08 Bactrim) trimethoprim (From Bactrim) Allergy Mild I-RASH Verified 07/05/24 11:08 oxytetracycline Allergy Unknown Rash Verified 07/05/24 11:08 Penicillins Allergy Unknown Rash Verified 07/05/24 11:08 fentanyl Allergy Confusion Verified 07/13/24 20:58 Exam Data for Last 24 hours Vital signs and Labs for Last 24 Hours: Temp Pulse Resp BP Pulse Ox O2 Del Method O2 Flow Rate 98.9 F 72 16 132/81 92 L Nasal Cannula 3 07/13/24 20:31 07/13/24 21:15 07/13/24 20:31 07/13/24 20:31 07/13/24 21:15 07/13/24 21:15 07/13/24 21:15 Laboratory Results - last 24 hr 07/13/24 14:46: SARS-CoV-2 (PCR) Not detected, Influenza A Untype (PCR) Not detected, Influenza Type B (PCR) Not detected 07/13/24 15:20: WBC 14.3 H, RBC 5.59, Hgb 15.7, Hct 48.5, MCV 86.8, MCH 28.1, MCHC 32.4, RDW 15.9, Plt Count 428 H, MPV 9.8, Neut % (Auto) 73.0, Lymph % (Auto) 11.2, [place] % (Auto) 11.6 H, Eos % (Auto) 2.9, Baso % (Auto) 1.0, Neut # (Auto) 10.5 H, Lymph # (Auto) 1.6, [place] # (Auto) 1.7 H, Eos # (Auto) 0.4, Baso # (Auto) 0.1, PT 12.4, INR 1.12 H, APTT 31.6 H, Sodium 140, Potassium 3.4 L, Chloride 96 L, Carbon Dioxide 37 H, Anion Gap 10.4, BUN 25 H, Creatinine 1.10, Estimated Creat Clear 122, Estimated GFR 67, Est GFR ( Amer) 82, Glucose 177 H, Calcium 8.7, Total Bilirubin 1.0, AST 38, ALT 34, Alkaline Phosphatase 88, Troponin I < 0.01, NT-Pro-B Natriuret Pep 464 H, Total Protein 8.8 H D, Albumin 4.6, Globulin 4.2 H, Albumin/Globulin Ratio 1.1, Procalcitonin 0.059, HCV Ab NANCY w/Rflx PCR Qn Negative, HIV Ag/Ab Combo Qual Negative 07/13/24 18:07: Troponin I < 0.01 07/13/24 19:18: Blood Type A Positive, Antibody Screen Negative 07/13/24 21:11: Troponin I < 0.01 I & O for Last 24 hours: Intake & Output 07/10/24 07/11/24 07/12/24 07/13/24 23:59 23:59 23:59 23:59 Weight 118.388 kg Constitutional Constitutional: no acute distress *Routine HEENT Exam Head: Present normocephalic Eye: Present EOMI and PERRL ENT: Present mucous membranes moist *Routine Neck Exam Neck: Present supple; Absent lymphadenopathy *Routine Respiratory Exam Respiratory: Present wheezes Comments: Diffuse wheezing noted throughout lung gómez. Lung sounds absent to left upper and left middle lobes. Left chest tube in place with serosanguineous output approximately 100 cc. *Routine Cardiovascular Exam Cardiovascular: Present RRR *Routine Abdominal Exam Abdominal: Present soft and normoactive bowel sounds; Absent tenderness *Routine Rectal Exam Rectal:: deferred *Routine Genitalia Exam Genitalia:: deferred *Routine Extremities Exam Extremities: Absent cyanosis, clubbing or edema *Routine Skin Exam Skin: Present warm; Absent rash *Routine Neurological Exam Neurological: Present alert and oriented X3 Assessment and Plan *Assessment and plan (1) Pneumothorax: Status: Acute Qualifiers: Pneumothorax type: spontaneous, tension Qualified Code(s): J93.0 - Spontaneous tension pneumothorax Category: Medical Code(s): J93.9 - Pneumothorax, unspecified (2) COPD exacerbation: Status: Acute Category: Medical Code(s): J44.1 - Chronic obstructive pulmonary disease with (acute) exacerbation (3) Hyperlipidemia: Status: Acute Qualifiers: Hyperlipidemia type: unspecified Qualified Code(s): E78.5 - Hyperlipidemia, unspecified Category: Medical Code(s): E78.5 - Hyperlipidemia, unspecified (4) Hypertension: Status: Acute Qualifiers: Hypertension type: unspecified Qualified Code(s): I10 - Essential (primary) hypertension Category: Medical Code(s): I10 - Essential (primary) hypertension (5) Atrial fibrillation: Problem Comment: Status postcardiac ablation, active follow-up with [facility] in [place] Status: Chronic Qualifiers: Atrial fibrillation type: unspecified Qualified Code(s): I48.91 - Unspecified atrial fibrillation Category: Medical Code(s): I48.91 - Unspecified atrial fibrillation (6) Smoking greater than 30 pack years: Status: Acute Category: Social Hx Code(s): F17.210 - Nicotine dependence, cigarettes, uncomplicated Plan #Pneumothorax, spontaneous, tension Near-total collapse of left lung on chest x-ray and CT imaging Left-sided chest tube placed into continuous suction Minimal improvement in lung collapse but tension improved. Hemodynamically stable at this time, oxygenating well on home 3 L nasal cannula. Self reports improved breathing pattern. at the bedside states he looks much improved as well. Will consult Dr. Monroe for am consult Repeat chest x-ray in a.m. Closely monitor respiratory status #COPD exacerbation Diffuse wheezing noted Continue bronchodilators and corticosteroid Initiate doxycycline #Hypertension Continue home medications #Atrial fibrillation Continue home Rythmol Hold Xarelto in the acute phase given recent chest tube placement #Tobacco abuse Tobacco cessation education #HLD Continue statin #Congestive heart failure, unspecified No echocardiogram to specify systolic versus diastolic Continue Bumex Recent history of large left pleural effusion Monitor intake and output
[2024-07-13] MEDS: CEFAZOLIN SODIUM 1 GM in 0.9 % SODIUM CHLORIDE 50 ML IV (23:03)
--- NOTE | 2024-07-13 23:27 | EXP.SEPSISRE ---
[facility] Tissue Perfusion Eval Sepsis Re-Evaluation Performed: Yes Date Performed: 07/13/24 Time Performed: 23:27
[2024-07-14] VITALS (13 sets, daily range): BP systolic 103–139; BP diastolic 44–80; PULSE 80–95; RESP 16–20; TEMP 36.3–36.7; O2SAT 91–94; BMI 36.3
[2024-07-14] MEDS: IPRATROPIUM/ALBUTEROL 3 ML NEB IH ×6 (01:55→23:21)
--- NOTE | 2024-07-14 06:00 | XR_ITS ---
PROCEDURE INFORMATION: Exam: XR Chest Exam date and time: 07/14/2024 6:08 AM Age: 63 years old Clinical indication: Condition or disease; Lung condition and disease; Pneumothorax; Additional info: Ptx eval TECHNIQUE: Imaging protocol: Radiologic exam of the chest. Views: 1 view. COMPARISON: CR XR CHEST PORTABLE 07/13/2024 7:53 PM FINDINGS: Tubes, catheters and devices: Left-sided pleural tube is present. Lungs: Unremarkable. No consolidation. Pleural spaces: Stable prominent left-sided pneumothorax unchanged from earlier study. Heart/Mediastinum: The heart is shifted slightly to the right. Bones/joints: Unremarkable. IMPRESSION: Stable prominent left-sided pneumothorax unchanged from earlier study. The heart is shifted slightly to the right. Left-sided pleural tube is present.
[2024-07-14] MEDS: APAP/HYDROCODONE 325MG/7.5MG TAB 1 TAB PO ×2 (06:25→13:11)
[2024-07-14 07:40] LABS: Basophils % 0.2 % (0.1-2.0); Lymphocytes # 0.5 K/mm3 (0.7-4.5); Monocytes # 0.2 K/mm3 (0.1-1.0)
[2024-07-14 07:46] LABS: Hematocrit 34.9 % (42.0-52.0); Mean Corpuscular HGB Conc 30.7 g/dL (31.8-35.4); Mean Corpuscular Hemoglobin 28.7 pg (27.0-31.2); Mean Corpuscular Volume 93.6 fl (80-94); Mean Platelet Volume 10.2 fl (7.4-10.4); Monocytes % 2.9 % (1.7-9.3); Neutrophils # 5.7 K/mm3 (1.8-7.8); Neutrophils % 88.1 % (37.0-80.0); Platelet Count 272 K/mm3 (142-424); Red Blood Count 3.73 M/mm3 (4.60-6.20); Red Cell Distribution Width 14.8 % (11.5-17.5); White Blood Count 6.5 K/mm3 (4.8-10.8)
[2024-07-14 07:48] LABS: Chloride 106 mmol/L (98-107); Potassium 4.4 mmoL/L (3.5-5.1); Sodium 139 mmol/L (136-145)
[2024-07-14 07:49] LABS: Hemoglobin 10.7 g/dL (14.1-18.0)
[2024-07-14 07:51] LABS: Anion Gap 7.4 mEq/L (5-15); Blood Urea Nitrogen 8 mg/dl (9-20); Carbon Dioxide 30 mmol/L (22.0-30.0); Creatinine Clearance Estimated 129 mL/min (50-200); Estimated Glomerular Filt Rate 217 ml/min (>60); GFR (African American) 262 ML/MIN (>60)
[2024-07-14 07:52] LABS: Calcium 8.2 mg/dl (8.4-10.2); Glucose 119 mg/dl (74-100)
[2024-07-14] MEDS: AMLODIPINE 10MG TABLET 10 MG PO (09:36)
[2024-07-14] MEDS: LISINOPRIL 20MG TABLET 40 MG PO (09:36)
[2024-07-14] MEDS: PROPAFENONE HCL 150MG TABLET 300 MG PO (09:36)
[2024-07-14] MEDS: METOPROLOL TARTRATE 50MG TABLET 100 MG PO (09:36)
[2024-07-14] MEDS: BUMETANIDE 1 MG TABLET 2 MG PO (09:36)
[2024-07-14] MEDS: predniSONE 20MG TAB 40 MG PO (09:36)
[2024-07-14] MEDS: SERTRALINE 100MG TABLET 100 MG PO (09:36)
[2024-07-14] MEDS: GABAPENTIN 600MG TABLET 600 MG PO ×3 (09:36→21:11)
--- NOTE | 2024-07-14 10:37 | PC.NURSE ---
pt chest tube assessed with hospitalist at bedside. hospitalist consulted with lumber buyer and agreed to turn tube suction to 40 due to decreased output. tube now at 40. pt tolerating well. no needs at this time
--- NOTE | 2024-07-14 12:52 | XR_ITS ---
PROCEDURE INFORMATION: Exam: XR Chest Exam date and time: 07/14/2024 1:05 PM Age: 63 years old Clinical indication: Device placement; Chest tube; Additional info: Chest tube placement and eval TECHNIQUE: Imaging protocol: Radiologic exam of the chest. Views: 1 view. COMPARISON: CR XR CHEST PORTABLE 07/14/2024 6:08 AM FINDINGS: Tubes, catheters and devices: New left-sided chest tube at lung base. Lungs: See Pleural spaces finding. Pleural spaces: Decreased left-sided pneumothorax with mild re-expansion of underlying lung. Residual left lung atelectasis centrally and at left base. Right lung remains clear. Heart/Mediastinum: The heart size is unchanged. There is mild atherosclerosis of the aorta. Bones/joints: There is diffuse spondylosis. Moderate IMPRESSION: Left-sided chest tube with decreased pneumothorax and mild re-expansion of underlying lung.
[2024-07-14 14:06] LABS: Lactate Dehydrogenase 263 U/L (313-618)
--- NOTE | 2024-07-14 16:18 | XR_ITS ---
PROCEDURE INFORMATION: Exam: XR Chest Exam date and time: 07/14/2024 4:19 PM Age: 63 years old Clinical indication: Device placement; Chest tube; Additional info: F/u pneumothorax TECHNIQUE: Imaging protocol: Radiologic exam of the chest. Views: 1 view. COMPARISON: CR XR CHEST PORTABLE 07/14/2024 1:05 PM FINDINGS: Lungs: Unremarkable. No consolidation. Pleural spaces: However there is a pneumothorax in the left upper lobe which has increased in size. The pleural surfaces now seen inferior to the left posterior 4th rib. Previously it was at the level of the left posterior 3rd rib. The pneumothorax in the lateral aspect of the left lung base has decreased slightly in size. Heart/Mediastinum: Stable cardiac silhouette Bones/joints: Stable IMPRESSION: 1. However there is a pneumothorax in the left upper lobe which has increased in size. The pleural surfaces now seen inferior to the left posterior 4th rib. Previously it was at the level of the left posterior 3rd rib. 2. The pneumothorax in the lateral aspect of the left lung base has decreased slightly in size.
[2024-07-14 16:33] LABS: TNC,Body Fluid 11053 cells/uL (< 1000)
[2024-07-14 16:35] LABS: Appearance,Body Fld. Bloody; Source, Body Fld. Pleural Fluid; Volume,Body Fld. 20.5 mL
[2024-07-14 17:15] LABS: RBC,Body Fluid 177 cells/uL (< 10 X 10^3)
--- NOTE | 2024-07-14 17:56 | EXP.PN ---
Subjective *Date: 07/14/24 *Time: 17:56 Interval history: Improvement in symptoms and chest tube output since increasing negative pressure. Follow-up repeat CXR 7:30 PM Exam Data for Last 24 hours Vital signs and Labs for Last 24 Hours: Temp Pulse Resp BP Pulse Ox O2 Del Method O2 Flow Rate 97.6 F 84 16 103/44 L 94 L Nasal Cannula 3 07/14/24 16:00 07/14/24 16:00 07/14/24 16:00 07/14/24 16:00 07/14/24 16:00 07/14/24 16:00 07/14/24 16:00 FiO2 3 07/14/24 04:00 Laboratory Results - last 24 hr 07/13/24 18:07: Troponin I < 0.01 07/13/24 19:18: Blood Type A Positive, Antibody Screen Negative 07/13/24 21:11: Troponin I < 0.01 07/14/24 07:26: WBC 6.5 D, RBC 3.73 L D, Hgb 10.7 L D, Hct 34.9 L, MCV 93.6, MCH 28.7, MCHC 30.7 L, RDW 14.8, Plt Count 272 D, MPV 10.2, Neut % (Auto) 88.1 H, Lymph % (Auto) 8.0 L, [place] % (Auto) 2.9, Eos % (Auto) 0.0 L, Baso % (Auto) 0.2, Neut # (Auto) 5.7, Lymph # (Auto) 0.5 L, [place] # (Auto) 0.2, Eos # (Auto) 0.0, Baso # (Auto) 0.0, Sodium 139, Potassium 4.4 D, Chloride 106, Carbon Dioxide 30, Anion Gap 7.4, BUN 8 L D, Creatinine 0.40 L D, Estimated Creat Clear 129, Estimated GFR 217, Est GFR ( Amer) 262 D, Glucose 119 H D, Calcium 8.2 L, Lactate Dehydrogenase 263 L 07/14/24 15:15: Fluid Source Pleural fluid, Fluid Volume 20.5, Fluid Appearance Bloody, Fluid RBC (Auto) 177, Fld Tot Nucleated Cell 55874 I & O for Last 24 hours: Intake & Output 07/11/24 07/12/24 07/13/24 07/14/24 23:59 23:59 23:59 23:59 Intake Total 480 / 480 Output Total 2034 Balance -1555 / -1555 Weight 118.388 kg 121.744 kg Constitutional Constitutional: no acute distress *Routine HEENT Exam Head: Present normocephalic Eye: Present EOMI and PERRL ENT: Present mucous membranes moist *Routine Neck Exam Neck: Present supple; Absent lymphadenopathy *Routine Respiratory Exam Respiratory: Present wheezes; Absent CTA bilaterally Comments: Decreased breath sounds left lung. Moderate wheezing throughout. *Routine Cardiovascular Exam Cardiovascular: Present RRR *Routine Abdominal Exam Abdominal: Present soft and normoactive bowel sounds; Absent tenderness *Routine Extremities Exam Extremities: Absent cyanosis, clubbing or edema *Routine Skin Exam Skin: Present warm; Absent rash *Routine Neurological Exam Neurological: Present alert and oriented X3 Assessment and Plan *Assessment and plan (1) Pneumothorax: Status: Acute Qualifiers: Pneumothorax type: spontaneous, tension Qualified Code(s): J93.0 - Spontaneous tension pneumothorax Category: Medical Code(s): J93.9 - Pneumothorax, unspecified (2) COPD exacerbation: Status: Acute Category: Medical Code(s): J44.1 - Chronic obstructive pulmonary disease with (acute) exacerbation (3) Hyperlipidemia: Status: Acute Qualifiers: Hyperlipidemia type: unspecified Qualified Code(s): E78.5 - Hyperlipidemia, unspecified Category: Medical Code(s): E78.5 - Hyperlipidemia, unspecified (4) Hypertension: Status: Acute Qualifiers: Hypertension type: unspecified Qualified Code(s): I10 - Essential (primary) hypertension Category: Medical Code(s): I10 - Essential (primary) hypertension (5) Atrial fibrillation: Problem Comment: Status postcardiac ablation, active follow-up with [facility] in [place] Status: Chronic Qualifiers: Atrial fibrillation type: unspecified Qualified Code(s): I48.91 - Unspecified atrial fibrillation Category: Medical Code(s): I48.91 - Unspecified atrial fibrillation (6) Smoking greater than 30 pack years: Status: Acute Category: Social Hx Code(s): F17.210 - Nicotine dependence, cigarettes, uncomplicated Plan Matt Drew is a 63-year-old male who presented with shortness of breath and admitted for spontaneous tension pneumothorax. #Pneumothorax, spontaneous, tension Near-total collapse of left lung on chest x-ray and CT imaging Left-sided chest tube placed into continuous suction, but had minimal improvement in pneumothorax overnight but did have improvement in tension physiology. ? Wall suction turned to high, chest tube suction turned to 40 with improvement in pneumothorax. Around 1300 mL serosanguineous fluid output so far. Pleural studies ordered including cytology. ? Repeat CXR does show improvement in pneumothorax in the lower gómez, but ongoing pneumothorax in the upper gómez. ? Chest tube withdrawn about 4 to 5 cm, chest tube has positive airleak, will obtain repeat CXR at 7:30 PM. ? Pulmonology consulted, assisting with care as above. ? Vital signs stable. Patient has appropriate saturations on 3 L. #COPD exacerbation Diffuse wheezing noted Continue DuoNebs, started Pulmicort. ? Continue prednisone 40 mg day 2. ? Started doxycycline day 1. #Hypertension ?Hold home blood pressure medication in the setting of tension pneumothorax #Atrial fibrillation Continue home Rythmol Hold Xarelto in the acute phase given recent chest tube placement #Tobacco abuse Tobacco cessation education #HLD Continue statin Full code DVT prophylaxis: SCDs
--- NOTE | 2024-07-14 17:57 | PC.NURSE ---
chest tube pulled out about 4cm at bedside by hospitalist. suture replaced. dressing changed. pt tolerated well. pending chest x ray
[2024-07-14 18:10] LABS: Mononuclear WBCs,Body Fluid 30 %; Polynuclear WBC,Body Fluid 70 %
[2024-07-14] MEDS: BUDESONIDE 0.5MG/2ML NEB 0.5 MG IH (18:17)
[2024-07-14] MEDS: LIDOCAINE 1% 10ML MDV 10 ML IJ (18:37)
[2024-07-14] MEDS: DOXYCYCLINE HYCLATE 100 MG in 0.9 % SODIUM CHLORIDE 250 ML 166.667 MG IV (18:37)
--- NOTE | 2024-07-14 19:30 | XR_ITS ---
PROCEDURE INFORMATION: Exam: XR Chest Exam date and time: 07/14/2024 7:32 PM Age: 63 years old Clinical indication: Device placement; Chest tube; Additional info: Chest tube placement TECHNIQUE: Imaging protocol: Radiologic exam of the chest. Views: 1 view. COMPARISON: CR XR CHEST PORTABLE 07/14/2024 4:19 PM FINDINGS: Tubes, catheters and devices: Apically oriented left-sided chest tube is seen entering the thoracic cavity in inferior lateral approach. Lungs: Nondescript opacities of the collapsed left lung are seen. Pleural spaces: Dominant left pneumothorax is seen measuring up to 4.2 cm at the apex. Heart/Mediastinum: Unremarkable. No cardiomegaly. Bones/joints: Unremarkable. IMPRESSION: 1. Chest tube as above. 2. Large residual left pneumothorax seen, however improved from prior comparison.
[2024-07-14] MEDS: ATORVASTATIN 20MG TABLET 20 MG PO (21:11)
[2024-07-14] MEDS: PROPAFENONE 425 MG 1 EACH PO (21:11)
[2024-07-15] VITALS (9 sets, daily range): BP systolic 123–149; BP diastolic 53–82; PULSE 80–112; RESP 16–18; TEMP 36.3–36.9; O2SAT 91–100; BMI 35.1
--- NOTE | 2024-07-15 04:39 | PC.NURSE ---
Addendum entered by Sowmya Elizalde RN 07/15/24 06:19: No further output from chest tube on 7p-7a shift. Original Note: Pt remains A/O X 4. VS have been WNL for pt 02 on at 3 liters/nc and 02 sats maintained above 90. Early in the shift pt did become more SOA after an epsiode of coughing. Neb treatment was given per RT and pt was able to rest afterward. he has denied pain throughout the night. NSR per telemetry. Using [place] for voids.
[2024-07-15 07:09] LABS: Basophils # 0.1 K/mm3 (0-0.2); Basophils % 0.7 % (0.1-2.0); Eosinophils # 0.2 K/mm3 (0.0-0.4); Eosinophils % 1.2 % (0.1-12.0); Lymphocytes # 2.1 K/mm3 (0.7-4.5); Lymphocytes % 11.7 % (10-50); Mean Corpuscular HGB Conc 32.1 g/dL (31.8-35.4); Mean Platelet Volume 10.1 fl (7.4-10.4); Monocytes % 10.9 % (1.7-9.3); Neutrophils # 13.7 K/mm3 (1.8-7.8); Neutrophils % 75.2 % (37.0-80.0); Platelet Count 378 K/mm3 (142-424); Red Cell Distribution Width 15.4 % (11.5-17.5); White Blood Count 18.2 K/mm3 (4.8-10.8)
[2024-07-15 07:18] LABS: MANUAL DIFFERENTIAL MANUAL DIFFERENTIAL (MANUAL DIFF)
[2024-07-15] MEDS: IPRATROPIUM/ALBUTEROL 3 ML NEB IH ×3 (07:52→23:52)
[2024-07-15] MEDS: BUDESONIDE 0.5MG/2ML NEB 0.5 MG IH ×2 (07:52→18:44)
[2024-07-15 07:59] LABS: Hemoglobin 15.1 g/dL (14.1-18.0)
--- NOTE | 2024-07-15 08:18 | XR_ITS ---
PROCEDURE INFORMATION: Exam: XR Chest Exam date and time: 07/15/2024 10:58 AM Age: 63 years old Clinical indication: Other: F/u pneumothorax TECHNIQUE: Imaging protocol: Radiologic exam of the chest. Views: 1 view. Total images: 2 COMPARISON: CR XR CHEST PORTABLE 07/14/2024 7:32 PM FINDINGS: Tubes, catheters and devices: Left-sided chest tube is in place and similar position to the prior study. Lungs: Atelectatic and/or early infiltrative changes noted within the left lower lobe. Pleural spaces: Left-sided pneumothorax is again evident and similar to the prior study. Heart/Mediastinum: The heart is not enlarged. Bones/joints: The thoracic spine demonstrates mild degenerative changes at multiple levels. IMPRESSION: 1. Left-sided pneumothorax is again evident and similar to the prior study. 2. Atelectatic and/or early infiltrative changes noted within the left lower lobe.
[2024-07-15 08:40] LABS: Chloride 99 mmol/L (98-107); Sodium 139 mmol/L (136-145)
[2024-07-15 08:43] LABS: Alanine Aminotransferase 28 U/L (12-78); Albumin/Globulin Ratio 1.1 (1.1-1.8); Alkaline Phosphatase 105 U/L (38-126); Anion Gap 10.9 mEq/L (5-15); Aspartate Amino Transferase 39 U/L (17-59); Bilirubin,Total 0.6 mg/dl (0.2-1.3); Blood Urea Nitrogen 17 mg/dl (9-20); Calcium 8.7 mg/dl (8.4-10.2); Carbon Dioxide 32 mmol/L (22.0-30.0); Creatinine Clearance Estimated 124 mL/min (50-200); Estimated Glomerular Filt Rate 114 ml/min (>60); GFR (African American) 137 ML/MIN (>60); Globulin 3.7 g/dL (1.3-3.2); Glucose 128 mg/dl (74-100); Total Protein,Serum 7.7 g/dl (6.3-8.2)
[2024-07-15 08:44] LABS: Magnesium 1.8 mg/dl (1.6-2.3)
[2024-07-15 08:45] LABS: Potassium 2.9 mmoL/L (3.5-5.1)
[2024-07-15] MEDS: LISINOPRIL 20MG TABLET 40 MG PO (09:29)
[2024-07-15] MEDS: PROPAFENONE 425 MG 1 EACH PO ×2 (09:29→20:32)
[2024-07-15] MEDS: AMLODIPINE 10MG TABLET 10 MG PO (09:29)
[2024-07-15] MEDS: POTASSIUM CHLORIDE 20MEQ TAB 40 MEQ PO ×3 (09:29→16:39)
[2024-07-15] MEDS: SERTRALINE 100MG TABLET 100 MG PO (09:29)
[2024-07-15] MEDS: GABAPENTIN 600MG TABLET 600 MG PO ×3 (09:29→20:32)
[2024-07-15] MEDS: predniSONE 20MG TAB 40 MG PO (09:29)
[2024-07-15] MEDS: BUMETANIDE 1 MG TABLET 2 MG PO (09:29)
[2024-07-15] MEDS: DOXYCYCLINE HYCLATE 100 MG in 0.9 % SODIUM CHLORIDE 250 ML 166.667 MG IV ×2 (09:30→20:32)
[2024-07-15] MEDS: MAGNESIUM SULFATE IN WATER 2 GM/50 ML PIGGYBACK IV (09:30)
[2024-07-15] MEDS: APAP/HYDROCODONE 325MG/7.5MG TAB 1 TAB PO ×2 (09:33→20:30)
[2024-07-15 09:43] LABS: Eosinophils % 1 % (0-3); Lymphocytes % 10 % (10-50); Monocytes % 12 % (2-9); Neutrophils % 77 % (42-76); Platelet Estimate Normal; RBC Morphology Normal; Total Cells Counted 100
--- NOTE | 2024-07-15 10:29 | PC.NURSE ---
pt o2 sat while walking around the room was 93% with hr in the mid to high 80s
--- NOTE | 2024-07-15 16:00 | XR_ITS ---
PROCEDURE INFORMATION: Exam: XR Chest Exam date and time: 07/15/2024 4:05 PM Age: 63 years old Clinical indication: Other: F/u pneumo after fixing chest tube suction TECHNIQUE: Imaging protocol: Radiologic exam of the chest. Views: 1 view. Total images: 2 COMPARISON: CR XR CHEST PORTABLE 07/15/2024 10:58 AM FINDINGS: Tubes, catheters and devices: Left-sided chest tube overlies the left lower lung. Lungs: Atelectatic and/or early infiltrative changes noted within both lung bases. Bilateral hyperinflation is present. Pleural spaces: No evidence of pneumothorax as imaged. Heart/Mediastinum: The heart is not enlarged. Bones/joints: The thoracic spine demonstrates mild degenerative changes at multiple levels. IMPRESSION: 1. Left-sided chest tube overlies the left lower lung. 2. No evidence of pneumothorax as imaged. 3. Atelectatic and/or early infiltrative changes noted within both lung bases. 4. Bilateral hyperinflation is present.
--- NOTE | 2024-07-15 17:29 | PC.NURSE ---
chest tube water sealed per hospitalist verbal order.
--- NOTE | 2024-07-15 19:37 | EXP.PN ---
Subjective *Date: 07/15/24 *Time: 19:37 Interval history: Patient feels well, and improved after pneumothorax resolved. No respiratory distress, chest pain. Inducer that was asked and left in the chest tube upon placement removed today, with resolution of pneumothorax. Water-sealed. Exam Data for Last 24 hours Vital signs and Labs for Last 24 Hours: Temp Pulse Resp BP Pulse Ox O2 Del Method O2 Flow Rate 97.9 F 104 H 16 149/72 H 95 Nasal Cannula 3 07/15/24 16:00 07/15/24 16:00 07/15/24 16:00 07/15/24 16:00 07/15/24 16:00 07/15/24 18:48 07/15/24 18:48 FiO2 3 07/14/24 04:00 Laboratory Results - last 24 hr 07/15/24 06:29: WBC 18.2 H D, RBC 5.40 D, Hgb 15.1 D, Hct 47.0, MCV 87.0, MCH 28.0, MCHC 32.1, RDW 15.4, Plt Count 378 D, MPV 10.1, Neut % (Auto) 75.2, Lymph % (Auto) 11.7, [place] % (Auto) 10.9 H, Eos % (Auto) 1.2, Baso % (Auto) 0.7, Neut # (Auto) 13.7 H, Lymph # (Auto) 2.1, [place] # (Auto) 2.0 H, Eos # (Auto) 0.2, Baso # (Auto) 0.1, Total Counted 100, Neutrophils % (Manual) 77 H, Lymphocytes % (Manual) 10, Monocytes % (Manual) 12 H, Eosinophils % (Manual) 1, Platelet Estimate Normal, RBC Morphology Normal, Sodium 139, Potassium 2.9 L* D, Chloride 99, Carbon Dioxide 32 H, Anion Gap 10.9, BUN 17 D, Creatinine 0.70 D, Estimated Creat Clear 124, Estimated GFR 114, Est GFR ( Amer) 137 D, Glucose 128 H, Calcium 8.7, Magnesium 1.8, Total Bilirubin 0.6, AST 39, ALT 28, Alkaline Phosphatase 105, Total Protein 7.7, Albumin 4.0, Globulin 3.7 H, Albumin/Globulin Ratio 1.1 I & O for Last 24 hours: Intake & Output 0207/13/24 07/14/24 07/15/24 23:59 23:59 23:59 23:59 Intake Total 480 / 730 1450 / 1450 Output Total 4300 / 4300 2800 / 2800 Balance -3820 / -3570 -1350 / -1350 Weight 118.388 kg 121.744 kg 117.571 kg Microbiology Reports for the Last 24 Hours: Microbiology 07/14/24 15:15 Pleural Fluid Body Fluid Culture - Preliminary NO GROWTH AFTER 24 HOURS Constitutional Constitutional: no acute distress *Routine HEENT Exam Head: Present normocephalic Eye: Present EOMI and PERRL ENT: Present mucous membranes moist *Routine Neck Exam Neck: Present supple; Absent lymphadenopathy *Routine Respiratory Exam Respiratory: Present wheezes; Absent CTA bilaterally Comments: Mild wheezing throughout. *Routine Cardiovascular Exam Cardiovascular: Present RRR *Routine Abdominal Exam Abdominal: Present soft and normoactive bowel sounds; Absent tenderness *Routine Extremities Exam Extremities: Absent cyanosis, clubbing or edema *Routine Skin Exam Skin: Present warm; Absent rash *Routine Neurological Exam Neurological: Present alert and oriented X3 Assessment and Plan *Assessment and plan (1) Pneumothorax: Status: Acute Qualifiers: Pneumothorax type: spontaneous, tension Qualified Code(s): J93.0 - Spontaneous tension pneumothorax Category: Medical Code(s): J93.9 - Pneumothorax, unspecified (2) COPD exacerbation: Status: Acute Category: Medical Code(s): J44.1 - Chronic obstructive pulmonary disease with (acute) exacerbation (3) Hyperlipidemia: Status: Acute Qualifiers: Hyperlipidemia type: unspecified Qualified Code(s): E78.5 - Hyperlipidemia, unspecified Category: Medical Code(s): E78.5 - Hyperlipidemia, unspecified (4) Hypertension: Status: Acute Qualifiers: Hypertension type: unspecified Qualified Code(s): I10 - Essential (primary) hypertension Category: Medical Code(s): I10 - Essential (primary) hypertension (5) Atrial fibrillation: Problem Comment: Status postcardiac ablation, active follow-up with [facility] in [place] Status: Chronic Qualifiers: Atrial fibrillation type: unspecified Qualified Code(s): I48.91 - Unspecified atrial fibrillation Category: Medical Code(s): I48.91 - Unspecified atrial fibrillation (6) Smoking greater than 30 pack years: Status: Acute Category: Social Hx Code(s): F17.210 - Nicotine dependence, cigarettes, uncomplicated Plan Matt Drew is a 63-year-old male who presented with shortness of breath and admitted for spontaneous tension pneumothorax. #Pneumothorax, spontaneous, tension Near-total collapse of left lung on chest x-ray and CT imaging initially. ? Patient continues to have moderate left-sided pneumothorax this morning. It was discovered inducer was still in the chest tube. Upon removing, pneumothorax resolved. ? Chest tube to waterseal currently. Follow-up repeat CXR in the morning. If stable, plan to clamp and remove chest tube. ? Pulmonology consulted, assisting with care as above. ? Vital signs stable. Patient has appropriate saturations on 3 L. #COPD exacerbation Diffuse wheezing noted Continue DuoNebs, started Pulmicort. ? Continue prednisone 40 mg day 3. Continue doxycycline. #Hypertension ? Hold home blood pressure medication in the setting of tension pneumothorax #Atrial fibrillation Continue home Rythmol Hold Xarelto in the acute phase given recent chest tube placement #Tobacco abuse Tobacco cessation education #HLD Continue statin Full code DVT prophylaxis: SCDs
[2024-07-15] MEDS: ATORVASTATIN 20MG TABLET 20 MG PO (20:32)
--- NOTE | 2024-07-15 22:39 | PC.NURSE ---
Addendum entered by So Jefferson RN 07/16/24 05:34: A new, 22G IV was inserted with 1 attempt into the left hand by me at this time. Patient tolerated IV insertion very well. Saline-locked. Original Note: Patient's 20G IV in the right antecubital started to leak during the end of doxycycline infusion. Site was removed at this time. Patient expressed a fear of needles and verbally requested that his new IV site be replaced later into the shift (preferred in morning). IV access to be regained during this shift.
[2024-07-16] VITALS (8 sets, daily range): BP systolic 138–164; BP diastolic 80–109; PULSE 75–184; RESP 16–24; TEMP 36.4–36.7; O2SAT 90–96; BMI 34.8
--- NOTE | 2024-07-16 05:41 | PC.NURSE ---
Patient is pleasantly alert and oriented x4. Patient was observed to have eyes closed, respirations even and unlabored, and no apparent distress for the majority of the night. His has remained at the bedside. He has remained on 3 L of oxygen via nasal cannula for the majority of the shift, with oxygen saturations > 90%. Heart rate and blood pressures have been elevated this shift. Patient's chest tube to the left side remains water-sealed with dressing intact. Upon auscultation, lung sounds were more diminished in the left lobes compared to the right. Scheduled medications were administered as appropriately per JUL. Satin was administered once this shift for back pain. Patient is able to sit on the side of the bed without difficulty and self-turns in bed. SCDs are in place. He uses the urinal at the bedside for voiding needs. At this time, the patient is resting supine in bed without any further complaints. Call light within reach. Home medication located in [facility].
[2024-07-16] MEDS: IPRATROPIUM/ALBUTEROL 3 ML NEB IH ×2 (05:59→12:53)
[2024-07-16] MEDS: BUDESONIDE 0.5MG/2ML NEB 0.5 MG IH (05:59)
[2024-07-16 07:26] LABS: Basophils # 0.1 K/mm3 (0-0.2); Basophils % 0.6 % (0.1-2.0); Eosinophils # 0.2 K/mm3 (0.0-0.4); Eosinophils % 1.2 % (0.1-12.0); Lymphocytes # 2.2 K/mm3 (0.7-4.5); Lymphocytes % 13.9 % (10-50); Mean Corpuscular HGB Conc 31.9 g/dL (31.8-35.4); Mean Corpuscular Hemoglobin 27.8 pg (27.0-31.2); Mean Platelet Volume 9.9 fl (7.4-10.4); Monocytes # 1.6 K/mm3 (0.1-1.0); Monocytes % 9.9 % (1.7-9.3); Neutrophils # 11.6 K/mm3 (1.8-7.8); Platelet Count 392 K/mm3 (142-424); Red Cell Distribution Width 15.6 % (11.5-17.5); White Blood Count 15.7 K/mm3 (4.8-10.8)
[2024-07-16 07:29] LABS: MANUAL DIFFERENTIAL MANUAL DIFFERENTIAL (MANUAL DIFF)
--- NOTE | 2024-07-16 07:38 | XR_ITS ---
FINAL REPORT CLINICAL HISTORY: f/u pneumothorax, chest tube water sealed COMPARISON: 07/15/2024 FINDINGS: A portable view of the chest was obtained. Cardiac and mediastinal silhouettes are within normal limits. A portion of the left chest is excluded from the film. The known, left basilar chest tube is not well-visualized. There is no convincing left pneumothorax on today's exam. There is no focal infiltrate. IMPRESSION: Left chest tube is not well-visualized. No convincing residual pneumothorax. Reviewed, Interpreted and Dictated by Carlee Mitchell MD Transcribed by Loly Lin Authenticated and [facility]
[2024-07-16 07:41] LABS: Albumin Level 3.9 g/dl (3.5-5.0); Chloride 103 mmol/L (98-107); Potassium 3.4 mmoL/L (3.5-5.1); Sodium 138 mmol/L (136-145)
[2024-07-16 07:44] LABS: Alanine Aminotransferase 26 U/L (12-78); Alkaline Phosphatase 120 U/L (38-126); Anion Gap 12.4 mEq/L (5-15); Aspartate Amino Transferase 65 U/L (17-59); Blood Urea Nitrogen 14 mg/dl (9-20); Calcium 8.4 mg/dl (8.4-10.2); Carbon Dioxide 26 mmol/L (22.0-30.0); Creatinine Clearance Estimated 123 mL/min (50-200); Estimated Glomerular Filt Rate 136 ml/min (>60); GFR (African American) 164 ML/MIN (>60); Globulin 3.8 g/dL (1.3-3.2); Glucose 110 mg/dl (74-100); Total Protein,Serum 7.7 g/dl (6.3-8.2)
[2024-07-16 07:45] LABS: Magnesium 1.9 mg/dl (1.6-2.3)
[2024-07-16] MEDS: DOXYCYCLINE HYCLATE 100 MG in 0.9 % SODIUM CHLORIDE 250 ML 166.667 MG IV (08:09)
[2024-07-16] MEDS: SERTRALINE 100MG TABLET 100 MG PO (08:10)
[2024-07-16 08:11] LABS: Eosinophils % 2 % (0-3); Lymphocytes % 16 % (10-50); Monocytes % 9 % (2-9); Neutrophils % 69 % (42-76); Platelet Estimate Normal; RBC Morphology Normal; Total Cells Counted 100
[2024-07-16] MEDS: BUMETANIDE 1 MG TABLET 2 MG PO (08:11)
[2024-07-16] MEDS: LISINOPRIL 20MG TABLET 40 MG PO (08:11)
[2024-07-16] MEDS: GABAPENTIN 600MG TABLET 600 MG PO ×2 (08:11→13:50)
[2024-07-16] MEDS: predniSONE 20MG TAB 40 MG PO (08:11)
[2024-07-16] MEDS: AMLODIPINE 10MG TABLET 10 MG PO (08:11)
--- NOTE | 2024-07-16 09:43 | EXP.PULM.CON ---
History of Present Illness History of present illness: Mr. Drew is a 63-year-old male greater than [id number] smoking and triple inhaler therapy long-term oxygen supplementation presented today with progressively worsening respiratory distress # large left pneumothorax status post chest tube placement pulmonary was called for further evaluation and management [facility] Disclaimer: The information contained in this section may have been updated after the patient was seen, as this information can be updated by other users. Medical History Hiatal hernia Pleural effusion, left Encounter for screening for malignant neoplasm of lung Dyspnea on exertion History of COPD Smoking greater than 30 pack years Encounter for postoperative care Loss of taste Swelling of right parotid gland Swelling of left parotid gland Parotid abscess Dental caries limited to enamel Facial cellulitis Depression Anxiety Diabetes mellitus, type 2 History of stroke COPD (chronic obstructive pulmonary disease) Atrial fibrillation Hyperlipidemia Hypertension Surgical History (Updated 07/13/24 @ 21:06 by Leti Wagner RN) H/O ventral hernia repair Hx of cardiac catheterization History of cholecystectomy Family History Other Family history of cancer Family history of hyperlipidemia Family history of hypertension Family history of myocardial infarction Social History Smoking Status: Current every day smoker alcohol intake: never substance use type: denies use current occupational status: retired Travel in the last 8 weeks: None household members: spouse housing: house marital status: caffeine: No Have you lived/traveled outside [place] in past 30 days?: No Contact w/someone who lives/traveled outside US past 30 days?: No Exposure to someone with infectious disease in past 14 days?: No Do you have a fever (greater than 100.4 F or 38 C)?: No Have you tested positive for COVID-19: No Exposed to someone with COVID-19 in past 14 days?: No Do you have a sore throat?: No Do you have a cough?: Yes Do you have any weakness?: No Are you experiencing any nausea/vomitting?: No Do you have any diarrhea?: No Are you experiencing any unusual bleeding?: No Do you have any muscle aches/pain?: No Do you have any abdominal pain?: No Are you experiencing loss of taste or smell?: No Review of Systems Constitutional Constitutional: Reports anorexia, Reports body ache(s) and Reports fatigue Eyes Eyes: Denies eye discharge, Denies dry eyes, Denies irritation and Denies itchy eyes ENT Ears, Nose, Mouth, and Throat: Denies epistaxis, Denies facial pain, Denies lip swelling and Denies throat swelling *Cardiovascular Cardiovascular: Reports dyspnea and Reports dyspnea on exertion *Respiratory Respiratory: Denies change in phlegm color, Reports chest congestion, Reports cough, Reports dyspnea, Reports dyspnea on exertion, Denies excessive phlegm production, Denies hemoptysis, Denies pain on inspiration, Denies pain with cough and Reports wheezing *Gastrointestinal Gastrointestinal: Denies abdominal pain, Denies belching and Denies cramping *Musculoskeletal Musculoskeletal: Reports back pain, Reports myalgias and Reports other (No small joint swelling or Pain) Psychiatric Psychiatric: Denies homicidal ideation and Denies suicidal ideation Endocrine Endocrine: Reports fatigue and Denies heat intolerance Hematologic/Lymphatic Hematologic/Lymphatic: Denies easy bleeding and Denies lymphadenopathy Allergic/Immunologic Allergic/Immunologic: Denies itchy eyes, Denies lip swelling, Denies throat swelling and Reports wheezing Pulmonology Exam Inpatient Vital signs and Labs for Last 24 Hours: Temp Pulse Resp BP Pulse Ox O2 Del Method O2 Flow Rate 98.1 F 108 H 16 164/88 H 96 Nasal Cannula 3 07/16/24 08:00 07/16/24 08:00 07/16/24 08:00 07/16/24 08:00 07/16/24 08:00 07/16/24 09:00 07/16/24 09:00 FiO2 3 07/14/24 04:00 Laboratory Results - last 24 hr 07/15/24 06:29: Total Counted 100, Neutrophils % (Manual) 77 H, Lymphocytes % (Manual) 10, Monocytes % (Manual) 12 H, Eosinophils % (Manual) 1, Platelet Estimate Normal, RBC Morphology Normal 07/16/24 06:02: WBC 15.7 H, RBC 5.40, Hgb 15.0, Hct 47.0, MCV 87.0, MCH 27.8, MCHC 31.9, RDW 15.6, Plt Count 392, MPV 9.9, Neut % (Auto) 74.0, Lymph % (Auto) 13.9, [place] % (Auto) 9.9 H, Eos % (Auto) 1.2, Baso % (Auto) 0.6, Neut # (Auto) 11.6 H, Lymph # (Auto) 2.2, [place] # (Auto) 1.6 H, Eos # (Auto) 0.2, Baso # (Auto) 0.1, Total Counted 100, Neutrophils % (Manual) 69, Band Neutrophils % 4.0, Lymphocytes % (Manual) 16, Monocytes % (Manual) 9, Eosinophils % (Manual) 2, Platelet Estimate Normal, RBC Morphology Normal, Sodium 138, Potassium 3.4 L, Chloride 103, Carbon Dioxide 26, Anion Gap 12.4, BUN 14, Creatinine 0.60 L, Estimated Creat Clear 123, Estimated GFR 136, Est GFR ( Amer) 164, Glucose 110 H, Calcium 8.4, Magnesium 1.9, Total Bilirubin 1.0, AST 65 H D, ALT 26, Alkaline Phosphatase 120, Total Protein 7.7, Albumin 3.9, Globulin 3.8 H, Albumin/Globulin Ratio 1.0 L I & O for Labs for Last 24 Hours: Intake & Output 07/13/24 07/14/24 07/15/24 07/16/24 23:59 23:59 23:59 23:59 Intake Total 480 / 730 1450 / 2054 604 / 604 Output Total 4300 / 4300 2800 / 3200 1000 / 1000 Balance -3820 / -3570 -1350 / -1146 -396 / -396 Weight 261 lb 268 lb 6.4 oz 259 lb 3.2 oz 257 lb 1.6 oz Microbiology Reports for the Last 24 Hours: Microbiology 07/14/24 15:15 Pleural Fluid Body Fluid Culture - Preliminary NO GROWTH AFTER 24 HOURS Constitutional: Present moderate distress Head: Present normocephalic and atraumatic ENT: Present normal exam, normal oropharynx and mucous membranes moist Neck: Present normal inspection and full ROM Respiratory: Present respiratory distress and able to speak in complete sentences; Absent rhonchi, wheezes or crackles Cardiac: Present S1/S2, Tachycardia and radial pulses present GI: Present soft and distention; Absent tenderness or guarding Skin: Present intact; Absent cyanosis or jaundice Neuro: Present alert, awake and oriented x 3 Extremities: Present normal inspection; Absent clubbing or cyanosis Psychiatric: Present normal affect and cooperative Meds Home Medications and Allergies Home Medications ?Medication ?Instructions ?Recorded ?Confirmed ?Type montelukast 10 mg tablet 10 mg PO QPM Breathing problems 11/17/17 07/13/24 History (Singulair) atorvastatin 20 mg tablet 20 mg PO HS Cholesterol 04/11/22 07/14/24 History bumetanide 2 mg tablet 2 mg PO DAILY 04/11/22 07/13/24 History gabapentin 600 mg tablet 600 mg PO TID Pain 04/11/22 07/13/24 History lisinopril 40 mg tablet 40 mg PO DAILY High blood pressure 04/11/22 07/13/24 History metoprolol tartrate 100 mg tablet 100 mg PO BID High blood pressure 04/11/22 07/13/24 History rivaroxaban 20 mg tablet (Xarelto) 20 mg PO QPMWITHMEAL 04/11/22 07/14/24 History amlodipine 10 mg tablet 10 mg PO DAILY 04/20/22 07/13/24 History cetirizine 10 mg tablet (All Day 10 mg PO DAILY 08/01/23 07/13/24 History Allergy (cetirizine)) nitroglycerin 0.4 mg sublingual 0.4 mg sublingual Q5M PRN Chest 08/01/23 07/13/24 History tablet Pain omeprazole 20 mg capsule,delayed 20 mg PO DAILY 09/13/23 07/13/24 History release fluticasone fur. 100 mcg-umeclid 1 inh inhalation DAILY 90 days #90 04/19/24 07/13/24 Rx 62.5 mcg-vilant 25 mcg ea inhalat.powder (Trelegy Ellipta) hydrocodone 7.5 mg-acetaminophen 1 tab PO TID #90 tabs 06/14/24 07/13/24 Rx 325 mg tablet empagliflozin 10 mg tablet 10 mg PO DAILY 07/05/24 07/13/24 History (Jardiance) sertraline 100 mg tablet 100 mg PO DAILY 07/05/24 07/13/24 History trazodone 100 mg tablet 100 mg PO HS 07/05/24 07/13/24 History cyclobenzaprine 10 mg tablet 10 mg PO TID 07/14/24 07/14/24 History propafenone 425 mg 425 mg PO BID 07/14/24 07/14/24 History capsule,extended release 12 hr New Prescriptions to Start Prescriptions: Allergies Allergy/AdvReac Type Severity Reaction Status Date / Time levofloxacin Allergy Mild I-RASH Verified 07/05/24 11:08 niacin Allergy Mild Rash Verified 07/05/24 11:08 ofloxacin Allergy Mild Rash Verified 07/05/24 11:08 sulfamethoxazole (From Allergy Mild I-RASH Verified 07/05/24 11:08 Bactrim) trimethoprim (From Bactrim) Allergy Mild I-RASH Verified 07/05/24 11:08 oxytetracycline Allergy Unknown Rash Verified 07/05/24 11:08 Penicillins Allergy Unknown Rash Verified 07/05/24 11:08 fentanyl Allergy Confusion Verified 07/13/24 20:58 Results Laboratory Findings 07/16/24 06:02 07/16/24 06:02 PT/INR, D-dimer PT 12.4 seconds (10.1-12.5) 07/13/24 15:20 INR 1.12 (0.9-1.1) H 07/13/24 15:20 Abnormal lab findings: Abnormal Labs 07/13/24 07/14/24 07/15/24 15:20 07:26 06:29 WBC 14.3 H 18.2 H D RBC 3.73 L D Hgb 10.7 L D Hct 34.9 L MCHC 30.7 L Plt Count 428 H Neut % (Auto) 88.1 H Lymph % (Auto) 8.0 L [place] % (Auto) 11.6 H 10.9 H Eos % (Auto) 0.0 L Neut # (Auto) 10.5 H 13.7 H Lymph # (Auto) 0.5 L [place] # (Auto) 1.7 H 2.0 H Neutrophils % (Manual) 77 H Monocytes % (Manual) 12 H INR 1.12 H APTT 31.6 H Potassium 3.4 L 2.9 L* D Chloride 96 L Carbon Dioxide 37 H 32 H BUN 25 H 8 L D Creatinine 0.40 L D Glucose 177 H 119 H D 128 H Calcium 8.2 L AST Lactate Dehydrogenase 263 L NT-Pro-B Natriuret Pep 464 H Total Protein 8.8 H D Globulin 4.2 H 3.7 H Albumin/Globulin Ratio 07/16/24 06:02 WBC 15.7 H RBC Hgb Hct MCHC Plt Count Neut % (Auto) Lymph % (Auto) [place] % (Auto) 9.9 H Eos % (Auto) Neut # (Auto) 11.6 H Lymph # (Auto) [place] # (Auto) 1.6 H Neutrophils % (Manual) Monocytes % (Manual) INR APTT Potassium 3.4 L Chloride Carbon Dioxide BUN Creatinine 0.60 L Glucose 110 H Calcium AST 65 H D Lactate Dehydrogenase NT-Pro-B Natriuret Pep Total Protein Globulin 3.8 H Albumin/Globulin Ratio 1.0 L Assessment and Plan *Assessment and plan (1) Pneumothorax: Status: Acute Qualifiers: Pneumothorax type: spontaneous, tension Qualified Code(s): J93.0 - Spontaneous tension pneumothorax Category: Medical Code(s): J93.9 - Pneumothorax, unspecified (2) COPD exacerbation: Status: Acute Category: Medical Code(s): J44.1 - Chronic obstructive pulmonary disease with (acute) exacerbation (3) Pleural effusion, left: Status: Acute Category: Medical Code(s): J90 - Pleural effusion, not elsewhere classified Plan Mr. Drew is a 63-year-old male greater than [id number] smoking history, COPD pulmonary nodule presented to the ER with respiratory status found to be having large left-sided pneumothorax status post 14 [place] catheter placement. He also have left-sided pleural effusion that was evident on his most recent CT. Chest x-ray from this morning no obvious evidence of pneumothorax. Chest tube has a dilated left in place no significant reduction pneumothorax up until chest x-ray from yesterday morning after which the dilator was removed and subsequent chest x-ray from yesterday evening showed resolution of the pneumothorax. Plan: -Clamp chest tube with follow-up chest x-ray in 2 hours Continue home triple inhaler therapy Continue doxycycline and prednisone to complete a total of 5-day course for presumed COPD exacerbation Follow-up with pleural fluid studies including pleural fluid cytology. Will follow with the lab.
[2024-07-16] MEDS: MAGNESIUM SULFATE IN WATER 2 GM/50 ML PIGGYBACK IV (09:54)
[2024-07-16] MEDS: POTASSIUM CHLORIDE 20MEQ TAB 40 MEQ PO (09:54)
[2024-07-16] MEDS: PROPAFENONE 425 MG 1 EACH PO (10:26)
[2024-07-16] MEDS: APAP/HYDROCODONE 325MG/7.5MG TAB 1 TAB PO (10:26)
--- NOTE | 2024-07-16 12:35 | XR_ITS ---
FINAL REPORT CLINICAL HISTORY: svt/cough COMPARISON: 07/16/2024 FINDINGS: A portable view of the chest was obtained. Cardiac and mediastinal silhouettes are within normal limits. A left basilar chest tube is clearly visualized. There is no focal infiltrate. There may be a very small left basilar pneumothorax. There is no pleural effusion. IMPRESSION: Left basilar chest tube with a possible, very small, left basilar pneumothorax. Reviewed, Interpreted and Dictated by Carlee Mitchell MD Transcribed by Loly Lin Authenticated and [facility]
--- NOTE | 2024-07-16 12:47 | ECG_ITS ---
APPROVED REPORT Exam: Resting ECG HR:115 bpm ECG Measurements Heart Rate 115 AXES NM 179 P 126 QRSd 109 QRS 40 QT 324 T 105 QTc 392 Conclusion SINUS TACHYCARDIA NONSPECIFIC T-WAVE ABNORMALITY ABNORMAL ECG UNCONFIRMED REPORT Electronically signed by : Eric Ocasio MD 07/17/2024 16:22:58
[2024-07-16] MEDS: METOPROLOL TARTRATE 50MG TABLET 100 MG PO (13:49)
--- NOTE | 2024-07-16 14:21 | P.DS_ITS ---
General Admission date:: 07/13/24 HPI HPI HPI: This is a very pleasant 63-year-old male with a [id number] smoking history, A- fib on Xarelto, congestive heart failure hypertension, hyperlipidemia, COPD on 2 L nightly who presents to the emergency department for shortness of breath. is at bedside and aids in collateral and states that he has had worsening shortness of breath for the last 3 days. It is noted that he has been no ncompliant with his home medications in the past. She states that they saw pulmonology for the first time several weeks ago. States that since seeing pulmonology he has had worsening shortness of breath. On workup at pulmonology office, he was noted to have large left pleural effusion and 5 mm right upper lobe nodule. At that time he was treated with diuretics for pleural effusion and continued on home bronchodilators. Today he presents with a 3-day history of worsening shortness of breath. states that he has had significant dyspnea with coughing of yellow sputum. He denies fever or chills. Denies any sick contacts. Emergency department workup notable for near-total left lung collapse on chest x-ray. CT imaging notable for large left pneumothorax with mediastinal structures pushing to the right consistent with tension. On exam with this finding he is mildly tachypneic but oxygenating well on 2 L nasal cannula with oxygen saturations in the mid 90s. Denies any significant discomfort. Chest tube placed by ED provider with mild improvement in total collapse of left lung. He is hemodynamically stable, oxygenating well on his 2 L. Notable wheezing with COPD exacerbation as well. Hospital Course Hospital Course Hospital Course: Matt Drew is a 63-year-old male who presented with shortness of breath and admitted for spontaneous tension pneumothorax. #Pneumothorax, spontaneous, tension #Left pleural effusion ? Near-total collapse of left lung on chest x-ray and CT imaging initially. ? S/p posterior chest tube placement, 1400 cc output and gradual resolution of pneumothorax. Patient remained stable on 3 L ultimately weaned to room air. ? Pleural fluid sent for studies, including cytology. ? Will follow-up with pulmonology within 1 week. #COPD exacerbation ?Improved with breathing treatments, steroids. ? Discharged with prednisone, doxycycline for 2 more days. #Hypertension ?Resume home regimen. #Atrial fibrillation ?Resume home regimen. #Tobacco abuse Tobacco cessation education #HLD Continue statin Total time spent on discharge: 32 minutes on chart review, counseling, docu mentation, and direct care with patient. Exam Data for Last 24 hours Vital signs and Labs for Last 24 Hours: Temp Pulse Resp BP Pulse Ox O2 Del Method O2 Flow Rate 98 F 184 H 24 143/109 H 90 L Nasal Cannula 3 07/16/24 12:00 07/16/24 12:00 07/16/24 12:00 07/16/24 12:00 07/16/24 12:00 07/16/24 12:00 07/16/24 10:54 FiO2 3 07/14/24 04:00 Laboratory Results - last 24 hr 07/16/24 06:02: WBC 15.7 H, RBC 5.40, Hgb 15.0, Hct 47.0, MCV 87.0, MCH 27.8, MCHC 31.9, RDW 15.6, Plt Count 392, MPV 9.9, Neut % (Auto) 74.0, Lymph % (Auto) 13.9, [place] % (Auto) 9.9 H, Eos % (Auto) 1.2, Baso % (Auto) 0.6, Neut # (Auto) 11.6 H, Lymph # (Auto) 2.2, [place] # (Auto) 1.6 H, Eos # (Auto) 0.2, Baso # (Auto) 0.1, Total Counted 100, Neutrophils % (Manual) 69, Band Neutrophils % 4.0, Lymphocytes % (Manual) 16, Monocytes % (Manual) 9, Eosinophils % (Manual) 2, Platelet Estimate Normal, RBC Morphology Normal, Sodium 138, Potassium 3.4 L, Chloride 103, Carbon Dioxide 26, Anion Gap 12.4, BUN 14, Creatinine 0.60 L, Estimated Creat Clear 123, Estimated GFR 136, Est GFR ( Amer) 164, Glucose 110 H, Calcium 8.4, Magnesium 1.9, Total Bilirubin 1.0, AST 65 H D, ALT 26, Alkaline Phosphatase 120, Total Protein 7.7, Albumin 3.9, Globulin 3.8 H, Albumin/Globulin Ratio 1.0 L I & O for Last 24 hours: Intake & Output 07/13/24 07/14/24 07/15/24 07/16/24 23:59 23:59 23:59 23:59 Intake Total 480 / 730 1450 / 2054 604 / 604 Output Total 4300 / 4300 2800 / 3200 1000 / 1000 Balance -3820 / -3570 -1350 / -1146 -396 / -396 Weight 118.388 kg 121.744 kg 117.571 kg 116.619 kg Microbiology Reports for the Last 24 Hours: Microbiology 07/14/24 15:15 Pleural Fluid Body Fluid Culture - Preliminary NO GROWTH AFTER 24 HOURS Constitutional Constitutional: no acute distress *Routine HEENT Exam Head: Present normocephalic Eye: Present EOMI and PERRL ENT: Present mucous membranes moist *Routine Neck Exam Neck: Present supple; Absent lymphadenopathy *Routine Respiratory Exam Respiratory: Present wheezes; Absent CTA bilaterally Comments: Mild wheezing throughout. *Routine Cardiovascular Exam Cardiovascular: Present RRR *Routine Abdominal Exam Abdominal: Present soft and normoactive bowel sounds; Absent tenderness *Routine Extremities Exam Extremities: Absent cyanosis, clubbing or edema *Routine Skin Exam Skin: Present warm; Absent rash *Routine Neurological Exam Neurological: Present alert and oriented X3 Results Data Completed and Pending Labs on day of discharge: Labs from last 24 hours 07/16/24 06:02 WBC 15.7 H RBC 5.40 Hgb 15.0 Hct 47.0 MCV 87.0 MCH 27.8 MCHC 31.9 RDW 15.6 Plt Count 392 MPV 9.9 Neut % (Auto) 74.0 Lymph % (Auto) 13.9 [place] % (Auto) 9.9 H Eos % (Auto) 1.2 Baso % (Auto) 0.6 Neut # (Auto) 11.6 H Lymph # (Auto) 2.2 [place] # (Auto) 1.6 H Eos # (Auto) 0.2 Baso # (Auto) 0.1 Total Counted 100 Neutrophils % (Manual) 69 Band Neutrophils % 4.0 Lymphocytes % (Manual) 16 Monocytes % (Manual) 9 Eosinophils % (Manual) 2 Platelet Estimate Normal RBC Morphology Normal Sodium 138 Potassium 3.4 L Chloride 103 Carbon Dioxide 26 Anion Gap 12.4 BUN 14 Creatinine 0.60 L Estimated Creat Clear 123 Estimated GFR 136 Est GFR ( Amer) 164 Glucose 110 H Calcium 8.4 Magnesium 1.9 Total Bilirubin 1.0 AST 65 H D ALT 26 Alkaline Phosphatase 120 Total Protein 7.7 Albumin 3.9 Globulin 3.8 H Albumin/Globulin Ratio 1.0 L Preliminary micro results at discharge 07/14/24 15:15 Body Fluid Culture - Preliminary Pleural Fluid NO GROWTH AFTER 24 HOURS DS: Diagnosis Discharge Diagnosis (1) Pneumothorax: Status: Acute Code(s): J93.9 - Pneumothorax, unspecified Qualifiers: Pneumothorax type: spontaneous, tension Qualified Code(s): J93.0 - Spontaneous tension pneumothorax (2) COPD exacerbation: Status: Acute Code(s): J44.1 - Chronic obstructive pulmonary disease with (acute) exacerbation (3) Pleural effusion, left: Status: Acute Code(s): J90 - Pleural effusion, not elsewhere classified Meds Home Medications and Allergies Home Medications ?Medication ?Instructions ?Recorded ?Confirmed ?Type montelukast 10 mg tablet 10 mg PO QPM Breathing problems 11/17/17 07/19/24 History (Singulair) atorvastatin 20 mg tablet 20 mg PO HS Cholesterol 04/11/22 07/19/24 History bumetanide 2 mg tablet 2 mg PO DAILY 04/11/22 07/19/24 History gabapentin 600 mg tablet 600 mg PO TID Pain 04/11/22 07/19/24 History lisinopril 40 mg tablet 40 mg PO DAILY High blood pressure 04/11/22 07/19/24 History metoprolol tartrate 100 mg tablet 100 mg PO BID High blood pressure 04/11/22 07/19/24 History rivaroxaban 20 mg tablet (Xarelto) 20 mg PO QPMWITHMEAL 04/11/22 07/19/24 History amlodipine 10 mg tablet 10 mg PO DAILY 04/20/22 07/19/24 History cetirizine 10 mg tablet (All Day 10 mg PO DAILY 08/01/23 07/19/24 History Allergy (cetirizine)) nitroglycerin 0.4 mg sublingual 0.4 mg sublingual Q5M PRN Chest 08/01/23 07/19/24 History tablet Pain omeprazole 20 mg capsule,delayed 20 mg PO DAILY 09/13/23 07/19/24 History release fluticasone fur. 100 mcg-umeclid 1 inh inhalation DAILY 90 days #90 04/19/24 07/19/24 Rx 62.5 mcg-vilant 25 mcg ea inhalat.powder (Trelegy Ellipta) empagliflozin 10 mg tablet 10 mg PO DAILY 07/05/24 07/19/24 History (Jardiance) sertraline 100 mg tablet 100 mg PO DAILY 07/05/24 07/19/24 History trazodone 100 mg tablet 100 mg PO HS 07/05/24 07/19/24 History cyclobenzaprine 10 mg tablet 10 mg PO TID 07/14/24 07/19/24 History propafenone 425 mg 425 mg PO BID 07/14/24 07/19/24 History capsule,extended release 12 hr ipratropium 0.5 mg-albuterol 3 mg 3 ml inhalation QID PRN shortness 07/17/24 07/19/24 Rx (2.5 mg base)/3 mL nebulization of breath or wheezing 90 days #270 soln mL hydrocodone 7.5 mg-acetaminophen 1 tab PO TID #90 tabs 07/19/24 Rx 325 mg tablet New Prescriptions to Start Prescriptions: Allergies Allergy/AdvReac Type Severity Reaction Status Date / Time levofloxacin Allergy Mild I-RASH Verified 07/23/24 13:28 niacin Allergy Mild Rash Verified 07/23/24 13:28 ofloxacin Allergy Mild Rash Verified 07/23/24 13:28 sulfamethoxazole (From Allergy Mild I-RASH Verified 07/23/24 13:28 Bactrim) trimethoprim (From Bactrim) Allergy Mild I-RASH Verified 07/23/24 13:28 oxytetracycline Allergy Unknown Rash Verified 07/23/24 13:28 Penicillins Allergy Unknown Rash Verified 07/23/24 13:28 fentanyl Allergy Confusion Verified 07/23/24 13:28 Discharge Plan Disposition Patient Disposition: Home, Self-Care Condition: Fair Discharge Order Discharge Orders: Discharge Order (Routine); Ordered 07/16/24 Ordered By: Selvin Carias Follow up Plan Follow up with: Franklin Boo MD [Physician] - 07/23/24 1:20 pm Prescriptions/Medication Reconciliation: Continued montelukast [Singulair] 10 mg tablet 10 mg PO QPM amlodipine 10 mg tablet 10 mg PO DAILY cetirizine [All Day Allergy (cetirizine)] 10 mg tablet 10 mg PO DAILY nitroglycerin 0.4 mg tablet, sublingual 0.4 mg sublingual Q5M PRN (Reason: Chest Pain) Rx Instructions: do not exceed 3 doses per episode omeprazole 20 mg capsule,delayed release(DR/EC) 20 mg PO DAILY Patient Comments: TAKE 1 CAPSULE BY MOUTH DAILY Trelegy Ellipta 100-62.5-25 mcg blister with device 1 inh inhalation DAILY 90 Days Qty: 90 2RF Jardiance 10 mg tablet 10 mg PO DAILY sertraline 100 mg tablet 100 mg PO DAILY trazodone 100 mg tablet 100 mg PO HS gabapentin 600 mg tablet 600 mg PO TID Patient Comments: TAKE ONE TABLET BY MOUTH THREE TIMES DAILY MAY CAUSE DROWSINESS atorvastatin 20 mg tablet 20 mg PO HS bumetanide 2 mg tablet 2 mg PO DAILY Patient Comments: TAKE ONE TABLET BY MOUTH EVERY DAY lisinopril 40 mg tablet 40 mg PO DAILY Xarelto 20 mg tablet 20 mg PO QPMWITHMEAL Patient Comments: TAKE ONE TABLET BY MOUTH ONCE DAILY with THE evening meal metoprolol tartrate 100 mg Tablet 100 mg PO BID propafenone 425 mg capsule,extended release 12 hr 425 mg PO BID cyclobenzaprine 10 mg tablet 10 mg PO TID No Action ipratropium-albuterol 0.5 mg-3 mg(2.5 mg base)/3 mL solution for nebulization 3 ml inhalation QID PRN (Reason: shortness of breath or wheezing) 90 Days Qty: 270 2RF hydrocodone-acetaminophen 7.5-325 mg tablet 1 tab PO TID Qty: 90 0RF Problem Reconciliation Problems Reviewed?: Yes Patient Discharge Instructions Patient Instructions: DI for Chronic Obstructive Pulmonary Disease, DI for Pneumothorax, DI for Thoracentesis, DI for Surgical Site Infection, DI for Chest Tube Insertion Print Language: Micronesian Providers Primary Care Provider: Judith Reno Admit Provider: Selvin Carias Attending Provider: Selvin Carias
[2024-07-17 12:11] LABS: Albumin, Body Fluid 2.9 g/dL (Not Estab.); Glucose, Body Fluid 171 mg/dL (.); LD, Body Fluid 457 IU/L (.); Protein, Body Fluid 5.1 g/dL (.)
[2024-07-18 09:20] LABS: pH, Body Fluid 7.4 (Not Estab.)
--- NOTE | 2024-07-19 11:06 | SW/DCPLANNER ---
Spoke with patient on the phone. Patient stated that he is doing okay. Patient stated that he is aware of his upcoming appointment. Patient stated that he was able to get his medicine from clinic pharmacy on the day of his discharge. Patient stated that he has no concern or questions at this time. Gopi Whatley
== END 2024-07-16 15:31 | disposition home or self-care (01) | DRG 200 ==
LOC: ER 15:18 → 2ND 20:36
PROVIDERS: Emergency Medicine; Nurse Practitioner; Nurse Practitioner Acute Care; Admitting Provider Student in an Organized Health Care Education/Training Program; Emergency Provider Student in an Organized Health Care Education/Training Program; PCP Nurse Practitioner Family; Visit Provider Student in an Organized Health Care Education/Training Program
DX: J93.0 Spontaneous tension pneumothorax (principal); J44.1 Chronic obstructive pulmonary disease with (acute) exacerbation; J90 Pleural effusion, not elsewhere classified; I10 Essential (primary) hypertension; I48.91 Unspecified atrial fibrillation; E11.9 Type 2 diabetes mellitus without complications; E78.5 Hyperlipidemia, unspecified; Z88.0 Allergy status to penicillin; Z88.1 Allergy status to other antibiotic agents; Z88.2 Allergy status to sulfonamides; Z79.01 Long term (current) use of anticoagulants; Z79.899 Other long term (current) drug therapy; Z99.81 Dependence on supplemental oxygen; F17.210 Nicotine dependence, cigarettes, uncomplicated; Z82.49 Family history of ischemic heart disease and other diseases of the circulatory system; Z86.73 Personal history of transient ischemic attack (TIA), and cerebral infarction without residual deficits; Z79.51 Long term (current) use of inhaled steroids
CPT/HCPCS: 32551; 36415; 71045; 71046; 71250; 80048; 80053; 82042; 82945; 83615; 83735; 83880; 83986; 84145; 84155; 84484; 85007; 85025; 85610; 85730; 86803; 86850; 87070; 87205; 87389; 87636; 89051; 93005; 94640; 94761; 99285; J0690; J2250; J3475; J7620

== ENCOUNTER 2024-07-19 11:30 | Outpatient (POV) | payer OTHER, SELFPAY ==
--- NOTE | 2024-07-19 11:32 | A.OFFVIS_ITS ---
[facility] Disclaimer: The information contained in this section may have been updated after the patient was seen, as this information can be updated by other users. Medical History Hiatal hernia Pleural effusion, left Encounter for screening for malignant neoplasm of lung Dyspnea on exertion History of COPD Smoking greater than 30 pack years Encounter for postoperative care Loss of taste Swelling of right parotid gland Swelling of left parotid gland Parotid abscess Dental caries limited to enamel Facial cellulitis Depression Anxiety Diabetes mellitus, type 2 History of stroke COPD (chronic obstructive pulmonary disease) Atrial fibrillation Hyperlipidemia Hypertension Surgical History (Updated 07/13/24 @ 21:06 by Leti Wagner RN) H/O ventral hernia repair Hx of cardiac catheterization History of cholecystectomy Family History Other Family history of cancer Family history of hyperlipidemia Family history of hypertension Family history of myocardial infarction Social History Smoking Status: Current every day smoker alcohol intake: never substance use type: denies use current occupational status: retired Travel in the last 8 weeks: None household members: spouse housing: house marital status: caffeine: No Have you lived/traveled outside US in past 30 days?: No Contact w/someone who lives/traveled outside US past 30 days?: No Exposure to someone with infectious disease in past 14 days?: No Do you have a fever (greater than 100.4 F or 38 C)?: No Have you tested positive for COVID-19: No Exposed to someone with COVID-19 in past 14 days?: No Do you have a sore throat?: No Do you have a cough?: No Do you have any weakness?: No Do you have any diarrhea?: No Are you experiencing any unusual bleeding?: No Do you have any muscle aches/pain?: No Do you have any abdominal pain?: No Are you experiencing loss of taste or smell?: No PM Subjective & Objective Subjective Subjective:: Patient is a pleasant 63-year-old male who presents today medication refills. He rates his pain a 2 out of 10. He does state that he just got out of the hospital. He states that he ended up having a pleural effusion with possibly some pneumonia and ended up being hospitalized last Tuesday and just got out a couple of days ago. He does state that he has been on some oral steroid nebulizers and does feel like this has helped his pain in general. Patient denies any other changes. He is currently prescribed Riddle 7.5 mg 3 times a day and Flexeril 10 mg 3 times a day. He denies any side effects. His Matthew has been reviewed and is appropriate. Review of Systems: General: No recent weight changes, no fever, no sleep disturbances Respiratory: No cough, no shortness of air, no recurring pulmonary infections Cardiovascular/peripheral vascular: No chest pain, no palpitations, no edema, no shortness of breath Gastrointestinal: No new onset incontinence, normal bowel movements reported Genitourinary: No new onset incontinence Musculoskeletal: Low back pain Psychiatric: [Normal mood/affect] Neurological: [Denies weakness in extremities], [denies balance issues] Pain at rest (0-10 scale): 2 Objective Objective:: Physical Exam: General: Alert and oriented x3, no acute distress, pleasant and cooperative Lungs: Respirations even and unlabored, symmetrical chest expansion Eyes: PERRL Musculoskeletal: Flexion and extension of lumbar [spine] somewhat guarded secondary to pain, [antalgic gait noted] Neurological: Speech clear, no gross sensory deficit Has patient had previous pain injection?: No Conservative treatment options previously tried: Prescription medications Length of treatment: Longer than 12 weeks Meds Home Medications and Allergies Home Medications ?Medication ?Instructions ?Recorded ?Confirmed ?Type montelukast 10 mg tablet 10 mg PO QPM Breathing problems 11/17/17 07/13/24 History (Mataulair) atorvastatin 20 mg tablet 20 mg PO HS Cholesterol 04/11/22 07/14/24 History bumetanide 2 mg tablet 2 mg PO DAILY 04/11/22 07/13/24 History gabapentin 600 mg tablet 600 mg PO TID Pain 04/11/22 07/13/24 History lisinopril 40 mg tablet 40 mg PO DAILY High blood pressure 04/11/22 07/13/24 History metoprolol tartrate 100 mg tablet 100 mg PO BID High blood pressure 04/11/22 07/13/24 History rivaroxaban 20 mg tablet (Xarelto) 20 mg PO QPMWITHMEAL 04/11/22 07/14/24 History amlodipine 10 mg tablet 10 mg PO DAILY 04/20/22 07/13/24 History cetirizine 10 mg tablet (All Day 10 mg PO DAILY 08/01/23 07/13/24 History Allergy (cetirizine)) nitroglycerin 0.4 mg sublingual 0.4 mg sublingual Q5M PRN Chest 08/01/23 07/13/24 History tablet Pain omeprazole 20 mg capsule,delayed 20 mg PO DAILY 09/13/23 07/13/24 History release fluticasone fur. 100 mcg-umeclid 1 inh inhalation DAILY 90 days #90 04/19/24 07/13/24 Rx 62.5 mcg-vilant 25 mcg ea inhalat.powder (Trelegy Ellipta) empagliflozin 10 mg tablet 10 mg PO DAILY 07/05/24 07/13/24 History (Jardiance) sertraline 100 mg tablet 100 mg PO DAILY 07/05/24 07/13/24 History trazodone 100 mg tablet 100 mg PO HS 07/05/24 07/13/24 History cyclobenzaprine 10 mg tablet 10 mg PO TID 07/14/24 07/14/24 History propafenone 425 mg 425 mg PO BID 07/14/24 07/14/24 History capsule,extended release 12 hr doxycycline hyclate 100 mg tablet 100 mg PO BID 2 days #4 tabs 07/16/24 Rx prednisone 20 mg tablet 40 mg (2 x 20 mg) PO DAILY 2 days 07/16/24 Rx #4 tabs ipratropium 0.5 mg-albuterol 3 mg 3 ml inhalation QID PRN shortness 07/17/24 Rx (2.5 mg base)/3 mL nebulization of breath or wheezing 90 days #270 soln mL hydrocodone 7.5 mg-acetaminophen 1 tab PO TID #90 tabs 07/19/24 Rx 325 mg tablet New Prescriptions to Start Prescriptions: hydrocodone-acetaminophen Brianne Mas Allergies Allergy/AdvReac Type Severity Reaction Status Date / Time levofloxacin Allergy Mild I-RASH Verified 07/05/24 11:08 niacin Allergy Mild Rash Verified 07/05/24 11:08 ofloxacin Allergy Mild Rash Verified 07/05/24 11:08 sulfamethoxazole (From Allergy Mild I-RASH Verified 07/05/24 11:08 Bactrim) trimethoprim (From Bactrim) Allergy Mild I-RASH Verified 07/05/24 11:08 oxytetracycline Allergy Unknown Rash Verified 07/05/24 11:08 Penicillins Allergy Unknown Rash Verified 07/05/24 11:08 fentanyl Allergy Confusion Verified 07/13/24 20:58 Assessment and Plan *Assessment and plan (1) Degenerative disc disease, lumbar: Status: Acute Category: Medical Code(s): M51.369 - Other intervertebral disc degeneration, lumbar region without mention of lumbar back pain or lower extremity pain (2) Lumbar radiculopathy: Status: Chronic Category: Medical Code(s): M54.16 - Radiculopathy, lumbar region Plan I will refill his Riddle and provide a 1 month supply of this medication. Patient will return to clinic in 1 month. Risks and benefits of the medication have been explained in detail to the patient. The patient does understand the risk of dependence on the medication when given over a prolonged period. Patient has been advised of risks of oversedation with the prescribed medication. Narcan has been offered to the paitent in the event of oversedation. Patient has been advised that a family member should also be educated regarding administration of Narcan. The patient has been advised to consult with his/her primary care provider and pharmacist regarding drug-drug interaction of medications currently prescribed. Patient has been prescribed a controlled substance after being counseled on the medication, medication safety, and possible side effects. Opioid contract was reviewed and signed by the patient, and that they have agreed to all of the terms set forth by our compliance program. A UDS is needed to verify patient's compliance with our office pain contract. This is ordered based off specific treatments related to chronic pain with the potential to abuse certain medications. Patient has been instructed to contact the clinic with any concerns before the next appointment. Dr. Read has reviewed this note and agrees with this plan of care. This note was dictated using voice recognition software and make contain errors or omissions.
[2024-07-19 11:50] VITALS: BP 133/70; PULSE 87; RESP 18; O2SAT 94; BMI 34.7
== END 2024-07-19 23:59 | disposition home or self-care (01) ==
PROVIDERS: PCP Nurse Practitioner Family; Visit Provider Nurse Practitioner Family
DX: M51.16 Intervertebral disc disorders with radiculopathy, lumbar region (principal); F17.200 Nicotine dependence, unspecified, uncomplicated; Z79.899 Other long term (current) drug therapy
CPT/HCPCS: 99212; G0463

== ENCOUNTER 2024-07-23 12:44 | Outpatient (CLI) | payer OTHER, SELFPAY ==
--- NOTE | 2024-07-23 12:48 | XR_ITS ---
FINAL REPORT CLINICAL HISTORY: Left effusion COMPARISON: 07/16/2024 FINDINGS: 2 views of the chest were obtained . There has been interval removal of a left-sided pigtail drainage catheter. The heart is normal in size. The mediastinum is within normal limits. There is a small to moderate left pleural effusion. Right lung is clear. There is no pneumothorax. Osseous structures are unremarkable. IMPRESSION: Small to moderate recurrent left pleural effusion. Reviewed, Interpreted and Dictated by Ree Trinidad MD Transcribed by Christiane Pickering Authenticated and [facility]
== END 2024-07-23 23:59 | disposition home or self-care (01) ==
LOC: RAD 12:45
PROVIDERS: PCP Nurse Practitioner Family; Visit Provider Internal Medicine Pulmonary Disease
DX: R06.02 Shortness of breath (principal)
CPT/HCPCS: 71046

== ENCOUNTER 2024-08-16 11:37 | Outpatient (POV) | payer OTHER, SELFPAY ==
--- NOTE | 2024-08-16 11:41 | A.OFFVIS_ITS ---
[facility] Disclaimer: The information contained in this section may have been updated after the patient was seen, as this information can be updated by other users. Medical History Hiatal hernia Pleural effusion, left Encounter for screening for malignant neoplasm of lung Dyspnea on exertion History of COPD Smoking greater than 30 pack years Encounter for postoperative care Loss of taste Swelling of right parotid gland Swelling of left parotid gland Parotid abscess Dental caries limited to enamel Facial cellulitis Depression Anxiety Diabetes mellitus, type 2 History of stroke COPD (chronic obstructive pulmonary disease) Atrial fibrillation Status postcardiac ablation, active follow-up with [facility] cardiology in [place] Hyperlipidemia Hypertension Surgical History H/O ventral hernia repair Hx of cardiac catheterization History of cholecystectomy Family History Other Family history of cancer Family history of hyperlipidemia Family history of hypertension Family history of myocardial infarction Social History Smoking Status: Current every day smoker alcohol intake: never substance use type: denies use current occupational status: other Travel in the last 8 weeks: None household members: spouse housing: house marital status: caffeine: No PM Subjective & Objective Subjective Subjective:: Patient is a pleasant 63-year-old male who presents today for monthly medication refill. Today he rates his pain a 5 out of 10. He does state he is still trying to recover from his respiratory issues with the pleural effusion. He states that he is also on fluid pills and is scheduled to follow-up with cardiology next week and had an echo done. Patient states he is also had from her last visit a skin biopsy along his chest that was basal cell carcinoma however they do believe it got all clear margins. 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 Patient does not believe he did anything significant however is more sore today. Patient is currently managed with Oneill 7.5 mg 3 times a day and Flexeril 10 mg 3 times a day from our office. He denies any side effects. He does state he feels like the Flexeril is not doing anything for his pain now. His Matthew has been reviewed and is appropriate. Review of Systems: General: No recent weight changes, no fever, no sleep disturbances Respiratory: No cough, no shortness of air, no recurring pulmonary infections Cardiovascular/peripheral vascular: No chest pain, no palpitations, no edema, no shortness of breath Gastrointestinal: No new onset incontinence, normal bowel movements reported Genitourinary: No new onset incontinence Musculoskeletal: Low back pain Psychiatric: [Normal mood/affect] Neurological: [Denies weakness in extremities], [denies balance issues] Pain at rest (0-10 scale): 5 Objective Objective:: physical Exam: General: Alert and oriented x3, no acute distress, pleasant and cooperative Lungs: Respirations even and unlabored, symmetrical chest expansion Eyes: PERRL Musculoskeletal: Flexion and extension of lumbar [spine] somewhat guarded secondary to pain, [antalgic gait noted] Neurological: Speech clear, no gross sensory deficit Has patient had previous pain injection?: No Conservative treatment options previously tried: Prescription medications Length of treatment: Longer than 12 weeks Meds Home Medications and Allergies Home Medications ?Medication ?Instructions ?Recorded ?Confirmed ?Type montelukast 10 mg tablet 10 mg PO QPM Breathing problems 11/17/17 07/19/24 History (Singulair) atorvastatin 20 mg tablet 20 mg PO HS Cholesterol 04/11/22 07/19/24 History bumetanide 2 mg tablet 2 mg PO DAILY 04/11/22 07/19/24 History gabapentin 600 mg tablet 600 mg PO TID Pain 04/11/22 07/19/24 History lisinopril 40 mg tablet 40 mg PO DAILY High blood pressure 04/11/22 07/19/24 History metoprolol tartrate 100 mg tablet 100 mg PO BID High blood pressure 04/11/22 07/19/24 History rivaroxaban 20 mg tablet (Xarelto) 20 mg PO QPMWITHMEAL 04/11/22 07/19/24 History amlodipine 10 mg tablet 10 mg PO DAILY 04/20/22 07/19/24 History cetirizine 10 mg tablet (All Day 10 mg PO DAILY 08/01/23 07/19/24 History Allergy (cetirizine)) nitroglycerin 0.4 mg sublingual 0.4 mg sublingual Q5M PRN Chest 08/01/23 07/19/24 History tablet Pain omeprazole 20 mg capsule,delayed 20 mg PO DAILY 09/13/23 07/19/24 History release fluticasone fur. 100 mcg-umeclid 1 inh inhalation DAILY 90 days #90 04/19/24 07/19/24 Rx 62.5 mcg-vilant 25 mcg ea inhalat.powder (Trelegy Ellipta) empagliflozin 10 mg tablet 10 mg PO DAILY 07/05/24 07/19/24 History (Jardiance) sertraline 100 mg tablet 100 mg PO DAILY 07/05/24 07/19/24 History trazodone 100 mg tablet 100 mg PO HS 07/05/24 07/19/24 History cyclobenzaprine 10 mg tablet 10 mg PO TID 07/14/24 07/19/24 History propafenone 425 mg 425 mg PO BID 07/14/24 07/19/24 History capsule,extended release 12 hr ipratropium 0.5 mg-albuterol 3 mg 3 ml inhalation QID PRN shortness 07/17/24 07/19/24 Rx (2.5 mg base)/3 mL nebulization of breath or wheezing 90 days #270 soln mL hydrocodone 7.5 mg-acetaminophen 1 tab PO TID #90 tabs 08/16/24 Rx 325 mg tablet New Prescriptions to Start Prescriptions: hydrocodone-acetaminophen Brianne Mas Allergies Allergy/AdvReac Type Severity Reaction Status Date / Time levofloxacin Allergy Mild I-RASH Verified 07/23/24 13:28 niacin Allergy Mild Rash Verified 07/23/24 13:28 ofloxacin Allergy Mild Rash Verified 07/23/24 13:28 sulfamethoxazole (From Allergy Mild I-RASH Verified 07/23/24 13:28 Bactrim) trimethoprim (From Bactrim) Allergy Mild I-RASH Verified 07/23/24 13:28 oxytetracycline Allergy Unknown Rash Verified 07/23/24 13:28 Penicillins Allergy Unknown Rash Verified 07/23/24 13:28 fentanyl Allergy Confusion Verified 07/23/24 13:28 Assessment and Plan *Assessment and plan (1) Lumbar radiculopathy: Status: Chronic Category: Medical Code(s): M54.16 - Radiculopathy, lumbar region (2) Degenerative joint disease (DJD) of lumbar spine: Status: Chronic Qualifiers: Spinal osteoarthritis complication: with radiculopathy Qualified Code(s): M47.26 - Other spondylosis with radiculopathy, lumbar region Category: Medical Code(s): M47.816 - Spondylosis without myelopathy or radiculopathy, lumbar region Plan I will refill his Oneill and send in a trial prescription of methocarbamol 750 mg 3 times daily as needed. Patient was counseled to call us if this does work better than the Flexeril. Patient agrees with this plan of care. We will continue to monitor his progression with his respiratory and cardiology follow-ups. Patient will return to clinic in 1 month for reevaluation of symptoms and plan of care. Risks and benefits of the medication have been explained in detail to the patient. The patient does understand the risk of dependence on the medication when given over a prolonged period. Patient has been advised of risks of oversedation with the prescribed medication. Narcan has been offered to the paitent in the event of oversedation. Patient has been advised that a family member should also be educated regarding administration of Narcan. The patient has been advised to consult with his/her primary care provider and pharmacist regarding drug-drug interaction of medications currently prescribed. Patient has been prescribed a controlled substance after being counseled on the medication, medication safety, and possible side effects. Opioid contract was reviewed and signed by the patient, and that they have agreed to all of the terms set forth by our compliance program. A UDS is needed to verify patient's compliance with our office pain contract. This is ordered based off specific treatments related to chronic pain with the potential to abuse certain medications. Patient has been instructed to contact the clinic with any concerns before the next appointment. Dr. Read has reviewed this note and agrees with this plan of care. This note was dictated using voice recognition software and make contain errors or omissions.
[2024-08-16 12:49] VITALS: BP 104/59; PULSE 92; RESP 18; O2SAT 92; BMI 35.9
== END 2024-08-16 23:59 | disposition home or self-care (01) ==
PROVIDERS: PCP Nurse Practitioner Family; Visit Provider Nurse Practitioner Family
DX: M47.26 Other spondylosis with radiculopathy, lumbar region (principal); F17.210 Nicotine dependence, cigarettes, uncomplicated; Z79.899 Other long term (current) drug therapy
CPT/HCPCS: 99212; G0463

== ENCOUNTER 2024-09-13 11:36 | Outpatient (POV) | payer OTHER, SELFPAY ==
--- OUTSIDE RECORDS SUMMARY | 2024-09-13 11:39 | XMS_ITS ---
Care Plan - [facility], [facility] Created on: September 13, 2024 Matt Drew : 1960 Sex: Male Author Organization [facility] Address [address] [place] [phone] Phone Care Team Providers Care Housing Assistant Property Manager Name Role Phone Judith Reno APRN Unavailable [phone] Chace CASTILLO, Darrell Myers Unavailable [phone]
--- OUTSIDE RECORDS SUMMARY | 2024-09-13 11:39 | XMS_ITS ---
Author Name [facility] Organization [facility] Address [address] [place] [address] Care Team Providers Care Laborer Tree Tapping Name Role Phone REHAN CHOPRA Primary Care Provider Unavailabl e Insurance Providers: All historical and current Section Date Range: From patient's date of to the date document was created. This section includes the names of all active insurance providers for the patient. Insurance Provider Type of Coverage Plan Name Start of Policy Coverage End of Policy Coverage Group Number Member ID Insurance Provider's Telephone Number Policy Sanchez's Name Patient's Relationship to Policy Sanchez Selected Encounter This section includes the information on record at MD for the Encounter. Date/Time Encounter Type Encounter Description Reason Pro vider Source Jul 17, 2024 01:51 PM Outpatient Encounter ADMIN PAT ACTIVTIES (MASNONCT) IHE Encounter Template Text not used by [facility] Encounter Notes: All associated encounter notes This section contains the clinical notes associated to the Encounter. Date/Time Encounter Note(s) Provider Source Jul 18, 2024 09:09 AM ADDENDUM: LOCAL TITLE: Addendum STANDARD TITLE: ADDENDUM DATE OF NOTE: JUL 18, 2024@09:09:36 ENTRY DATE: JUL 18, 2024@09:09:37 AUTHOR: NICOLE,JANNA E EXP COSIGNER: URGENCY: STATUS: COMPLETED Discharge Disposition Date of discharge: unknown Disposition Discharge per hospital assistant housekeeping manager faxed medical records for dc summary for upload by ORQUIDEA wilson /carlie/ Janna TELLEZ exterminator termite Nurse Coordinator Signed: 07/18/2024 09:10 Receipt Acknowledged By: 07/18/2024 10:38 /carlie/ GEOFF BECK,RN deputy probation officer --- Original Document --- 07/13/24 [facility] SELF PRESENTING CARE COORD PLAN NOTE: Emergency Notification Intake Date Presenting to the Facility: Jun Date of note has been modified to reflect Date of Service. Reason for modification: Hospital Notification Date:07/16/2024 3:36 PM EST Method of Contact: Notified from SwiftKey worklist Notification ID: [id number]/CLOSED SUBMIT [facility] Call Center makes eligibility determination and sends payment authorization and/or denial information directly to the healthcare provider. ANY QUESTIONS REGARDING DETERMINATION, CLAIMS, AND BILLING MAY BE MADE TO THE FOLLOWING [facility] Telephone Number: [phone] ([phone]) POM (Payment Operations and Management) Claims Status Line: [facility] Provider Services Region 2: Critical Access Hospital Hospital Name: Hospital: [facility] Address: City: [place] State: [place] Zip Code: Phone : Community Facility Point of Contact: Name: Phone: Chief complaint: SHORT OF AIR, COUGHING BLOOD Primary Diagnosis: Disposition Admitted Route of Admission: Date of Admission: Jun Admitting Diagnosis: J93.9 Community Care Provider: Confirm Level of Care: Acute Inpatient Care TRANSFER OFFICE FAXED THE BELOW REQUEST TO FAX NUMBER LISTED ON ECR: PLEASE CALL THE [facility] TRANSFER OFFICE ([phone]) AND PROVIDE A CLINICAL UPDATE FOR THE ON THE ATTACHED FAX. IF IS DISHCHARGED FROM THIS EPISODE OF CARE,PLEASE FAX DC SUMMARY TO: [phone] /carlie/ Janna TELLEZ exterminator termite Nurse Coordinator Signed: 07/17/2024 13:53 Receipt Acknowledged By: 07/17/2024 14:09 /es/ REHAN CHOPRA M.D. PRIMARY CARE STAFF PHYSICIAN 07/18/2024 10:38 /es/ GEOFF BECK,RN deputy probation officer 07/18/2024 ADDENDUM STATUS: UNSIGNED You may not VIEW this UNSIGNED Addendum. JANNA NICOLE-CDD [facility] Jul 13, 2024 02:40 PM NONVA NOTE: LOCAL TITLE: [facility] SELF PRESENTING CARE COORD PLAN STANDARD TITLE: NONVA NOTE DATE OF NOTE: JUL 13, 2024@14:40 ENTRY DATE: JUL 17, 2024@13:51:42 AUTHOR: JANNA NICOLE EXP COSIGNER: URGENCY: STATUS: COMPLETED [facility] SELF PRESENTING CARE COORD PLAN NOTE Has ADDENDA Emergency Notification Intake Date Presenting to the Facility: Jun Date of note has been modified to reflect Date of Service. Reason for modification: Hospital Notification Date:07/16/2024 3:36 PM EST Method of Contact: Notified from SwiftKey worklist Notification ID: [id number]/CLOSED SUBMIT [facility] Call Center makes eligibility determination and sends payment authorization and/or denial information directly to the healthcare provider. ANY QUESTIONS REGARDING DETERMINATION, CLAIMS, AND BILLING MAY BE MADE TO THE FOLLOWING [facility] Telephone Number: [phone] ([phone]) POM (Payment Operations and Management) Claims Status Line: [facility] Provider Services Region 2: Critical Access Hospital Hospital Name: Hospital: [facility] Address: City: [place] State: [place] Zip Code: Phone : Community Facility Point of Contact: Name: Phone: Chief complaint: SHORT OF AIR, COUGHING BLOOD Primary Diagnosis: Disposition Admitted Route of Admission: Date of Admission: Jun Admitting Diagnosis: J93.9 Community Care Provider: Confirm Level of Care: Acute Inpatient Care TRANSFER OFFICE FAXED THE BELOW REQUEST TO FAX NUMBER LISTED ON ECR: PLEASE CALL THE [facility] TRANSFER OFFICE ([phone]) AND PROVIDE A CLINICAL UPDATE FOR THE ON THE ATTACHED FAX. IF IS DISHCHARGED FROM THIS EPISODE OF CARE,PLEASE FAX DC SUMMARY TO: [phone] /carlie/ Janna TELLEZ exterminator termite Nurse Coordinator Signed: 07/17/2024 13:53 Receipt Acknowledged By: 07/17/2024 14:09 /carlie/ REHAN CHOPRA M.D. PRIMARY CARE STAFF PHYSICIAN 07/18/2024 10:38 /carlie/ GEOFF BECK,RN deputy probation officer 07/18/2024 ADDENDUM STATUS: COMPLETED Discharge Disposition Date of discharge: unknown Disposition Discharge per hospital assistant housekeeping manager faxed medical records for dc summary for upload by ORQUIDEA villafana. /carlie/ Janna TELLEZ exterminator termite Nurse Coordinator Signed: 07/18/2024 09:10 Receipt Acknowledged By: 07/18/2024 10:38 /carlie/ GEOFF BECK,RN deputy probation officer 07/18/2024 ADDENDUM STATUS: COMPLETED Attempted to contact . Unable to reach at this time. /GEOFF Oliva,RN deputy probation officer Signed: 07/18/2024 10:39 JANNA NICOLE-JUAN [facility]
--- OUTSIDE RECORDS SUMMARY | 2024-09-13 11:39 | XMS_ITS | Continuity of Care Document ---
Author Name [facility] Organization [facility] Care Team Providers Care Cost And Sales Record Supervisor Name Role Phone [facility] Unavailable Unavailable Problems Combined list of problems from [facility] and [facility] facilities. It does not include entries that were removed or entered in error. Problem Status Onset Date Problem Type Date of Resolution Comments Source Allergic rhinitis [facility] Atrial fibrillation Active Condition [facility] Cerebral infarction Active Condition [facility] Gastroesophageal reflux disease Active Condition [facility] Hypertension Active Condition [facility] Insomnia Active Condition [facility] Obesity Active Condition [facility] Sleep apnea Active Condition [facility] Tobacco use Active Condition [facility] Medications Combined list of outpatient medications from [facility] and [facility] facilities.Medications provided include 1) outpatient medications from the last 15 months, and 2) patient-reported medications. Medication Details Route Status Patient Instructions Prescription Expires Prescription Number Last Dispense Date Ordering Provider Order Date Order Qty Source AMLODIPINE BESYLATE 10MG TAB TAKE ONE TABLET BY MOUTH DAILY ORAL ACTIVE CHOPRA,JOSIAH EK R 2017 [place] [facility] CODEINE 30MG/ACETAM INOPHEN 300MG TAB TAKE ONE TABLET BY MOUTH EVERY 4 HOURS NEEDED ORAL ACTIVE CHOPRA,JOSIAH EK R 2018 [place] [facility] FUROSEMIDE 40MG TAB TAKE ONE TABLET BY MOUTH DAILY ORAL ACTIVE CHOPRA,JOSIAH EK R 2018 [place] [facility] GABAPENTIN 300MG CAP TAKE 1 CAPSULE BY MOUTH THREE TIMES A DAY ORAL ACTIVE CHOPRA,JOSIAH EK R 2017 [place] [facility] LISINOPRIL 20MG TAB TAKE ONE-HALF TABLET BY MOUTH DAILY ORAL ACTIVE CHOPRA,JOSIAH EK R 2018 [place] [facility] METOPROLOL TARTRATE 100MG TAB TAKE ONE TABLET BY MOUTH TWICE A DAY ORAL ACTIVE CHOPRA,JOSIAH EK R 2017 [place] [facility] MONTELUKAST NA 10MG TAB TAKE ONE TABLET BY MOUTH AT BEDTIME ORAL ACTIVE CHOPRA,JOSIAH EK R 2017 [place] [facility] POTASSIUM CHLORIDE 10MEQ TAB,SA TAKE ONE TABLET BY MOUTH DAILY ORAL ACTIVE CHOPRA,JOSIAH EK R 2017 [facility] [facility] PROPAFENONE CAP,SA TAKE 425MG BY MOUTH EVERY 12 HOURS ORAL ACTIVE CHOPRA,JOSIAH EK R 2017 [place] [facility] RIVAROXABAN 20MG TAB TAKE ONE TABLET BY MOUTH EVERY EVENING ORAL ACTIVE CHOPRA,JOSIAH EK R 2017 [place] [facility] TIZANIDINE HCL 4MG TAB TAKE ONE TABLET BY MOUTH DAILY NEEDED ORAL ACTIVE CHOPRA,JOSIAH EK R 2017 [place] [facility] Allergies, Adverse Reactions, Alerts Combined list of allergies from Department of Defense and Veterans Affairs facilities. It does not include entries that were removed or entered in error. Substance Category Reaction Severity Reaction type Status Date Reported Comments Source BACTRIM Propensity to adverse reactions to drug (finding) active 8 [place] [facility] CIPROFLOXACI N Propensity to adverse reactions to drug (finding) active 8 [place] [facility] PENICILLIN Propensity to adverse reactions to drug (finding) Anaphylaxis active [address] [place] [address] [facility] Immunizations Combined list of available immunizations from the Department of Defense and Veterans Affairs facilities. Immunization Series Date Given Administered By Site Reaction Lot Number CVX Code Drug Back Sizer Status Comments Source INFLUENZA, UNSPECIFIED FORMULATION 2021 88 complet ed Completed Series, HISTORICA L INFORMATI ON - FROM PATIENT'S RECALL, [place] [facility] INFLUENZA, UNSPECIFIED FORMULATION 2020 88 complet ed [place] [facility] COVID-19 (MODERNA), MRNA, LNP-S, PF, 100 MCG/0.5ML DOSE OR 50 MCG/0.25ML DOSE 3 2020 207 complet ed [place] [facility] COVID-19 (MODERNA), MRNA, LNP-S, PF, 100 MCG/0.5ML DOSE OR 50 MCG/0.25ML DOSE 2 2020 207 complet ed [place] [facility] COVID-19 (MODERNA), MRNA, LNP-S, PF, 100 MCG/0.5ML DOSE OR 50 MCG/0.25ML DOSE 1 2019 207 complet ed [place] [facility] INFLUENZA, UNSPECIFIED FORMULATION 2019 88 complet ed [place] [facility] INFLUENZA, SEASONAL, INJECTABLE 2018 141 complet ed [place] [facility] PNEUMOCOCCAL POLYSACCHARID E PPV23 2018 33 complet ed [place] [facility] INFLUENZA, SEASONAL, INJECTABLE 2017 141 complet ed [place] [facility] INFLUENZA A & B (HISTORICAL) 2016 88 complet ed [place] [facility] TDAP 2016 115 complet ed [place] [facility] Encounters Combined list of: 1) Encounters from Department of Veterans Affairs facilities going backup to the last 18 months, not all [place] inpatient encounters are included; 2) Encounters from the Department of Defense facilities going backup to 280 months. Location Location Details Encounter Type Encounter Number Reason For Visit Attending Provider ADM Date DC Date Status Disposition Source [facility] Outpatient Encounter [id number] [facility] [place] [facility] [id number] 12[place]19 [place] [facility] En[facility] [id number] [facility] Social History Combined list of available smoking, tobacco, and other social history from Department of Defense and Veterans Affairs facilities. Social History Type Response Date Comment Sourc e Tobacco smoking status [facility]-TO[facility] US[facility] EVERY DAY 08/10/2022 [facility] [place] of [place] 30 MIN [place] WAKEUP [facility] [place] EVERY DAY 07[facility]28[facility] of [facility] INS[facility] 09[facility]25/2018 [facility] History of tobacco use V9 CURRENT TOBACCO USER 09[facility]21[facility]
--- OUTSIDE RECORDS SUMMARY | 2024-09-13 11:39 | XMS_ITS ---
Author Organization [facility] Address [address] [place] [id number] Phone Care Team Providers Care In Flight Refueling Manager Name Role Phone Reno RIYAJudith Unavailable [phone] Chace CASTILLO, Darrell Myers Unavailable [phone] Problems Includes: Active, inactive, and resolved Problems All Visits Onset Date Resolved Date Provider Condition S tatus Lower Back Pain 08/04/2023 Darrell Msa MD Act jagjit Last Documented On 4 10:23AM ; [facility] Plan of Treatment Instructions to patient Intervention and counseling on cessation of tobacco use Last Documented On 4 10:30AM ; [facility] Lose weight Last Documented On 4 10:30AM ; [facility] Assessments Includes: Assessments for all patient encounters Findings Encounter Date Overweight Physician Specified with Darrell Mas MD 08/04/2023 Last Documented On 4 10:34AM ; [facility] Instructions Includes: Instructions for all patient encounters Instructions to patient Intervention and counseling on cessation of tobacco use Last Documented On 4 10:30AM ; [facility] Lose weight Last Documented On 4 10:30AM ; [facility] Medical Equipment - Implanted Devices Includes: Current and historical Devices No Medical Equipment Recorded Medications Includes: Current and historical Medications Current Medications (continue as prescribed) Nitroglycerin 0.4 MG Sublingual Tablet, sublingual 11/2023 Provider: Diagnosis: Last Documented On 4 10:48AM By Nabila Frey ; [facility] Lisinopril 40 MG Oral Tablet 08/04/2023 Provider: Diagnosis: Last Documented On 4 10:48AM By Nabila Frey ; [facility] Trelegy Ellipta 100-62.5-25 MCG/ACT Inhalation Aerosol Powder Breath Activated 08/04/2023 Provider: Diagnosis: Last Documented On 4 10:53AM By Nabila Frey ; [facility] traZODone HCl 100 MG Oral Tablet 08/04/2023 Provider : Diagnosis: Last Documented On 4 10:53AM By Nabila Frey ; [facility] Cetirizine HCl 10 MG Oral Tablet 08/04/2023 Provider : Diagnosis: Last Documented On 4 10:47AM By Nabila Frey ; [facility] Propafenone HCl ER 425 MG Or al Capsule, extended-release 12 hour 08/04/2023 Provider: Diagnosis: Last Documented On 4 10:52AM By Nabila Frey ; [facility] Potassium Chloride Elyssa ER 1 0 MEQ Oral Tablet, controlled-release 08/04/2023 Provider: Diagnosis: Last Documented On 4 10:50AM By Nabila Frey ; [facility] tiZANidine HCl 4 MG Oral Tablet 08/04/2023 Provider: Diagnosis: Last Documented On 4 10:53AM By Nabila Frey ; [facility] Famotidine 20 MG Oral Tablet 08/04/2023 Provider: Diagnosis: Last Documented On 4 10:47AM By Nabila Frey ; [facility] Fluticasone Propionate 50 MCG/ACT Nasal Suspension 08/04/2023 Provider: Diagnosis: Last Documented On 4 10:47AM By Nabila Frey ; [facility] Gabapentin 600 MG Oral Tablet 07/08/2023 Provider: Judith Reno APRN Diagnosis: Last Documented On 4 10:32AM By Nabila Frey ; [facility] HYDROcodone-Acetaminophen 5-325 MG Oral Tablet 024 Provider: Diagnosis: Last Documented On 4 10:32AM By Nabila Frey ; [facility] Metaxalone 800 MG Oral Tablet 07/07/2023 Provider: Diagnosis: Last Documented On 4 10:45AM By Nabila Frey ; [facility] Jardiance 10 MG Oral Tablet 06/13/2023 Provider: Judith Reno APRN Diagnosis: Last Documented On 4 10:32AM By Nabila Frey ; [facility] Xarelto 20 MG Oral Tablet 05/15/2023 Provider: Domingo Reno APRN Diagnosis: Last Documented On 4 10:52AM By Nabila Frey ; [facility] amLODIPine Besylate 10 MG Oral Tablet 04/18/2023 Pro vider: Judith Reno APRN Diagnosis: Last Documented On 4 10:32AM By Nabila Frey ; [facility] Metoprolol Tartrate 100 MG Oral Tablet 04/17/2023 Pr ovider: Diagnosis: Last Documented On 4 10:46AM By Nabila Frey ; [facility] Atorvastatin Calcium 20 MG Oral Tablet 04/17/2023 Pr ovider: Judith Reno APRN Diagnosis: Last Documented On 4 10:32AM By Nabila Frey ; [facility] Montelukast Sodium 10 MG Oral Tablet 04/17/2023 Prov ider: Diagnosis: Last Documented On 4 10:46AM By Nabila Frey ; [facility] Bumetanide 2 MG Oral Tablet 03/19/2023 Provider: Judith Reno APRN Diagnosis: Last Documented On 4 10:32AM By Nabila Frey ; [facility] Albuterol Sulfate HFA 108 (9 0 Base) MCG/ACT Inhalation Aerosol, solution 02/28/2023 Provider: Judith greene APRN Diagnosis: Last Documented On 4 10:32AM By Nabila Frey ; [facility] Methocarbamol 750 MG Oral Tablet 12/30/2022 Provider : Diagnosis: Last Documented On 4 10:46AM By Nabila Frey ; [facility] Past Medications on file Metaxalone 800 MG Oral Tablet 07/07/2023 - 08/04/2023 Provider: Diagnosis: Last Documented On 4 10:45AM By [facility] Propafenone HCl ER 425 MG Or al Capsule, extended-release 12 hour 05/16/2023 - 08/04/2023 Provider: Diagnosis: Last Documented On 4 10:53AM By Nabila Frey ; [facility] Medications Administered Includes: Administered Medications in patient's chart No Administered Medications Recorded Results Includes: Results from 09/14/2023 through 09/13/2024 No Results Recorded For Specified Dates History of Present Illness History of Present Illness not supported for this document type No History of Present Illness Recorded Social History Description Last Updated Tobacco use 08/04/2023 Last Documented On 4 10:34AM ; [facility] Alcohol use 08/04/2023 Last Documented On 4 10:34AM ; [facility] Caffeine use 08/04/2023 Last Documented On 4 10:34AM ; [facility] No recent change in diet 08/04/2023 Last Documented On 4 10:34AM ; [facility] Not exercising regularly 08/04/2023 Last Documented On 4 10:34AM ; [facility] Not using drugs 08/04/2023 Last Documented On 4 10:34AM ; [facility] Yes, current smoker. 08/04/2023 Last Documented On 4 10:34AM ; [facility] Smoking Status Unknown Procedures and Surgical History Surgical History Last Updated History of hernia repair 08/04/2023 Last Documented On 4 10:34AM ; [facility] History of History of Gallbladder 2023 Last Documented On 4 10:34AM ; [facility] Past Surgical History: Vascular repair - r groin 08/04/2023 Last Documented On 4 10:34AM ; [facility] Medical History Includes: Medical History in patient's chart Description Last Updated History of arthritis 08/04/2023 Last Documented On 4 10:34AM ; [facility] History of diabetes mellitus 08/04/2023 Last Documented On 4 10:34AM ; [facility] History of Heartburn / Acid Reflux 08/03 Last Documented On 4 10:34AM ; [facility] History of History of Emphysema 08/04/19 24 Last Documented On 4 10:34AM ; [facility] History of Hypertension 08/04/2023 Last Documented On 4 10:34AM ; [facility] History of Irregular Heartbeat 4 Last Documented On 4 10:34AM ; [facility] History of Sleep Apnea 08/04/2023 Last Documented On 4 10:34AM ; [facility] History of Stroke 08/04/2023 Last Documented On 4 10:34AM ; [facility] Use of CPAP 08/04/2023 Last Documented On 4 10:34AM ; [facility] Family History Includes: Family History in patient's chart Description Last Updated Family history of cancer 08/04/2023 Last Documented On 4 10:34AM ; [facility] Family history of heart disease 08/04/19 24 Last Documented On 4 10:34AM ; [facility] Family history of rheumatoid arthritis 0 08/04/2023 Last Documented On 4 10:34AM ; [facility] Family history of systemic hypertension 08/04/2023 Last Documented On 4 10:34AM ; [facility] Review of Systems Review of Systems not supported for this document type No Review of Systems Recorded Mental Status Description No anxiety Functional Status No Functional Status Recorded Physical Exam Physical Exam not supported for this document type No Physical Exam Recorded Allergies Includes: Active, inactive, and resolved Allergies Substance Type Reaction Onset Date Resolved Date Statu s Penicillins Allergy 08/04/2023 Active Last Documented On 4 10:25AM ; [facility] Niacin Allergy 08/04/2023 Active Last Documented On 4 10:25AM ; [facility] Cipro Allergy 08/04/2023 Active Last Documented On 4 10:25AM ; [facility] Bactrim Allergy 08/04/2023 Active Last Documented On 4 10:26AM ; [facility] Insurance Includes: Active Insurance Policies Plan Name Member ID Group # Subscriber Relationship Effect jagjit Dates 1 - PRIME [id number] [employer] Clinical Notes Includes: Signed Clinical Notes starting from 05/13/2022 No Clinical Notes Recorded
--- OUTSIDE RECORDS SUMMARY | 2024-09-13 11:39 | XMS_ITS | Clinical Summary ---
Author Organization [facility] , [facility] Address [address] [place] [address] Phone Care Team Providers Care Hand Drawer In Name Role Phone RenoJudith christian APRN Unavailable [phone] Chace CASTILLO, Darrell Myers Unavailable [phone] Reason for Visit and Chief Complaint The Chief Complaint is: low back pain Problems Includes: Problems addressed during this encounter and other active Problems Current Visit Onset Date Resolved Date Provider Maria Del Rosarioitio wendy Status Lower Back Pain 08/04/2023 Darrell Mas MD Act jagjit Last Documented On 4 10:23AM ; [facility], [facility] Plan of Treatment Patient was seen by myself and Dr. Chace Moran PA-C. Patient will follow up as needed there is no surgical intervention needed for him recommend continued work with pain management. We did give him a brochure some exercises to work on. - Last Documented On 08/08/2023 10:34AM ; [facility], [facility] Instructions to patient Intervention and counseling on cessation of tobacco use Last Documented On 4 10:30AM ; [facility], [facility] Lose weight Last Documented On 4 10:30AM ; [facility], [facility] Assessments Includes: Assessments from this encounter Findings - Overweight - Last Documented On 08/08/2023 10:34AM ; [facility], [facility] Instructions Includes: Instructions from this encounter Instructions to patient Intervention and counseling on cessation of tobacco use Last Documented On 4 10:30AM ; [facility], [facility] Lose weight Last Documented On 4 10:30AM ; [facility] Medical Equipment - Implanted Devices Includes: Current Devices No Medical Equipment Recorded Medications Includes: Medications discussed during this encounter and other current Medications Discontinued / Stopped on this date on 07/07/2023 Metaxalone 800 MG Oral Tablet Provider: Diagnosis: Last Documented On 4 10:45AM By Nabila Frey ; [facility], [facility] Propafenone HCl ER 425 MG Or al Capsule, extended-release 12 hour Provider: Diagnosis: Last Documented On 4 10:53AM By Nabila Frey ; [facility], [facility] Current Medications (continue as prescribed) Nitroglycerin 0.4 MG Sublingual Tablet, sublingual 11/2023 Provider: Diagnosis: Last Documented On 4 10:48AM By Nabila Frey ; [facility], [facility] Lisinopril 40 MG Oral Tablet 08/04/2023 Provider: Diagnosis: Last Documented On 4 10:48AM By Nabila Frey ; [facility], [facility] Trelegy Ellipta 100-62.5-25 MCG/ACT Inhalation Aerosol Powder Breath Activated 08/04/2023 Provider: Diagnosis: Last Documented On 4 10:53AM By Nabila Frey ; [facility], [facility] traZODone HCl 100 MG Oral Tablet 08/04/2023 Provider : Diagnosis: Last Documented On 4 10:53AM By Nabila Frey ; [facility], [facility] Cetirizine HCl 10 MG Oral Tablet 08/04/2023 Provider : Diagnosis: Last Documented On 4 10:47AM By Nabila Frey ; [facility], [facility] Propafenone HCl ER 425 MG Or al Capsule, extended-release 12 hour 08/04/2023 Provider: Diagnosis: Last Documented On 4 10:52AM By Nabila Frey ; [facility], [facility] Potassium Chloride Elyssa ER 1 0 MEQ Oral Tablet, controlled-release 08/04/2023 Provider: Diagnosis: Last Documented On 4 10:50AM By Nabila Frey ; [facility], [facility] tiZANidine HCl 4 MG Oral Tablet 08/04/2023 Provider: Diagnosis: Last Documented On 4 10:53AM By Nabila Frey ; [facility], [facility] Famotidine 20 MG Oral Tablet 08/04/2023 Provider: Diagnosis: Last Documented On 4 10:47AM By Nabila Frey ; [facility], [facility] Fluticasone Propionate 50 MCG/ACT Nasal Suspension 08/04/2023 Provider: Diagnosis: Last Documented On 4 10:47AM By Nabila Frey ; [facility], [facility] Gabapentin 600 MG Oral Tablet 07/08/2023 Provider: Judith Reno APRN Diagnosis: Last Documented On 4 10:32AM By Nabila Frey ; [facility] HYDROcodone-Acetaminophen 5-325 MG Oral Tablet 024 Provider: Diagnosis: Last Documented On 4 10:32AM By Nabila Frey ; [facility] Metaxalone 800 MG Oral Tablet 07/07/2023 Provider: Diagnosis: Last Documented On 4 10:45AM By Nabila Frey ; [facility] Jardiance 10 MG Oral Tablet 06/13/2023 Provider: Judith Reno APRN Diagnosis: Last Documented On 4 10:32AM By Nabila Frey ; [facility] Xarelto 20 MG Oral Tablet 05/15/2023 Provider: Domingo Reno APRN Diagnosis: Last Documented On 4 10:52AM By Nabila Frey ; [facility], [facility] amLODIPine Besylate 10 MG Oral Tablet 04/18/2023 Pro vider: Judith Reno APRN Diagnosis: Last Documented On 4 10:32AM By Nabila Frey ; [facility], [facility] Metoprolol Tartrate 100 MG Oral Tablet 04/17/2023 Pr ovider: Diagnosis: Last Documented On 4 10:46AM By Nabila Frey ; [facility] Atorvastatin Calcium 20 MG Oral Tablet 04/17/2023 Pr ovider: Judith Reno APRN Diagnosis: Last Documented On 4 10:32AM By Nabila Frey ; [facility] Montelukast Sodium 10 MG Oral Tablet 04/17/2023 Prov ider: Diagnosis: Last Documented On 4 10:46AM By Nabila Frey ; [facility] Bumetanide 2 MG Oral Tablet 03/19/2023 Provider: Judith Reno APRN Diagnosis: Last Documented On 4 10:32AM By Nabila Frey ; [facility], [facility] Albuterol Sulfate HFA 108 (9 0 Base) MCG/ACT Inhalation Aerosol, solution 02/28/2023 Provider: Judith greene APRN Diagnosis: Last Documented On 4 10:32AM By Nabila Frey ; [facility], [facility] Methocarbamol 750 MG Oral Tablet 12/30/2022 Provider : Diagnosis: Last Documented On 4 10:46AM By Nabila Frey ; [facility], [facility] Medications Administered Includes: Administered Medications from this encounter No Administered Medications Recorded Vital Signs Includes: Vital Signs from this encounter Vital Name 08/04/2023 10:29A Height (in) 72 Weight (lb) 293 Body Mass Index 39.7 Body Surface Area 2.5 Pain Level 5 Note: lc Last Documented: On 08/04/2023 10:30A M ; [facility], [facility] Results Includes: Results discussed during this encounter No Results Recorded For Specified Dates History of Present Illness Includes: History of Present Illness from this encounter HPI Matt Drew is a 62 year old male. - Symptoms Locking, catching and giving way Heat sometimes makes symptoms better. Movement, wakling, getting into bed makes symptoms worse. - Allergy list reviewed - Problem list reviewed - Medication list reviewed - Previous history of chronic pain - New onset 2020 - Sharp pain Symptoms - Stabbing - Pain is constant (100% of the time) - Pain is dull, aching - Patient pain level from 1-10: 8 - Yes, previous treatment. - History of Physical Therapy Musscle relaxers / pain medication - History of Injections JEFFERY Medications used for this condition: Patient is here today with complaints of lower back pain he is referred to us today from Dr. Read. He states he has lower back pain he has had this problem for years kind of radiates into the buttock area. He has seen pain management in his had a caudal block and epidurals which has not helped. Rates his pain level 5/10 he is on [place] 5 which he takes also. Denies any bowel or bladder issues with this no previous back surgery. He states he has worked on weight loss in his lost about 100 lb Social History Description Last Updated Tobacco use 08/04/2023 Last Documented On 4 10:34AM ; [facility] Alcohol use 08/04/2023 Last Documented On 4 10:34AM ; [facility] Caffeine use 08/04/2023 Last Documented On 4 10:34AM ; [facility] No recent change in diet 08/04/2023 Last Documented On 4 10:34AM ; [facility] Not exercising regularly 08/04/2023 Last Documented On 4 10:34AM ; [facility] Not using drugs 08/04/2023 Last Documented On 4 10:34AM ; [facility] Yes, current smoker. 08/04/2023 Last Documented On 4 10:34AM ; [facility] Smoking Status Unknown Procedures and Surgical History Includes: Procedures from this encounter Procedures Code Diagnosis Performing Provider Service L ocation Service Date intervention and counseling on cessation of tobacco use 4000F Last Documented On 4 10:30AM ; [facility] use of tobacco assessment performed 1000F Last Documented On 4 10:30AM ; [facility] review of medications documented 1160F Last Documented On 4 10:30AM ; [facility] an X-ray was performed Lumbar May 2023 @ [facility] [id number] Last Documented On 4 10:27AM ; [facility] an MRI was performed Lumbar May 2023 @ [facility] [id number] Last Documented On 4 10:27AM ; [facility], [facility] Surgical History Last Updated History of hernia repair 08/04/2023 Last Documented On 4 10:34AM ; [facility], [facility] History of History of Gallbladder 2023 Last Documented On 4 10:34AM ; [facility], [facility] Past Surgical History: Vascular repair - r groin 08/04/2023 Last Documented On 4 10:34AM ; [facility], [facility] Medical History Includes: Medical History addressed during this encounter Description Last Updated History of arthritis 08/04/2023 Last Documented On 4 10:34AM ; [facility] History of diabetes mellitus 08/04/2023 Last Documented On 4 10:34AM ; [facility] History of Heartburn / Acid Reflux 08/03 Last Documented On 4 10:34AM ; [facility] History of History of Emphysema 08/04/19 24 Last Documented On 4 10:34AM ; [facility] History of Hypertension 08/04/2023 Last Documented On 4 10:34AM ; [facility] History of Irregular Heartbeat 4 Last Documented On 4 10:34AM ; [facility] History of Sleep Apnea 08/04/2023 Last Documented On 4 10:34AM ; [facility] History of Stroke 08/04/2023 Last Documented On 4 10:34AM ; [facility] Use of CPAP 08/04/2023 Last Documented On 4 10:34AM ; [facility] Family History Includes: Family History addressed during this encounter Description Last Updated Family history of cancer 08/04/2023 Last Documented On 4 10:34AM ; [facility] Family history of heart disease 08/04/19 24 Last Documented On 4 10:34AM ; [facility] Family history of rheumatoid arthritis 0 08/04/2023 Last Documented On 4 10:34AM ; [facility] Family history of systemic hypertension 08/04/2023 Last Documented On 4 10:34AM ; [facility] Review of Systems Includes: Review of Systems from this encounter Systemic: Not feeling tired. Recent weight loss. No recent weight gain. Head: No headache and no sinus pain. Eyes: No vision problems. Cataracts and Glasses/Contacts. No Glaucoma. Otolaryngeal: Hearing loss. No tinnitus. Cardiovascular: No chest pain or discomfort and no palpitations. Hypertension. No High Cholesterol. Pulmonary: No daytime asthma symptoms. Chronic cough and wheezing. Gastrointestinal: No heartburn and no abdominal pain. No Indigestion. Acid Reflux. No Peptic Ulcer, no GI Stomach Bleed, and no Ulcers. Endocrine: No hot flashes. Muscle weakness and Diabetes. No Hypothyroid and no Hyperthyroid. Hematologic: No easy bleeding. A tendency for easy bruising. No Anemia. Musculoskeletal: No Arthritis. Lower back pain, soft tissue swelling, and pain localized to one or more joints. Neurological: Dizziness. No convulsions. Numbness. Psychological: No anxiety, no emotional lability, and no depression. Insomnia. Not crying for no reason. Skin: No dry skin. No Ulcers. Scars. No rash. Allergic and Immunologic: Complaint of seasonal allergic reaction. Mental Status Includes: Mental Status from this encounter Description No anxiety Functional Status Includes: Functional Status from this encounter No Functional Status Recorded Physical Exam Includes: Physical Exam from this encounter Allergies Includes: Active Allergies Substance Type Reaction Onset Date Resolved Date Statu s Penicillins Allergy 08/04/2023 Active Last Documented On 4 10:25AM ; [facility] Niacin Allergy 08/04/2023 Active Last Documented On 4 10:25AM ; [facility] Cipro Allergy 08/04/2023 Active Last Documented On 4 10:25AM ; [facility] Bactrim Allergy 08/04/2023 Active Last Documented On 4 10:26AM ; [facility] Encounters Encounter Provider Location Date Check-In Time Check-Out Time Diagnosis Physician Specified Darrell Mas MD [facility] 08/04/19 24 10:18AM 11:17AM Overweight Insurance Includes: Active Insurance Policies Plan Name Member ID Group # Subscriber Relationship Effect jagjit Dates 1 - PRIME [id number] Matt Drew Se lf Clinical Notes Includes: Clinical Notes from this encounter * Progress note Date Encounter Last Documented by 08/04/2023 Physician Specified Last santy mg on 08/08/2023; 10:34 AM, Darrell Mas MD; [facility] Active Problems & Conditions - Lower Back Pain Chief Complaint The Chief Complaint is: Low back pain. Referred Here Referred by Brianne Mas. History of Present Illness Matt Drew is a 62 year old male. - Symptoms Locking, catching and giving way Heat sometimes makes symptoms better. Movement, wakling, getting into bed makes symptoms worse. - Allergy list reviewed - Problem list reviewed - Medication list reviewed - Previous history of chronic pain - New onset 2020 - Sharp pain Symptoms - Stabbing - Pain is constant (100% of the time) - Pain is dull, aching - Patient pain level from 1-10: 8 - Yes, previous treatment. - History of Physical Therapy Musscle relaxers / pain medication - History of Injections JEFFERY Medications used for this condition: Patient is here today with complaints of lower back pain he is referred to us today from Dr. Read. He states he has lower back pain he has had this problem for years kind of radiates into the buttock area. He has seen pain management in his had a caudal block and epidurals which has not helped. Rates his pain level 5/10 he is on [place] 5 which he takes also. Denies any bowel or bladder issues with this no previous back surgery. He states he has worked on weight loss in his lost about 100 lb Current Medication - Albuterol Sulfate HFA 108 (90 Base) MCG/ACT Inhalation Aerosol, solution 33 days, 0 refills - amLODIPine Besylate 10 MG Oral Tablet 90 days, 0 refills - Atorvastatin Calcium 20 MG Oral Tablet 90 days, 0 refills - Bumetanide 2 MG Oral Tablet 90 days, 0 refills - Cetirizine HCl 10 MG Oral Tablet take as directed 0 days, 0 refills - [facility] Fluticasone Propionate 50 MCG/ACT Nasal Suspension take as directed 0 days, 0 refills - Famotidine 20 MG Oral Tablet take as directed 0 days, 0 refills - Gabapentin 600 MG Oral Tablet 30 days, 0 refills - HYDROcodone-Acetaminophen 5-325 MG Oral Tablet 30 days, 0 refills - Jardiance 10 MG Oral Tablet 90 days, 0 refills - Lisinopril 40 MG Oral Tablet take as directed 0 days, 0 refills - Metaxalone 800 MG Oral Tablet 30 days, 0 refills - Methocarbamol 750 MG Oral Tablet 90 days, 0 refills - Metoprolol Tartrate 100 MG Oral Tablet 90 days, 0 refills - Montelukast Sodium 10 MG Oral Tablet 90 days, 0 refills - Nitroglycerin 0.4 MG Sublingual Tablet, sublingual take as directed 0 days, 0 refills - Potassium Chloride Elyssa ER 10 MEQ Oral Tablet, controlled-release take as directed 0 days, 0 refills - Propafenone HCl ER 425 MG Oral Capsule, extended-release 12 hour take as directed 0 days, 0 refills - tiZANidine HCl 4 MG Oral Tablet take as directed 0 days, 0 refills - traZODone HCl 100 MG Oral Tablet take as directed 0 days, 0 refills - Trelegy Ellipta 100-62.5-25 MCG/ACT Inhalation Aerosol Powder Breath Activated use as directed 0 days, 0 refills - Xarelto 20 MG Oral Tablet 90 days, 0 refills Past Medical/Surgical History Reported: Use of CPAP and History of Stroke. Diagnoses: Irregular Heartbeat Sleep Apnea Heartburn / Acid Reflux History of Emphysema Hypertension. Diabetes mellitus. Arthritis Surgical: - Past Surgical History: Vascular repair - r groin - Hernia repair - History of Gallbladder Social History Yes, current smoker. Current diet: No recent change in diet. Caffeine use: Caffeine use. Tobacco use: Tobacco use. Alcohol: Alcohol use. Drug Use: Not using drugs. Habits: Not exercising regularly. Allergies - Bactrim - Cipro - Niacin - Penicillins Family History Cancer Heart disease Systemic hypertension Rheumatoid arthritis Review Of Systems Systemic: Not feeling tired. Recent weight loss. No recent weight gain. Head: No headache and no sinus pain. Eyes: No vision problems. Cataracts and Glasses/Contacts. No Glaucoma. Otolaryngeal: Hearing loss. No tinnitus. Cardiovascular: No chest pain or discomfort and no palpitations. Hypertension. No High Cholesterol. Pulmonary: No daytime asthma symptoms. Chronic cough and wheezing. Gastrointestinal: No heartburn and no abdominal pain. No Indigestion. Acid Reflux. No Peptic Ulcer, no GI Stomach Bleed, and no Ulcers. Endocrine: No hot flashes. Muscle weakness and Diabetes. No Hypothyroid and no Hyperthyroid. Hematologic: No easy bleeding. A tendency for easy bruising. No Anemia. Musculoskeletal: No Arthritis. Lower back pain, soft tissue swelling, and pain localized to one or more joints. Neurological: Dizziness. No convulsions. Numbness. Psychological: No anxiety, no emotional lability, and no depression. Insomnia. Not crying for no reason. Skin: No dry skin. No Ulcers. Scars. No rash. Allergic and Immunologic: Complaint of seasonal allergic reaction. Physical Findings - Vitals taken 08/04/2023 10:29 am lc Height 72 in Weight 293 lbs Body Mass Index 39.7 kg/m2 Body Surface Area 2.5 m2 Pain Level 5 Pleasant oriented x3 is overweight Tender across the lower lumbar spine uses a cane to walk with 5/5 EHL gastrocs quadriceps tibialis anterior strength bilaterally blunted patellar and Achilles reflexes bilaterally Tests Four views lumbar spine shows no spondylolisthesis he does have multilevel degenerative changes consistent with DISH Lumbar spine MRI shows multilevel degenerative changes no nerve root compression and he does have DISH Assessment - Overweight Previous Tests Imaging: X-Ray: An X-ray was performed Lumbar May 2023 @ [facility]. MRI Scan: An MRI was performed Lumbar May 2023 @ [facility]. Available previous imaging studies were reviewed Available previous history reviewed Therapy - Intervention and counseling on cessation of tobacco use. Counseling/Education - Lose weight Plan Patient was seen by myself and Dr. Chace Moran PA-C. Patient will follow up as needed there is no surgical intervention needed for him recommend continued work with pain management. We did give him a brochure some exercises to work on. Notes This dictation was done with voice recognition software and may contain errors and omissions. Practice Management Use of tobacco assessment performed Review of medications documented. Care Team - Judith Reno APRN Health Reminders - Assess BMI satisfied 08/04/2023. - Assess Tobacco Use satisfied 08/04/2023. - Follow Up Plan BMI Management satisfied 08/04/2023. - Smoking & Tobacco Cessation Intervention and Counseling satisfied 08/04/2023.
[2024-09-13 11:57] VITALS: BP 138/75; PULSE 74; RESP 14; O2SAT 93; BMI 37.0
--- NOTE | 2024-09-13 12:10 | A.OFFVIS_ITS ---
[facility] Disclaimer: The information contained in this section may have been updated after the patient was seen, as this information can be updated by other users. Medical History Hiatal hernia Pleural effusion, left Encounter for screening for malignant neoplasm of lung Dyspnea on exertion History of COPD Smoking greater than 30 pack years Encounter for postoperative care Loss of taste Swelling of right parotid gland Swelling of left parotid gland Parotid abscess Dental caries limited to enamel Facial cellulitis Depression Anxiety Diabetes mellitus, type 2 History of stroke COPD (chronic obstructive pulmonary disease) Atrial fibrillation Status postcardiac ablation, active follow-up with [facility] cardiology in [place] Hyperlipidemia Hypertension Surgical History H/O ventral hernia repair Hx of cardiac catheterization History of cholecystectomy Family History Other Family history of cancer Family history of hyperlipidemia Family history of hypertension Family history of myocardial infarction Social History Smoking Status: Current every day smoker alcohol intake: never substance use type: denies use current occupational status: retired Travel in the last 8 weeks: None household members: spouse housing: house marital status: caffeine: No PM Subjective & Objective Subjective Subjective:: Patient is a pleasant 63-year-old male who presents today for medication refill and follow-up. He does rate his pain at 3 out of 10 however does state that he has been having more pain in and around his hip and buttocks area. He denies any new falls or injuries. He states that pain is worse when he is getting up out of bed or certain prolonged positioning's where it just seems like even his tailbone is bothering him. Patient is currently managed with [place] 7.5 mg 3 times a day and just recently was given a trial prescription of methocarbamol 750 mg 3 [address] in [address] of the Flexeril. He does state that he felt like that medication did seem like it helped better and is requesting refills. Patient does do a 90-day supply they are at [facility]. His Matthew has been reviewed and is appropriate. Review of Systems: General: No recent weight changes, no fever, no sleep disturbances Respiratory: No cough, no shortness of air, no recurring pulmonary infections Cardiovascular/peripheral vascular: No chest pain, no palpitations, no edema, no shortness of breath Gastrointestinal: No new onset incontinence, normal bowel movements reported Genitourinary: No new onset incontinence Musculoskeletal: Hip pain, buttocks pain Psychiatric: [Normal mood/affect] Neurological: [Denies weakness in extremities], [denies balance issues] Pain at rest (0-10 scale): 3 Objective Objective:: Physical Exam: General: Alert and oriented x3, no acute distress, pleasant and cooperative Lungs: Respirations even and unlabored, symmetrical chest expansion Eyes: PERRL Musculoskeletal: Flexion and extension of lumbar [spine] somewhat guarded secondary to pain, [antalgic gait noted] Neurological: Speech clear, no gross sensory deficit Has patient had previous pain injection?: No Conservative treatment options previously tried: Home exercise plan Length of treatment: Longer than 12 Meds Home Medications and Allergies Home Medications ?Medication ?Instructions ?Recorded ?Confirmed ?Type montelukast 10 mg tablet 10 mg PO QPM Breathing problems 11/17/17 09/13/24 History (Singulair) atorvastatin 20 mg tablet 20 mg PO HS Cholesterol 04/11/22 09/13/24 History bumetanide 2 mg tablet 2 mg PO DAILY 04/11/22 09/13/24 History gabapentin 600 mg tablet 600 mg PO TID Pain 04/11/22 09/13/24 History lisinopril 40 mg tablet 40 mg PO DAILY High blood pressure 04/11/22 09/13/24 History metoprolol tartrate 100 mg tablet 100 mg PO BID High blood pressure 04/11/22 09/13/24 History rivaroxaban 20 mg tablet (Xarelto) 20 mg PO QPMWITHMEAL 04/11/22 09/13/24 History amlodipine 10 mg tablet 10 mg PO DAILY 04/20/22 09/13/24 History cetirizine 10 mg tablet (All Day 10 mg PO DAILY 08/01/23 09/13/24 History Allergy (cetirizine)) nitroglycerin 0.4 mg sublingual 0.4 mg sublingual Q5M PRN Chest 08/01/23 09/13/24 History tablet Pain omeprazole 20 mg capsule,delayed 20 mg PO DAILY 09/13/23 09/13/24 History release fluticasone fur. 100 mcg-umeclid 1 inh inhalation DAILY 90 days #90 04/19/24 09/13/24 Rx 62.5 mcg-vilant 25 mcg ea inhalat.powder (Trelegy Ellipta) empagliflozin 10 mg tablet 10 mg PO DAILY 07/05/24 09/13/24 History (Jardiance) sertraline 100 mg tablet 100 mg PO DAILY 07/05/24 09/13/24 History trazodone 100 mg tablet 100 mg PO HS 07/05/24 09/13/24 History cyclobenzaprine 10 mg tablet 10 mg PO TID 07/14/24 09/13/24 History propafenone 425 mg 425 mg PO BID 07/14/24 09/13/24 History capsule,extended release 12 hr ipratropium 0.5 mg-albuterol 3 mg 3 ml inhalation QID PRN shortness 07/17/24 09/13/24 Rx (2.5 mg base)/3 mL nebulization of breath or wheezing 90 days #270 soln mL hydrocodone 7.5 mg-acetaminophen 1 tab PO TID #90 tabs 08/16/24 09/13/24 Rx 325 mg tablet methocarbamol 750 mg tablet 750 mg PO TID #42 tabs 08/16/24 09/13/24 Rx New Prescriptions to Start Prescriptions: Allergies Allergy/AdvReac Type Severity Reaction Status Date / Time levofloxacin Allergy Mild I-RASH Verified 07/23/24 13:28 niacin Allergy Mild Rash Verified 07/23/24 13:28 ofloxacin Allergy Mild Rash Verified 07/23/24 13:28 sulfamethoxazole (From Allergy Mild I-RASH Verified 07/23/24 13:28 Bactrim) trimethoprim (From Bactrim) Allergy Mild I-RASH Verified 07/23/24 13:28 oxytetracycline Allergy Unknown Rash Verified 07/23/24 13:28 Penicillins Allergy Unknown Rash Verified 07/23/24 13:28 fentanyl Allergy Confusion Verified 07/23/24 13:28 Assessment and Plan *Assessment and plan (1) Degenerative disc disease, lumbar: Status: Acute Category: Medical Code(s): M51.369 - Other intervertebral disc degeneration, lumbar region without mention of lumbar back pain or lower extremity pain (2) Lumbar radiculopathy: Status: Chronic Category: Medical Code(s): M54.16 - Radiculopathy, lumbar region (3) Buttock pain: Status: Acute Category: Medical Code(s): M79.18 - Myalgia, other site Plan I did discuss with the patient in future it may be beneficial if the pain continues there in his hips and buttocks area for additional injection therapy such as SI injections or caudal epidural. We will follow-up with this in future. I will refill the patient's Washington and provide a 1 month supply and send in a 90-day supply of the methocarbamol to [facility]. Patient will return to clinic in 1 month. Risks and benefits of the medication have been explained in detail to the patient. The patient does understand the risk of dependence on the medication when given over a prolonged period. Patient has been advised of risks of oversedation with the prescribed medication. Narcan has been offered to the paitent in the event of oversedation. Patient has been advised that a family member should also be educated regarding administration of Narcan. The patient has been advised to consult with his/her primary care provider and pharmacist regarding drug-drug interaction of medications currently prescribed. Patient has been prescribed a controlled substance after being counseled on the medication, medication safety, and possible side effects. Opioid contract was reviewed and signed by the patient, and that they have agreed to all of the terms set forth by our compliance program. A UDS is needed to verify patient's compliance with our office pain contract. This is ordered based off specific treatments related to chronic pain with the potential to abuse certain medications. Patient has been instructed to contact the clinic with any concerns before the next appointment. Dr. Read has reviewed this note and agrees with this plan of care. This note was dictated using voice recognition software and make contain errors or omissions.
== END 2024-09-13 23:59 | disposition home or self-care (01) ==
PROVIDERS: PCP Nurse Practitioner Family; Visit Provider Nurse Practitioner Family
DX: M51.16 Intervertebral disc disorders with radiculopathy, lumbar region (principal); M79.18 Myalgia, other site; F17.210 Nicotine dependence, cigarettes, uncomplicated; Z79.899 Other long term (current) drug therapy
CPT/HCPCS: 99212; G0463

== ENCOUNTER 2024-09-28 09:39 | Outpatient (CLI) | payer OTHER, SELFPAY ==
--- OUTSIDE RECORDS SUMMARY | 2024-09-28 09:41 | XMS_ITS | Clinical Summary ---
Author Organization [facility] Address [address] [place] [address] Phone Care Team Providers Care Speedometer Inspector Name Role Phone RenoJudith christian APRN Unavailable [phone] Chace CASTILLO, Darrell Myers Unavailable [phone] Reason for Visit and Chief Complaint The Chief Complaint is: low back pain Problems Includes: Problems addressed during this encounter and other active Problems Current Visit Onset Date Resolved Date Provider Maria Del Rosarioitio wendy Status Lower Back Pain 08/04/2023 Darrell Mas MD Act jagjit Last Documented On 4 10:23AM ; [facility], [facility] Plan of Treatment Patient was seen by myself and Dr. Chace Moran PA-C. Patient will follow up as needed there is no surgical intervention needed for him recommend continued work with pain management. We did give him a brochure some exercises to work on. - Last Documented On 08/08/2023 10:34AM ; [facility], [facility] Instructions to patient Intervention and counseling on cessation of tobacco use Last Documented On 4 10:30AM ; [facility], [facility] Lose weight Last Documented On 4 10:30AM ; [facility], [facility] Assessments Includes: Assessments from this encounter Findings - Overweight - Last Documented On 08/08/2023 10:34AM ; [facility], [facility] Instructions Includes: Instructions from this encounter Instructions to patient Intervention and counseling on cessation of tobacco use Last Documented On 4 10:30AM ; [facility], [facility] Lose weight Last Documented On 4 10:30AM ; [facility], [facility] Medical Equipment - Implanted Devices Includes: Current Devices No Medical Equipment Recorded Medications Includes: Medications discussed during this encounter and other current Medications Discontinued / Stopped on this date on 07/07/2023 Metaxalone 800 MG Oral Tablet Provider: Diagnosis: Last Documented On 4 10:45AM By Nabila Frey ; [facility], [facility] Propafenone HCl ER 425 MG Or al Capsule, extended-release 12 hour Provider: Diagnosis: Last Documented On 4 10:53AM By Nabila Frey ; [facility], [facility] Current Medications (continue as prescribed) Nitroglycerin 0.4 MG Sublingual Tablet, sublingual 11/2023 Provider: Diagnosis: Last Documented On 4 10:48AM By Nabila Frey ; [facility], [facility] Lisinopril 40 MG Oral Tablet 08/04/2023 Provider: Diagnosis: Last Documented On 4 10:48AM By Nabila Frey ; [facility], [facility] Trelegy Ellipta 100-62.5-25 MCG/ACT Inhalation Aerosol Powder Breath Activated 08/04/2023 Provider: Diagnosis: Last Documented On 4 10:53AM By Nabila Frey ; [facility], [facility] traZODone HCl 100 MG Oral Tablet 08/04/2023 Provider : Diagnosis: Last Documented On 4 10:53AM By Nabila Frey ; [facility], [facility] Cetirizine HCl 10 MG Oral Tablet 08/04/2023 Provider : Diagnosis: Last Documented On 4 10:47AM By Nabila Frey ; [facility], [facility] Propafenone HCl ER 425 MG Or al Capsule, extended-release 12 hour 08/04/2023 Provider: Diagnosis: Last Documented On 4 10:52AM By Nabila Frey ; [facility], [facility] Potassium Chloride Elyssa ER 1 0 MEQ Oral Tablet, controlled-release 08/04/2023 Provider: Diagnosis: Last Documented On 4 10:50AM By Nabila Frey ; [facility], [facility] tiZANidine HCl 4 MG Oral Tablet 08/04/2023 Provider: Diagnosis: Last Documented On 4 10:53AM By Nabila Frey ; [facility], [facility] Famotidine 20 MG Oral Tablet 08/04/2023 Provider: Diagnosis: Last Documented On 4 10:47AM By Nabila Frey ; [facility] Fluticasone Propionate 50 MCG/ACT Nasal Suspension 08/04/2023 Provider: Diagnosis: Last Documented On 4 10:47AM By Nabila Frey ; [facility] Gabapentin 600 MG Oral Tablet 07/08/2023 Provider: Judith Reno APRN Diagnosis: Last Documented On 4 10:32AM By Nabila Frey ; [facility] HYDROcodone-Acetaminophen 5-325 MG Oral Tablet 024 Provider: Diagnosis: Last Documented On 4 10:32AM By Nabila Frey ; [facility] Metaxalone 800 MG Oral Tablet 07/07/2023 Provider: Diagnosis: Last Documented On 4 10:45AM By Nabila Frey ; [facility] Jardiance 10 MG Oral Tablet 06/13/2023 Provider: Judith Reno APRN Diagnosis: Last Documented On 4 10:32AM By Nabila Frey ; [facility] Xarelto 20 MG Oral Tablet 05/15/2023 Provider: Domingo Reno APRN Diagnosis: Last Documented On 4 10:52AM By Nabila Frey ; [facility] amLODIPine Besylate 10 MG Oral Tablet 04/18/2023 Pro vider: Judith Reno APRN Diagnosis: Last Documented On 4 10:32AM By Nabila Frey ; [facility] Metoprolol Tartrate 100 MG Oral Tablet 04/17/2023 Pr ovider: Diagnosis: Last Documented On 4 10:46AM By Nabila Frey ; [facility] Atorvastatin Calcium 20 MG Oral Tablet 04/17/2023 Pr ovider: Judith Reno APRN Diagnosis: Last Documented On 4 10:32AM By Nabila Frey ; [facility] Montelukast Sodium 10 MG Oral Tablet 04/17/2023 Prov ider: Diagnosis: Last Documented On 4 10:46AM By Nabila Frey ; [facility] Bumetanide 2 MG Oral Tablet 03/19/2023 Provider: Judith Reno APRN Diagnosis: Last Documented On 4 10:32AM By Nabila Frey ; [facility], [facility] Albuterol Sulfate HFA 108 (9 0 Base) MCG/ACT Inhalation Aerosol, solution 02/28/2023 Provider: Judith greene APRN Diagnosis: Last Documented On 4 10:32AM By Nabila Frey ; [facility] Methocarbamol 750 MG Oral Tablet 12/30/2022 Provider : Diagnosis: Last Documented On 4 10:46AM By Nabila Frey ; [facility] Medications Administered Includes: Administered Medications from this encounter No Administered Medications Recorded Vital Signs Includes: Vital Signs from this encounter Vital Name 08/04/2023 10:29A Height (in) 72 Weight (lb) 293 Body Mass Index 39.7 Body Surface Area 2.5 Pain Level 5 Note: lc Last Documented: On 08/04/2023 10:30A M ; [facility], [facility] Results Includes: Results discussed during this encounter [...] his pain level 5/10 he is on [place] 5 which he takes also. Denies any bowel or bladder issues with this no previous back surgery. He states he has worked on weight loss in his lost about 100 lb Social History Description Last Updated Tobacco use 08/04/2023 Last Documented On 4 10:34AM ; [facility] Alcohol use 08/04/2023 Last Documented On 4 10:34AM ; [facility] Caffeine use 08/04/2023 Last Documented On 4 10:34AM ; [facility] No recent change in diet 08/04/2023 Last Documented On 4 10:34AM ; [facility] Not exercising regularly 08/04/2023 Last Documented On 4 10:34AM ; [facility] Not using drugs 08/04/2023 Last Documented [...] 4000F Last Documented On 4 10:30AM ; [facility] use of tobacco assessment performed 1000F Last Documented On 4 10:30AM ; [facility] review of medications documented 1160F Last Documented On 4 10:30AM ; [facility] an X-ray was performed Lumbar May 2023 @ [facility] [id number] Last Documented On 4 10:27AM ; [facility] an MRI was performed Lumbar May 2023 @ [facility] [id number] Last Documented On 4 10:27AM ; [facility], [facility] Surgical History Last Updated History of hernia repair 08/04/2023 Last Documented On 4 10:34AM ; [facility], [facility] History of History of Gallbladder 2023 Last Documented On 4 10:34AM ; [facility] Past Surgical History: Vascular repair - r groin 08/04/2023 Last Documented On 4 10:34AM ; [facility], [facility] Medical History Includes: Medical History addressed during this encounter Description Last Updated History of arthritis 08/04/2023 Last Documented On 4 10:34AM ; [facility] History of diabetes mellitus 08/04/2023 Last Documented On 4 10:34AM ; [facility] History of Heartburn / Acid Reflux 08/03 Last Documented On 4 10:34AM ; [facility] History of History of Emphysema 08/04/19 24 Last Documented On 4 10:34AM ; [facility] History of Hypertension 08/04/2023 Last Documented On 4 10:34AM ; [facility] History of Irregular Heartbeat 4 Last Documented On 4 10:34AM ; [facility] History of Sleep Apnea 08/04/2023 Last Documented On 4 10:34AM ; [facility] History of Stroke 08/04/2023 Last Documented On 4 10:34AM ; [facility] Use of CPAP 08/04/2023 Last Documented On 4 10:34AM ; [facility] Family History Includes: Family History addressed during this encounter Description Last Updated Family history of cancer 08/04/2023 Last Documented On 4 10:34AM ; [facility] Family history of heart disease 08/04/19 24 Last Documented On 4 10:34AM ; [facility] Family history of rheumatoid arthritis 0 08/04/2023 Last Documented On 4 10:34AM ; [facility] Family history of systemic hypertension 08/04/2023 Last Documented On 4 10:34AM ; [facility] Review of Systems Includes: Review [...] Active Last Documented On 4 10:25AM ; [facility] Niacin Allergy 08/04/2023 Active Last Documented On 4 10:25AM ; [facility] Cipro Allergy 08/04/2023 Active Last Documented On 4 10:25AM ; [facility] Bactrim Allergy 08/04/2023 Active Last Documented On 4 10:26AM ; [facility] Encounters Encounter Provider Location Date Check-In Time Check-Out Time Diagnosis Physician Specified Darrell Mas MD [facility] 08/04/19 24 10:18AM 11:17AM Overweight Insurance Includes: Active Insurance Policies Plan Name Member ID Group # Subscriber Relationship Effect jagjit Dates 1 - PRIME [id number] [employer] Clinical Notes Includes: Clinical Notes from this encounter * Progress note Date Encounter Last Documented by 08/04/2023 Physician Specified Last santy mg on 08/08/2023; 10:34 AM, Darrell Mas MD; [facility] Active Problems & Conditions - Lower Back [...] his pain level 5/10 he is on [place] 5 which he takes also. Denies any [...] X-ray was performed Lumbar May 2023 @ [facility]. MRI Scan: An MRI was performed Lumbar May 2023 @ [facility]. Available previous imaging studies were reviewed [...]
--- OUTSIDE RECORDS SUMMARY | 2024-09-28 09:42 | XMS_ITS | Continuity of Care Document ---
Author Name [facility] Organization [facility] Care Team Providers Care Matrix Repairer Name Role Phone [facility] Unavailable Unavailable Problems Combined list of problems from [facility] and [facility] facilities. It does not include entries that were removed or entered in error. Problem Status Onset Date Problem Type Date of Resolution Comments Source Allergic rhinitis Active Condition [facility] Atrial fibrillation Active Condition [facility] Cerebral infarction Active Condition [facility] Gastroesophageal reflux disease Active Condition [facility] Hypertension Active Condition [facility] Insomnia Active Condition [facility] Obesity Active Condition [facility] Sleep apnea Active Condition [facility] Tobacco use Active Condition [facility] Medications Combined list of outpatient medications from [facility] and [facility] facilities.Medications provided include 1) outpatient medications from the last 15 months, and 2) patient-reported medications. Medication Details Route Status Patient Instructions Prescription Expires Prescription Number Last Dispense Date Ordering Provider Order Date Order Qty Source AMLODIPINE BESYLATE 10MG TAB TAKE ONE TABLET BY MOUTH DAILY ORAL ACTIVE CHOPRA,JOSIAH EK R 2017 [place] [facility] CODEINE 30MG/ACETAM INOPHEN 300MG TAB TAKE ONE TABLET BY MOUTH EVERY 4 HOURS NEEDED ORAL ACTIVE CHOPRA,JOSIAH EK R 2018 [place] [facility] FUROSEMIDE 40MG TAB TAKE ONE TABLET BY MOUTH DAILY ORAL ACTIVE CHOPRA,JOSIAH EK R 2018 [place] [facility] GABAPENTIN 300MG CAP TAKE 1 CAPSULE BY MOUTH THREE TIMES A DAY ORAL ACTIVE CHOPRA,JOSIAH EK R 2017 [place] [facility] LISINOPRIL 20MG TAB TAKE ONE-HALF TABLET BY MOUTH DAILY ORAL ACTIVE CHOPRA,JOSIAH EK R 2018 [place] [facility] METOPROLOL TARTRATE 100MG TAB TAKE ONE TABLET BY MOUTH TWICE A DAY ORAL ACTIVE CHOPRA,JOSIAH EK R 2017 [place] [facility] MONTELUKAST NA 10MG TAB TAKE ONE TABLET BY MOUTH AT BEDTIME ORAL ACTIVE CHOPRA,JOSIAH EK R 2017 [place] [facility] POTASSIUM CHLORIDE 10MEQ TAB,SA TAKE ONE TABLET BY MOUTH DAILY ORAL ACTIVE CHOPRA,JOSIAH EK R 2017 [place] [facility] PROPAFENONE CAP,SA TAKE 425MG BY MOUTH EVERY 12 HOURS ORAL ACTIVE CHOPRA,JOSIAH EK R 2017 [place] [facility] RIVAROXABAN 20MG TAB TAKE ONE TABLET BY MOUTH EVERY EVENING ORAL ACTIVE CHOPRA,JOSIAH EK R 2017 [place] [facility] TIZANIDINE HCL 4MG TAB TAKE ONE TABLET BY MOUTH DAILY NEEDED ORAL ACTIVE CHOPRA,JOSIAH EK R 2017 [place] [facility] Allergies, Adverse Reactions, Alerts Combined list of allergies from Department of Defense and Veterans Affairs facilities. It does not include entries that were removed or entered in error. Substance Category Reaction Severity Reaction type Status Date Reported Comments Source BACTRIM Propensity to adverse reactions to drug (finding) active 8 [place] [facility] CIPROFLOXACI N Propensity to adverse reactions to drug (finding) active 8 [place] [facility] PENICILLIN Propensity to adverse reactions to drug (finding) Anaphylaxis active 0 [place] [facility]3] Immunizations Combined list of available immunizations from the Department of Defense and Veterans Affairs facilities. Immunization Series Date Given Administered By Site Reaction Lot Number CVX Code Drug Nuclear Chemistry Technician Status Comments Source INFLUENZA, UNSPECIFIED FORMULATION 2021 88 complet ed Completed Series, HISTORICA L INFORMATI ON - FROM PATIENT'S RECALL, [place] [facility] INFLUENZA, UNSPECIFIED FORMULATION 2020 88 complet ed [place] [facility] COVID-19 (MODERNA), MRNA, LNP-S, PF, 100 MCG/0.5ML DOSE OR 50 MCG/0.25ML DOSE 3 2020 207 complet ed [place] [facility] COVID-19 (MODERNA), MRNA, LNP-S, PF, 100 MCG/0.5ML DOSE OR 50 MCG/0.25ML DOSE 2 2020 207 complet ed [place] [facility] COVID-19 (MODERNA), MRNA, LNP-S, PF, 100 MCG/0.5ML DOSE OR 50 MCG/0.25ML DOSE 1 2019 207 complet ed [place] [facility] INFLUENZA, UNSPECIFIED FORMULATION 2019 88 complet ed [place] [facility] INFLUENZA, SEASONAL, INJECTABLE 2018 141 complet ed [place] [facility] PNEUMOCOCCAL POLYSACCHARID E PPV23 2018 33 complet ed [place] [facility] INFLUENZA, SEASONAL, INJECTABLE 2017 141 complet ed [place] [facility] INFLUENZA A & B (HISTORICAL) 2016 88 complet ed [place] [facility] TDAP 2016 115 complet ed [place] [facility] Encounters Combined list of: 1) Encounters from Department of Veterans Affairs facilities going backup to the last 18 months, not all [place] inpatient encounters are included; 2) Encounters from the Department of Defense facilities going backup to 280 months. Location Location Details Encounter Type Encounter Number Reason For Visit Attending Provider ADM Date DC Date Status Disposition Source [facility] Outpatient Encounter [id number] 08/02 [place] [facility] Outpatient Encounter [id number] 12/19 [place] [facility] Outpatient Encounter [id number] 07/17 [place] [facility] Outpatient Encounter [id number] 09/17 [place] Social History Combined list of available smoking, tobacco, and other social history from Department of Defense and Veterans Affairs facilities. Social History Type Response Date Comment Sourc e Tobacco smoking status NHIS [facility]-TOBACCO USER EVERY DAY 08/10/2022 [facility] History of tobacco use [place]-TO[place]ACCO USE WI 30 MIN OF WAKEUP 08/10/2022 [facility] History of tobacco use [place]-TOBACCO USER EVERY DAY 07/28/2021 [facility] History of tobacco use [place]-TOBACCO USE ENTRY LEVEL NO 11/19/2019 [facility] History of tobacco use [place]-TOBACCO USE ENTRY LEVEL NO 09/25/2018 [facility] History of tobacco use V9 CURRENT TOBACCO USER 09/21/2017 [facility]
--- OUTSIDE RECORDS SUMMARY | 2024-09-28 09:42 | XMS_ITS | Encounter Summary ---
Author Name [facility] Organization [facility] Address [address] [place] [address] Care Team Providers Care Pad Hand Name Role Phone REHAN CHOPRA Primary Care [...] section includes the information on record at [place] for the Encounter. Date/Time Encounter Type Encounter Description Reason Pro vider Source Sep 17, 2024 11:15 AM Outpatient Encounter ADMIN PAT ACTIVTIES (MASNONCT) IHE Encounter Template Text not used by [place]
--- OUTSIDE RECORDS SUMMARY | 2024-09-28 09:42 | XMS_ITS | Data Portability ---
Author Organization [place] [facility] & [place] [facility] ADMIN Address [address] [place] [phone] Assessment No assessment recorded. Plan of Treatment Reminders Order Date Submit Date Provider Last Modified By Organization Details Last Modified Time Details Appointments None record ed. Lab None record ed. Referral None record ed. Procedures None record ed. Surgeries None record ed. Imaging None record ed. Medication Orders None record ed. Patient TargetsNo targets recorded. Patient Instructions Encounter Date Encounter Id Patient Instructions Last Modified By Organization Details Last Modified Time 08/23/2023 [id number] Mr. Drew has h ad evidence of right-sided mastoid effusion since at least 2021. He has no evidence of middle ear effusion today on examination. He has no evidence of mastoid tenderness and no evidence of tympanic membrane perforation. His hearing loss is pure sensorineural which is actually improved from his previous hearing test in 2014. he is a very heavy smoker which likely contributes to Eustachian tube dysfunction and mastoid disease. At this time there is no indication for surgical intervention. [email or web address] Not available 08/23/2023 12:11:31 Reason for Referral None Reported. Results Created Date Observation Date Name Description Value Unit Range Abnormal Flag Note LastModifiedBy Organization Detail LastModifiedTime 08/18/19 24 MRI, brain , w/o contr ast No observ ation record ed. [email or web address] Not Available 2023 09:57:07 08/18/[address], maxil lofac ial, w/ contr ast No observ ation record ed. [email or web address] Not Available 2023 11:00:05 08/18/19 24 CT, neck, soft tissu e, w/ contr ast No observ ation record ed. [email or web address] Not Available 2023 11:01:32 08/18/19 24 09/04/2014 CT, sinus es, w/o contr ast No observ ation record ed. [email or web address] Not Available 2023 11:01:11 08/18/19 24 fine needl e aspir ation No observ ation record ed. [email or web address] Not Available 2023 11:02:41 08/23/19 24 08/23/2023 audio gram No observ ation record ed. [email or web address] Not Available 2023 12:48:08 Result Notes None recorded. Problems Name Problem SNOMED Code Status Onset Date Resolution Date Notes Provider Name and Address Organization Details Recorded Time Sensorineural hearing loss 78284944 Active 2023 CAROLYN GARDUNO, AUD [address] [facility], [place], [address] , [facility] & [place] 12:37:56 Problem Notes None recorded. Procedures Surgical History Date Name Laterality Status Provider Name and Address Organization Details Recorded Time cholecystectomy completed Dot Melendez [facility] & [place] 08/18/2023 09:58:59 Imaging Results Imaging Date Name Status LastModified by Organiz ation Details LastModified Time 08/18/2023 MRI, brain, w/o contrast completed Information not available 08/18/2023 09:57:07 08/18/2023 CT, maxillofacial, w/ contrast completed Information not available 08/18/2023 11:00:05 08/18/2023 CT, neck, soft tissue, w/ contrast completed Information not available 08/18/2023 11:01:32 09/04/2014 CT, sinuses, w/o contrast completed BARCODE Information not available 08/18/2023 11:01:11 08/18/2023 fine needle aspiration completed Information not available 08/18/2023 11:02:41 08/23/2023 audiogram completed [email or web address] Information no t available 08/23/2023 12:48:08 Procedure Notes None recorded. Medical Equipment None Reported. Allergies Allergen ID Allergen Name Allergen Category Reaction Reaction Severity Criticality Documentation Date Start Date Code Code System Note Provider Name and Address Organization Details Recorded Time 446193 Product containin g penicilli n (product) medicatio n anaphylax is Not available [facility] 08/23/2023 54702 [id number] SNOMED Dot olivas, ELIZABTEH RUFFIN [facility] & [place] 4 11:13:48 993218 Cipro medicatio n rash Not available [facility] 08/23/2023 85980 3 RxNorm Dot olivas, ELIZABETH RUFFIN [facility] & [place] 4 11:14:08 877727 Bactrim medicatio n rash Not available [facility] 08/23/2023 11626 9 RxNorm Dot olivas, ELIZABETH RUFFIN - [place] & [place] 4 11:14:22 Medications Name Sig Start Date Stop Date Status Note LastModified by Organization Details LastModified Time potassium chloride ER 10 mEq capsule,exte nded release active Not Available Not Available Not Available gabapentin 600 mg tablet Take 1 tablet 3 times a day by oral route. active Not Available Not Available No t Available doxycycline hyclate 100 mg capsule TAKE ONE CAPSULE BY MOUTH TWICE DAILY FOR 10 DAYS active Not Available Not Available No t Available atorvastatin 20 mg tablet Take 1 tablet every day by oral route. active Not Available Not Available No t Available bumetanide 2 mg tablet Take 1 tablet every day by oral route. active Not Available Not Available No t Available metoprolol tartrate 100 mg tablet Take 1 tablet twice a day by oral route. active Not Available Not Available No t Available tizanidine 4 mg tablet active Not Available Not Available No t Available hydrocodone 5 mg-acetamino phen 325 mg tablet Take 1 tablet every 6 hours by oral route. active Not Available Not Available Not Available prednisone 20 mg tablet TAKE 1 TABLET BY MOUTH TWICE DAILY active Not Available Not Available No t Available sertraline 100 mg tablet active Not Available Not Available Not Available tramadol 50 mg tablet TAKE ONE TABLET BY MOUTH EVERY 6 HOURS NEEDED MAY CAUSE DROWSINESS active Not Available Not Available N ot Available famotidine 20 mg tablet Take 1 tablet twice a day by oral route. active Not Available Not Available No t Available methocarbamo l 750 mg tablet Take 1 tablet 3 times a day by oral route. active Not Available Not Available No t Available trazodone 100 mg tablet Take 1 tablet twice a day by oral route. active Not Available Not Available No t Available amlodipine 10 mg tablet Take 1 tablet every day by oral route. active Not Available Not Available No t Available cephalexin 500 mg capsule TAKE 1 CAPSULE BY MOUTH EVERY 8 HOURS FOR 7 DAYS active Not Available Not Available No t Available nitroglyceri n 0.[address] by sublingual route. active Not Available Not Available No t Available montelukast 10 mg tablet Take 1 tablet every day by oral route. active Not Available Not Available No t Available ergocalcifer ol (vitamin D2) 1,250 mcg (50,000 unit) capsule active Not Available Not Available Not Available albuterol sulfate HFA 90 mcg/actuatio n aerosol inhaler Inhale 2 puffs every 4 hours by inhalation route. active Not Available Not Available No t Available lisinopril 40 mg tablet Take 1 tablet every day by oral route. active Not Available Not Available No t Available fluticasone propionate 50 mcg/actuatio n nasal spray,suspen maldonado [place] 1 spray every day by intranasal route. active Not Available Not Available No t Available sertraline 50 mg tablet Take 1 tablet every day by oral route. active Not Available Not Available No t Available metaxalone 800 mg tablet Take 1 tablet 3 times a day by oral route. active Not Available Not Available No t Available propafenone ER 425 mg capsule,exte nded release 12 hr Take 1 capsule every 12 hours by oral route. active Not Available Not Available Not Available nitrofuranto in monohydrate/ macrocrystal s 100 mg capsule TAKE 1 CAPSULE BY MOUTH EVERY 12 HOURS FOR 7 DAYS DIRECTED. TAKE WITH FOOD active Not Available Not Available No t Available tizanidine 4 mg capsule Take 1 capsule every 6 hours by oral route. active Not Available Not Available Not Available cetirizine 10 mg capsule Take by oral route. active Not Available Not Available Not Available rivaroxaban 20 mg tablet Take 1 tablet every day by oral route. active Not Available Not Available No t Available Jardiance 10 mg tablet Take 1 tablet every day by oral route. active Not Available Not Available No t Available Trelegy Ellipta 100 mcg-62.5 mcg-25 mcg powder for inhalation Inhale 1 puff every day by inhalation route. active Not Available Not Available No t Available potassium chloride 10 mEq oral packet Take 1 packet twice a day by oral route. active Not Available Not Available No t Available Vitals Date Recorded Body weight Body temperature Provider N manfred and Address Organization Details Last Updated DateTime 08/23/2023 915923.97 g 98 [degF] Dot JOHNSON [facility] & [place] 08/23/2023 11:13:30 Social History Question Answer Notes LastModified by Organizat ion Details LastModified Time Tobacco Smoking Status Current Every Day Smoker Dot Melendez [facility], ELIZABETH [facility] & [place] 08/18/2023 10:01:22 What Is Your Current Pack Years? 30ormorepack years Information not available 08/23/2023 How Much Tobacco Do You Smoke? No 1/1/2 Packs Per Day Information not available 08/23/2023 How Many Years Have You Smoked Tobacco? 45 Information not available 08/23/2023 Sex: Unknown Functional Status None recorded. Mental Status None recorded. Family History Nothing Reported. Medical History Condition Response Allergies/Hayfever Y Heart Problems N None N Heart Conditions N Emphysema N Migraines N Thyroid Problems N Developmental Delay N Depression Y Glaucoma N Anemia N Immune System Disorder N Anesthesia Complications N Heart Attack (MD) N Anxiety Disorder Y Diabetes Y Bleeding Disorder N Arthritis Y Hearing Loss N Tuberculosis N Acid Reflux (GERD) Y Hyperlipidemia Y Cancer N Stroke Y Asthma Y Sleep Disorder Y GERD/Reflux N Heart Disease N Fibromyalgia N Headaches N Hypertension Y Speech Delay N Kidney Disease N Past Encounters Encounter ID Performer Location Encounter Start Date Encounter Closed Date Diagnosis/Indication Diagnosis SNOMED-CT Code Diagnosis ICD10 Code Diagnosis Note [id number] Jannet Jeffery MD [facility] [id number] 8 08/23/2023 10:54:59 08/23/2023 11:36:08 MRI scan abnormal 240476203 R93.89 Sensorineu ral hearing loss of bilateral ears 901790113 H90.3 Tobacco user 062439738 Z 72.0 Patient is a significan tly heavy cigarette smoker with no plans to quit. [id number] MANNIE YAÑEZ [facility] [place] [address] 8 08/23/2023 11:33:51 08/23/2023 11:48:30 Sensorineural hearing loss 93542138 H90.3 Health Concerns Section Related Observation LastModified by Organization Detai ls LastModified Time None Recorded Concern Status LastModified by Organization Details LastModified Time None Recorded Advance Directives Directive None Recorded Payers Encounter Date Sequence Insurance Name Policy Number Policy Sanchez Covered Member ID Sanchez Member ID Guarantor Name 08/23/2023 1 [facility] () Matt Bowman Rajendra [id number] Matt Casianoer 08/23/2023 1 [facility] () Matt Bowman Rajendra [id number] Matt Casianoer Notes Date Note Type Note Provider Name and Address Organization Details Recorded Time 08/23/2023 text/html 08/23/23- patient is a 62-year-old gentleman with a history of stroke-like symptoms which were seen and evaluated at [facility]. As part of his workup he got an MRI of the head which was concerning for right mastoiditis and right petrous apicitis. Patient denies any significant hearing loss above his baseline. He has no history of otorrhea and no history of tympanic membrane perforation. I had previously seen him for evaluation for endoscopic sinus surgery however patient was not interested in that surgical intervention at that time. His last hearing test in our office was in 2014. He spokes 1.5ppd and has for about 45 years. I was able to review A CT scan of the maxillofacial area from 2021, which was performed for a parotid absecess, showed a mastoid effusion at that time. Jannet Jeffery MD [address] [facility], [place], [address], [place] - [place] - [place] & [place] 08/23/2023 12:11:54 08/23/2023 text/html Mr. Drew was s een today for an audiologic evaluation due to concerns about R sided aural fullness/pressure, and long-standing, high freq SNHL bilaterally per Dr. Jannet Jeffery MD. Mr. Drew reports that his symptoms have improved significantly over the past few weeks. He denies tinnitus, dizziness, drainage, and ear pain. Excessive noise exposure includes noise. Otoscopic inspection was unremarkable bilaterally. Type A Tympanogram bilaterally Audiometric testing revealed a mild, sloping to moderate, high freq SNHL bilaterally with good word rec scores. 1-Discussed findings with Mr. Drew and Dr. Jeffery. 2-F/u with Dr. Jeffery this date. 3-F/u hearing testing as directed. CAROLYN GARDUNO, AUD [address] [facility], [place], [address], [facility] - [facility] - [place] & [place] 08/23/2023 12:39:46
--- OUTSIDE RECORDS SUMMARY | 2024-09-28 09:42 | XMS_ITS ---
Author Organization [facility] Address [address] [place] [address] Phone Care Team Providers Care Air Bag Buffer Name Role Phone Reno RIYAJudith Unavailable [phone] Chace CASTLILO, Darrell Myers Unavailable [phone] Problems Includes: Active, inactive, and resolved Problems All Visits Onset Date Resolved Date Provider Condition S tatus Lower Back Pain 08/04/2023 Darrell Mas MD Act jagjit Last Documented On 4 10:23AM ; [facility] Plan of Treatment Instructions to patient Intervention and counseling on cessation of tobacco use Last Documented On 4 10:30AM ; [facility] Lose weight Last Documented On 4 10:30AM ; [facility] Assessments Includes: Assessments for all patient encounters Findings Encounter Date Overweight Physician Specified with Darrell Mas MD 08/04/2023 Last Documented On 4 10:34AM ; [facility] Instructions Includes: Instructions for all patient encounters Instructions to patient Intervention and counseling on cessation of tobacco use Last Documented On 4 10:30AM ; [facility] Lose weight Last Documented On 4 10:30AM ; [facility] Medical Equipment - Implanted Devices Includes: Current and historical Devices No Medical Equipment Recorded Medications Includes: Current and historical Medications Current Medications (continue as prescribed) Nitroglycerin 0.4 MG Sublingual Tablet, sublingual 11/2023 Provider: Diagnosis: Last Documented On 4 10:48AM By Nabila Frey ; [facility] Lisinopril 40 MG Oral Tablet 08/04/2023 Provider: Diagnosis: Last Documented On 4 10:48AM By Nabila Frey ; [facility] Trelegy Ellipta 100-62.5-25 MCG/ACT Inhalation Aerosol Powder Breath Activated 08/04/2023 Provider: Diagnosis: Last Documented On 4 10:53AM By Nabila Frey ; [facility] traZODone HCl 100 MG Oral Tablet 08/04/2023 Provider : Diagnosis: Last Documented On 4 10:53AM By Nabila Frey ; [facility] Cetirizine HCl 10 MG Oral Tablet 08/04/2023 Provider : Diagnosis: Last Documented On 4 10:47AM By Nabila Frey ; [facility] Propafenone HCl ER 425 MG Or al Capsule, extended-release 12 hour 08/04/2023 Provider: Diagnosis: Last Documented On 4 10:52AM By Nabila Frey ; [facility] Potassium Chloride Elyssa ER 1 0 MEQ Oral Tablet, controlled-release 08/04/2023 Provider: Diagnosis: Last Documented On 4 10:50AM By Nabila Frey ; [facility] tiZANidine HCl 4 MG Oral Tablet 08/04/2023 Provider: Diagnosis: Last Documented On 4 10:53AM By Nabila Frey ; [facility] Famotidine 20 MG Oral Tablet 08/04/2023 Provider: Diagnosis: Last Documented On 4 10:47AM By Nabila Frey ; [facility] Fluticasone Propionate 50 MCG/ACT Nasal Suspension 08/04/2023 Provider: Diagnosis: Last Documented On 4 10:47AM By Nabila Frey ; [facility] Gabapentin 600 MG Oral Tablet 07/08/2023 Provider: Judith Reno APRN Diagnosis: Last Documented On 4 10:32AM By Nabila Frey ; [facility] HYDROcodone-Acetaminophen 5-325 MG Oral Tablet 024 Provider: Diagnosis: Last Documented On 4 10:32AM By Nablia Frey ; [facility] Metaxalone 800 MG Oral Tablet 07/07/2023 Provider: Diagnosis: Last Documented On 4 10:45AM By Nabila Frey ; [facility] Jardiance 10 MG Oral Tablet 06/13/2023 Provider: Judith Reno APRN Diagnosis: Last Documented On 4 10:32AM By Nabila Frey ; [facility] Xarelto 20 MG Oral Tablet 05/15/2023 Provider: Domingo Reno APRN Diagnosis: Last Documented On 4 10:52AM By Nabila Frey ; [facility] amLODIPine Besylate 10 MG Oral Tablet 04/18/2023 Pro vider: Judith Reno APRN Diagnosis: Last Documented On 4 10:32AM By Nabila Frey ; [facility] Metoprolol Tartrate 100 MG Oral Tablet 04/17/2023 Pr ovider: Diagnosis: Last Documented On 4 10:46AM By Nabila Frey ; [facility] Atorvastatin Calcium 20 MG Oral Tablet 04/17/2023 Pr ovider: Judith Reno APRN Diagnosis: Last Documented On 4 10:32AM By Nabila Frey ; [facility] Montelukast Sodium 10 MG Oral Tablet 04/17/2023 Prov ider: Diagnosis: Last Documented On 4 10:46AM By Nabila Frey ; [facility] Bumetanide 2 MG Oral Tablet 03/19/2023 Provider: Judith Reno APRN Diagnosis: Last Documented On 4 10:32AM By Nabila Frey ; [facility] Albuterol Sulfate HFA 108 (9 0 Base) MCG/ACT Inhalation Aerosol, solution 02/28/2023 Provider: Judith greene APRN Diagnosis: Last Documented On 4 10:32AM By Nabila Frey ; [facility] Methocarbamol 750 MG Oral Tablet 12/30/2022 Provider : Diagnosis: Last Documented On 4 10:46AM By Nabila Frey ; [facility] Past Medications on file Metaxalone 800 MG Oral Tablet 07/07/2023 - 08/04/2023 Provider: Diagnosis: Last Documented On 4 10:45AM By [facility] Propafenone HCl ER 425 MG Or al Capsule, extended-release 12 hour 05/16/2023 - 08/04/2023 Provider: Diagnosis: Last Documented On 4 10:53AM By Nabila Frey ; [facility] Medications Administered Includes: Administered Medications in patient's chart No Administered Medications Recorded Results Includes: Results from 09/29/2023 through 09/28/2024 No Results Recorded For Specified Dates History of Present Illness History of Present Illness not supported for this document type No History of Present Illness Recorded Social History Description Last Updated Tobacco use 08/04/2023 Last Documented On 4 10:34AM ; [facility] Alcohol use 08/04/2023 Last Documented On 4 10:34AM ; [facility] Caffeine use 08/04/2023 Last Documented On 4 10:34AM ; [facility] No recent change in diet 08/04/2023 Last Documented On 4 10:34AM ; [facility] Not exercising regularly 08/04/2023 Last Documented On 4 10:34AM ; [facility] Not using drugs 08/04/2023 Last Documented On 4 10:34AM ; [facility] Yes, current smoker. 08/04/2023 Last Documented On 4 10:34AM ; [facility] Smoking Status Unknown Procedures and Surgical History Surgical History Last Updated History of hernia repair 08/04/2023 Last Documented On 4 10:34AM ; [facility] History of History of Gallbladder 2023 Last Documented On 4 10:34AM ; [facility] Past Surgical History: Vascular repair - r groin 08/04/2023 Last Documented On 4 10:34AM ; [facility] Medical History Includes: Medical History in patient's chart Description Last Updated History of arthritis 08/04/2023 Last Documented On 4 10:34AM ; [facility] History of diabetes mellitus 08/04/2023 Last Documented On 4 10:34AM ; [facility] History of Heartburn / Acid [...] 4 Last Documented On 4 10:34AM ; [facility] History of Sleep Apnea 08/04/2023 Last Documented On 4 10:34AM ; [facility] History of Stroke 08/04/2023 Last Documented On 4 10:34AM ; [facility] Use of CPAP 08/04/2023 Last Documented On 4 10:34AM ; [facility] Family History Includes: Family History in patient's chart Description Last Updated Family history of cancer 08/04/2023 Last Documented On 4 10:34AM ; [facility] Family history of heart disease 08/04/19 24 Last Documented On 4 10:34AM ; [facility] Family history of rheumatoid arthritis 0 08/04/2023 Last Documented On 4 10:34AM ; [facility] Family history of systemic hypertension 08/04/2023 Last Documented On 4 10:34AM ; [facility] Review of Systems Review of [...] Active Last Documented On 4 10:25AM ; [facility] Niacin Allergy 08/04/2023 Active Last Documented On 4 10:25AM ; [facility] Cipro Allergy 08/04/2023 Active Last Documented On 4 10:25AM ; [facility] Bactrim Allergy 08/04/2023 Active Last Documented On 4 10:26AM ; [facility] Insurance Includes: Active Insurance Policies Plan Name Member ID Group # Subscriber Relationship Effect jagjit Dates 1 - PRIME [id number] Matt Drew Se lf Clinical Notes Includes: Signed Clinical Notes starting from 05/13/2022 No Clinical Notes Recorded
--- OUTSIDE RECORDS SUMMARY | 2024-09-28 09:42 | XMS_ITS ---
Care Plan - [facility] Created on: September 28, 2024 Matt Drew : 1960 Sex: Male Author Organization [facility] Address [address] [place] [phone] Phone Care Team Providers Care Electric Drill Operator Name Role Phone Judith Reno APRN Unavailable [phone] Chace CASTILLO, Darrell Myers Unavailable [phone]
--- NOTE | 2024-09-28 09:43 | XR_ITS ---
FINAL REPORT TECHNIQUE: Chest PA & Lateral CLINICAL HISTORY: Left effusion, patient states f/u COMPARISON: 07/23/2024 FINDINGS: 2 views of the chest were performed. The heart size is normal. The mediastinum is within normal limits. There is some opacity in the left costophrenic angle probably representing scarring in the lingula. This is best seen on the lateral view. There are no pleural effusions. There is no pneumothorax. The bony thorax appears intact. IMPRESSION: Opacity left costophrenic angle probably representing scarring in the lingula. No evidence of pleural effusion. Reviewed, Interpreted and Dictated by Brian Hannah MD Transcribed by Bethany Orozco Authenticated and [facility]
== END 2024-09-28 23:59 | disposition home or self-care (01) ==
LOC: RAD 09:39
PROVIDERS: PCP Nurse Practitioner Family; Visit Provider Internal Medicine Pulmonary Disease
DX: R06.02 Shortness of breath (principal); Z87.09 Personal history of other diseases of the respiratory system; F17.210 Nicotine dependence, cigarettes, uncomplicated
CPT/HCPCS: 71046

== ENCOUNTER 2024-10-11 13:16 | Outpatient (POV) | payer OTHER, SELFPAY ==
--- NOTE | 2024-10-11 13:20 | EXP.PAIN.SOA ---
[facility] Disclaimer: The information contained in this section may have been updated after the patient was seen, as this information can be updated by other users. Medical History (Updated 09/28/24 @ 11:24 by Franklin Boo MD) Abnormality of lung on CXR COPD exacerbation Mastoiditis Transient neurological symptoms Avulsion of skin of right thumb Neck pain Acute mastoiditis Acute parotitis Hiatal hernia Pleural effusion, left Encounter for screening for malignant neoplasm of lung Dyspnea on exertion History of COPD Smoking greater than 30 pack years Encounter for postoperative care Loss of taste Swelling of right parotid gland Swelling of left parotid gland Parotid abscess Dental caries limited to enamel Facial cellulitis Depression Anxiety Diabetes mellitus, type 2 History of stroke COPD (chronic obstructive pulmonary disease) Atrial fibrillation Hyperlipidemia Hypertension Surgical History H/O ventral hernia repair Hx of cardiac catheterization History of cholecystectomy Family History Other Family history of cancer Family history of hyperlipidemia Family history of hypertension Family history of myocardial infarction Social History Smoking Status: Current every day smoker alcohol intake: never substance use type: denies use current occupational status: other Travel in the last 8 weeks?: None household members: spouse housing: house marital status: caffeine: No Have you lived/traveled outside [place] in past 30 days?: No Contact w/someone who lives/traveled outside US past 30 days?: No Exposure to someone with infectious disease in past 14 days?: No Do you have a fever (greater than 100.4 F or 38 C)?: No Have you tested positive for COVID-19?: No Exposed to someone with COVID-19 in past 14 days?: No Do you have a sore throat?: No Do you have a cough?: No Do you have any weakness?: No Do you have any diarrhea?: No Are you experiencing any unusual bleeding?: No Do you have any muscle aches/pain?: No Do you have any abdominal pain?: No Are you experiencing loss of taste or smell?: No PM Subjective & Objective Subjective Subjective:: Patient is a pleasant 63-year-old male who presents today for his medication refill and follow-up. Today he rates his pain at 3 out of 10. He denies any new falls. He does state he is still having neck chronic low back and buttocks pain. He does state it is worse with increased activity. He does state overall he still feels like it is manageable currently. He is currently managed with [place] 7.5 mg 3 times a day and methocarbamol 750 mg 3 times a day. He denies any side effects. Patient was given a 3-month supply of his muscle relaxer [facility] His Matthew has been reviewed and is appropriate. Review of Systems: General: No recent weight changes, no fever, no sleep disturbances Respiratory: No cough, no shortness of air, no recurring pulmonary infections Cardiovascular/peripheral vascular: No chest pain, no palpitations, no edema, no shortness of breath Gastrointestinal: No new onset incontinence, normal bowel movements reported Genitourinary: No new onset incontinence Musculoskeletal: Low back pain Psychiatric: [Normal mood/affect] Neurological: [Denies weakness in extremities], [denies balance issues] Pain at rest (0-10 scale): 3 Objective Objective:: Physical Exam: General: Alert and oriented x3, no acute distress, pleasant and cooperative Lungs: Respirations even and unlabored, symmetrical chest expansion Eyes: PERRL Musculoskeletal: Flexion and extension of lumbar [spine] somewhat guarded secondary to pain, [antalgic gait noted] Neurological: Speech clear, no gross sensory deficit Has patient had previous pain injection?: No Conservative treatment options previously tried: Prescription medications Length of treatment: Longer than 12 weeks Meds Home Medications and Allergies Home Medications ?Medication ?Instructions ?Recorded ?Confirmed ?Type montelukast 10 mg tablet 10 mg PO QPM Breathing problems 11/17/17 09/28/24 History (Singulair) atorvastatin 20 mg tablet 20 mg PO HS Cholesterol 04/11/22 09/28/24 History bumetanide 2 mg tablet 2 mg PO DAILY 04/11/22 09/28/24 History gabapentin 600 mg tablet 600 mg PO TID Pain 04/11/22 09/28/24 History lisinopril 40 mg tablet 40 mg PO DAILY High blood pressure 04/11/22 09/28/24 History metoprolol tartrate 100 mg tablet 100 mg PO BID High blood pressure 04/11/22 09/28/24 History rivaroxaban 20 mg tablet (Xarelto) 20 mg PO QPMWITHMEAL 04/11/22 09/28/24 History amlodipine 10 mg tablet 10 mg PO DAILY 04/20/22 09/28/24 History cetirizine 10 mg tablet (All Day 10 mg PO DAILY 08/01/23 09/28/24 History Allergy (cetirizine)) nitroglycerin 0.4 mg sublingual 0.4 mg sublingual Q5M PRN Chest 08/01/23 09/28/24 History tablet Pain omeprazole 20 mg capsule,delayed 20 mg PO DAILY 09/13/23 09/28/24 History release fluticasone fur. 100 mcg-umeclid 1 inh inhalation DAILY 90 days #90 04/19/24 09/28/24 Rx 62.5 mcg-vilant 25 mcg ea inhalat.powder (Trelegy Ellipta) empagliflozin 10 mg tablet 10 mg PO DAILY 07/05/24 09/28/24 History (Jardiance) sertraline 100 mg tablet 100 mg PO DAILY 07/05/24 09/28/24 History cyclobenzaprine 10 mg tablet 10 mg PO TID 07/14/24 09/28/24 History propafenone 425 mg 425 mg PO BID 07/14/24 09/28/24 History capsule,extended release 12 hr ipratropium 0.5 mg-albuterol 3 mg 3 ml inhalation QID PRN shortness 07/17/24 09/28/24 Rx (2.5 mg base)/3 mL nebulization of breath or wheezing 90 days #270 soln mL hydrocodone 7.5 mg-acetaminophen 1 tab PO TID #90 tabs 09/13/24 09/28/24 Rx 325 mg tablet methocarbamol 750 mg tablet 750 mg PO TID #270 tabs 09/13/24 09/28/24 Rx azelastine 137 mcg (0.1 %) nasal 2 spray intranasal HS 90 days #30 09/28/24 09/28/24 Rx spray mL fluticasone propionate 50 2 spray intranasal DAILY 90 days 09/28/24 09/28/24 Rx mcg/actuation nasal #16 grams spray,suspension (Flonase Allergy Relief) potassium chloride 10 mEq 10 meq PO DAILY 09/28/24 09/28/24 History capsule,extended release trazodone 150 mg tablet 150 mg PO DAILY 09/28/24 09/28/24 History New Prescriptions to Start Prescriptions: Allergies Allergy/AdvReac Type Severity Reaction Status Date / Time levofloxacin Allergy Mild I-RASH Verified 09/28/24 10:37 niacin Allergy Mild Rash Verified 09/28/24 10:37 ofloxacin Allergy Mild Rash Verified 09/28/24 10:37 sulfamethoxazole (From Allergy Mild I-RASH Verified 09/28/24 10:37 Bactrim) trimethoprim (From Bactrim) Allergy Mild I-RASH Verified 09/28/24 10:37 oxytetracycline Allergy Unknown Rash Verified 09/28/24 10:37 Penicillins Allergy Unknown Rash Verified 09/28/24 10:37 fentanyl Allergy Confusion Verified 09/28/24 10:37 Assessment and Plan *Assessment and plan (1) Degenerative disc disease, lumbar: Status: Acute Category: Medical Code(s): M51.369 - Other intervertebral disc degeneration, lumbar region without mention of lumbar back pain or lower extremity pain (2) Lumbar radiculopathy: Status: Chronic Category: Medical Code(s): M54.16 - Radiculopathy, lumbar region Plan Patient is doing well on his current medications. I will refill his [place] and provide a 1 month supply of this medication. Patient will return to clinic in 1 month. Risks and benefits of the medication have been explained in detail to the patient. The patient does understand the risk of dependence on the medication when given over a prolonged period. Patient has been advised of risks of oversedation with the prescribed medication. Narcan has been offered to the paitent in the event of oversedation. Patient has been advised that a family member should also be educated regarding administration of Narcan. The patient has been advised to consult with his/her primary care provider and pharmacist regarding drug-drug interaction of medications currently prescribed. Patient has been prescribed a controlled substance after being counseled on the medication, medication safety, and possible side effects. Opioid contract was reviewed and signed by the patient, and that they have agreed to all of the terms set forth by our compliance program. A UDS is needed to verify patient's compliance with our office pain contract. This is ordered based off specific treatments related to chronic pain with the potential to abuse certain medications. Patient has been instructed to contact the clinic with any concerns before the next appointment. Dr. Read has reviewed this note and agrees with this plan of care. This note was dictated using voice recognition software and make contain errors or omissions.
--- OUTSIDE RECORDS SUMMARY | 2024-10-11 13:20 | XMS_ITS | Data Portability ---
Author Organization [place] - [place] [facility] [place] [facility] Address [address] [place] [id number] Assessment No assessment recorded. Plan of Treatment [...] By Organization Details Last Modified Time 08/23/2023 [id number] Mr. Drew has h ad evidence of [...] audio gram No observ ation record ed. Not Available 2023 12:48:08 Result Notes None recorded. Problems Name Problem SNOMED Code Status Onset Date Resolution Date Notes Provider Name and Address Organization Details Recorded Time Sensorineural hearing loss 32684760 Active 2023 CAROLYN GARDUNO, AUD [address] [facility], [place], [address] , [facility] & [place] 12:37:56 Problem Notes None recorded. Procedures Surgical History Date Name Laterality Status Provider Name and Address Organization Details Recorded Time cholecystectomy completed Dot Melendez [facility] & [place] 08/18/2023 09:58:59 Imaging Results Imaging Date Name [...] not available 08/18/2023 11:02:41 08/23/2023 audiogram completed [id number] Information no t available 08/23/2023 12:48:08 Procedure Notes None recorded. Medical Equipment None Reported. Allergies Allergen ID Allergen Name Allergen Category Reaction Reaction Severity Criticality Documentation Date Start Date Code Code System Note Provider Name and Address Organization Details Recorded Time 457438 Product containin g penicilli n (product) medicatio n anaphylax is Not available [facility] 08/23/2023 89539 8001 SNOMED Dot olivas, ELIZABETH RUFFIN [facility] & [place] 4 11:13:48 269167 Cipro medicatio n rash Not available [facility] 08/23/2023 53380 3 RxNorm Dot olivas, ELIZABETH RUFFIN [facility] & [place] 4 11:14:08 602013 Bactrim medicatio n rash Not available [facility] 08/23/2023 93433 9 RxNorm Dot olivas, ELIZABETH RUFFIN - [place] & [place] 4 11:14:22 Medications Name Sig Start Date [...] propionate 50 mcg/actuatio n nasal spray,suspen maldonado [place] 1 spray every day by intranasal route. [...] Address Organization Details Last Updated DateTime 08/23/2023 426123.97 g 98 [degF] Dot JOHNSON [facility] & [place] 08/23/2023 11:13:30 Social History Question Answer Notes LastModified by Organizat ion Details LastModified Time Tobacco Smoking Status Current Every Day Smoker Dot Melendez [facility], ELIZABETH [facility] & [place] 08/18/2023 10:01:22 What Is Your Current Pack [...] Disorder N Anesthesia Complications N Heart Attack ([place]) N Anxiety Disorder Y Diabetes Y Bleeding [...] SNOMED-CT Code Diagnosis ICD10 Code Diagnosis Note [id number] Jannet Jeffery MD [facility] [place] [id number] 08/23/2023 10:54:59 08/23/2023 11:36:08 MRI scan abnormal 251700152 R93.89 Sensorineu ral hearing loss of bilateral ears 461769733 H90.3 Tobacco user 519728318 Z 72.0 Patient is a significan tly heavy cigarette smoker with no plans to quit. [id number] MANNIE YAÑEZ [facility] [place] [id number] 8 08/23/2023 11:33:51 08/23/2023 11:48:30 Sensorineural hearing loss 33608866 H90.3 Health Concerns Section Related Observation LastModified by Organization Detai ls LastModified Time None Recorded Concern Status LastModified by Organization Details LastModified Time None Recorded Advance Directives Directive None Recorded Payers Insurance Date Sequence Insurance Name Policy Number Policy Sanchez Covered Member ID Sanchez Member ID Guarantor Name 08/23/2023 1 [facility] () Matt Bowman Rajendra [id number] Matt Bowman Rajendra 08/02/2023 1 [place] [id number] Matt Bowman Rajendra [id number] Matt Bowman Rajendra 08/02/2023 1 [place] [id number] Matt Bowman Rajendra [id number] Matt Bowman Rajendra Notes Date Note Type Note Provider Name and Address Organization Details Recorded Time 08/23/2023 text/html 08/23/23- patient is a 62-year-old gentleman with a history of stroke-like symptoms which were seen and evaluated at [facility]. As part of his workup he got [...] effusion at that time. Jannet Jeffery MD [address], [place], [address], [facility] - [place] & [place] 08/23/2023 12:11:54 08/23/2023 text/html Mr. Drew was [...] testing as directed. CAROLYN GARDUNO, AUD [address] [facility], [place], [address], [facility] - [place] & [place] 08/23/2023 12:39:46
--- OUTSIDE RECORDS SUMMARY | 2024-10-11 13:20 | XMS_ITS | Continuity of Care Document ---
Author Name [facility] Organization [facility] Care Team Providers Care Ovens Supervisor Name Role Phone [facility] Unavailable Unavailable Problems Combined list of problems from [facility] and [facility] facilities. It does not include entries that were removed or entered in error. Problem Status Onset Date Problem Type Date of Resolution Comments Source Allergic rhinitis Active [facility] Atrial fibrillation Active Condition [facility] Cerebral infarction Active Condition [facility] Gastroesophageal reflux disease Active Condition [facility] Hypertension Active Condition [facility] Insomnia Active Condition [facility] Obesity Active Condition [facility] Sleep apnea Active Condition [facility] Tobacco use Active Condition [facility] Medications Combined list of outpatient medications from [facility] and [facility] facilities.Medications provided include 1) outpatient medications from the last 15 months, and 2) patient-reported medications. Medication Details Route Status Patient Instructions Prescription Expires Prescription Number Last Dispense Date Ordering Provider Order Date Order Qty Source AMLODIPINE BESYLATE 10MG TAB TAKE ONE TABLET BY MOUTH DAILY ORAL ACTIVE CHOPRA,JOSIAH EK R 2017 [place] [facility] CODEINE 30MG/ACETAM INOPHEN 300MG TAB TAKE ONE TABLET BY MOUTH EVERY 4 HOURS NEEDED ORAL ACTIVE CHOPRA,JOSIAH EK R 2018 [facility] [facility] FUROSEMIDE 40MG TAB TAKE ONE TABLET BY MOUTH DAILY ORAL ACTIVE CHOPRA,JOSIAH EK R 2018 [facility] GABAPENTIN 300MG CAP TAKE 1 CAPSULE BY MOUTH THREE TIMES A DAY ORAL ACTIVE CHOPRA,JOSIAH EK R 2017 [facility] LISINOPRIL 20MG TAB TAKE ONE-HALF TABLET BY MOUTH DAILY ORAL ACTIVE CHOPRA,JOSIAH EK R 2018 [facility] METOPROLOL TARTRATE 100MG TAB TAKE ONE TABLET BY MOUTH TWICE A DAY ORAL ACTIVE CHOPRA,JOSIAH EK R 2017 [facility] MONTELUKAST NA 10MG TAB TAKE ONE TABLET BY MOUTH AT BEDTIME ORAL ACTIVE CHOPRA,JOSIAH EK R 2017 [facility] POTASSIUM CHLORIDE 10MEQ TAB,SA TAKE ONE TABLET BY MOUTH DAILY ORAL ACTIVE CHOPRA,JOSIAH EK R 2017 [facility] PROPAFENONE CAP,SA TAKE 425MG BY MOUTH EVERY 12 HOURS ORAL ACTIVE CHOPRA,JOSIAH EK R 2017 [facility] RIVAROXABAN 20MG TAB TAKE ONE TABLET BY MOUTH EVERY EVENING ORAL ACTIVE CHOPRA,JOSIAH EK R 2017 [facility] TIZANIDINE HCL 4MG TAB TAKE ONE TABLET BY MOUTH DAILY NEEDED ORAL ACTIVE CHOPRA,JOSIAH EK R 2017 [facility] Allergies, Adverse Reactions, Alerts Combined list of allergies from Department of Defense and Veterans Affairs facilities. It does not include entries that were removed or entered in error. Substance Category Reaction Severity Reaction type Status Date Reported Comments Source BACTRIM Propensity to adverse reactions to drug (finding) active 8 [place] [facility] CIPROFLOXACI N Propensity to adverse reactions to drug (finding) active 8 [place] [facility] PENICILLIN Propensity to adverse reactions to drug (finding) Anaphylaxis active 0 [place] [facility] Immunizations Combined list of available immunizations from the Department of Defense and Veterans Affairs facilities. Immunization Series Date Given Administered By Site Reaction Lot Number CVX Code Drug Cotton Washer Status Comments Source INFLUENZA, UNSPECIFIED FORMULATION 2021 88 complet ed Completed Series, HISTORICA L INFORMATI ON - FROM PATIENT'S RECALL, [facility] INFLUENZA, UNSPECIFIED FORMULATION 2020 88 complet ed [place] [facility] COVID-19 (MODERNA), MRNA, LNP-S, PF, 100 MCG/0.5ML DOSE OR 50 MCG/0.25ML DOSE 3 2020 207 complet ed [place] [facility] COVID-19 (MODERNA), MRNA, LNP-S, PF, 100 MCG/0.5ML DOSE OR 50 MCG/0.25ML DOSE 2 2020 207 complet ed [place] [facility] COVID-19 (MODERNA), MRNA, LNP-S, PF, 100 MCG/0.5ML DOSE OR 50 MCG/0.25ML DOSE 1 2019 207 complet ed [place] [facility] INFLUENZA, UNSPECIFIED FORMULATION 2019 88 complet ed [place] [facility] INFLUENZA, SEASONAL, INJECTABLE 2018 141 complet ed [place] [facility] PNEUMOCOCCAL POLYSACCHARID E PPV23 2018 33 complet ed [place] [facility] INFLUENZA, SEASONAL, INJECTABLE 2017 141 complet ed [place] [facility] INFLUENZA A & B (HISTORICAL) 2016 88 complet ed [place] [facility] TDAP 2016 115 complet ed [place] [facility] Encounters Combined list of: 1) Encounters from Department of Veterans Affairs facilities going backup to the last 18 months, not all [place] inpatient encounters are included; 2) Encounters from the Department of Defense facilities going backup to 280 months. Location Location Details Encounter Type Encounter Number Reason For Visit Attending Provider ADM Date DC Date Status Disposition Source [facility] Outpatient Encounter [id number] [facility] [id number] 12[place] [facility] Encounter [id number] [facility] Social History Combined list of available smoking, tobacco, and other social history from Department of Defense and Veterans Affairs facilities. Social History Type Response Date Comment Sourc e Tobacco smoking status NHIS [facility]-TOBACCO USER EVERY DAY 08/10/2022 [facility] History of tobacco use [place]-TO[place]CO [place] 30 MIN OF WAKEUP 08/10/2022 [facility] History of tobacco use [place]-TO[place]CO US[place] EVERY DAY 07/28/2021 [facility] of [facility] History [facility]25/2018 [facility] History of tobacco use V9 CURRENT TOBACCO USER 09/21/2017 [facility]
[2024-10-11 15:20] VITALS: BP 124/58; PULSE 72; RESP 14; O2SAT 93; BMI 38.0
== END 2024-10-11 23:59 | disposition home or self-care (01) ==
PROVIDERS: PCP Nurse Practitioner Family; Visit Provider Nurse Practitioner Family
DX: M51.16 Intervertebral disc disorders with radiculopathy, lumbar region (principal); F17.200 Nicotine dependence, unspecified, uncomplicated; Z79.899 Other long term (current) drug therapy
CPT/HCPCS: 99212; G0463

== ENCOUNTER 2024-11-08 13:08 | Outpatient (POV) | payer OTHER, SELFPAY ==
--- OUTSIDE RECORDS SUMMARY | 2024-07-17 09:51 | XMS_ITS | Continuity of Care Document ---
Author Name [facility] Organization [facility] Care Team Providers Care Strategic Partnership Manager Name Role Phone [facility] Unavailable Unavailable Problems Combined list of problems from [facility] and [facility] facilities. It does not include entries that were removed or entered in error. Problem Status Onset Date Problem Type Date of Resolution Comments Source Allergic rhinitis [facility] Atrial fibrillation Active Condition [facility] Cerebral infarction Active Condition [facility] Gastroesophageal reflux disease Active Condition [facility] Hypertension Active Condition [facility] Insomnia Active Condition [facility] Obesity Active Condition [facility] Sleep apnea Active Condition [facility] Tobacco use Active Condition [facility] Medications Combined list of outpatient medications from [facility] and [facility] facilities.Medications provided include 1) outpatient medications from the last 15 months, and 2) patient-reported medications. Medication Details Route Status Patient Instructions Prescription Expires Prescription Number Last Dispense Date Ordering Provider Order Date Order Qty Source AMLODIPINE BESYLATE 10MG TAB TAKE ONE TABLET BY MOUTH DAILY ORAL ACTIVE CHOPRA,JOSIAH EK R 2017 [place] [facility] CODEINE 30MG/ACETAM INOPHEN 300MG TAB TAKE ONE TABLET BY MOUTH EVERY 4 HOURS NEEDED ORAL ACTIVE CHOPRA,JOSIAH EK R 2018 [place] [facility] FUROSEMIDE 40MG TAB TAKE ONE TABLET BY MOUTH DAILY ORAL ACTIVE CHOPRA,JOSIAH EK R 2018 [place] [facility] GABAPENTIN 300MG CAP TAKE 1 CAPSULE BY MOUTH THREE TIMES A DAY ORAL ACTIVE CHOPRA,JOSIAH EK R 2017 [place] [facility] LISINOPRIL 20MG TAB TAKE ONE-HALF TABLET BY MOUTH DAILY ORAL ACTIVE CHOPRA,JOSIAH EK R 2018 [place] [facility] METOPROLOL TARTRATE 100MG TAB TAKE ONE TABLET BY MOUTH TWICE A DAY ORAL ACTIVE CHOPRA,JOSIAH EK R 2017 [place] [facility] MONTELUKAST NA 10MG TAB TAKE ONE TABLET BY MOUTH AT BEDTIME ORAL ACTIVE CHOPRA,JOSIAH EK R 2017 [place] [facility] POTASSIUM CHLORIDE 10MEQ TAB,SA TAKE ONE TABLET BY MOUTH DAILY ORAL ACTIVE CHOPRA,JOSIAH EK R 2017 [place] [facility] PROPAFENONE CAP,SA TAKE 425MG BY MOUTH EVERY 12 HOURS ORAL ACTIVE CHOPRA,JOSIAH EK R 2017 [place] [facility] RIVAROXABAN 20MG TAB TAKE ONE TABLET BY MOUTH EVERY EVENING ORAL ACTIVE CHOPRA,JOSIAH EK R 2017 [place] [facility] TIZANIDINE HCL 4MG TAB TAKE ONE TABLET BY MOUTH DAILY NEEDED ORAL ACTIVE CHOPRA,JOSIAH EK R 2017 [place] [facility] Allergies, Adverse Reactions, Alerts Combined list of allergies from Department of Defense and Veterans Affairs facilities. It does not include entries that were removed or entered in error. Substance Category Reaction Severity Reaction type Status Date Reported Comments Source BACTRIM Propensity to adverse reactions to drug (finding) active 8 [place] [facility] CIPROFLOXACI N Propensity to adverse reactions to drug (finding) active 8 [place] [facility] PENICILLIN Propensity to adverse reactions to drug (finding) Anaphylaxis active 0 [place] [facility] Immunizations Combined list of available immunizations from the Department of Defense and Veterans Affairs facilities. Immunization Series Date Given Administered By Site Reaction Lot Number CVX Code Drug Pca Status Comments Source INFLUENZA, UNSPECIFIED FORMULATION 2021 88 complet ed Completed Series, HISTORICA L INFORMATI ON - FROM PATIENT'S RECALL, [place] [facility] INFLUENZA, UNSPECIFIED FORMULATION 2020 88 complet ed [place] [facility] COVID-19 (MODERNA), MRNA, LNP-S, PF, 100 MCG/0.5ML DOSE OR 50 MCG/0.25ML DOSE 3 2020 207 complet ed [place] [facility] COVID-19 (MODERNA), MRNA, LNP-S, PF, 100 MCG/0.5ML DOSE OR 50 MCG/0.25ML DOSE 2 2020 207 complet ed [place] [facility] COVID-19 (MODERNA), MRNA, LNP-S, PF, 100 MCG/0.5ML DOSE OR 50 MCG/0.25ML DOSE 1 2019 207 complet ed [place] [facility] INFLUENZA, UNSPECIFIED FORMULATION 2019 88 complet ed [place] [facility] INFLUENZA, SEASONAL, INJECTABLE 2018 141 complet ed [place] [facility] PNEUMOCOCCAL POLYSACCHARID E PPV23 2018 33 complet ed [place] [facility] INFLUENZA, SEASONAL, INJECTABLE 2017 141 complet ed [place] [facility] INFLUENZA A & B (HISTORICAL) 2016 88 complet ed [place] [facility] TDAP 2016 115 complet ed [place] [facility] Encounters Combined list of: 1) Encounters from Department of Veterans Affairs facilities going backup to the last 18 months, not all [place] inpatient encounters are included; 2) Encounters from the Department of Defense facilities going backup to 280 months. Location Location Details Encounter Type Encounter Number Reason For Visit Attending Provider ADM Date DC Date Status Disposition Source [facility] Outpatient Encounter [id number] [facility] [place] [facility] [id number] 12[place]19 [place] [facility] Encounter [id number] 07[facility] Social History Combined list of available smoking, tobacco, and other social history from Department of Defense and Veterans Affairs facilities. Social History Type Response Date Comment Sourc e Tobacco smoking status NHIS VA-TOBACCO USER EVERY DAY 08/10/2022 [facility] History of tobacco use [place]-TO[place]ACCO USE [place] 30 MIN OF WAKEUP [facility] of [facility] use [place]-TOBACCO USER EVERY DAY 07/28/20[facility] of [facility] of [facility] History of tobacco use V9 CURRENT TOBACCO USER 09/21/[facility]
--- NOTE | 2024-11-08 13:15 | EXP.PAIN.SOA ---
[facility] Disclaimer: The information contained in this section may have been updated after the patient was seen, as this information can be updated by other users. Medical History Abnormality of lung on CXR COPD exacerbation Mastoiditis Transient neurological symptoms Avulsion of skin of right thumb Neck pain Acute mastoiditis Acute parotitis Hiatal hernia Pleural effusion, left Encounter for screening for malignant neoplasm of lung Dyspnea on exertion History of COPD Smoking greater than 30 pack years Encounter for postoperative care Loss of taste Swelling of right parotid gland Swelling of left parotid gland Parotid abscess Dental caries limited to enamel Facial cellulitis Depression Anxiety Diabetes mellitus, type 2 History of stroke COPD (chronic obstructive pulmonary disease) Atrial fibrillation Hyperlipidemia Hypertension Surgical History H/O ventral hernia repair Hx of cardiac catheterization History of cholecystectomy Family History Other Family history of cancer Family history of hyperlipidemia Family history of hypertension Family history of myocardial infarction Social History Smoking Status: Current every day smoker alcohol intake: never substance use type: denies use current occupational status: other Travel in the last 8 weeks?: None household members: spouse housing: house marital status: caffeine: No PM Subjective & Objective Subjective Subjective:: Patient is a pleasant 63-year-old male who presents today for his medication refill. He rates his pain today a 4 out of 10. He denies any new falls. Patient is currently managed with methocarbamol 750 mg 3 times daily as needed and Norco7.5 mg 3 times a day. He denies any side effects. his next follow-up with him is November 29. Patient is still seeing pulmonology and denies any new updates. His Matthew has been reviewed and is appropriate. Review of Systems: General: No recent weight changes, no fever, no sleep disturbances Respiratory: No cough, no shortness of air, no recurring pulmonary infections Cardiovascular/peripheral vascular: No chest pain, no palpitations, no edema, no shortness of breath Gastrointestinal: No new onset incontinence, normal bowel movements reported Genitourinary: No new onset incontinence Musculoskeletal: Low back pain Psychiatric: [Normal mood/affect] Neurological: [Denies weakness in extremities], [denies balance issues] Pain at rest (0-10 scale): 4 Objective Objective:: Physical Exam: General: Alert and oriented x3, no acute distress, pleasant and cooperative Lungs: Respirations even and unlabored, symmetrical chest expansion Eyes: PERRL Musculoskeletal: Flexion and extension of lumbar [spine] somewhat guarded secondary to pain, [antalgic gait noted] Neurological: Speech clear, no gross sensory deficit Has patient had previous pain injection?: No Conservative treatment options previously tried: Home exercise plan Length of treatment: Longer than 12 weeks Meds Home Medications and Allergies Home Medications ?Medication ?Instructions ?Recorded ?Confirmed ?Type montelukast 10 mg tablet 10 mg PO QPM Breathing problems 11/17/17 10/11/24 History (Singulair) atorvastatin 20 mg tablet 20 mg PO HS Cholesterol 04/11/22 10/11/24 History bumetanide 2 mg tablet 2 mg PO DAILY 04/11/22 10/11/24 History gabapentin 600 mg tablet 600 mg PO TID Pain 04/11/22 10/11/24 History lisinopril 40 mg tablet 40 mg PO DAILY High blood pressure 04/11/22 10/11/24 History metoprolol tartrate 100 mg tablet 100 mg PO BID High blood pressure 04/11/22 10/11/24 History rivaroxaban 20 mg tablet (Xarelto) 20 mg PO QPMWITHMEAL 04/11/22 10/11/24 History amlodipine 10 mg tablet 10 mg PO DAILY 04/20/22 10/11/24 History cetirizine 10 mg tablet (All Day 10 mg PO DAILY 08/01/23 10/11/24 History Allergy (cetirizine)) nitroglycerin 0.4 mg sublingual 0.4 mg sublingual Q5M PRN Chest 08/01/23 10/11/24 History tablet Pain omeprazole 20 mg capsule,delayed 20 mg PO DAILY 09/13/23 10/11/24 History release fluticasone fur. 100 mcg-umeclid 1 inh inhalation DAILY 90 days #90 04/19/24 10/11/24 Rx 62.5 mcg-vilant 25 mcg ea inhalat.powder (Trelegy Ellipta) empagliflozin 10 mg tablet 10 mg PO DAILY 07/05/24 10/11/24 History (Jardiance) sertraline 100 mg tablet 100 mg PO DAILY 07/05/24 10/11/24 History cyclobenzaprine 10 mg tablet 10 mg PO TID 07/14/24 10/11/24 History propafenone 425 mg 425 mg PO BID 07/14/24 10/11/24 History capsule,extended release 12 hr ipratropium 0.5 mg-albuterol 3 mg 3 ml inhalation QID PRN shortness 07/17/24 10/11/24 Rx (2.5 mg base)/3 mL nebulization of breath or wheezing 90 days #270 soln mL methocarbamol 750 mg tablet 750 mg PO TID #270 tabs 09/13/24 10/11/24 Rx azelastine 137 mcg (0.1 %) nasal 2 spray intranasal HS 90 days #30 09/28/24 10/11/24 Rx spray mL fluticasone propionate 50 2 spray intranasal DAILY 90 days 09/28/24 10/11/24 Rx mcg/actuation nasal #16 grams spray,suspension (Flonase Allergy Relief) potassium chloride 10 mEq 10 meq PO DAILY 09/28/24 10/11/24 History capsule,extended release trazodone 150 mg tablet 150 mg PO DAILY 09/28/24 10/11/24 History hydrocodone 7.5 mg-acetaminophen 1 tab PO TID #90 tabs 10/11/24 Rx 325 mg tablet New Prescriptions to Start Prescriptions: Allergies Allergy/AdvReac Type Severity Reaction Status Date / Time levofloxacin Allergy Mild I-RASH Verified 09/28/24 10:37 niacin Allergy Mild Rash Verified 09/28/24 10:37 ofloxacin Allergy Mild Rash Verified 09/28/24 10:37 sulfamethoxazole (From Allergy Mild I-RASH Verified 09/28/24 10:37 Bactrim) trimethoprim (From Bactrim) Allergy Mild I-RASH Verified 09/28/24 10:37 oxytetracycline Allergy Unknown Rash Verified 09/28/24 10:37 Penicillins Allergy Unknown Rash Verified 09/28/24 10:37 fentanyl Allergy Confusion Verified 09/28/24 10:37 Assessment and Plan *Assessment and plan (1) Degenerative joint disease (DJD) of lumbar spine: Status: Chronic Qualifiers: Spinal osteoarthritis complication: with radiculopathy Qualified Code(s): M47.26 - Other spondylosis with radiculopathy, lumbar region Category: Medical Code(s): M47.816 - Spondylosis without myelopathy or radiculopathy, lumbar region (2) Lumbar radiculopathy: Status: Chronic Category: Medical Code(s): M54.16 - Radiculopathy, lumbar region Plan I will refill his [place] and provide a 1 month supply of these medications. Patient will return to clinic in 1 month for reevaluation of symptoms and plan of care. Risks and benefits of the medication have been explained in detail to the patient. The patient does understand the risk of dependence on the medication when given over a prolonged period. Patient has been advised of risks of oversedation with the prescribed medication. Narcan has been offered to the paitent in the event of oversedation. Patient has been advised that a family member should also be educated regarding administration of Narcan. The patient has been advised to consult with his/her primary care provider and pharmacist regarding drug-drug interaction of medications currently prescribed. Patient has been prescribed a controlled substance after being counseled on the medication, medication safety, and possible side effects. Opioid contract was reviewed and signed by the patient, and that they have agreed to all of the terms set forth by our compliance program. A UDS is needed to verify patient's compliance with our office pain contract. This is ordered based off specific treatments related to chronic pain with the potential to abuse certain medications. Patient has been instructed to contact the clinic with any concerns before the next appointment. Dr. Read has reviewed this note and agrees with this plan of care. This note was dictated using voice recognition software and make contain errors or omissions.
[2024-11-08 13:49] VITALS: BP 128/66; PULSE 60; RESP 12; O2SAT 94; BMI 39.3
--- OUTSIDE RECORDS SUMMARY | 2024-11-08 14:12 | XMS_ITS | Clinical Summary ---
Author Organization Healthcare Address [address] [place] [address] Care Team Providers Care Professional Advisor Name Role Phone Dianne Diaz APRN Primary Care Provider + [phone] Family History Medical History Relation Name Comments Coronary artery disease Other 1 Hyperlipidemia Other 2 Hypertension Other 3 Relation Name Status Comments Other 1 Other 2 Other 3 Social History Tobacco Use Types Packs/Day Years Used Date Smoking Tobacco: Every Day Alcohol Use Standard Drinks/Week Comments No 0 (1 standard drink = 0.6 oz pur e alcohol) Sex and Gender Information Value Date Recorded Sex Assigned at Not on file Legal Sex Male 6:27 PM EDT Gender Identity Not on file Sexual Orientation Not on file Last Filed Vital Signs Vital Sign Reading Time Taken Comments Blood Pressure 133/82 07/13/2024 5:44 PM EST Pulse 84 07/13/2024 5:44 PM EST Temperature - - Respiratory Rate - - Oxygen Saturation 96% 07/13/2024 5:44 PM EST Inhaled Oxygen Concentration - - Weight - - Height - - Body Mass Index - - Plan of Treatment Not on file Care Teams Professional Advisor Relationship Specialty Start Date End Date Dianne Diaz APRN [address] [place], [place] [id number] PCP - General 10/10/20
--- OUTSIDE RECORDS SUMMARY | 2024-11-08 14:12 | XMS_ITS | Data Portability ---
Author Organization [facility] Address [address] [place] [address] Assessment No assessment recorded. Plan of Treatment Reminders Order Date Submit Date Provider Last Modified By Organization Details Last Modified Time Details Appointments ANNUAL EXAM 2024 01:00P M Massimo Reno APRN Not available Not available Not available Lab HbA1c (hemoglob in A1c), blood [address], [address], 08/01/2024 13:50:19 HbA1c (hemoglob in A1c), blood [address], [address], 03/23/2024 11:09:21 CMP, serum or plasma 2023 024 [facility] [address] [place] [address], [address], 03/24/2024 07:08:34 CBC w/ auto diff 2023 024 [facility], [address] [place] [address], [address], 03/24/2024 07:08:33 vitamin D, 25-hydrox y, total, serum 2023 024 [facility] [address], [place], [address], 03/24/2024 07:08:35 TSH, ultra-sen sitive, serum 2023 LEIGH ANN [facility]), [address], [place], [address], 03/24/2024 07:08:35 Referral dermatolo gist referral - CHARANJIT please. Will need removal and he is on Xarelto. 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, [address], [place], [address], 02/22/2024 15:31:43 Procedures None recorded. Surgeries None recorded. Imaging XR, chest, 2 view 2023 [facility], [address] [place] [address], [phone], 04/06/2024 12:12:57 XR, cervical spine, 2 or 3 view 2023 024 [facility], [address] [place] [address], [address], 02/07/2024 09:52:08 Medication Orders nystatin 100,000 unit/mL oral suspensio n 2024 025 WELCH [id number], [address] [facility] [address] , [place], [place], [id number], 08/01/2024 14:08:38 trazodone 150 mg tablet 2024 025 WELCH [facility], [address] [place], [address], 08/01/2024 14:08:34 doxycycli ne monohydra te 100 mg capsule 2023 025 [facility], [address] [place] [address], [address], 08/01/2024 14:08:10 prednison e 20 mg tablet 2023 025 [facility], [address] [place] [address], [address], 08/01/2024 14:23:14 prednison e 20 mg tablet 2023 024 [email or web address] [facility], [address] [place] [address], [address], 08/01/2024 13:43:28 Patient TargetsNo targets recorded. Patient InstructionsNo instructions recorded. 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 Will need removal and he is on Xarelto. Referring Physician: Judith [facility], Encounter Date: 04/24/2024 Results Created Date Observation Date Name Description Value Unit Range Abnormal Flag Note LastModifiedBy Organization Detail LastModifiedTime 03/23/2003/24/2024 CBC WITH DIFFE RENTI AL/PL ATELE T WBC 10.2 x10e3 /uL 3.4-10 .8 normal Not Available [facility] ([facility]) [address] [facility], [place], [address], 03/24/2024 07:08:33 03/23/2003/24/2024 CBC WITH DIFFE RENTI AL/PL ATELE T RBC 5.04 x10e6 /uL 4.14-5 .80 normal Not Available [facility] ([facility]) [address] [facility], [place], [address], 03/24/2024 07:08:33 03/23/2003/24/2024 CBC WITH DIFFE RENTI AL/PL ATELE T hemoglobin 13.8 g/dL 13.0-1 7.7 normal Not Available [facility] ([facility]) [address] [place], [address], 03/24/2024 07:08:33 03/23/2003/24/2024 CBC WITH DIFFE RENTI AL/PL ATELE T hematocrit 44.4 % 37.5-5 1.0 normal Not Available [facility] ([facility]) [address] [place], [address], 03/24/2024 07:08:33 03/23/2003/24/2024 CBC WITH DIFFE RENTI AL/PL ATELE T MCV 88 fL 79-97 normal Not Available [facility] ([facility]) [address] [place], [address], 03/24/2024 07:08:33 03/23/2003/24/2024 CBC WITH DIFFE RENTI AL/PL ATELE T MCH 27.4 pg 26.6-3 3.0 normal Not Available [facility] ([facility]) [address] [place], [address], 03/24/2024 07:08:33 03/23/2003/24/2024 CBC WITH DIFFE RENTI AL/PL ATELE T MCHC 31.1 g/dL 31.5-3 5.7 below low normal Not Available [facility] ([facility]) [address] [place], [address], 03/24/2024 07:08:33 03/23/2003/24/2024 CBC WITH DIFFE RENTI AL/PL ATELE T RDW 15.8 % 11.6-1 5.4 above high normal Not Available [facility] ([facility]) [address] [facility], [place], [address], 03/24/2024 07:08:33 03/23/2003/24/2024 CBC WITH DIFFE RENTI AL/PL ATELE T platelets 370 x10e3 /uL 150-45 0 normal Not Available [facility] ([facility]) [address] [facility], [place], [address], 03/24/2024 07:08:33 03/23/2003/24/2024 CBC WITH DIFFE RENTI AL/PL ATELE T neutrophils 71 % not estab. normal Not Available [facility] ([facility]) [address] [facility], [place], [address], 03/24/2024 07:08:33 03/23/2003/24/2024 CBC WITH DIFFE RENTI AL/PL ATELE T lymphs 14 % not estab. normal Not Available [facility] ([facility]) [address] [facility], [place], [address], 03/24/2024 07:08:33 03/23/2003/24/2024 CBC WITH DIFFE RENTI AL/PL ATELE T monocytes 10 % not estab. normal Not Available [facility] ([facility]) [address] [facility], [place], [address], 03/24/2024 07:08:33 03/23/2003/24/2024 CBC WITH DIFFE RENTI AL/PL ATELE T eos 4 % not estab. normal Not Available [facility] ([facility]) [address] [facility], [place], [address], 03/24/2024 07:08:33 03/23/2003/24/2024 CBC WITH DIFFE RENTI AL/PL ATELE T basos 1 % not estab. normal Not Available [facility] ([facility]) [address] [facility], [place], [address], 03/24/2024 07:08:33 03/23/20 24 03/24/2024 CBC WITH DIFFE RENTI AL/PL ATELE T immature cells RECREATIONAL SPORTS DIRECTOR Not Available [facility]) [address] [place], [address], 03/24/2024 07:08:33 03/23/20 24 03/24/2024 CBC WITH DIFFE RENTI AL/PL ATELE T neutrophils (absolute) 7.1 x10e3 /uL 1.4-7. 0 above high normal Not Available [facility] ([facility]) [address] [place], [address], 03/24/2024 07:08:33 03/23/2003/24/2024 CBC WITH DIFFE RENTI AL/PL ATELE T lymphs (absolute) 1.4 x10e3 /uL 0.7-3. 1 normal Not Available [facility] ([facility]) [address] [place], [address], 03/24/2024 07:08:33 03/23/20 24 03/24/2024 CBC WITH DIFFE RENTI AL/PL ATELE T monocytes(ab solute) 1.1 x10e3 /uL 0.1-0. 9 above high normal Not Available [facility] ([facility]) [address] [place], [address], 03/24/2024 07:08:33 03/23/20 24 03/24/2024 CBC WITH DIFFE RENTI AL/PL ATELE T eos (absolute) 0.5 x10e3 /uL 0.0-0. 4 above high normal Not Available [facility] ([facility]) [address] [place], [address], 03/24/2024 07:08:33 03/23/20 24 03/24/2024 CBC WITH DIFFE RENTI AL/PL ATELE T baso (absolute) 0.1 x10e3 /uL 0.0-0. 2 normal Not Available [facility] ([facility]) [address] [facility], [place], [address], 03/24/2024 07:08:33 03/23/2003/24/2024 CBC WITH DIFFE RENTI AL/PL ATELE T immature granulocytes 0 % not estab. Not Available [facility] ([facility]) [address] [facility], [place], [address], 03/24/2024 07:08:33 03/23/2003/24/2024 CBC WITH DIFFE RENTI AL/PL ATELE T immature grans (abs) 0.0 x10e3 /uL 0.0-0. 1 Not Available [facility] ([facility]) [address] [facility], [place], [address], 03/24/2024 07:08:33 03/23/2003/24/2024 CBC WITH DIFFE RENTI AL/PL ATELE T NRBC RECREATIONAL SPORTS DIRECTOR Not Available [facility] ([facility]) [address] [facility], [place], [address], 03/24/2024 07:08:33 03/23/2003/24/2024 CBC WITH DIFFE RENTI AL/PL ATELE T hematology comments: RECREATIONAL SPORTS DIRECTOR Not Available [facility] ([facility]) [address] [facility], [place], [address], 03/24/2024 07:08:33 03/23/2003/24/2024 COMP. METAB OLIC PANEL (14) glucose 167 mg/dL 70-99 above high normal Not Available [facility] ([facility]) [address] [facility], [place], [address], 03/24/2024 07:08:34 03/23/2003/24/2024 COMP. METAB OLIC PANEL (14) BUN 11 mg/dL 8-27 normal Not Available [facility] ([facility]) [address] [facility], [place], [address], 03/24/2024 07:08:34 03/23/20 24 03/24/2024 COMP. METAB OLIC PANEL (14) creatinine 0.85 mg/dL 0.76-1 .27 normal Not Available [facility] ([facility]) [address] [facility], [place], [address], 03/24/2024 07:08:34 03/23/20 24 03/24/2024 COMP. METAB OLIC PANEL (14) eGFR 97 mL/mi n/1.7 3 >59 normal Not Available [facility] ([facility]) [address] [facility], [place], [address], 03/24/2024 07:08:34 03/23/2003/24/2024 COMP. METAB OLIC PANEL (14) BUN/creatini ne ratio 13 10-24 normal Not Available [facility] ([facility]) [address] [facility], [place], [address], 03/24/2024 07:08:34 03/23/2003/24/2024 COMP. METAB OLIC PANEL (14) sodium 140 mmol/ L 134-14 4 normal Not Available [facility] ([facility]) [address] [facility], [place], [address], 03/24/2024 07:08:34 03/23/20 24 03/24/2024 COMP. METAB OLIC PANEL (14) potassium 3.9 mmol/ L 3.5-5. 2 normal Not Available [facility] ([facility]) [address] [facility], [place], [address], 03/24/2024 07:08:34 03/23/2003/24/2024 COMP. METAB OLIC PANEL (14) chloride 101 mmol/ L 96-106 normal Not Available [facility] ([facility]) [address] [facility], [place], [address], 03/24/2024 07:08:34 03/23/20 24 03/24/2024 COMP. METAB OLIC PANEL (14) carbon dioxide, total 25 mmol/ L 20-29 normal Not Available [facility] ([facility]) [address] [place], [address], 03/24/2024 07:08:34 03/23/20 24 03/24/2024 COMP. METAB OLIC PANEL (14) calcium 8.7 mg/dL 8.6-10 .2 normal Not Available [facility] ([facility]) [address] [place], [address], 03/24/2024 07:08:34 03/23/20 24 03/24/2024 COMP. METAB OLIC PANEL (14) protein, total 7.3 g/dL 6.0-8. 5 normal Not Available [facility] ([facility]) [address] [facility], [place], [address], 03/24/2024 07:08:34 03/23/20 24 03/24/2024 COMP. METAB OLIC PANEL (14) albumin 4.0 g/dL 3.9-4. 9 normal Not Available [facility] ([facility]) [address] [place], [address], 03/24/2024 07:08:34 03/23/20 24 03/24/2024 COMP. METAB OLIC PANEL (14) globulin, total 3.3 g/dL 1.5-4. 5 Not Available [facility] ([facility]) [address] [place], [address], 03/24/2024 07:08:34 03/23/20 24 03/24/2024 COMP. METAB OLIC PANEL (14) bilirubin, total 0.4 mg/dL 0.0-1. 2 normal Not Available [facility] ([facility]) [address] [facility], [place], [address], 03/24/2024 07:08:34 03/23/20 24 03/24/2024 COMP. METAB OLIC PANEL (14) alkaline phosphatase 117 IU/L 44-121 normal Not Available [facility]) [address] [facility], [place], [address], 03/24/2024 07:08:34 03/23/20 24 03/24/2024 COMP. METAB OLIC PANEL (14) AST (SGOT) 15 IU/L 0-40 normal Not Available [facility] ([facility]) [address] [facility], [place], [address], 03/24/2024 07:08:34 03/23/20 24 03/24/2024 COMP. METAB OLIC PANEL (14) ALT (SGPT) 17 IU/L 0-44 normal Not Available [facility] ([facility]) [address] [facility], [place], [address], 03/24/2024 07:08:34 03/23/20 24 03/24/2024 VITAM IN D, 25-HY DROXY vitamin D, 25-hydroxy 33.6 NG/mL 30.0-1 00.0 Vitam in D defic iency has been defin ed by the Insti tute of Medic ine and an Endoc rine Socie ty pract ice guide line as a level of serum 25-OH vitam in D less than 20 ng/mL (1,2) . The Endoc rine Socie ty went on to [facility] er defin e vitam in D insuf ficie ncy as a level betwe en 21 and 29 ng/mL (2). 1. IOM (Inst itute of Medic ine). 2009. Dieta ry refer ence intak es for calci um and D. Avery brownlee [place]: The [facility] Press . 2. Maycol marrero [place], Geoff suarez [place], Yo off-F dolores i ZAMBRANO, et al. Evalu ation , treat ment, and preve ntion of vitam in D defic iency : an Endoc rine Socie ty clini oliva pract ice guide line. JCEM. 2010; 96(7) :1911 -30. Not Available [facility] ([facility]) [address] [facility], [place], [address], 03/24/2024 07:08:35 03/23/2003/24/2024 TSH RFX ON ABNOR MAL TO FREE T4 TSH 1.760 uIU/m L 0.450- 4.500 normal Not Available [facility] ([facility]) [address] [facility], [place], [address], 03/24/2024 07:08:35 03/23/20 24 03/23/2024 HbA1c (hemo globi n A1c), blood HbA1c 6.5 Not Available [address], [address], 03/23/2024 11:04:50 08/02/19 25 08/01/2024 HbA1c (hemo globi n A1c), blood HbA1c 7.0 Not Available [address], [address], 08/01/2024 10:41:08 02/07/20 24 XR, cervi oliva spine , 2 or 3 view No observ ation record ed. [email or web address] [address], [address], 02/07/2024 17:54:02 04/06/20 24 XR, chest , 2 view No observ ation record ed. [email or web address] [address], [address], 04/09/2024 08:40:01 07/02/19 25 06/29/2024 LDCT, chest , for lung cance r scree fatemeh No observ ation record ed. [email or web address] [facility] [address], [place], [address], 07/02/2024 09:20:11 07/13/19 25 07/13/2024 XR, chest , 2 view No observ ation record ed. [email or web address] [facility] [address], [place], [place], [address], 07/15/2024 21:07:05 07/13/19 25 07/13/2024 XR, chest , 2 view No observ ation record ed. [address], [place], [place], [address], 07/15/2024 21:07:06 07/13/19 25 07/13/2024 CT, chest , w/o contr ast No observ ation record ed. [place] [id number], [place], [place], [address], 07/16/2024 10:33:22 07/13/19 25 07/13/2024 CT, abdom en + pelvi s, w/o contr ast No observ ation record ed. [place] [id number], [place], [place], [address], 07/16/2024 10:33:06 07/13/19 25 07/13/2024 XR, chest , 2 view No observ ation record ed. [address], [place], [place], [address], 07/15/2024 21:07:06 07/14/19 25 07/14/2024 XR, chest , 2 view No observ ation record ed. [address], [place], [place], [address], 07/15/2024 21:07:06 07/14/19 25 07/14/2024 XR, chest , 2 view No observ ation record ed. [place] [id number], [place], [place], [address], 07/16/2024 10:32:36 07/14/19 25 07/14/2024 XR, chest , 1 view No observ ation record ed. [address], [place], [address], 07/16/2024 08:58:50 07/14/19 25 07/14/2024 XR, chest , 1 view No observ ation record ed. [address], [place], [address], 07/16/2024 08:58:24 07/14/19 25 07/14/2024 XR, chest , 1 view No observ ation record ed. [place] [address], [place], [address], 07/16/2024 08:55:35 07/15/19 25 07/15/2024 XR, chest , 2 view No observ ation record ed. [email or web address], [place], [address], 07/15/2024 21:07:06 07/15/19 25 07/15/2024 XR, chest , 1 view No observ ation record ed. [address], [place], [address], 07/16/2024 08:55:08 07/15/19 25 07/13/2024 elect glenis elmore am, patti ne ECG, 12 leads min; inter preta tion and repor t (PROC ) No observ ation record ed. [address], [place], [place], [address], 07/16/2024 08:54:30 07/16/19 25 07/16/2024 XR, chest No observ ation record ed. [email or web address] [address], [place], [address], 07/16/2024 09:56:18 07/16/19 25 07/16/2024 XR, chest , 2 view No observ ation record ed. [email or web address] [address] [place], [place], [address], 07/16/2024 14:21:43 07/17/19 25 07/16/2024 dorie elmore am No observ ation record ed. [address], [place], [address], 07/17/2024 16:50:19 07/23/1907/23/2024 XR, chest , 2 view No observ ation record ed. [address], [place], [address], 07/23/2024 13:28:48 09/29/19 25 09/28/2024 XR, chest , 2 view No observ ation record ed. [address], [place], [address], 09/28/2024 11:16:13 Result Notes None recorded. Problems Name Problem SNOMED Code Status Onset Date Resolution Date Notes Provider Name and Address Organization Details Recorded Time Brayan lockhart maldonado 44383322 Active 2023 Judith Reno APRN [address] [place] [address], [address] , [facility] [employer], [facility]. 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 2 diabetes mellitus 275631073 Active 2016 Problem Code: E11.41; Problem Code Type: ICD-10; Not Available [facility] 3 22:34:35 Uncontro lled type 2 diabetes mellitus 831967442 Completed 201602/07/2018 Not Available [employer] 2 21:56:52 Mixed hyperlip idemia 696452037 Active 2017 Problem Code: E78.2; Problem Code Type: ICD-10; Not Available [facility] 3 22:34:35 Moderate major depressi on, single episode 06483130 Active 2021 Problem Code: F32.1; Problem Code Type: ICD-10; Not Available [facility] 3 22:34:35 Primary insomnia 1074207 Completed 201602/20/2017 Problem Code: F51.01; Problem Code Type: ICD-10; Not Available [facility] 2 21:56:52 Primary insomnia 8757815 Completed 201605/14/2017 Problem Code: F51.01; Problem Code Type: ICD-10; Not Available [facility] 2 21:56:53 Primary insomnia 0810018 Completed 201704/04/2018 Problem Code: F51.01; Problem Code Type: ICD-10; Not Available [facility] 2 21:56:53 [employer] al entropio n 04189618 Completed 201802/25/2019 Problem Code: H02.022; Problem Code Type: ICD-10; Not Available [facility] 2 21:56:53 Divertic ulum of Eustachi an tube 750443226 Completed 201712/03/2017 Problem Code: H69.80; Problem Code Type: ICD-10; Not Available [facility] 2 21:56:53 Otalgia of left ear Completed 201710/18/2017 Not Available [facility] 2 21:56:53 Hyperten sive disorder 79618898 Completed 201604/07/2018 Problem Code: I10; Problem Code Type: ICD-10; Not Available [facility] 2 21:56:53 Acute laryngop haryngit is 86993633 Completed 201607/26/2016 Problem Code: J06.0; Problem Code Type: ICD-10; Not Available [facility] 2 21:56:53 Tobacco dependen ce caused by cigarett es 09585387760 533941 Active 2020 Problem Code: F17.210; Problem Code Type: ICD-10; Not Available [facility] 3 22:34:35 Acute bronchit is 92409681 Completed 201802/25/2019 Problem Code: J20.9; Problem Code Type: ICD-10; Not Available [facility] 2 21:56:53 Chronic obstruct jagjit pulmonar y disease 72794769 Active 2020 Problem Code: J44.9; Problem Code Type: ICD-10; Not Available [facility] 3 22:34:35 Radiculo gail due to lumbar interver tebral disc disorder 50315720184 9105 Active 2019 Problem Code: M51.16; Problem Code Type: ICD-10; Not Available [facility] 3 22:34:35 Prolapse d lumbar interver tebral disc 220726135 Completed 201703/18/2020 Problem Code: M51.26; Problem Code Type: ICD-10; Not Available [facility] 2 21:56:54 Low back pain 391093799 Completed 201803/18/2020 Problem Code: M54.5; Problem Code Type: ICD-10; REJI olivas, [employer] 13:18:01 Neck pain 92559198 Completed 201605/14/2017 Not Available [facility] 2 21:56:54 Muscle contract ure 20382779 Completed 201712/03/2017 Problem Code: M62.49; Problem Code Type: ICD-10; Not Available [facility] 2 21:56:55 Low back pain 072522800 Completed 201703/18/2020 Problem Code: M54.5; Problem Code Type: ICD-10; REJI olivas, [employer] 2 13:18:01 Cough 09985749 Completed 201802/25/2019 Problem Code: R05; Problem Code Type: ICD-10; Not Available [facility] 2 21:56:55 Cough 19294818 Completed 201609/21/2016 Problem Code: R05; Problem Code Type: ICD-10; Not Available [facility] 2 21:56:55 Epigastr ic pain 78200124 Completed 201706/06/2018 Problem Code: R10.13; Problem Code Type: ICD-10; Not Available [facility] 2 21:56:55 Eruption 990342655 Completed 201709/12/2017 Problem Code: R21; Problem Code Type: ICD-10; Not Available [facility] 2 21:56:56 Localize d edema 289857700 Completed 201712/03/2017 Problem Code: R60.0; Problem Code Type: ICD-10; Not Available [facility] 2 21:56:56 Localize d edema 009816792 Completed 201601/05/2017 Problem Code: R60.0; Problem Code Type: ICD-10; Not Available [facility] 2 21:56:56 Localize d edema 334006905 Completed 201702/21/2018 Problem Code: R60.0; Problem Code Type: ICD-10; Not Available [facility] 2 21:56:57 Localize d edema 963306794 Completed 201605/14/2017 Problem Code: R60.0; Problem Code Type: ICD-10; Not Available [facility] 2 21:56:57 Paroxysm al atrial fibrilla tion 904401575 Active 2016 Problem Code: I48.0; Problem Code Type: ICD-10; Not Available [facility] 3 22:34:35 Influenz a vaccine needed 14562589208 06 Completed 201906/16/2020 Problem Code: Z23; Problem Code Type: ICD-10; RANDI olivas [facility] [employer] 2 14:51:37 Finding of body mass index 123209749 Active 2018 Problem Code: Z68.41; Problem Code Type: ICD-10; Not Available [facility] 3 22:34:35 Patellof emoral osteoart hritis 133734726 Active 2019 Problem Code: M17.12; Problem Code Type: ICD-10; Not Available [facility] 3 22:34:35 Disorder of nervous system due to type 2 diabetes mellitus 352770523 Completed 201610/04/2017 Problem Code: 250.60; Problem Code Type: ICD-9; Not Available [facility] 2 21:57:00 Disorder of nervous system due to type 2 diabetes mellitus 264941610 Active 2016 Not Available [facility] 3 22:34:35 Low back pain 959400301 Completed 201602/03/2018 Problem Code: M54.5; Problem Code Type: ICD-10; REJI olivas [employer]. 13:18:01 Transien t insomnia 747993381 Completed 201602/20/2017 Problem Code: 307.41; Problem Code Type: ICD-9; Not Available [facility] 2 21:57:01 Transien t insomnia 444715472 Completed 201704/04/2018 Problem Code: 307.41; Problem Code Type: ICD-9; Not Available [facility] 2 21:57:02 Transien t insomnia 213070560 Completed 201605/14/2017 Problem Code: 307.41; Problem Code Type: ICD-9; Not Available [facility] 2 21:57:02 Benign essentia l hyperten maldonado 6310403 Completed 201603/24/2018 Problem Code: 401.1; Problem Code Type: ICD-9; Not Available [facility] 2 21:57:02 Pulmonar y hemorrha ge 18625957 Completed 201602/25/2019 Problem Code: R04.89; Problem Code Type: ICD-10; Not Available [facility] 2 21:57:02 Dysfunct ion of eustachi an tube 71610808 Completed 201712/03/2017 Problem Code: 381.81; Problem Code Type: ICD-9; Not Available [facility] 21:57:02 Spasm 00328623 Completed 201712/03/2017 Problem Code: 728.85; Problem Code Type: ICD-9; Not Available [facility] 21:57:03 Edema 416098676 Completed 201601/05/2017 Problem Code: 782.3; Problem Code Type: ICD-9; Not Available [facility] 21:57:03 Edema 850940431 Completed 201605/14/2017 Problem Code: 782.3; Problem Code Type: ICD-9; Not Available [facility] [facility] 21:57:03 Influenz a vaccine needed [id number] Completed 202005/13/2022 Problem Code: Z23; Problem Code Type: ICD-10; RANDI olivas [employer]. 14:51:37 Otogenic otalgia [id number] Completed 201710/18/2017 Problem Code: 388.71; Problem Code Type: ICD-9; Not Available [facility] 21:57:05 Acute upper respirat ory infectio n of multiple sites Completed 201607/26/2016 Problem Code: 465.8; Problem Code Type: ICD-9; Not Available [facility] 21:57:05 Edema [id number] Completed 201712/03/2017 Problem Code: 782.3; Problem Code Type: ICD-9; Not Available [facility] 21:57:05 Edema [id number] Completed 201702/21/2018 Problem Code: 782.3; Problem Code Type: ICD-9; Not Available [facility] 21:57:06 Problem Notes None recorded. Procedures Surgical History Date Name Laterality Status Provider Name and Address Organization Details Recorded Time 01/29/20 21 cardiac catheterization completed [email or web address]. 03/16/2022 13:40:21 09/24/19 20 colonoscopy completed [employer], [email or web address]. 03/16/2022 13:41:09 Hernia repair w/mesh completed [email or web address]. 03/16/2022 13:38:50 vasectomy completed [email or web address]. 03/16/2022 13:39:01 cardiac ablation using fluoroscopy guidance completed [email or web address]. 03/16/2022 13:39:57 Imaging Results None recorded. Procedure Notes None recorded. Medical Equipment None Reported. Allergies Allergen ID Allergen Name Allergen Category Reaction Reaction Severity Criticality Documentation Date Start Date Code Code System Note Provider Name and Address Organization Details Recorded Time 21721 Product containin g penicilli n (product) medicatio n Not available Not available Not available 02/02/2022 41521 8001 SNOMED SHANTHI DENG [employer] 2 09:31:03 02439 Bactrim medicatio n Not available Not available Not available 02/02/2022 30587 9 RxNorm Not Available [facility] 2 22:56:30 78247 Cipro medicatio n Not available Not available Not available 02/02/2022 50512 3 RxNorm Not Available [facility] 2 22:56:30 Medications Name Sig Start Date Stop Date Status Note LastModified by Organization Details LastModified Time cyclobenz aprine 10 mg tablet TAKE 1 TABLET BY MOUTH THREE TIMES DAILY active Not Available Not Available No t Available metolazon e 2.5 mg tablet Take 1 tablet(s ) by mouth daily active Not Available Not Available No t Available Miralax 17 gram/dose oral powder Take 17 g every day by oral route. 08/01 completed Not Available Not Available Not Available promethaz ine-DM 6.25 mg-15 mg/5 mL oral syrup Take 1 teaspoon by mouth q 4 to 6 hr 07/12 completed Not Available Not Available Not Available nystatin 100,000 unit/mL oral suspensio n SHAKE LIQUID AND TAKE 5 ML BY MOUTH FOUR TIMES DAILY FOR 5 DAYS active Not Available Not Available No t Available Colace 100 mg capsule Take 1 capsule every day by oral route, for constipa tion. 2023 active Not Available Not Available Not Avai lable potassium chloride ER 10 mEq capsule,e xtended release Take 1 capsule every day by oral route. active Not Available Not Available No t Available gabapenti n 600 mg tablet TAKE 1 TABLET THREE TIMES A DAY active Not Available Not Available No t Available doxycycli ne hyclate 100 mg capsule TAKE ONE CAPSULE BY MOUTH TWICE DAILY FOR 10 DAYS 03/11 completed Not Available Not Available Not Available atorvasta tin 20 mg tablet TAKE 1 TABLET DAILY AT BEDTIME active Not Available Not Available No t Available nicotine 14 mg/24 hr daily transderm al patch Apply 1 patch(es ) to hairless area on upper arms daily Remove after 24 hours. 11/02 completed Not Available Not Available Not Available ipratropi um 0.5 mg-albute rol 3 mg (2.5 mg base)/3 mL nebulizat ion soln USE 3 ML VIA NEBULIZE R FOUR TIMES DAILY NEEDED FOR SHORTNES S OF BREATH OR WHEEZING active Not Available Not Available No t Available bumetanid e 2 mg tablet TAKE 1 TABLET DAILY active Not Available Not Available No t Available clindamyc in HCl 300 mg capsule TAKE ONE CAPSULE BY MOUTH TWICE DAILY --TAKE WITH FOOD-- -- FINISH ALL MEDICINE -- 04/26 completed Not Available Not Available Not Available trazodone 50 mg tablet Take 1 tablet every day by oral route at bedtime. 06/15 completed Not Available Not Available Not Available cetirizin e 10 mg tablet Take 1 tablet(s ) by mouth daily 12/03 completed Not Available Not Available Not Available azithromy willian 250 mg tablet TAKE 2 TABLETS BY MOUTH ON DAY 1, THEN TAKE 1 TABLET DAILY ON DAYS 2-5 06/15 completed Not Available Not Available Not Available metoprolo l tartrate 100 mg tablet TAKE 1 TABLET TWICE A DAY 2024 active Not Available Not Available Not Avai lable tizanidin e 4 mg tablet TAKE 1 TABLET TWICE A DAY NEEDED 03/23 completed Not Available Not Available Not Available fluconazo le 150 mg tablet TAKE 1 TABLET BY MOUTH EVERY DAY 12/12 completed Not Available Not Available Not Available benzonata te 200 mg capsule Take 1 capsule 3 times a day by oral route as needed. 06/15 completed Not Available Not Available Not Available albuterol sulfate 1.25 mg/3 mL solution for nebulizat ion 1 vial(s) by nebulize r qid as directed 12/12 completed Not Available Not Available Not Available hydrocodo ne 5 mg-acetam inophen 325 mg tablet TAKE 1 TABLET BY MOUTH THREE TIMES DAILY 02/05 completed Not Available Not Available Not Available fluticaso ne propionat e 0.05 % topical cream APPLY TOPICALL Y TO THE AFFECTED AREA TWICE DAILY FOR UP TO 2 WEEKS. STOP FOR 1 WEEK. REPEAT NEEDED 08/01 completed Not Available Not Available Not Available Claritin 10 mg tablet Take 1 tablet(s ) by mouth daily 10/04 completed Not Available Not Available Not Available prednison e 20 mg tablet TAKE TWO TABLETS BY MOUTH EVERY DAY FOR 2 DAYS 08/01 completed Not Available Not Available Not Available gabapenti n 400 mg capsule take 1 capsule (400 mg) by oral route 3 times per day 06/16 completed Not Available Not Available Not Available sertralin e 100 mg tablet TAKE 1 TABLET DAILY AT BEDTIME active Not Available Not Available No t Available prednison e 5 mg tablet 7pills po today and decrease by one q day 05/19 completed Not Available Not Available Not Available metolazon e 5 mg tablet take 1 tablet (5 mg) by oral route once daily prn swelling 09/13 completed Not Available Not Available Not Available potassium chloride ER 10 mEq tablet,ex tended release Take 3 by mouth daily 03/24 completed Not Available Not Available Not Available metronida zole 500 mg tablet TAKE ONE TABLET BY MOUTH EVERY 6 HOURS FOR 10 DAYS -- FINISH ALL MEDICINE -- 05/13 completed Not Available Not Available Not Available dextromet horphan-g uaifenesi n 10 mg-100 mg/5 mL oral syrup Take 1 teaspoon by mouth q4h prn for cough 09/08 completed Not Available Not Available Not Available amlodipin e 5 mg tablet TAKE 1 TABLET(5 MG) BY MOUTH EVERY DAY 03/16 completed Not Available Not Available Not Available aspirin 81 mg tablet,de layed release Take 1 tablet(s ) by mouth daily 02/16 completed Not Available Not Available Not Available tramadol 50 mg tablet TAKE ONE TABLET BY MOUTH EVERY 6 HOURS NEEDED MAY CAUSE DROWSINE SS 12/08 completed Not Available Not Available Not Available amitripty line 50 mg tablet Take 1 tablet(s ) by mouth at bedtime. 12/22 completed Not Available Not Available Not Available triamcino lone acetonide 0.1 % topical cream apply a thin layer to the affected area(s) by topical route 2 times per day 12/15 completed Not Available Not Available Not Available glimepiri de 2 mg tablet one tablet po every morning 09/18 completed Not Available Not Available Not Available potassium 99 mg tablet Take tab once daily by oral route 03/16 completed Not Available Not Available Not Available potassium chloride ER 20 mEq tablet,ex tended release(p art/cryst ) 1 po q a.m. 09/05 completed Not Available Not Available Not Available methocarb pascale 750 mg tablet TAKE 1 TABLET BY MOUTH THREE TIMES DAILY active Not Available Not Available No t Available Proctofoa m 1 % topical one applicat ion tid 11/11 completed Not Available Not Available Not Available trazodone 100 mg tablet TAKE 1 TABLET DAILY AT BEDTIME active Not Available Not Available No t Available amlodipin e 10 mg tablet TAKE 1 TABLET DAILY 2024 active Not Available Not Available Not Avai lable doxycycli ne monohydra te 100 mg capsule Take 1 capsule twice a day by oral route with meal(s) for 10 days. 08/01 completed Not Available Not Available Not Available hydrocodo ne 7.5 mg-acetam inophen 325 mg tablet TAKE 1 TABLET BY MOUTH THREE TIMES DAILY active Not Available Not Available No t Available Lasix 20 mg tablet 2 po q day 05/18 completed Not Available Not Available Not Available cephalexi n 500 mg capsule TAKE 1 CAPSULE BY MOUTH EVERY 8 HOURS FOR 7 DAYS 06/13 completed Not Available Not Available Not Available tacrolimu s 0.1 % topical ointment APPLY TOPICALL Y TO THE AFFECTED AREA TWICE DAILY active Not Available Not Available No t Available trazodone 150 mg tablet Take 1 tablet every day by oral route at bedtime, for insomnia . active Not Available Not Available No t Available lisinopri l 10 mg tablet Take 1 tablet(s ) by mouth daily 06/25 completed Not Available Not Available Not Available nicotine 21 mg/24 hr daily transderm al patch Apply 1 patch(es ) to hairless area on upper arms daily Remove after 24 hours. 2024 active Not Available Not Available Not Avai lable nitroglyc christa 0.4 mg sublingua l tablet DISSOLVE 1 TABLET UNDER THE TONGUE- MAY REPEAT EVERY 5 MINUTES NEEDED. MAX 3 DOSES IN 15 MINUTES DIRECTED 12/12 completed Not Available Not Available Not Available gabapenti n 300 mg capsule 1 po TID 03/16 completed Not Available Not Available Not Available omeprazol e 20 mg capsule,d elayed release TAKE 1 CAPSULE DAILY active Not Available Not Available No t Available diclofena c sodium 75 mg tablet,de layed release Take 1 tablet(s ) by mouth bid 02/16 completed Not Available Not Available Not Available enoxapari n 150 mg/mL subcutane ous syringe INJECT 140 MG UNDER THE SKIN IN THE ABDOMEN ONLY EVERY 12 HOURS FOR 5 DAYS FOR 10 DOSES 02/05 completed Not Available Not Available Not Available monteluka st 10 mg tablet TAKE 1 TABLET DAILY AT BEDTIME active Not Available Not Available No t Available lisinopri l 5 mg tablet Take 1 tablet(s ) by mouth daily 10/17 completed Not Available Not Available Not Available mupirocin 2 % topical ointment APPLY TOPICALL Y TO SURGICAL SITE TWICE DAILY active Not Available Not Available No t Available ergocalci ferol (vitamin D2) 1,250 mcg (50,000 unit) capsule Take 1 capsule every week by oral route. active Not Available Not Available No t Available Tylenol-C odeine #3 300 mg-30 mg tablet take 1 - 2 tablets by oral route every 4 hours as needed 12/15 completed Patient states he only takes this particul ar medicati on once or twice every couple months, prescrib er is Linda Sierra Not Available Not Available Not Available oxycodone -acetamin ophen 7.5 mg-325 mg tablet TAKE ONE TABLET BY MOUTH EVERY 8 HOURS NEEDED FOR moderate TO SEVERE pain MAY CAUSE DROWSINE SS 06/15 completed Not Available Not Available Not Available methylpre dnisolone 4 mg tablets in a dose pack 03/16 completed Not Available Not Available Not Available albuterol sulfate HFA 90 mcg/actua tion aerosol inhaler Inhale 2 puffs every 4 hours prn SOA/whee ze 12/12 completed Not Available Not Available Not Available ketoconaz ole 2 % topical cream 08/01 completed Not Available Not Available Not Available clobetaso l 0.05 % scalp solution active Not Available Not Available Not Available lisinopri l 40 mg tablet TAKE 1 TABLET DAILY active Not Available Not Available No t Available cefdinir 300 mg capsule TAKE ONE CAPSULE BY MOUTH TWICE DAILY FOR 7 DAYS -- FINISH ALL MEDICINE -- 05/13 completed Not Available Not Available Not Available sertralin e 50 mg tablet Take 1 tablet every day by oral route. 03/11 completed Not Available Not Available Not Available amitripty line 100 mg tablet Take 1 tablet by mouth daily qhs 02/16 completed Not Available Not Available Not Available doxycycli ne hyclate 100 mg tablet TAKE ONE TABLET BY MOUTH TWICE DAILY FOR 2 DAYS 08/01 completed Not Available Not Available Not Available nicotine 7 mg/24 hr daily transderm al patch Apply 1 patch(es ) to hairless area on upper arms daily Remove after 24 hours. 11/02 completed Not Available Not Available Not Available neomycin- polymyxin -hydrocor t 3.5 mg-10,000 unit/mL-1 % ear drops,trudy p 3 drops in the affected ear tid 01/16 completed Not Available Not Available Not Available Afrin (oxymetaz oline) 0.05 % nasal spray spray 2 sprays in each nostril by intranas al route 2 times per day inthe morning and evening prn nasal congesti on. Use no more than 3 days in a row. 03/16 completed Not Available Not Available Not Available metaxalon e 800 mg tablet TAKE 1 TABLET BY MOUTH THREE TIMES DAILY NEEDED FOR MUSCLE PAIN 03/23 completed Not Available Not Available Not Available cyclobenz aprine 5 mg tablet Take 1 tablet at bedtime 05/14 completed Not Available Not Available Not Available propafeno ne ER 425 mg capsule,e xtended release 12 hr TAKE 1 CAPSULE EVERY 12 HOURS active Not Available Not Available No t Available nitrofura ntoin monohydra te/macroc rystals 100 mg capsule TAKE 1 CAPSULE BY MOUTH EVERY 12 HOURS FOR 7 DAYS DIRECTED . TAKE WITH FOOD 12/12 completed Not Available Not Available Not Available Zantac Maximum Strength 150 mg tablet Take 1 daily 02/09 completed Not Available Not Available Not Available lovastati n Take 1 tablet(s ) by mouth each evening 07/12 completed Medicati onID: ''; Medicati onName: 'Lovasta tin'; ConceptT ype: ''; Not Available Not Available Not Available Symbicort 160 mcg-4.5 mcg/actua tion HFA aerosol inhaler inhale 2 puffs by inhalati on route 2 times per day in the morning andeveni ng 09/13 completed Not Available Not Available Not Available Pulmicort 1 mg/2 mL suspensio n for nebulizat ion Inhale contents of 1 ampule(s ) bid 11/07 completed Not Available Not Available Not Available diclofena c 1 % topical gel apply 2 grams to the painful left knee by topical route 4 times per day prn pain 08/10 completed Not Available Not Available Not Available Xarelto 20 mg tablet TAKE 1 TABLET DAILY WITH THE EVENING MEAL active Not Available Not Available No t Available Probiotic 20 billion cell capsule Take 1 capsule every day by oral route for 30 days. 12/12 completed Not Available Not Available Not Available Breo Ellipta 100 mcg-25 mcg/dose powder for inhalatio n inhale 1 puff by inhalati on route once daily at the same time each day 09/13 completed Not Available Not Available Not Available Jardiance 10 mg tablet TAKE 1 TABLET DAILY FOR DIABETES active Not Available Not Available No t Available Proctosol HC 2.5 % topical cream perineal applicato r Apply thin film to affected area bid 11/11 completed Not Available Not Available Not Available Flonase Sensimist 27.5 mcg/actua tion nasal spray,trudy pension one spray in each nostril bid 12/03 completed Not Available Not Available Not Available Trelegy Ellipta 100 mcg-62.5 mcg-25 mcg powder for inhalatio n inhale 1 puff by inhalati on route once daily at the same time each day active Not Available Not Available No t Available Plenvu 140 gram-9 gram-5.2 gram powder packs 08/01 completed Not Available Not Available Not Available tramadol 100 mg tablet take 1 tablet (100 mg) by oral route TID PRN pain 03/17 completed Not Available Not Available Not Available Ozempic 0.25 mg or 0.5 mg (2 mg/3 mL) subcutane ous pen injector Inject 0.25 mg every week by subcutan eous route, for Diabetes . 12/12 completed Not Available Not Available Not Available Vitals Date Recorded Body height Body mass index (BMI) Body weight Heart rate Oxygen saturation Oxygen saturation in Arterial blood by Pulse oximetry Systolic blood pressure Diastolic blood pressure Provider Name and Address Organization Details Last Updated DateTime 5 182.88 cm 36.5 kg/m2 098039. 05 g 87 /min 88 % 88 % 134 mm[Hg] 85 mm[Hg] Taina Sevilla HI [employer], [email or web address] 5 13:42:59 Date Recorded Body height Body mass index (BMI) Body weight Body temperature Heart rate Oxygen saturation Oxygen saturation in Arterial blood by Pulse oximetry Systolic blood pressure Diastolic blood pressure Systolic blood pressure Diastolic blood pressure Systolic blood pressure Diastolic blood pressure Provider Name and Address Organization Details Last Updated DateTime 4 182.88 cm 38 kg/m2 750993. 86 g 98 [degF] 84 /min 92 % 92 % 167 mm[Hg] 74 mm[Hg] 166 mm[Hg] 78 mm[Hg] 168 mm[Hg] 75 mm[Hg] REJI [employer] 4 16:06:41 Date Recorded Body height Body mass index (BMI) Body weight Body temperature Heart rate Oxygen saturation Oxygen saturation in Arterial blood by Pulse oximetry Systolic blood pressure Diastolic blood pressure Provider Name and Address Organization Details Last Updated DateTime 4 182.88 cm 38.5 kg/m2 394396. 95 g 98 [degF] 75 /min 88 % 88 % 138 mm[Hg] 70 mm[Hg] RE[employer]I [employer] 4 11:03:40 Date Recorded Body height Body mass index (BMI) Body weight Body temperature Heart rate Oxygen saturation Oxygen saturation in Arterial blood by Pulse oximetry Systolic blood pressure Diastolic blood pressure Systolic blood pressure Diastolic blood pressure Systolic blood pressure Diastolic blood pressure Provider Name and Address Organization Details Last Updated DateTime 4 182.88 cm 38.8 kg/m2 865409. 85 g 98.6 [degF] 79 /min 90 % 90 % 159 mm[Hg] 68 mm[Hg] 146 mm[Hg] 67 mm[Hg] 150 mm[Hg] 67 mm[Hg] [employer] 13:57:17 Social History Question Answer Notes LastModified by Organizat ion Details LastModified Time Tobacco Smoking Status Current Every Day Smoker SHANTHI olivas, [employer]. 04/26/2022 11:57:24 Do You Have An Advance Directive? No Information n ot available 03/16/2022 Is Your Home Air Conditioned? Yes Information not available 03/16/2022 Are You Blind Or Do You Have Difficulty Seeing? No Information n ot available 03/16/2022 Are You A Caregiver? No Information not available 03/16/2022 In The 14 Days Before Symptom Onset, Have You Had Close Contact With A Laboratory-confirm ed COVID-19 While That Case Was Ill? No Information n ot available 03/16/2022 In The 14 Days Before Symptom Onset, Have You Had Close Contact With A Person Who Is Under Investigation For COVID-19 While That Person Was Ill? No Information not available 03/16/2022 Have You Been To An Area Known To Be High Risk For COVID-19? No Information not available 03/16/2022 Are You Deaf Or Do You Have Serious Difficulty Hearing? No Information not available 03/16/2022 What Type Of Diet Are You Following? DIABETIC Information n ot available 03/16/2022 Who Is Your Employer? [employer] Information not available 03/16/2022 Have There Been Any Changes To Your Family Or Social Situation? No Information no t available 03/16/2022 Are There Any Guns Present In Your Home? Yes [email or web address] Information not available 09/09/2023 Do You Have A Medical Power Of Workforce Investment Act Career Manager? No Information not available 03/16/2022 What Was The Date Of Your Most Recent Tobacco Screening? 08/01/2024 [email or web address] Information not available 08/01/2024 What Is Your Current Pack Years? [email or web address] Information not available 03/16/2022 What Is Your Relationship Status? Information not available 03/16/2022 Do You Use Your Seat Belt Or Car Seat Routinely? Yes Information not available 03/16/2022 Do You Have Smoke And Carbon Monoxide Detectors In Your Home? Yes Information not available 03/16/2022 Are You Passively Exposed To Smoke? No Information no t available 03/16/2022 Are There Any Smokers In Your House? Yes Information not available 03/16/2022 How Much Tobacco Do You Smoke? 1 PPD Information not available 03/16/2022 Do You Use Sunscreen Routinely? No Information not available 03/16/2022 Has Tobacco Cessation Counseling Been Provided? No Information not available 03/16/2022 Have You Recently Traveled Abroad? No Information not available 03/16/2022 Do You Have Difficulty Walking Or Climbing Stairs? No Information not available 03/16/2022 Are You Currently In School? No Information not available 03/16/2022 Do You Have Any Dietary Restrictions? Yes Information not available 03/16/2022 Sex: Male Functional Status Question Answer Note LastModified by Organizat ion Details LastModified Time Do you use any illicit or recreational drugs? No Information not available 03/16/2022 Do you or have you ever used any other forms of tobacco or nicotine? No Information not available 03/16/2022 What is your level of alcohol consumption? None Information not available 03/16/2022 Are you currently employed? Yes Information not available 03/16/2022 Do you have transportation difficulties? No Information not available 03/16/2022 Do you have difficulty doing errands alone? No Information not available 03/16/2022 Are you able to care for yourself? Yes Information not available 03/16/2022 Do you have difficulty dressing or bathing? No Information not available 03/16/2022 Mental Status Question Answer Note LastModified by Organization D etails LastModified Time Do you have difficulty concentrating, remembering or making decisions? No Information no t available 03/16/2022 Family History Relationship Description Onset Age of this Age Resolved Age Notes LastModified by Organization Details LastModified Time Father Family history of Hypertension [email or web address] Not available 04/26/2022 09:31:20 Father Family history of ischemic heart disease [email or web address] Not available 09:31:26 Father Family history of hyperlipidem ia [id number] Not available 09:31:33 Mother Family history of Hypertension [email or web address] Not available 13:36:10 Mother Family history of ischemic heart disease [email or web address] Not available 2021 13:36:25 Mother Family history of hyperlipidem ia [email or web address] Not available 2021 13:36:48 Medical History Condition Response Diabetes Y Hospitalizations Y Acid Reflux (GERD) Y Emergency room visit since last appointm ent. Y COPD Y High Cholesterol Y Hypertension Y Immunizations Vaccine Type Date Status Note Provider Nam ban and Address Organization Details Recorded Time zoster recombinant 3 completed Judith Reno APRN [address] [place] [address], [id number], [employer] 12/20/2022 17:06:53 Influenza, split virus, quadrivalent, PF 3 completed Zakiya Heck, RIYA [address] [place], [address], [employer] 03/04/2023 16:11:47 COVID-19, mRNA, LNP-S, PF, sia-sucrose, 30 mcg/0.3 mL 3 completed Judith Reno, RIYA [address] [place], [address], [employer] 03/11/2023 18:07:55 Influenza, split virus, quadrivalent, PF 2 completed Judith Reno, RIYA [address] [place], [address], [employer] 03/17/2022 18:20:55 Influenza, MDCK, quadrivalent, preservative 9 completed Not Available [facility] 05/11/2023 22:34:35 COVID-19, mRNA, LNP-S, PF, 100 mcg/0.5mL dose or 50 mcg/0.25mL dose 1 completed Not Available [facility] 05/11/2023 22:34:35 COVID-19, mRNA, LNP-S, PF, 100 mcg/0.5mL dose or 50 mcg/0.25mL dose 0 completed Not Available [facility] 05/11/2023 22:34:35 Influenza, split virus, quadrivalent, PF 1 completed Not Available [facility] 05/11/2023 22:34:35 pneumococcal, unspecified formulation 9 completed Not Available [facility] 05/11/2023 22:34:35 Influenza, split virus, quadrivalent, preservative 0 completed Not Available [facility] 05/11/2023 22:34:35 Influenza, split virus, quadrivalent, preservative 8 completed Not Available [facility] 05/11/2023 22:34:35 Influenza, split virus, trivalent, PF 4 completed Judith Reno APRN [address] [place], [address], [facility] [employer] 03/25/2024 15:03:38 COVID-19, mRNA, LNP-S, PF, sia-sucrose, 30 mcg/0.3 mL 4 completed Judith Reno APRN [address] [place], [address], [facility] [employer] 04/08/2024 17:46:37 COVID-19, mRNA, LNP-S, PF, 100 mcg/0.5mL dose or 50 mcg/0.25mL dose 1 completed Not Available [facility] 05/11/[facility]23 22:34:35 Past Encounters Encounter ID Performer Location Encounter Start Date Encounter Closed Date Diagnosis/Indication Diagnosis SNOMED-CT Code Diagnosis ICD10 Code Diagnosis Note [id number] [place] [address] 03/17/2022 15:43:51 03/17/2022 16:23:30 Administration of influenza vaccine 14496875 Z23 Disorder o f nervous system due to type 2 diabetes mellitus 623157900 E11.42 Moderate m ajor depression, single episode 98411087 F32.1 Radiculopa thy due to lumbar intervertebral disc disorder 9620542622 60280 M51.16 Chronic ob structive pulmonary disease 36970012 J44.9 Again smoking cessation was emphasized . He has not been compliant with his inhalers of late. [id number] Judith Reno APRN [address] 0 04/09/2022 15:47:33 04/09/2022 16:16:52 Parotitis 61452463 K11.20 Start clindamyci n today, may use Tylenol for pain and fever. I have encouraged him to suck on sour candy to increase salivation . He may do warm moist compresses . I instructed him that should pain or swelling progress or fever, that he should return to clinic or go to the emergency room. [id number] [place] [address] 04/26/2022 11:33:20 04/26/2022 12:29:16 Acute sialoadenitis 133852108 K11.21 Continue cefdinir and flagyl, keep ENT appt in 2 days. Continue to suck on sour candies. Emphasized stopping smoking and seeing a dentist. [id number] Zakiya Heck [place] [address] 05/13/2022 14:40:20 05/13/2022 15:33:04 Cough 97088442 R05.9 Lower resp iratory tract infection 68740404 J22 Wheezing 93990360 R06.2 [id number] [place] [address] 06/15/2022 08:46:58 06/15/2022 09:20:28 Disorder of nervous system due to type 2 diabetes mellitus 920249238 E11.42 Continue current medication s. Mixed hyperlipidemia 267 821010 E78.2 Moderate m ajor depression, single episode 61966163 F32.1 Increase Trazodone to 100 mg q HS prn. Increase Zoloft to 100 mg daily. He declines counseling again today. Chronic ob structive pulmonary disease 03567480 J44.9 Again smoking cessation was emphasized . He has not been compliant with his inhalers of late. Tobacco de pendence caused by cigarettes 2871979565 0457325 F17.210 Body mass index 40+ - severely obese 598245629 Z68.41 [id number] [place] [address] 09/10/2022 10:16:15 09/10/2022 11:22:09 Mononeuropathy due to type 2 diabetes mellitus 883167540 E11.41 Again emphasized DM control, DM diet, med compliance , stop smoking. Long-term current use of drug therapy 696985166 Z79.899 Andres reviewed, annual UDS obtained, shirt hemmer controlled substance agreement on file. Radiculopa thy due to lumbar intervertebral disc disorder 3014271303 30456 M51.16 [id number] [place] [address] 0 12/08/2022 10:16:21 12/08/2022 11:02:56 Disorder of nervous system due to type 2 diabetes mellitus 329892838 E11.42 Continue current medication s. Chronic ob structive pulmonary disease 29031488 J44.9 Again smoking cessation counseling was provided. Compliance with inhalers was emphasized . Essential hypertension 00364101 I10 DASH diet, exercise and smoking cessation encouraged . Paroxysmal atrial fibrillation 130387097 I48.0 Tobacco de pendence caused by cigarettes 3167521078 4581902 F17.210 Adult heal th examination 435128980 Z00.00 Body mass index 40+ - severely obese 171667227 Z68.41 Vitamin D deficiency 347 57618 E55.9 Hepatitis C screening 41 6720265 Z11.59 Screening for malignant neoplasm of respiratory tract 915419623 Z12.2 Active or passive immunization 226086091 Z23 Nocturia 313025641 R35.1 [id number] [place] [address] 0 12/31/2022 10:49:24 12/31/2022 11:51:56 Abscess of buttock 59752289 L02.31 Right buttock. Complete all antx, warm epsom soaks BID. [id number] Zakiya Heck [place] [address] 0 03/04/2023 13:10:54 03/04/2023 14:01:06 Administration of influenza vaccine 32573410 Z23 [id number] [place] [address] 0 03/09/2023 13:23:47 03/09/2023 17:48:51 Active or passive immunization 734814689 Z23 [id number] [place] [address] 0 03/11/2023 10:29:41 03/11/2023 11:34:19 Mononeuropathy due to type 2 diabetes mellitus 024377430 E11.41 Again emphasized DM control, DM diet, med compliance , stop smoking. Consequenc es of uncontroll ed DM explained. [id number] Judith Reno [address] [address] 06/13/2023 11:03:25 06/13/2023 12:15:48 Disorder of nervous system due to type 2 diabetes mellitus 692636130 E11.42 Continue current medication s. Start Jardiance 10 mg daily as A1c is not controlled and he has cardiovasc ular disease. Take BP meds as soon as you arrive home today and check BP daily- notify me if it trends > 140/90. Mixed hyperlipidemia 267 612511 E78.2 Continue statin and low fat dash diet was encouraged . Chronic ob structive pulmonary disease 39054076 J44.9 Again smoking cessation counseling was provided. Compliance with inhalers was emphasized . Moderate m ajor depression, single episode 87981763 F32.1 Continue zoloft and trazodone. Paroxysmal atrial fibrillation 395705039 I48.0 Continue rate controller s. Vitamin D deficiency 347 43395 E55.9 Transient cerebral ischemia 917289258 G45.9 Must continue the Xarelto daily, it cannot be held for any further injections at this time. Obtain MRI brain and carotid artery duplex with Neurology referral. I inst him that should he develop these sx again, he must go to [facility] y. [id number] [place], [address] [address] 08/11/2023 13:28:00 08/11/2023 14:28:59 Dysuria 91097860 R30.0 Melena 7729560 K92.1 [id number] Judith Reno [address] [address] 09/09/2023 08:59:41 09/09/2023 11:05:32 Disorder of nervous system due to type 2 diabetes mellitus 633749464 E11.42 Continue current medication s. He needs to quit smoking!!! Will refill gabapentin , andres reviewed, will be due for UDS at next visit. Start Ozempic 0.25 mg weekly. Constipation 43472228 K5 9.00 Continue colace, add miralax. Start probiotic. Omeprazole daily for 30 days. Candidal balanitis 42722 007 B37.42 Screening for malignant neoplasm of colon 122151545 Z12.11 [id number] Judith Reno [place] [address] 0 12/13/2023 15:20:38 12/13/2023 16:27:38 Disorder of nervous system due to type 2 diabetes mellitus 437435235 E11.42 Continue current medication s. He needs to quit smoking!!! Will refill gabapentin andres reviewed, will obtain UDS today. 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 Constipation 66115744 K5 9.00 He is to use Miralax daily with increased dietary fiber intake and oral fluids with increased physical activity as he is able. Tobacco de pendence caused by cigarettes 0792117194 7143513 F17.210 Smoking cessation encouraged . [id number] Judith Shadia [place] [address] 0 02/06/2024 15:47:29 02/06/2024 17:11:01 Neck pain 62863218 M54.2 RICE, continue muscle relaxants, gabapentin and [place] he has at home. Start PT. Use of lidocaine patch OTC explained and samples given. Short course of steroids, he cannot take nsaids as he must take Xarelto. [id number] Judith Reno [place] [address] 0 03/23/2024 10:52:08 03/23/2024 13:44:10 Active or passive immunization 057538895 Z23 Chronic ob structive pulmonary disease 62705345 J44.9 Again smoking cessation counseling was provided. Compliance with inhalers was emphasized . Continues on CPAP for CASANDRA with oxygen bled in at night. He also needs to keep Pulmonary consult appt and wear the home oxygen he has at 2 l/m per [place]. Disorder o f nervous system due to type 2 diabetes mellitus 586917177 E11.42 Continue current medication s. He needs to quit smoking!!! Andres reviewed today for gabapentin refill. Essential hypertension 22571557 I10 DASH diet, exercise and smoking cessation encouraged . Fatigue 92282410 R53.83 Body mass index 30+ - obesity 276098919 Z68.38 [id number] [place] [address] 0 04/06/2024 13:12:21 04/06/2024 13:53:04 Active or passive immunization 638491231 Z23 [id number] [place] [address] 0 04/24/2024 13:36:45 04/24/2024 14:53:15 Acute exacerbation of chronic obstructive pulmonary disease 002607137 J44.1 Continue oxygen and inhalers. Begin antx and steroids. He must stop smoking! Neoplasm o f uncertain behavior of skin 17479888 D48.5 CHEST wall nevus - large, raised, irregular, progressiv e. Needs Derm consult. [id number] [place] [address] 08/01/2024 13:28:18 08/01/2024 14:14:42 Mononeuropathy due to type 2 diabetes mellitus 196286328 E11.41 Again emphasized DM control, DM diet, med compliance , stop smoking. Consequenc es of uncontroll ed DM explained. 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 History of pneumothorax 278940714 Z87.09 Keep appt with Pulmonary for f/up chest CT. Chronic ob structive pulmonary disease 56205561 J44.9 Again smoking cessation counseling was provided. Compliance with inhalers was emphasized . Continues on CPAP for CASANDRA with oxygen bled in at night. He also needs to keep Pulmonary consult appt and wear the home oxygen he has at 2 l/m per [place]. Pleural effusion 2365368 8 J90 Scheduled to see Pulmonary with f/up CXR in 6 weeks. Continue diuretics and daiy weights. Is euvolemic today. Moderate m ajor depression, single episode 31520390 F32.1 Continue zoloft and increase trazodone to 150 mg q HS. Candidiasis of mouth 797 34604 B37.0 Health Concerns Section Related Observation LastModified by Organization Rosemary ls LastModified Time None Recorded Concern Status LastModified by Organization Details LastModified Time None Recorded Advance Directives Directive N: Payers Insurance Date Sequence Insurance Name Policy Number Policy Sanchez Covered Member ID Sanchez Member ID Guarantor Name 08/28/2024 1 [facility] () Matt Drew [id number] Mtat Drew 07/15/2023 PAYMENT PLAN Matt Drew 08/28/2024 1 [facility] () Matt Drew [id number] Matt Drew Notes Date Note Type Note Provider Name and Address Organization Details Recorded Time 02/06/2024 text/html Neck PainReporte d bypatient.Location:b ilateral; posterior Quality:spasms Severity:not changing; moderate Duration:4 days; continuous since onset Timing:acute; constant Context:cannot identify Alleviating Factors:ice Aggravating Factors:motion Neurological Complaints:none Other Associated Symptoms:no swelling; no redness; no warmth; no ecchymosis; no grinding; no fever; no chills; no weight loss Previous Surgery:none Prior Imaging:none Judith Reno APRN [address] [place], [address], [facility] [employer] 02/06/2024 17:53:46 03/23/2024 text/html COPDReported bypatient.Onset/Cesar ng:multiple times per day Duration:chronic; has noted for years Severity:slowly worsening; moderate Context:cigarette smoking Alleviating factors:relieved with oxygen; relieved with bronchodilator; relieved with CPAP/BIPAP Aggravating factors:worse with cigarette smoking;worse with exertion Associated Symptoms:snoring;exc essive daytime sleepiness;dyspnea;d yspnea during exertion;decrease in exercise capacity;fatigue;lar ge amounts of clear sputum;weight loss;depression;obes ityDiabetes F/UReported bypatient.Review finger sticks:Never checks his glucose. Labs:last A1C result: 6.8 Context:seeing eye doctor regularly; checking feet regularly; taking aspirin daily; not missing doses of medications; no side effects from medications Associated Symptoms:weight loss (6 lbs);numbness of feetNotes:Takes gabapentin for chronic peripheral neuropathy. Andres reviewed today, UDS has been consistent, long-term controlled substance agreement on file. Is not compliant with diet or exercise, continues to smoke.Hypertension F/UReported bypatient.Medication s:taking medications as directed; no side effects from medication Lifestyle:not exercising regularly;does not adhere to low sodium diet Associated Symptoms:no dizziness; no lightheadedness; no chest pain; no palpitations; no edema; no calf pain with exertion; no headache;shortness of breath; c/o fatigue Has upcoming Pulmonary consult appt due to progressive COPD.He follows with Cardio, Neuro and Interventional Pain. Wears CPAP q HS.Colonoscopy is scheduled for this fall with [facility]. Judith Reno APRN [address] [place] [address], [address], [facility] [employer] [facility]. 03/25/2024 15:09:04 04/24/2024 text/html CoughReported bypatient.Quality:pr oductive Severity:worsening; moderate Duration:constant; acute (<3 weeks) Onset/Timing:episodi c; becomes worse as the day goes on Context:smoker; history of bronchitis; COPD Modifying Factors:inhaler Associated Symptoms:no fever; no chills; no chest pain; no heartburn; no nausea; no vomiting; no edema; no agitation;wheezing;s putum production;shortness of breath;throat clearing;nasal discharge;tiredness; dyspneaNotes:C/o increased cough and AVILA for one week. Has significant COPD, uses oxygen at home and inhalers.Skin LesionReported bypatient.Location:c hest Quality:tender; sore Severity:moderate Duration:started 3 month(s) ago Onset/Timing:gradual ; growing initially stable, but accelerating; becoming more symptomatic; color changing quickly; identified by family Context:no known trigger Associated Symptoms:no skin flakes; no scabbing; no bruising; no draining; no lesions multiplying; no lesions spreadingNotes:Lrge irregular raised purple nevus noted to left chest wall by that has significant grown over past 3 months. Judith Reno APRN [address] [place], [address], [employer] 04/24/2024 17:15:53 08/01/2024 text/html COPDReported bypatient.Onset/Cesar ng:multiple times per day Duration:chronic; has noted for years Severity:slowly worsening; moderate Context:cigarette smoking Alleviating factors:relieved with oxygen; relieved with bronchodilator; relieved with CPAP/BIPAP Aggravating factors:worse with cigarette smoking;worse with exertion Associated Symptoms:snoring;exc essive daytime sleepiness;dyspnea;d yspnea during exertion;decrease in exercise capacity;fatigue;lar ge amounts of clear sputum;weight loss;depression;obes ityDiabetes F/UReported bypatient.Review finger sticks:Never checks his glucose. Labs:last A1C result: 6.8 Context:seeing eye doctor regularly; checking feet regularly; taking aspirin daily; not missing doses of medications; no side effects from medications Associated Symptoms:weight gain ( lbs);numbness of feetNotes:Takes gabapentin for chronic peripheral neuropathy. Andres reviewed today, UDS has been consistent, long-term controlled substance agreement on file. Is not compliant with diet or exercise, continues to smoke.Hospitalizatio n Contact RecordReported bypatient.Follow UpHospital: ([facility])Hypertensio n F/UReported bypatient.Medication s:taking medications as directed; no side effects from medication Lifestyle:not exercising regularly;does not adhere to low sodium diet Associated Symptoms:no dizziness; no lightheadedness; no chest pain; no palpitations; no edema; no calf pain with exertion; no headache;shortness of breath; c/o fatigue Was admitted to [facility] last week due to pneumothorax, pleural effusion, and COPD exacerbation. Chest tube was placed. Has f/up appts with Pulmonary and Cardio. Is wearing oxygen at 2 l/m per [place] continously. Is trying to now stop smoking and is wearing nicotine patch. Judith Reno APRN [address] [place], [address], [employer] 08/27/2024 22:02:50
== END 2024-11-08 23:59 | disposition home or self-care (01) ==
PROVIDERS: PCP Nurse Practitioner Family; Visit Provider Nurse Practitioner Family
DX: M47.26 Other spondylosis with radiculopathy, lumbar region (principal); Z79.891 Long term (current) use of opiate analgesic; Z79.899 Other long term (current) drug therapy
CPT/HCPCS: 99212; G0463

== ENCOUNTER 2024-11-23 14:53 | Outpatient (CLI) | payer MEDICARE, OTHER, SELFPAY ==
--- OUTSIDE RECORDS SUMMARY | 2024-07-17 09:51 | XMS_ITS | Continuity of Care Document ---
Author Name [facility] Organization [facility] Care Team Providers Care Fruit Peeler Name Role Phone [facility] Unavailable Unavailable Problems Combined list of problems from [facility] and [facility] facilities. It does not include entries that were removed or entered in error. Problem Status Onset Date Problem Type Date of Resolution Comments Source Allergic rhinitis [facility] Atrial fibrillation Active Condition [facility] Cerebral infarction Active Condition [facility] Gastroesophageal reflux disease Active Condition [facility] Hypertension Active Condition [facility] Insomnia Active Condition [facility] Obesity Active Condition [facility] Sleep apnea Active Condition [facility] Tobacco use Active Condition [facility] Medications Combined list of outpatient medications from [facility] and [facility] facilities.Medications provided include 1) outpatient medications from the last 15 months, and 2) patient-reported medications. Medication Details Route Status Patient Instructions Prescription Expires Prescription Number Last Dispense Date Ordering Provider Order Date Order Qty Source AMLODIPINE BESYLATE 10MG TAB TAKE ONE TABLET BY MOUTH DAILY ORAL ACTIVE CHOPRA,JOSIAH EK R 2017 [place] [facility] CODEINE 30MG/ACETAM INOPHEN 300MG TAB TAKE ONE TABLET BY MOUTH EVERY 4 HOURS NEEDED ORAL ACTIVE CHOPRA,JOSIAH EK R 2018 [place] [facility] FUROSEMIDE 40MG TAB TAKE ONE TABLET BY MOUTH DAILY ORAL ACTIVE CHOPRA,JOSIAH EK R 2018 [place] [facility] GABAPENTIN 300MG CAP TAKE 1 CAPSULE BY MOUTH THREE TIMES A DAY ORAL ACTIVE CHOPRA,JOSIAH EK R 2017 [place] [facility] LISINOPRIL 20MG TAB TAKE ONE-HALF TABLET BY MOUTH DAILY ORAL ACTIVE CHOPRA,JOSIAH EK R 2018 [place] [facility] METOPROLOL TARTRATE 100MG TAB TAKE ONE TABLET BY MOUTH TWICE A DAY ORAL ACTIVE CHOPRA,JOSIAH EK R 2017 [place] [facility] MONTELUKAST NA 10MG TAB TAKE ONE TABLET BY MOUTH AT BEDTIME ORAL ACTIVE CHOPRA,JOSIAH EK R 2017 [place] [facility] POTASSIUM CHLORIDE 10MEQ TAB,SA TAKE ONE TABLET BY MOUTH DAILY ORAL ACTIVE CHOPRA,JOSIAH EK R 2017 [place] [facility] PROPAFENONE CAP,SA TAKE 425MG BY MOUTH EVERY 12 HOURS ORAL ACTIVE CHOPRA,JOSIAH EK R 2017 [place] [facility] RIVAROXABAN 20MG TAB TAKE ONE TABLET BY MOUTH EVERY EVENING ORAL ACTIVE CHOPRA,JOSIAH EK R 2017 [place] [facility] TIZANIDINE HCL 4MG TAB TAKE ONE TABLET BY MOUTH DAILY NEEDED ORAL ACTIVE CHOPRA,JOSIAH EK R 2017 [place] [facility] Allergies, Adverse Reactions, Alerts Combined list of allergies from Department of Defense and Veterans Affairs facilities. It does not include entries that were removed or entered in error. Substance Category Reaction Severity Reaction type Status Date Reported Comments Source BACTRIM Propensity to adverse reactions to drug (finding) active 8 [place] [facility] CIPROFLOXACI N Propensity to adverse reactions to drug (finding) active 8 [place] [facility] PENICILLIN Propensity to adverse reactions to drug (finding) Anaphylaxis active 0 [place] [facility] Immunizations Combined list of available immunizations from the Department of Defense and Veterans Affairs facilities. Immunization Series Date Given Administered By Site Reaction Lot Number CVX Code Drug Revenue Collector Status Comments Source INFLUENZA, UNSPECIFIED FORMULATION 2021 88 complet ed Completed Series, HISTORICA L INFORMATI ON - FROM PATIENT'S RECALL, [place] [facility] INFLUENZA, UNSPECIFIED FORMULATION 2020 88 complet ed [place] [facility] COVID-19 (MODERNA), MRNA, LNP-S, PF, 100 MCG/0.5ML DOSE OR 50 MCG/0.25ML DOSE 3 2020 207 complet ed [place] [facility] COVID-19 (MODERNA), MRNA, LNP-S, PF, 100 MCG/0.5ML DOSE OR 50 MCG/0.25ML DOSE 2 2020 207 complet ed [place] [facility] COVID-19 (MODERNA), MRNA, LNP-S, PF, 100 MCG/0.5ML DOSE OR 50 MCG/0.25ML DOSE 1 2019 207 complet ed [place] [facility] INFLUENZA, UNSPECIFIED FORMULATION 2019 88 complet ed [place] [facility] INFLUENZA, SEASONAL, INJECTABLE 2018 141 complet ed [place] [facility] PNEUMOCOCCAL POLYSACCHARID E PPV23 2018 33 complet ed [place] [facility] INFLUENZA, SEASONAL, INJECTABLE 2017 141 complet ed [place] [facility] INFLUENZA A & B (HISTORICAL) 2016 88 complet ed [place] [facility] TDAP 2016 115 complet [place] [facility] Encounters Combined list of: 1) Encounters from Department of Veterans Affairs facilities going backup to the last 18 months, not all [place] inpatient encounters are included; 2) Encounters from the Department of Defense facilities going backup to 280 months. Location Location Details Encounter Type Encounter Number Reason For Visit Attending Provider ADM Date DC Date Status Disposition Source [facility] Outpatient Encounter [id number] 08[facility]02 [place] [facility] [id number] 12/19 [place] [facility] Encounter [id number] [facility] Social History Combined list of available smoking, tobacco, and other social history from Department of Defense and Veterans Affairs facilities. Social History Type Response Date Comment Sourc e Tobacco smoking status NHIS VA-TOBACCO USER EVERY DAY 08/10/2022 [facility] History of tobacco use [place]-TOBACCO [place] 30 MIN OF WAKEUP 08/[facility] History of tobacco use [place]-TOBACCO USER EVERY DAY 07/28/2021 [facility] of [facility] DENTAL CREAM MAKER [facility] 11/19/2019 [facility] History [facility] DENTAL CREAM MAKER NO 09/25/2018 [facility] History of tobacco use V9 CURRENT TOBACCO USER 09/21/2017 [facility]
--- OUTSIDE RECORDS SUMMARY | 2024-11-23 14:55 | XMS_ITS | Clinical Summary ---
Author Organization Healthcare Address [address] [place] [address] Care Team Providers Care Supervisor Orchard Name Role Phone Dianne Diaz APRN Primary Care Provider + [phone] Family History Medical History Relation Name Comments [...] of Treatment Not on file Care Teams Supervisor Orchard Relationship Specialty Start Date End Date Dianne Diaz APRN [address] [place], [place] [id number] PCP - General 10/10/20
--- OUTSIDE RECORDS SUMMARY | 2024-11-23 14:55 | XMS_ITS | Data Portability ---
Author Organization [place] [facility] [place] [facility] [place] [facility] Address [address] [place] [address] Assessment No assessment recorded. Plan of Treatment [...] By Organization Details Last Modified Time 08/23/2023 [id number] Mr. Drew has h ad evidence of [...] audio gram No observ ation record ed. [email or web address] Not Available 2023 12:48:08 Result Notes None recorded. Problems Name Problem SNOMED Code Status Onset Date Resolution Date Notes Provider Name and Address Organization Details Recorded Time Sensorineural hearing loss 19920772 Active 2023 CAROLYN GARDUNO, AUD [address] [facility], [place], [address] , [facility] [place] [facility] [place] 12:37:56 Problem Notes None recorded. Procedures Surgical History Date Name Laterality Status Provider Name and Address Organization Details Recorded Time cholecystectomy completed Dot Nora [place] - [facility] [place] [facility] [place] 08/18/2023 09:58:59 Imaging Results None recorded. Procedure Notes None recorded. Medical Equipment None Reported. Allergies Allergen ID Allergen Name Allergen Category Reaction Reaction Severity Criticality Documentation Date Start Date Code Code System Note Provider Name and Address Organization Details Recorded Time 444062 Product containin g penicilli n (product) medicatio n anaphylax is Not available high 08/23/2023 53197 8001 SNOMED Dot Nora null, [place] - [facility] [place] [facility] [place] 4 11:13:48 974824 Cipro medicatio n rash Not available high 08/23/2023 75958 3 RxNorm Dot Nora null, [place] - [facility] [place] [facility] [place] 4 11:14:08 046866 Bactrim medicatio n rash Not available high 08/23/2023 53900 9 RxNorm Dot Nora null, [place] - [facility] [place] [facility] [place] 4 11:14:22 Medications Name Sig Start Date [...] fluticasone propionate 50 mcg/actuatio n nasal spray,suspen amldonado [place] 1 spray every day by intranasal route. [...] Address Organization Details Last Updated DateTime 08/23/2023 426998.97 g 98 [degF] Dot Niñoquincy RUFFIN [facility] [place] [facility] [place] 08/23/2023 11:13:30 Social History Question Answer Notes LastModified by Organizat ion Details LastModified Time Tobacco Smoking Status Current Every Day Smoker Dot Melendez null, ELIZABETH RUFFIN [facility] [place] [facility] [place] 08/18/2023 10:01:22 What Is Your Current Pack [...] Emphysema N Migraines N Thyroid Problems N Glaucoma N Depression Y Developmental Delay N Anemia N Immune System Disorder N Anesthesia Complications N Heart Attack ([place]) N Anxiety Disorder Y Diabetes Y Bleeding [...] SNOMED-CT Code Diagnosis ICD10 Code Diagnosis Note [id number] Jannet Jeffery MD [facility] [place] [address] [place] [address] 08/23/2023 10:54:59 08/23/2023 11:36:08 MRI scan abnormal 853284730 R93.89 Sensorineu ral hearing loss of bilateral ears 839773961 H90.3 Tobacco user 706960429 Z 72.0 [facility] smoker with no plans to quit. [id number] MANNIE YAÑEZ [facility] [place] [address] 08/23/2023 11:33:51 08/23/2023 11:48:30 Sensorineural hearing loss 11382294 H90.3 Health Concerns Section Related Observation LastModified by Organization Detai ls LastModified Time None Recorded Concern Status LastModified by Organization Details LastModified Time None Recorded Advance Directives Directive None Recorded Payers Insurance Date Sequence Insurance Name Policy Number Policy Sanchez Covered Member ID Sanchez Member ID Guarantor Name 08/23/2023 1 [facility] () Matt Drew [id number] Matt Drew 08/02/2023 1 [employer] [id number] Matt Drew [id number] Matt Drew 08/02/2023 1 [employer] [id number] Matt Drew [id number] Matt Drew Notes Date Note Type Note Provider Name and Address Organization Details Recorded Time 08/23/2023 text/html 08/23/23- patient is a 62-year-old gentleman with a history of stroke-like symptoms which were seen and evaluated at [facility]. As part of his workup [...] effusion at that time. Jannet Jeffery MD [address], [place], [address], [facility] [place] 08/23/2023 12:11:54 08/23/2023 text/html Mr. Drew was [...] this date. 3-F/u hearing testing as directed. MANNIE YAÑEZ [address], [place], [address], [facility] [place] 08/23/2023 12:39:46
--- NOTE | 2024-11-23 15:00 | CT_ITS ---
FINAL REPORT CLINICAL HISTORY: nodule FINDINGS: CT CHEST without contrast COMPARISON: 07/13/2024. TECHNIQUE: Axial CT without contrast This study was performed with techniques to keep radiation doses as low as reasonably achievable, (ALARA). Individualized dose reduction techniques using automated exposure control or adjustment of mA and/or kV according to the patient''s size were employed. FINDINGS: Emphysematous changes are present. There is peripheral density in the left lower lobe suggestive of scarring. There is associated cavitary change or pneumatocele which is smaller from the prior exam. Most of the parenchymal opacities in the peripheral lower lobe are obscured related to a large left-sided tension pneumothorax on prior exam. No pleural or pericardial effusion is seen . Left pleural scarring is noted. No adenopathy or mass lesion is present . IMPRESSION: Irregular peripheral opacities within the left lower lobe probably post inflammatory and scarring with a cavitary focus decreased in size from prior exam. This study was performed using automated techniques to achieve radiation exposure as low as reasonably achievable Authenticated and ERN
== END 2024-11-23 23:59 | disposition home or self-care (01) ==
LOC: RAD 14:53
PROVIDERS: PCP Nurse Practitioner Family; Visit Provider Internal Medicine Pulmonary Disease
DX: R91.8 Other nonspecific abnormal finding of lung field (principal); R91.1 Solitary pulmonary nodule
CPT/HCPCS: 71250

== ENCOUNTER 2024-12-10 13:13 | Outpatient (POV) | payer MEDICARE, OTHER, SELFPAY ==
--- OUTSIDE RECORDS SUMMARY | 2024-07-17 09:51 | XMS_ITS | Continuity of Care Document ---
Author Name [facility] Organization [facility] Care Team Providers Care Artists' Booking Representative Name Role Phone [facility] Unavailable Unavailable Problems Combined list of problems from [facility] and [facility] facilities. It does not include entries that were removed or entered in error. Problem Status Onset Date Problem Type Date of Resolution Comments Source Allergic rhinitis [facility] At[facility] fibrillation Active [facility] Cerebral infarction Active Condition [facility] Gastroesophageal reflux disease Active Condition [facility] Hypertension Active Condition [facility] Insomnia Active Condition [facility] Obesity Active Condition [facility] Sleep apnea Active Condition [facility] Tobacco use Active Condition [facility] Medications Combined list of outpatient medications from [facility] and [facility] facilities.Medications provided include 1) outpatient medications from the last 15 months, and 2) patient-reported medications. Medication Details Route Status Patient Instructions Prescription Expires Prescription Number Last Dispense Date Ordering Provider Order Date Order Qty Source AMLODIPINE BESYLATE 10MG TAB TAKE ONE TABLET BY MOUTH DAILY ORAL ACTIVE CHOPRA,JOSIAH EK R 2017 [place] [facility] CODEINE 30MG/ACETAM INOPHEN 300MG TAB TAKE ONE TABLET BY MOUTH EVERY 4 HOURS NEEDED ORAL ACTIVE CHOPRA,JOSIAH EK R 2018 [place] [facility] FUROSEMIDE 40MG TAB TAKE ONE TABLET BY MOUTH DAILY ORAL ACTIVE CHOPRA,JOSIAH EK R 2018 [place] [facility] GABAPENTIN 300MG CAP TAKE 1 CAPSULE BY MOUTH THREE TIMES A DAY ORAL ACTIVE CHOPRA,JOSIAH EK R 2017 [place] [facility] LISINOPRIL 20MG TAB TAKE ONE-HALF TABLET BY MOUTH DAILY ORAL ACTIVE CHOPRA,JOSIAH EK R 2018 [place] [facility] METOPROLOL TARTRATE 100MG TAB TAKE ONE TABLET BY MOUTH TWICE A DAY ORAL ACTIVE CHOPRA,JOSIAH EK R 2017 [place] [facility] MONTELUKAST NA 10MG TAB TAKE ONE TABLET BY MOUTH AT BEDTIME ORAL ACTIVE CHOPRA,JOSIAH EK R 2017 [place] [facility] POTASSIUM CHLORIDE 10MEQ TAB,SA TAKE ONE TABLET BY MOUTH DAILY ORAL ACTIVE CHOPRA,JOSIAH EK R 2017 [place] [facility] PROPAFENONE CAP,SA TAKE 425MG BY MOUTH EVERY 12 HOURS ORAL ACTIVE CHOPRA,JOSIAH EK R 2017 [place] [facility] RIVAROXABAN 20MG TAB TAKE ONE TABLET BY MOUTH EVERY EVENING ORAL ACTIVE CHOPRA,JOSIAH EK R 2017 [place] [facility] TIZANIDINE HCL 4MG TAB TAKE ONE TABLET BY MOUTH DAILY NEEDED ORAL ACTIVE CHOPRA,JOSIAH EK R 2017 [place] [facility] Allergies, Adverse Reactions, Alerts Combined list of allergies from Department of Defense and Veterans Affairs facilities. It does not include entries that were removed or entered in error. Substance Category Reaction Severity Reaction type Status Date Reported Comments Source BACTRIM Propensity to adverse reactions to drug (finding) active 8 [place] [facility] CIPROFLOXACI N Propensity to adverse reactions to drug (finding) active 8 [place] [facility] PENICILLIN Propensity to adverse reactions to drug (finding) Anaphylaxis active 0 [place] [facility] Immunizations Combined list of available immunizations from the Department of Defense and Veterans Affairs facilities. Immunization Series Date Given Administered By Site Reaction Lot Number CVX Code Drug Risk Advisor Status Comments Source INFLUENZA, UNSPECIFIED FORMULATION 2021 88 complet ed Completed Series, HISTORICA L INFORMATI ON - FROM PATIENT'S RECALL, [place] [facility] INFLUENZA, UNSPECIFIED FORMULATION 2020 88 complet ed [place] [facility] COVID-19 (MODERNA), MRNA, LNP-S, PF, 100 MCG/0.5ML DOSE OR 50 MCG/0.25ML DOSE 3 2020 207 complet ed [place] [facility] [place] COVID-19 (MODERNA), MRNA, LNP-S, PF, 100 MCG/0.5ML DOSE OR 50 MCG/0.25ML DOSE 2 2020 207 complet ed [place] [facility] COVID-19 (MODERNA), MRNA, LNP-S, PF, 100 MCG/0.5ML DOSE OR 50 MCG/0.25ML DOSE 1 2019 207 complet ed [place] [facility] INFLUENZA, UNSPECIFIED FORMULATION 2019 88 complet ed [place] [facility] INFLUENZA, SEASONAL, INJECTABLE 2018 141 complet ed [place] [facility] PNEUMOCOCCAL POLYSACCHARID E PPV23 2018 33 complet ed [place] [facility] INFLUENZA, SEASONAL, INJECTABLE 2017 141 complet ed [place] [facility] INFLUENZA A & B (HISTORICAL) 2016 88 complet ed [place] [facility] TDAP 2016 115 complet ed [place] [facility] Encounters Combined list of: 1) Encounters from Department of Veterans Affairs facilities going backup to the last 18 months, not all [place] inpatient encounters are included; 2) Encounters from the Department of Defense facilities going backup to 280 months. Location Location Details Encounter Type Encounter Number Reason For Visit Attending Provider ADM Date DC Date Status Disposition Source [facility] Outpatient Encounter [id number] 08/02 [place] [place] [place] [id number] 12/19 [place] [facility] Outpatient Encounter [id number] [facility] Social History Combined list of available smoking, tobacco, and other social history from Department of Defense and Veterans Affairs facilities. Social History Type Response Date Comment Sourc e Tobacco smoking status NHIS VA-TOBACCO USER EVERY DAY 08/10/2022 [facility] History of tobacco use [place]-TOBACCO USE [place] 30 MIN OF WAKEUP 08/10/20[facility] History of tobacco use [place]-TOBACCO USER EVERY DAY 07/28/2021 [facility] of [facility]/19/2019 [facility] History [facility] 09/25/2018 [facility] History of tobacco use V9 CURRENT TOBACCO USER 09/21/2017 [facility]
[2024-12-10 13:25] VITALS: BP 136/74; PULSE 64; RESP 14; O2SAT 92; BMI 38.9
--- OUTSIDE RECORDS SUMMARY | 2024-12-10 13:28 | XMS_ITS | Data Portability ---
Author Organization [place] [facility] [place] [facility] [place] [facility] AD[facility] Address [address] [place] [phone] Assessment No assessment recorded. Plan of Treatment [...] By Organization Details Last Modified Time 08/23/2023 [id number] Mr. Drew has h ad evidence of [...] Organization Details Recorded Time Sensorineural hearing loss 47132478 Active 2023 CAROLYN GARDUNO, AUD [address] [facility], [place], [address] , [facility] [place] 12:37:56 Problem Notes None recorded. Procedures Surgical History Date Name Laterality Status Provider Name and Address Organization Details Recorded Time cholecystectomy completed Dot Nora [place] - [facility] [place] 08/18/2023 09:58:59 Imaging Results None recorded. Procedure Notes None recorded. Medical Equipment None Reported. Allergies Allergen ID Allergen Name Allergen Category Reaction Reaction Severity Criticality Documentation Date Start Date Code Code System Note Provider Name and Address Organization Details Recorded Time 208724 Product containin g penicilli n (product) medicatio n anaphylax is Not available high 08/23/2023 64102 8001 SNOMED Dot Nora null, [place] - [facility] [place] 4 11:13:48 689086 Cipro medicatio n rash Not available high 08/23/2023 29454 3 RxNorm Dot Nora null, [place] - [facility] [place] 4 11:14:08 968330 Bactrim medicatio n rash Not available high 08/23/2023 86858 9 RxNorm Dot Nora null, [place] - [facility] [place] 4 11:14:22 Medications Name Sig [...] propionate 50 mcg/actuatio n nasal spray,suspen maldonado [place] 1 spray every day by intranasal route. [...] Address Organization Details Last Updated DateTime 08/23/2023 396949.97 g 98 [degF] Dot Niñoquincy RUFFIN [facility] [place] 08/23/2023 11:13:30 Social History Question Answer Notes LastModified by Organizat ion Details LastModified Time Tobacco Smoking Status Current Every Day Smoker Dot Melendez null, ELIZABETH RUFFIN [facility] [place] 08/18/2023 10:01:22 What Is Your [...] Disorder N Anesthesia Complications N Heart Attack (DE) N Anxiety Disorder Y Diabetes Y Bleeding [...] SNOMED-CT Code Diagnosis ICD10 Code Diagnosis Note [id number] Jannet Jeffery MD [facility] [place] [id number] [address] [place] [id number] 08/23/2023 10:54:59 08/23/2023 11:36:08 MRI scan abnormal 399453017 R93.89 Sensorineu ral hearing loss of bilateral ears 290580860 H90.3 Tobacco user 357552183 Z 72.0 Patient is a [facility] heavy cigarette smoker with no plans to quit. [id number] MANNIE YAÑEZ [facility] [place] [address] 8 08/23/2023 11:33:51 08/23/2023 11:48:30 Sensorineural hearing loss 21246835 H90.3 Health Concerns Section Related Observation LastModified by Organization Detai ls LastModified Time None Recorded Concern Status LastModified by Organization Details LastModified Time None Recorded Advance Directives Directive None Recorded Payers Insurance Date Sequence Insurance Name Policy Number Policy Sanchez Covered Member ID Sanchez Member ID Guarantor Name 08/23/2023 1 [facility] Matt Drew [id number] Matt Drew 08/02/2023 1 [employer] [id number] Matt Drew [id number] Matt Drew 08/02/2023 1 [employer] [id number] Matt Drew [id number] Matt Drew Notes Date Note Type Note Provider Name and Address Organization Details Recorded Time 08/23/2023 text/html 08/23/23- patient is a 62-year-old gentleman with a history of stroke-like symptoms which were seen and evaluated at [facility]. As part of his workup he got [...] effusion at that time. Jannet Jeffery MD [address], [place], [address], [facility] & [place] 08/23/2023 12:11:54 08/23/2023 text/html Mr. [...] as directed. MANNIE YAÑEZ [address], [place], [address], [facility] & [place] 08/23/2023 12:39:46
--- OUTSIDE RECORDS SUMMARY | 2024-12-10 13:29 | XMS_ITS | Continuity of Care Document ---
Author Organization [place] [facility] Address [address] [place] [address] Assessment No assessment recorded. Plan of Treatment Reminders Order Date Submit Date Provider Last Modified By Organization Details Last Modified Time Details Appointments ANNUAL EXAM 2024 09:00A M Massimo Reno APRN Not available Not available Not available Lab HbA1c (hemoglob in A1c), blood 2024 025 [email or web address] [facility], [address] [place] [address], [place], [address], 11/13/2024 13:21:39 CMP, serum or plasma 2024 025 [place] [facility] ([place]), [address] [place], [address], 11/16/2024 16:08:56 microalbu min/creat inine, mass ratio, urine 2024 025 [place] [facility] ([place]), [address] [place], [address], 11/16/2024 16:08:57 PSA, total, serum or plasma 2024 025 [place] [facility] ([place]), [address] [place], [address], 11/16/2024 16:08:58 unlisted lab - gabapenti n, urine 2024 025 [place] [facility] ([place]), [address] [facility], [place], [address], 11/16/2024 16:08:58 drug screen, 14 drugs (detectim ed), urine 2024 025 [place] [facility] ([place]), [address] [facility], [place], [address], 11/16/2024 16:08:57 CBC w/ auto diff 2024 025 [place] [facility] ([place]), [address] [facility], [place], [address], 11/16/2024 16:08:55 Referral None recorded. Procedures None recorded. Surgeries None recorded. Imaging None recorded. Medication Orders None recorded. Patient TargetsNo targets recorded. Patient InstructionsNo instructions recorded. Reason for Referral None Reported. Results Created Date Observation Date Name Description Value Unit Range Abnormal Flag Note LastModifiedBy Organization Detail LastModifiedTime 11/14/1911/13/2024 HbA1c (hemo globi n A1c), blood HbA1c 6.2 Not Available [address], [place], [address], 11/12/2024 17:32:23 11/24/1911/23/2024 CT, chest , w/o contr ast No observ ation record ed. [email or web address] [facility] [address], [place], [address], 11/24/2024 09:25:39 Result Notes None recorded. Problems Name Problem SNOMED Code Status Onset Date Resolution Date Notes Provider Name and Address Organization Details Recorded Time Brayan lockharten maldonado 83145399 Active 2023 Judith Reno APRN [address] [place], [address] , [facility] - [employer] 11:08:18 Nocturia 173987245 Active 2024 Judith Reno APRN [address] [place], [address] , [employer] 5 13:23:38 Body mass index 30+ - obesity 414937905 Active 2024 Judith Reno APRN [address] [facility], [place], [address] , [employer] 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 211296854 Active 2016 Problem Code: E11.41; Problem Code Type: ICD-10; Not Available [facility] 3 22:34:35 Uncontro lled type 2 diabetes mellitus 552888090 Completed 201602/07/2018 Not Available [employer] 2 21:56:52 Mixed hyperlip idemia 323377406 Active 2017 Problem Code: E78.2; Problem Code Type: ICD-10; Not Available [employer] 3 22:34:35 Moderate major depressi on, single episode 93172425 Active 2021 Problem Code: F32.1; Problem Code Type: ICD-10; Not Available [employer] 3 22:34:35 Primary insomnia 4377292 Completed 201602/20/2017 Problem Code: F51.01; Problem Code Type: ICD-10; Not Available [employer] 2 21:56:52 Primary insomnia 8170333 Completed 201605/14/2017 Problem Code: F51.01; Problem Code Type: ICD-10; Not Available [employer] 2 21:56:53 Primary insomnia 1921653 Completed 201704/04/2018 Problem Code: F51.01; Problem Code Type: ICD-10; Not Available [employer] 2 21:56:53 Assignment Editor al entropio n [id number] Completed 201802/25/2019 Problem Code: H02.022; Problem Code Type: ICD-10; Not Available [facility] 2 21:56:53 Divertic ulum of [place] an tube 393529363 Completed 201712/03/2017 Problem Code: H69.80; Problem Code Type: ICD-10; Not Available [facility] 2 21:56:53 Otalgia of left ear Completed 201710/18/2017 Not Available [facility] 2 21:56:53 Hyperten sive disorder 42134506 Completed 201604/07/2018 Problem Code: I10; Problem Code Type: ICD-10; Not Available [facility] 2 21:56:53 Acute laryngop haryngit is 82758231 Completed 201607/26/2016 Problem Code: J06.0; Problem Code Type: ICD-10; Not Available [facility] 2 21:56:53 Tobacco dependen ce caused by cigarett es 06091818428 356778 Active 2020 Problem Code: F17.210; Problem Code Type: ICD-10; Not Available [facility] 3 22:34:35 Acute bronchit is 27067113 Completed 201802/25/2019 Problem Code: J20.9; Problem Code Type: ICD-10; Not Available [facility] 2 21:56:53 Chronic obstruct jagjit pulmonar y disease 21324907 Active 2020 Problem Code: J44.9; Problem Code Type: ICD-10; Not Available [facility] 3 22:34:35 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 2 13:18:01 Neck pain 67525530 Completed 201605/14/2017 Not Available [facility] 2 21:56:54 Muscle contract ure 77601463 Completed 201712/03/2017 Problem Code: M62.49; Problem Code Type: ICD-10; Not Available [facility] 2 21:56:55 Low back pain 095840721 Completed 201703/18/2020 Problem Code: M54.5; Problem Code Type: ICD-10; REJI olivas, [employer]. 2 13:18:01 Cough 69931379 Completed 201802/25/2019 Problem Code: R05; Problem Code Type: ICD-10; Not Available [facility] 2 21:56:55 Cough 44022243 Completed 201609/21/2016 Problem Code: R05; Problem Code Type: ICD-10; Not Available [facility] 2 21:56:55 Epigastr ic pain 30274012 Completed 201706/06/2018 Problem Code: R10.13; Problem Code Type: ICD-10; Not Available [facility] 2 21:56:55 Eruption 200215996 Completed 201709/12/2017 Problem Code: R21; Problem Code Type: ICD-10; Not Available [facility] 2 21:56:56 Localize d edema 781536184 Completed 201712/03/2017 Problem Code: R60.0; Problem Code Type: ICD-10; Not Available [facility] 2 21:56:56 Localize d edema 155211581 Completed 201601/05/2017 Problem Code: R60.0; Problem Code Type: ICD-10; Not Available [facility] 2 21:56:56 Localize d edema 574042934 Completed 201702/21/2018 Problem Code: R60.0; Problem Code Type: ICD-10; Not Available [facility] 2 21:56:57 Localize d edema 089136873 Completed 201605/14/2017 Problem Code: R60.0; Problem Code Type: ICD-10; Not Available [facility] 2 21:56:57 Paroxysm al atrial fibrilla tion 266219464 Active 2016 Problem Code: I48.0; Problem Code Type: ICD-10; Not Available [facility] 3 22:34:35 Influenz a vaccine needed 07800761474 06 Completed 201906/16/2020 Problem Code: Z23; Problem Code Type: ICD-10; RANDI olivas, [employer]. 2 14:51:37 Finding of body mass index 916151169 Active 2018 Problem Code: Z68.41; Problem Code Type: ICD-10; Not Available [facility] 3 22:34:35 Patellof emoral osteoart hritis 715566347 Active 2019 Problem Code: M17.12; Problem Code Type: ICD-10; Not Available [facility] 3 22:34:35 Disorder of nervous system due to type 2 diabetes mellitus 724860154 Completed 201610/04/2017 Problem Code: 250.60; Problem Code Type: ICD-9; Not Available [facility] 2 21:57:00 Disorder of nervous system due to type 2 diabetes mellitus 226777093 Active 2016 Not Available [facility] 3 22:34:35 Low back pain 002676821 Completed 201602/03/2018 Problem Code: M54.5; Problem Code Type: ICD-10; REJI olivas, [employer]. 2 13:18:01 Transien t insomnia 295557257 Completed 201602/20/2017 Problem Code: 307.41; Problem Code Type: ICD-9; Not Available [facility] 2 21:57:01 Transien t insomnia 696844995 Completed 201704/04/2018 Problem Code: 307.41; Problem Code Type: ICD-9; Not Available [facility] 2 21:57:02 John orozco insomnia 877601851 Completed 201605/14/2017 Problem Code: 307.41; Problem Code Type: ICD-9; Not Available [facility] 2 21:57:02 Benign essentia l hyperten maldonado 9847605 Completed 201603/24/2018 Problem Code: 401.1; Problem Code Type: ICD-9; Not Available [facility] 2 21:57:02 Pulmonar y hemorrha ge 19921823 Completed 201602/25/2019 Problem Code: R04.89; Problem Code Type: ICD-10; Not Available [facility] 2 21:57:02 Dysfunct ion of eustachi an tube 76465109 Completed 201712/03/2017 Problem Code: 381.81; Problem Code Type: ICD-9; Not Available [facility] 2 21:57:02 Spasm 58368397 Completed 201712/03/2017 Problem Code: 728.85; Problem Code Type: ICD-9; Not Available [facility] 2 21:57:03 Edema 044163819 Completed 201601/05/2017 Problem Code: 782.3; Problem Code Type: ICD-9; Not Available [facility] 2 21:57:03 Edema 700698366 Completed 201605/14/2017 Problem Code: 782.3; Problem Code Type: ICD-9; Not Available [facility] 2 21:57:03 Influenz a vaccine needed 43433068234 Completed 202005/13/2022 Problem Code: Z23; Problem Code Type: ICD-10; RANDI olivas [facility] [place] [employer] 2 14:51:37 Otogenic otalgia 58448025 Completed 201710/18/2017 Problem Code: 388.71; Problem Code Type: ICD-9; Not Available [facility] 21:57:05 Acute upper respirat ory infectio n of multiple sites Completed 201607/26/2016 Problem Code: 465.8; Problem Code Type: ICD-9; Not Available [facility] 21:57:05 Edema 278916658 Completed 201712/03/2017 Problem Code: 782.3; Problem Code Type: ICD-9; Not Available [facility] 21:57:05 Edema 794731460 Completed 201702/21/2018 Problem Code: 782.3; Problem Code Type: ICD-9; Not Available [facility] 21:57:06 Problem Notes None recorded. Procedures Surgical History Date Name Laterality Status Provider Name and Address Organization Details Recorded Time 01/29/20 21 cardiac catheterization completed [facility]. 03/16/2022 13:40:21 09/24/19 20 colonoscopy completed [facility]. 03/16/2022 13:41:09 Hernia repair w/mesh completed [facility]. 03/16/2022 13:38:50 vasectomy completed [facility]. 03/16/2022 13:39:01 cardiac ablation using fluoroscopy guidance completed [facility]. 03/16/2022 13:39:57 cholecystectomy completed Judith Reno APRN [address] [place] [address], [address] [employer] 11/13/2024 13:25:58 Imaging Results None recorded. Procedure Notes None recorded. Medical Equipment None Reported. Allergies Allergen ID Allergen Name Allergen Category Reaction Reaction Severity Criticality Documentation Date Start Date Code Code System Note Provider Name and Address Organization Details Recorded Time 88763 Product containin g penicilli n (product) medicatio n Not available Not available Not available 02/02/2022 48241 8001 SNOMED SHANTHI olivas [employer] 09:31:03 10732 Bactrim medicatio n Not available Not available Not available 02/02/2022 52095 9 RxNorm Not Available [facility] 2 22:56:30 41597 Cipro medicatio n Not available Not available Not available 02/02/2022 37590 3 RxNorm Not Available [facility] 2 22:56:30 Medications Name Sig Start Date Stop Date Status Note LastModified by Organization Details LastModified Time cyclobenz aprine 10 mg tablet TAKE 1 TABLET BY MOUTH THREE TIMES DAILY 11/13 completed Not Available Not Available Not Available metolazon e 2.5 mg tablet Take [...] MOUTH FOUR TIMES DAILY FOR 5 DAYS 11/13 completed Not Available Not Available Not Available Colace 100 mg capsule Take 1 capsule every day by oral route, for constipa tion. 11/13 completed Not Available Not Available Not Available potassium chloride ER 10 mEq capsule,e xtended [...] tablet TAKE 1 TABLET DAILY AT BEDTIME 2024 active Not Available Not Available Not Avai lable nicotine 14 mg/24 hr daily transderm al [...] tablet TAKE 1 TABLET DAILY AT BEDTIME 11/13 completed Not Available Not Available Not Available amlodipin e 10 mg tablet TAKE [...] Y TO THE AFFECTED AREA TWICE DAILY 11/13 completed Not Available Not Available Not Available trazodone 150 mg tablet Take 1 [...] upper arms daily Remove after 24 hours. 11/13 completed Not Available Not Available Not Available nitroglyc christa 0.4 mg sublingua l tablet [...] TOPICALL Y TO SURGICAL SITE TWICE DAILY 11/13 completed Not Available Not Available Not Available ergocalci ferol (vitamin D2) 1,250 mcg (50,000 unit) capsule Take 1 capsule every week by oral route. 11/13 completed Not Available Not Available Not Available Tylenol-C odeine #3 300 mg-30 mg [...] Available ketoconaz ole 2 % topical cream APPLY TO THE AFFECTED AREA(S) BY TOPICAL ROUTE ONCE DAILY 08/01 completed Not Available Not Available Not Available clobetaso l 0.05 % scalp solution 11/13 completed Not Available Not Available Not Available lisinopri [...] in Arterial blood by Pulse oximetry Systolic And Diastolic Provider Name and Address Organization Details Last Updated DateTime 5 182.88 cm 38.3 kg/m2 518960. 77 g 98 [degF] 66 /min 90 % 90 % 120/70 mm[Hg] REJI CARRENO [employer] 5 13:11:10 Social History Question Answer Notes LastModified by Organizat ion Details LastModified Time Tobacco Smoking Status Current Every Day Smoker SHANTHI olivas, [employer] 04/26/2022 11:57:24 Do You Have An Advance [...] ot available 03/16/2022 Who Is Your Employer? [employer] Information not available 03/16/2022 Have There Been Any Changes To Your Family Or Social Situation? No Information no t available 03/16/2022 Are There Any Guns Present In Your Home? Yes [email or web address] Information not available 09/09/2023 Do You Have A Medical Power Of Guest Relation Officer? No Information not available 03/16/2022 What Was The Date Of Your Most Recent Tobacco Screening? 11/13/2024 Information not available 11/13/2024 What Is Your Current Pack Years? 30ormorepacky [...] LastModified Time Father Family history of Hypertension [email or web address] Not available 04/26/2022 09:31:20 Father Family history of ischemic heart disease [email or web address] Not available 09:31:26 Father Family history of hyperlipidem ia [id number] Not available 09:31:33 Mother Family history of Hypertension [email or web address] Not available 13:36:10 Mother Family history of ischemic heart disease smynear Not available 2021 13:36:25 Mother Family history of hyperlipidem ia smynear Not available 2021 13:36:48 Medical History Condition Response Diabetes Y Hospitalizations Y Acid Reflux (GERD) Y Emergency room visit since last appointm ent. Y Hypertension Y COPD Y High Cholesterol Y Immunizations Vaccine Type Date Status Note Provider Moris cevallos and Address Organization Details Recorded Time zoster recombinant 3 completed Judith Reno APRN [address] [place], [address], [facility] [employer] 12/20/2022 17:06:53 Influenza, split virus, quadrivalent, PF 3 completed Zakiya Heck APRN [address] [place], [address], [employer] 03/04/2023 16:11:47 COVID-19, mRNA, LNP-S, PF, sia-sucrose, 30 mcg/0.3 mL 3 completed Judith Reno APRN [address] [place], [address], [employer] 03/11/2023 18:07:55 Influenza, split virus, quadrivalent, PF 2 completed Judith Reno APRN [address] [place], [address], [employer] 03/17/2022 18:20:55 Influenza, MDCK, quadrivalent, preservative 9 completed Not Available [facility] 05/11/2023 22:34:35 COVID-19, mRNA, LNP-S, PF, 100 mcg/0.5mL dose or 50 mcg/0.25mL dose 1 completed Not Available [facility] 05/11/2023 22:34:35 COVID-19, mRNA, LNP-S, PF, 100 mcg/0.5mL dose or 50 mcg/0.25mL dose 0 completed Not Available [facility] 05/11/2023 22:34:35 Influenza, split virus, quadrivalent, PF 1 completed Not Available [facility] 05/11/2023 22:34:35 pneumococcal, unspecified formulation 9 completed [facility] Available [facility] 05/11/2023 22:34:35 Influenza, split virus, quadrivalent, preservative 0 completed Not Available [facility] 05/11/2023 22:34:35 Influenza, split virus, quadrivalent, preservative 8 completed Not Available [facility] 05/11/2023 22:34:35 Influenza, split virus, trivalent, PF 4 completed Judith Reno APRN [address] [place] [address], [address], [employer] 03/25/2024 15:03:38 COVID-19, mRNA, LNP-S, PF, sia-sucrose, 30 mcg/0.3 mL 4 completed Judith Reno APRN [address] [place], [address], [facility] 04/08/2024 17:46:37 COVID-19, mRNA, LNP-S, PF, 100 mcg/0.5mL dose or 50 mcg/0.25mL dose 1 completed Not Available [facility] 05/11/2023 22:34:35 Tdap 3 completed Not Available [facility] 11/13/2024 13:01:11 zoster recombinant 4 completed Not Available [facility] 11/13/2024 13:01:11 Past Encounters Encounter ID Performer Location Encounter Start Date Encounter Closed Date Diagnosis/Indication Diagnosis SNOMED-CT Code Diagnosis ICD10 Code Diagnosis Note [id number] Judith Reno APRN [address] [address] 11/13/2024 12:56:12 11/13/2024 13:43:15 Disorder of nervous system due to type 2 diabetes mellitus 924267941 E11.42 Continue current medication s. He needs to quit smoking!!! Matthew reviewed today for gabapentin refill. Essential hypertension 03627180 I10 DASH diet, exercise and smoking cessation encouraged . Long-term current use of drug therapy 698624748 Z79.899 Matthew reviewed, annual UDS obtained, nursing home controlled substance agreement on file. Nocturia 993422804 R35.1 Body mass index 30+ - obesity 999791834 E66.9 Health Concerns Section Related Observation LastModified by Organization Detai ls LastModified Time None Recorded Concern Status LastModified by Organization Details LastModified Time None Recorded Payers Encounter Date Sequence Insurance Name Policy Number Policy Sanchez Covered Member ID Sanchez Member ID Guarantor Name 11/13/2024 1 [facility] () Matt Drew [id number] Matt Drew Notes Date Note Type Note Provider Name and Address Organization Details Recorded Time 11/13/2024 text/html COPDReported bypatient.Onset/Ti lynn:multiple times per day Duration:chronic; has noted for years Severity:slowly worsening; moderate Context:cigarette smoking Alleviating factors:relieved with oxygen; relieved with bronchodilator; relieved with CPAP/BIPAP Aggravating factors:worse with cigarette smoking;worse with exertion Associated Symptoms:snoring;e xcessive daytime sleepiness;dyspnea ;dyspnea during exertion;decrease in exercise capacity;fatigue;l arge amounts of clear sputum;weight loss;depression;ob esityDiabetes F/UReported bypatient.Review finger sticks:Never checks his glucose. Labs:last A1C result: 6.8 Context:seeing eye doctor regularly; checking feet regularly; taking aspirin daily; not missing doses of medications; no side effects from medications Associated Symptoms:weight gain ( lbs);numbness of feetNotes:Takes gabapentin for chronic peripheral neuropathy. Matthew reviewed today, UDS has been consistent, long-term controlled substance agreement on file. Is not compliant with diet or exercise, continues to smoke.Hypertension F/UReported bypatient.Medicati ons:taking medications as directed; no side effects from medication Lifestyle:not exercising regularly;does not adhere to low sodium diet Associated Symptoms:no dizziness; no lightheadedness; no chest pain; no palpitations; no edema; no calf pain with exertion; no headache;shortness of breath; c/o fatigue Has nocturia 1-2 times per night - due for PSA. Judith Reno APRN [address] [place], [address], [facility] [employer] 11/26/2024 22:26:35
--- OUTSIDE RECORDS SUMMARY | 2024-12-10 13:29 | XMS_ITS | Clinical Summary ---
Author Organization Healthcare Address [address] [place] [address] Care Team Providers Care Safety Deposit Boxes Custodian Name Role Phone Dianne Diaz APRN Primary Care Provider + [phone] Family History Medical History Relation Name Comments [...] of Treatment Not on file Care Teams Safety Deposit Boxes Custodian Relationship Specialty Start Date End Date Dianne Diaz APRN [address] [place] [address] PCP - General 10/10/20
--- OUTSIDE RECORDS SUMMARY | 2024-12-10 13:29 | XMS_ITS | Data Portability ---
Author Organization [facility] Address [address] [place] [address] Assessment No assessment recorded. Plan of Treatment Reminders Order Date Submit Date Provider Last Modified By Organization Details Last Modified Time Details Appointments ANNUAL EXAM 2024 09:00A M Massimo Reno APRN Not available Not available Not available Lab HbA1c (hemoglob in A1c), blood [email or web address], [address], 11/13/2024 13:21:39 CMP, serum or plasma 2024 025 [place] [facility], [address] [place] [address], [id number], 11/16/2024 16:08:56 microalbu min/creat inine, mass ratio, urine 2024 025 [place] [facility]), [address] [place] [address], [address], 11/16/2024 16:08:57 PSA, total, serum or plasma 2024 025 [place] [facility]), [address] [place] [address], [address], 11/16/2024 16:08:58 unlisted lab - gabapenti n, urine 2024 025 [place] [facility] [address] [place], [address], 11/16/2024 16:08:58 drug screen, 14 drugs (detectim ed), urine 2024 025 [place] [facility] [address] [place], [address], 11/16/2024 16:08:57 CBC w/ auto diff 2024 025 [place] [address] [place], [address], 11/16/2024 16:08:55 HbA1c (hemoglob in A1c), blood [address], [address], 08/01/2024 13:50:19 HbA1c (hemoglob in A1c), blood [address], [address] [place] [address], [address], 03/23/2024 11:09:21 CMP, serum or plasma 2023 024 [place] [facility] [address] [place], [address], 03/24/2024 07:08:34 CBC w/ auto diff 2023 024 [place] [facility] [address] [place], [address], 03/24/2024 07:08:33 vitamin D, 25-hydrox y, total, serum 2023 024 [place] [facility] [address] [place], [address], 03/24/2024 07:08:35 TSH, ultra-sen sitive, serum 2023 [place] [facility] [address], [place], [address], 03/24/2024 07:08:35 Referral dermatolo gist referral - CHARANJIT please. Will need removal and he is on Xarelto. 2023 [place] [facility] [employer], [address], [place], [address], 08/08/2024 12:13:33 Procedures None recorded. Surgeries None recorded. Imaging XR, chest, 2 view 2023 [facility], [address] [place] [address], [id number], 04/06/2024 12:12:57 Medication Orders nystatin 100,000 unit/mL oral suspensio n 2024 [place] [id number], [address], [id number], 11/13/2024 13:10:41 trazodone 150 mg tablet 2024 [place] [email or web address], [address] [facility], [place], [address], 08/01/2024 14:08:34 doxycycli ne monohydra te 100 mg capsule 2023 [facility], [address] [place] [address], [id number], 08/01/2024 14:08:10 prednison e 20 mg tablet 2023 [facility], [address] [place] [address], [address], 08/01/2024 14:23:14 Patient TargetsNo targets recorded. Patient InstructionsNo instructions recorded. 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 Will need removal and he is on Xarelto. Referring Physician: Judith Reno, Family Medicine, Encounter Date: 04/24/2024 Results Created Date Observation Date Name Description Value Unit Range Abnormal Flag Note LastModifiedBy Organization Detail LastModifiedTime 03/23/2003/24/2024 CBC WITH DIFFE RENTI AL/PL ATELE T WBC 10.2 x10e3 /uL 3.4-10 .8 normal Not Available [facility]) [address] [facility], [place], [address], 03/24/2024 07:08:33 03/23/2003/24/2024 CBC WITH DIFFE RENTI AL/PL ATELE T RBC 5.04 x10e6 /uL 4.14-5 .80 normal Not Available [facility] ([facility]) [address] [place], [address], 03/24/2024 07:08:33 03/23/2003/24/2024 CBC WITH DIFFE RENTI AL/PL ATELE T hemoglobin 13.8 g/dL 13.0-1 7.7 normal Not Available [facility] ([facility]) [address] [place], [address], 03/24/2024 07:08:33 03/23/2003/24/2024 CBC WITH DIFFE RENTI AL/PL ATELE T hematocrit 44.4 % 37.5-5 1.0 normal Not Available [facility] ([facility]) [address] [place], [address], 03/24/2024 07:08:33 03/23/2003/24/2024 CBC WITH DIFFE RENTI AL/PL ATELE T MCV 88 fL 79-97 normal Not Available [facility] ([facility]) [address] [place], [address], 03/24/2024 07:08:33 03/23/2022 0303/24/2024 CBC WITH DIFFE RENTI AL/PL ATELE T MCH 27.4 pg 26.6-3 3.0 normal Not Available [facility] ([facility]) [address] [facility], [place], [address], 03/24/2024 07:08:33 03/23/2003/24/2024 CBC WITH DIFFE RENTI AL/PL ATELE T MCHC 31.1 g/dL 31.5-3 5.7 below low normal Not Available [facility] ([facility]) [address] [facility], [place], [address], 03/24/2024 07:08:33 03/23/2003/24/2024 CBC WITH DIFFE RENTI AL/PL ATELE T RDW 15.8 % 11.6-1 5.4 above high normal Not Available [facility] ([facility]) [address] [facility], [place], [address], 03/24/2024 07:08:33 03/23/2003/24/2024 CBC WITH DIFFE RENTI AL/PL ATELE T platelets 370 x10e3 /uL 150-45 0 normal Not Available [facility] ([facility]) [address] [facility], [place], [address], 03/24/2024 07:08:33 03/23/2003/24/2024 CBC WITH DIFFE RENTI AL/PL ATELE T neutrophils 71 % not estab. normal Not Available [facility] ([facility]) [address] [place], [address], 03/24/2024 07:08:33 03/23/2003/24/2024 CBC WITH DIFFE RENTI AL/PL ATELE T lymphs 14 % not estab. normal Not Available [facility] ([facility]) [address] [place], [address], 03/24/2024 07:08:33 03/23/2003/24/2024 CBC WITH DIFFE RENTI AL/PL ATELE T monocytes 10 % not estab. normal Not Available [facility] ([facility]) [address] [facility], [place], [address], 03/24/2024 07:08:33 03/23/2003/24/2024 CBC WITH DIFFE RENTI AL/PL ATELE T eos 4 % not estab. normal Not Available [facility] ([facility]) [address] [facility], [place], [address], 03/24/2024 07:08:33 03/23/2003/24/2024 CBC WITH DIFFE RENTI AL/PL ATELE T basos 1 % not estab. 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 0 above high normal Not Available [facility]) [address] [facility], [place], [address], 03/24/2024 07:08:33 03/23/2003/24/2024 CBC WITH DIFFE RENTI AL/PL ATELE T lymphs (absolute) 1.4 x10e3 /uL 0.7-3. 1 normal Not Available [facility] ([facility]) [address] [facility], [place], [address], 03/24/2024 07:08:33 10/25/20 24 03/24/2024 CBC WITH DIFFE RENTI AL/PL ATELE T monocytes(ab solute) 1.1 x10e3 /uL 0.1-0. 9 above high normal Not Available [facility] ([facility]) [address] [facility], [place], [address], 03/24/2024 07:08:33 03/23/20 24 03/24/2024 CBC WITH DIFFE RENTI AL/PL ATELE T eos (absolute) 0.5 x10e3 /uL 0.0-0. 4 above high normal Not Available [facility] ([facility]) [address] [facility], [place], [address], 03/24/2024 07:08:33 03/23/2003/24/2024 CBC WITH DIFFE RENTI AL/PL ATELE T baso (absolute) 0.1 x10e3 /uL 0.0-0. 2 normal Not Available [facility] ([facility]) [address] [facility], [place], [address], 03/24/2024 07:08:33 03/23/20 24 03/24/2024 CBC WITH DIFFE RENTI AL/PL ATELE T immature granulocytes 0 % not estab. Not Available [facility] ([facility]) [address] [facility], [place], [address], 03/24/2024 07:08:33 03/23/20 24 03/24/2024 CBC WITH DIFFE RENTI AL/PL ATELE T immature grans (abs) 0.0 x10e3 /uL 0.0-0. 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 METAB OLIC PANEL (14) glucose 167 mg/dL 70-99 above high normal Not Available [facility] ([facility]) [address] [facility], [place], [address], 03/24/2024 07:08:34 03/23/2003/24/2024 COMP. METAB OLIC PANEL (14) BUN 11 mg/dL 8-27 normal Not Available [facility] ([facility]) [address] [facility], [place], [address], 03/24/2024 07:08:34 03/23/20 24 03/24/2024 COMP. METAB OLIC PANEL (14) creatinine 0.85 mg/dL 0.76-1 .27 normal Not Available [facility] ([facility]) [address] [facility], [place], [address], 03/24/2024 07:08:34 03/23/20 24 03/24/2024 COMP. METAB OLIC PANEL (14) eGFR 97 mL/mi n/1.7 3 >59 normal Not Available [facility] ([facility]) [address] [facility], [place], [address], 03/24/2024 07:08:34 03/23/20 24 03/24/2024 COMP. METAB OLIC PANEL (14) BUN/creatini ne ratio 13 10-24 normal Not Available [facility]) [address] [facility], [place], [address], 03/24/2024 07:08:34 03/23/20 24 03/24/2024 COMP. METAB OLIC PANEL (14) sodium 140 mmol/ L 134-14 4 normal Not Available [facility] ([facility]) [address] [facility] [place], [address], 03/24/2024 07:08:34 03/23/20 24 03/24/2024 COMP. METAB OLIC PANEL (14) potassium 3.9 mmol/ L 3.5-5. 2 normal Not Available [facility] ([facility]) [address] [place], [address], 03/24/2024 07:08:34 03/23/20 24 03/24/2024 COMP. METAB OLIC PANEL (14) chloride 101 mmol/ L 96-106 normal Not Available [facility] ([facility]) [address] [facility] [place], [address], 03/24/2024 07:08:34 03/23/20 24 03/24/2024 COMP. METAB OLIC PANEL (14) carbon dioxide, total 25 mmol/ L 20-29 normal Not Available [facility] ([facility]) [address] [facility] [place], [address], 03/24/2024 07:08:34 03/23/20 24 03/24/2024 COMP. METAB OLIC PANEL (14) calcium 8.7 mg/dL 8.6-10 .2 normal Not Available [facility] ([facility]) [address] [facility] [place], [address], 03/24/2024 07:08:34 03/23/2003/24/2024 COMP. METAB OLIC PANEL (14) protein, total 7.3 g/dL 6.0-8. 5 normal Not Available [facility] ([facility]) [address] [facility] [place], [address], 03/24/2024 07:08:34 03/23/20 24 03/24/2024 COMP. METAB OLIC PANEL (14) albumin 4.0 g/dL 3.9-4. 9 normal Not Available [facility] ([facility]) [address] [facility], [place], [address], 03/24/2024 07:08:34 03/23/20 24 03/24/2024 COMP. METAB OLIC PANEL (14) globulin, total 3.3 g/dL 1.5-4. 5 Not Available [facility] ([facility]) [address] [facility] [place], [address], 03/24/2024 07:08:34 03/23/2003/24/2024 COMP. METAB OLIC PANEL (14) bilirubin, total 0.4 mg/dL 0.0-1. 2 normal Not Available [facility] ([facility]) [address] [facility] [place], [address], 03/24/2024 07:08:34 03/23/20 24 03/24/2024 COMP. METAB OLIC PANEL (14) alkaline phosphatase 117 IU/L 44-121 normal Not Available [facility] [address] [facility], [place], [address], 03/24/2024 07:08:34 03/23/2003/24/2024 COMP. METAB OLIC PANEL (14) AST (SGOT) 15 IU/L 0-40 normal Not Available [facility] ([facility]) [address] [facility], [place], [address], 03/24/2024 07:08:34 03/23/2003/24/2024 COMP. METAB OLIC PANEL (14) ALT (SGPT) 17 IU/L 0-44 normal Not Available [facility] ([facility]) [address] [place], [address], 03/24/2024 07:08:34 03/23/20 24 03/24/2024 VITAM IN [...] Endoc rine Socie ty went on to furth er defin e vitam in D insuf ficie ncy as a level betwe en 21 and 29 ng/mL (2). 1. IOM (Inst itute of Medic ine). 2010. Dieta ry refer ence alka es for calci um and D. Avery brownlee [place]: [facility] Press . 2. Maycol marrero [place], Geoff suarez [place], Bisch off-F errar i ZAMBRANO, et al. Evalu ation , treat ment, and preve ntion of vitam in D defic iency : an Endoc rine Socie ty clini oliva pract ice guide line. JCEM. 2010; 96(7) :1911 -30. Not Available [facility] ([facility]) [address] [facility], [place], [address], 03/24/2024 07:08:35 03/23/20 24 03/24/2024 TSH RFX ON ABNOR MAL TO FREE T4 TSH 1.760 uIU/m L 0.450- 4.500 normal Not Available [facility] ([facility]) [address] [facility], [place], [address], 03/24/2024 07:08:35 03/23/20 24 03/23/2024 HbA1c (hemo globi n A1c), blood HbA1c 6.5 Not Available [address], [address], 03/23/2024 11:04:50 08/02/19 25 08/01/2024 HbA1c (hemo globi n A1c), blood HbA1c 7.0 Not Available [address], [address], 08/01/2024 10:41:08 11/14/19 25 11/14/2024 CBC WITH DIFFE RENTI AL/PL ATELE T WBC 8.1 x10e3 /uL 3.4-10 .8 normal Not Available [facility] ([facility]) [address] [place], [address], 11/16/2024 16:08:55 11/14/19 25 11/14/2024 CBC WITH DIFFE RENTI AL/PL ATELE T RBC 5.11 x10e6 /uL 4.14-5 .80 normal Not Available [facility] ([facility]) [address] [place], [address], 11/16/2024 16:08:55 11/14/19 25 11/14/2024 CBC WITH DIFFE RENTI AL/PL ATELE T hemoglobin 14.1 g/dL 13.0-1 7.7 normal Not Available [facility] ([facility]) [address] [place], [address], 11/16/2024 16:08:55 11/14/19 25 11/14/2024 CBC WITH DIFFE RENTI AL/PL ATELE T hematocrit 46.1 % 37.5-5 1.0 normal Not Available [facility] ([facility]) [address] [place], [address], 11/16/2024 16:08:55 11/14/19 25 11/14/2024 CBC WITH DIFFE RENTI AL/PL ATELE T MCV 90 fL 79-97 normal Not Available [facility] ([facility]) [address] [place], [address], 11/16/2024 16:08:55 11/14/19 25 11/14/2024 CBC WITH DIFFE RENTI AL/PL ATELE T MCH 27.6 pg 26.6-3 3.0 normal Not Available [facility] ([facility]) [address] [place], [address], 11/16/2024 16:08:55 06/17/11/14/2024 CBC WITH DIFFE RENTI AL/PL ATELE T MCHC 30.6 g/dL 31.5-3 5.7 below low normal Not Available [facility] ([facility]) [address] [place], [address], 11/16/2024 16:08:55 11/14/19 25 11/14/2024 CBC WITH DIFFE RENTI AL/PL ATELE T RDW 14.2 % 11.6-1 5.4 Not Available [facility] ([facility]) [address] [facility], [place], [address], 11/16/2024 16:08:55 11/14/19 25 11/14/2024 CBC WITH DIFFE RENTI AL/PL ATELE T platelets 303 x10e3 /uL 150-45 0 normal Not Available [facility] ([facility]) [address] [place], [address], 11/16/2024 16:08:55 11/14/19 25 11/14/2024 CBC WITH DIFFE RENTI AL/PL ATELE T neutrophils 63 % not estab. normal Not Available [facility] ([facility]) [address] [facility], [place], [address], 11/16/2024 16:08:55 11/14/19 25 11/14/2024 CBC WITH DIFFE RENTI AL/PL ATELE T lymphs 17 % not estab. normal Not Available [facility] ([facility]) [address] [place], [address], 11/16/2024 16:08:55 11/14/19 25 11/14/2024 CBC WITH DIFFE RENTI AL/PL ATELE T monocytes 15 % not estab. normal Not Available [facility] ([facility]) [address] [place], [address], 11/16/2024 16:08:55 11/14/19 25 11/14/2024 CBC WITH DIFFE RENTI AL/PL ATELE T eos 3 % not estab. normal Not Available [facility] ([facility]) [address] [place], [address], 11/16/2024 16:08:55 11/14/19 25 11/14/2024 CBC WITH DIFFE RENTI AL/PL ATELE T basos 2 % not estab. 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 0 normal Not Available [facility] ([facility]) [address] [place], [address], 11/16/2024 16:08:55 11/14/19 25 11/14/2024 CBC WITH DIFFE RENTI AL/PL ATELE T lymphs (absolute) 1.4 x10e3 /uL 0.7-3. 1 normal Not Available [facility] ([facility]) [address] [place], [address], 11/16/2024 16:08:55 11/14/19 25 11/14/2024 CBC WITH DIFFE RENTI AL/PL ATELE T monocytes(ab solute) 1.2 x10e3 /uL 0.1-0. 9 above high normal Not Available [facility] ([facility]) [address] [place], [address], 11/16/2024 16:08:55 11/14/19 25 11/14/2024 CBC WITH DIFFE RENTI AL/PL ATELE T eos (absolute) 0.2 x10e3 /uL 0.0-0. 4 normal Not Available [facility] ([facility]) [address] [place], [address], 11/16/2024 16:08:55 11/14/19 25 11/14/2024 CBC WITH DIFFE RENTI AL/PL ATELE T baso (absolute) 0.1 x10e3 /uL 0.0-0. 2 normal Not Available [facility] ([facility]) [address] [place], [address], 11/16/2024 16:08:55 11/14/19 25 11/14/2024 CBC WITH DIFFE RENTI AL/PL ATELE T immature granulocytes 0 % not estab. Not Available [facility] ([facility]) [address] [place], [address], 11/16/2024 16:08:55 11/14/19 25 11/14/2024 CBC WITH DIFFE RENTI AL/PL ATELE T immature grans (abs) 0.0 x10e3 /uL 0.0-0. 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 METAB OLIC PANEL (14) glucose 132 mg/dL 70-99 above high normal Not Available [facility] ([facility]) [address] [place], [address], 11/16/2024 16:08:56 11/14/19 25 11/14/2024 COMP. METAB OLIC PANEL (14) BUN 12 mg/dL 8-27 normal Not Available [facility] ([facility]) [address] [place], [address], 11/16/2024 16:08:56 11/14/19 25 11/14/2024 COMP. METAB OLIC PANEL (14) creatinine 0.86 mg/dL 0.76-1 .27 normal Not Available [facility] ([facility]) [address] [place], [address], 11/16/2024 16:08:56 11/14/19 25 11/14/2024 COMP. METAB OLIC PANEL (14) eGFR 97 mL/mi n/1.7 3 >59 normal Not Available [facility] ([facility]) [address] [place], [address], 11/16/2024 16:08:56 11/14/19 25 11/14/2024 COMP. METAB OLIC PANEL (14) BUN/creatini ne ratio 14 10-24 normal Not Available [facility]) [address] [place], [address], 11/16/2024 16:08:56 11/14/19 25 11/14/2024 COMP. METAB OLIC PANEL (14) sodium 140 mmol/ L 134-14 4 normal Not Available [facility] ([facility]) [address] [place], [address], 11/16/2024 16:08:56 11/14/19 25 11/14/2024 COMP. METAB OLIC PANEL (14) potassium 3.8 mmol/ L 3.5-5. 2 normal Not Available [facility] ([facility]) [address] [facility] [place], [address], 11/16/2024 16:08:56 11/14/19 25 11/14/2024 COMP. METAB OLIC PANEL (14) chloride 99 mmol/ L 96-106 normal Not Available [facility] ([facility]) [address] [place], [address], 11/16/2024 16:08:56 11/14/19 25 11/14/2024 COMP. METAB OLIC PANEL (14) carbon dioxide, total 25 mmol/ L 20-29 normal Not Available [facility] ([facility]) [address] [place], [address], 11/16/2024 16:08:56 11/14/19 25 11/14/2024 COMP. METAB OLIC PANEL (14) calcium 9.1 mg/dL 8.6-10 .2 normal Not Available [facility] ([facility]) [address] [place], [address], 11/16/2024 16:08:56 11/14/19 25 11/14/2024 COMP. METAB OLIC PANEL (14) protein, total 7.3 g/dL 6.0-8. 5 normal Not Available [facility] ([facility]) [address] [place], [address], 11/16/2024 16:08:56 11/14/19 25 11/14/2024 COMP. METAB OLIC PANEL (14) albumin 4.1 g/dL 3.9-4. 9 normal Not Available [facility] ([facility]) [address] [place], [address], 11/16/2024 16:08:56 11/14/19 25 11/14/2024 COMP. METAB OLIC PANEL (14) globulin, total 3.2 g/dL 1.5-4. 5 Not Available [facility] ([facility]) [address] [place], [address], 11/16/2024 16:08:56 11/14/19 25 11/14/2024 COMP. METAB OLIC PANEL (14) bilirubin, total 0.3 mg/dL 0.0-1. 2 normal Not Available [facility] ([facility]) [address] [place], [address], 11/16/2024 16:08:56 11/14/19 25 11/14/2024 COMP. METAB OLIC PANEL (14) alkaline phosphatase 108 IU/L 44-121 normal Not Available [facility]) [address] [place], [address], 11/16/2024 16:08:56 11/14/19 25 11/14/2024 COMP. METAB OLIC PANEL (14) AST (SGOT) 16 IU/L 0-40 normal Not Available [facility] ([facility]) [address] [place], [address], 11/16/2024 16:08:56 11/14/19 25 11/14/2024 COMP. METAB OLIC PANEL (14) ALT (SGPT) 14 IU/L 0-44 normal Not Available [facility] ([facility]) [address] [place], [address], 11/16/2024 16:08:56 11/14/19 25 11/16/2024 DRUG SCREE N ONLY 9, UR amphetamines ia scr only Negati ve NG/mL cutoff :300 Not Available [facility] ([facility]) [address] [place], [address], 11/16/2024 16:08:57 11/14/19 25 11/16/2024 DRUG SCREE N ONLY 9, UR barbiturates ia scr only Negati ve NG/mL cutoff :200 Not Available [facility] ([facility]) [address] [place], [address], 11/16/2024 16:08:57 11/14/19 25 11/16/2024 DRUG SCREE N ONLY 9, UR benzo class ia scr only Negati ve NG/mL cutoff :50 Not Available [facility] ([facility]) [address] [place], [address], 11/16/2024 16:08:57 11/14/19 25 11/16/2024 DRUG SCREE N ONLY 9, UR cocaine mtb ia scr only Negati ve NG/mL cutoff :150 Not Available [facility] ([facility]) [address] [place], [address], 11/16/2024 16:08:57 11/14/19 25 11/16/2024 DRUG SCREE N ONLY 9, UR phencyclidin e ia scr only Negati ve NG/mL cutoff :25 Not Available [facility] ([facility]) [address] [place], [address], 11/16/2024 16:08:57 11/14/19 25 11/16/2024 DRUG SCREE N ONLY 9, UR cannabinoids ia scr only Negati ve NG/mL cutoff :20 Not Available [facility] ([facility]) [address] [place], [address], 11/16/2024 16:08:57 11/14/19 25 11/16/2024 DRUG SCREE N ONLY 9, UR opiate class ia scr only Presum ptive ++POS+ + NG/mL cutoff :100 abnormal Not Available [facility] ([facility]) [address] [place], [address], 11/16/2024 16:08:57 11/14/19 25 11/16/2024 DRUG SCREE N ONLY 9, UR oxycodone ia scr only Negati ve NG/mL cutoff :100 Not Available [facility] ([facility]) [address] [place], [address], 11/16/2024 16:08:57 11/14/19 25 11/16/2024 DRUG SCREE N ONLY 9, UR fentanyl ia scr only Negati ve NG/mL cutoff :2.0 These resul ts are immun oassa y scree n only; defin itive testi ng was not perfo rmed. Some compo nents of this panel were devel oped and perfo rmanc e shannan cteri stics deter mined by [facility]. They have not been clear ed or appro gabby by the Food and Drug Admin istra tion: Cierra nyl. Not Available [facility] ([facility]) [address] [place], [address], 11/16/2024 16:08:57 11/14/19 25 11/16/2024 DRUG SCREE N ONLY 9, UR creatinine 49 mg/dL >=20 REFER ENCE RANGE : Ref Range >=20 Not Available [facility] ([facility]) [address] [place], [address], 11/16/2024 16:08:57 11/14/19 25 11/16/2024 DRUG SCREE N ONLY 9, UR urine pH 6.5 4.5-8. 9 Not Available [facility] ([facility]) [address] [place], [address], 11/16/2024 16:08:57 11/14/19 25 11/16/2024 DRUG SCREE N ONLY 9, UR nitrites Negati ve ug/mL negati ve Not Available [facility] ([facility]) [address] [place], [address], 11/16/2024 16:08:57 11/14/19 25 11/14/2024 ALBUM IN/CR EAT RATIO , VIVEK M UR creatinine, urine 45.8 mg/dL not estab. normal Not Available [facility] ([facility]) [address] [place], [address], 11/16/2024 16:08:57 11/14/19 25 11/14/2024 ALBUM IN/CR EAT RATIO , RANDO M UR albumin, urine 7.0 ug/mL not estab. Not Available [facility] ([facility]) [address] [facility], [place], [address], 11/16/2024 16:08:57 11/14/19 25 11/14/2024 ALBUM IN/CR EAT RATIO , RANDO M UR alb/creat ratio 15 mg/g_ creat 0-29 Hina l: 0 - 29 Moder ately incre ased: 30 - 300 Sever thelma incre ased: >300 Not Available [facility] ([facility]) [address] [facility], [place], [address], 11/16/2024 16:08:57 11/14/1911/16/2024 GABAP ENTIN , URINE gabapentin, urine 210.7 ug/mL Not Available [facility] ([facility]) [address] [facility], [place], [address], 11/16/2024 16:08:58 11/14/19 25 11/14/2024 PROST ATE-S PECIF IC AG prostate specific Ag 1.2 NG/mL 0.0-4. 0 normal Ambika ECLIA metho dolog y. Accor ding to the Ameri can Urolo gical Assoc iatio n, Serum PSA shoul d decre ase and remai n at undet ectab le level s after radic al prost atect irina. The AUA defin es bioch emica l recur rence as an initi al PSA value 0.2 ng/mL or great er follo wed by a subse quent confi rmato ry PSA value 0.2 ng/mL or great er. Value s obtai jasmyn with diffe rent assay metho ds or kits canno t be used inter lockhart eamarni . Resul ts canno t be inter prete d as absol tonawanda evide nce of the prese nce or absen ce [facility] se. Not Available [facility] ([facility]) [address] [facility], [place], [address], 11/16/2024 16:08:58 11/14/19 25 11/13/2024 HbA1c (hemo globi n A1c), blood HbA1c 6.2 Not Available [address], [address], 11/12/2024 17:32:23 04/06/20 24 XR, chest , 2 view No observ ation record ed. [address], [address], 04/09/2024 08:40:01 07/02/19 25 06/29/2024 LDCT, chest , for lung cance r scree fatemeh No observ ation record ed. [place] [id number], [place], [place], [address], 07/02/2024 09:20:11 07/13/19 25 07/13/2024 XR, chest , 2 view No observ ation record ed. [address], [place], [address], 07/15/2024 21:07:05 07/13/19 25 07/13/2024 XR, chest , 2 view No observ ation record ed. [place] [id number], [place], [address], 07/15/2024 21:07:06 07/13/19 25 07/13/2024 CT, chest , w/o contr ast No observ ation record ed. [place] [id number], [place], [address], 07/16/2024 10:33:22 07/13/19 25 07/13/2024 CT, abdom en + pelvi s, w/o contr ast No observ ation record ed. [place] [id number], [place], [address], 07/16/2024 10:33:06 07/13/19 25 07/13/2024 XR, chest , 2 view No observ ation record ed. [address], [place], [address], 07/15/2024 21:07:06 07/14/19 25 07/14/2024 XR, chest , 2 view No observ ation record ed. [address], [place], [address], 07/15/2024 21:07:06 07/14/19 25 07/14/2024 XR, chest , 2 view No observ ation record ed. [address], [place], [address], 07/16/2024 10:32:36 07/14/19 25 07/14/2024 XR, chest , 1 view No observ ation record ed. [address], [place], [address], 07/16/2024 08:58:50 07/14/19 25 07/14/2024 XR, chest , 1 view No observ ation record ed. [place] [id number], [place], [address], 07/16/2024 08:58:24 07/14/19 25 07/14/2024 XR, chest , 1 view No observ ation record ed. [place] [id number], [place], [address], 07/16/2024 08:55:35 07/15/19 25 07/15/2024 XR, chest , 2 view No observ ation record ed. [address], [place], [address], 07/15/2024 21:07:06 07/15/19 25 07/15/2024 XR, chest , 1 view No observ ation record ed. [address], [place], [address], 07/16/2024 08:55:08 07/15/19 25 07/13/2024 elect rocar diogr am, routi ne ECG, 12 leads min; inter preta tion and repor t (PROC ) No observ ation record ed. [address], [place], [address], 07/16/2024 08:54:30 07/16/19 25 07/16/2024 XR, chest No observ ation record ed. [address], [place], [address], 07/16/2024 09:56:18 07/16/19 25 07/16/2024 XR, chest , 2 view No observ ation record ed. [email or web address], [place], [address], 07/16/2024 14:21:43 07/17/19 25 07/16/2024 elect rocar diogr am No observ ation record ed. [address], [place], [address], 07/17/2024 16:50:19 07/23/19 25 07/23/2024 XR, chest , 2 view No observ ation record ed. [address], [place], [address], 07/23/2024 13:28:48 09/29/19 25 09/28/2024 XR, chest , 2 view No observ ation record ed. [email or web address], [place], [address], 09/28/2024 11:16:13 11/24/19 25 11/23/2024 CT, chest , w/o contr ast No observ ation record ed. [email or web address] [facility] [address], [place], [place], [address], 11/24/2024 09:25:39 Result Notes None recorded. Problems Name Problem SNOMED Code Status Onset Date Resolution Date Notes Provider Name and Address Organization Details Recorded Time Brayan okeefe 66591823 Active 2023 Judith Reno, [employer] [address] [place], [address] , [facility] 4 11:08:18 Nocturia 296996659 Active 2024 Judith Reno, [employer] [address] [place], [address] , [facility] 5 13:23:38 Body mass index 30+ - obesity 577043595 Active 2024 Judith Reno, [employer] [address] [place], [address] , [facility] 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 201258815 Active 2016 Problem Code: E11.41; Problem Code Type: ICD-10; Not Available [facility] 3 22:34:35 Uncontro lled type 2 diabetes mellitus 689952414 Completed 201602/07/2018 Not Available [facility] 2 21:56:52 Mixed hyperlip idemia 453766456 Active 2017 Problem Code: E78.2; Problem Code Type: ICD-10; Not Available [facility] 3 22:34:35 Moderate major depressi on, single episode 49447462 Active 2021 Problem Code: F32.1; Problem Code Type: ICD-10; Not Available [facility] 3 22:34:35 Primary insomnia 3439720 Completed 201602/20/2017 Problem Code: F51.01; Problem Code Type: ICD-10; Not Available [facility] 2 21:56:52 Primary insomnia 6481779 Completed 201605/14/2017 Problem Code: F51.01; Problem Code Type: ICD-10; Not Available [facility] 2 21:56:53 Primary insomnia 9596290 Completed 201704/04/2018 Problem Code: F51.01; Problem Code Type: ICD-10; Not Available [facility] 2 21:56:53 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 73809016 Completed 201802/25/2019 Problem Code: H02.022; Problem Code Type: ICD-10; Not Available [facility] 2 21:56:53 Divertic ulum of [place] an tube 793119825 Completed 201712/03/2017 Problem Code: H69.80; Problem Code Type: ICD-10; Not Available [facility] 2 21:56:53 Otalgia of left ear Completed 201710/18/2017 Not Available [facility] 2 21:56:53 Hyperten sive disorder 74545820 Completed 201604/07/2018 Problem Code: I10; Problem Code Type: ICD-10; Not Available [facility] 2 21:56:53 Acute laryngop haryngit is 17603798 Completed 201607/26/2016 Problem Code: J06.0; Problem Code Type: ICD-10; Not Available [facility] 2 21:56:53 Tobacco dependen ce caused by cigarett es 77093986213 490984 Active 2020 Problem Code: F17.210; Problem Code Type: ICD-10; Not Available [facility] 3 22:34:35 Acute bronchit is 05776276 Completed 201802/25/2019 Problem Code: J20.9; Problem Code Type: ICD-10; Not Available [facility] 2 21:56:53 Chronic obstruct jagjit pulmonar y disease 58723348 Active 2020 Problem Code: J44.9; Problem Code Type: ICD-10; Not Available [facility] 3 22:34:35 Radiculo gail due to lumbar interver tebral disc disorder 19983570158 9105 Active 2019 Problem Code: M51.16; Problem Code Type: ICD-10; Not Available [facility] 3 22:34:35 Prolapse d lumbar interver tebral disc 211625164 Completed 201703/18/2020 Problem Code: M51.26; Problem Code Type: ICD-10; Not Available [facility] 2 21:56:54 Low back pain 410907079 Completed 201803/18/2020 Problem Code: M54.5; Problem Code Type: ICD-10; REJI olivas, [facility] 2 13:18:01 Neck pain 44716897 Completed 201605/14/2017 Not Available [facility] 2 21:56:54 Muscle contract ure 24228420 Completed 201712/03/2017 Problem Code: M62.49; Problem Code Type: ICD-10; Not Available [facility] 2 21:56:55 Low back pain 323884902 Completed 201703/18/2020 Problem Code: M54.5; Problem Code Type: ICD-10; REJI MARTÍNEZR null, [facility] 2 13:18:01 Cough 45651569 Completed 201802/25/2019 Problem Code: R05; Problem Code Type: ICD-10; Not Available [facility] 2 21:56:55 Cough 72443104 Completed 201609/21/2016 Problem Code: R05; Problem Code Type: ICD-10; Not Available [facility] 2 21:56:55 Epigastr ic pain 45350016 Completed 201706/06/2018 Problem Code: R10.13; Problem Code Type: ICD-10; Not Available [facility] 2 21:56:55 Eruption 679507065 Completed 201709/12/2017 Problem Code: R21; Problem Code Type: ICD-10; Not Available [facility] 2 21:56:56 Localize d edema 980968870 Completed 201712/03/2017 Problem Code: R60.0; Problem Code Type: ICD-10; Not Available [facility] 2 21:56:56 Localize d edema 478730110 Completed 201601/05/2017 Problem Code: R60.0; Problem Code Type: ICD-10; Not Available [facility] 2 21:56:56 Localize d edema 299048739 Completed 201702/21/2018 Problem Code: R60.0; Problem Code Type: ICD-10; Not Available [facility] 2 21:56:57 Localize d edema 600419654 Completed 201605/14/2017 Problem Code: R60.0; Problem Code Type: ICD-10; Not Available [facility] 2 21:56:57 Paroxysm al atrial fibrilla tion 139067251 Active 2016 Problem Code: I48.0; Problem Code Type: ICD-10; Not Available [facility] 3 22:34:35 Influenz a vaccine needed 54149702653 06 Completed 201906/16/2020 Problem Code: Z23; Problem Code Type: ICD-10; RANDI olivas [employer] 2 14:51:37 Finding of body mass index 183249240 Active 2018 Problem Code: Z68.41; Problem Code Type: ICD-10; Not Available [facility] 3 22:34:35 Patellof emoral osteoart hritis 365658557 Active 2019 Problem Code: M17.12; Problem Code Type: ICD-10; Not Available [facility] 3 22:34:35 Disorder of nervous system due to type 2 diabetes mellitus 930093740 Completed 201610/04/2017 Problem Code: 250.60; Problem Code Type: ICD-9; Not Available [facility] 2 21:57:00 Disorder of nervous system due to type 2 diabetes mellitus 839792185 Active 2016 Not Available [facility] 3 22:34:35 Low back pain 941054574 Completed 201602/03/2018 Problem Code: M54.5; Problem Code Type: ICD-10; REJI olivas [employer]. 13:18:01 Transien t insomnia 377155842 Completed 201602/20/2017 Problem Code: 307.41; Problem Code Type: ICD-9; Not Available [facility] 2 21:57:01 Transien t insomnia 862016653 Completed 201704/04/2018 Problem Code: 307.41; Problem Code Type: ICD-9; Not Available [facility] 2 21:57:02 Transien t insomnia 591242694 Completed 201605/14/2017 Problem Code: 307.41; Problem Code Type: ICD-9; Not Available [facility] 2 21:57:02 Benign essentia l hyperten maldonado 0860355 Completed 201603/24/2018 Problem Code: 401.1; Problem Code Type: ICD-9; Not Available [facility] 2 21:57:02 Pulmonar y hemorrha ge 78456446 Completed 201602/25/2019 Problem Code: R04.89; Problem Code Type: ICD-10; Not Available [facility] 2 21:57:02 Dysfunct ion of eustachi an tube 15359893 Completed 201712/03/2017 Problem Code: 381.81; Problem Code Type: ICD-9; Not Available [facility] 2 21:57:02 Spasm 80114402 Completed 201712/03/2017 Problem Code: 728.85; Problem Code Type: ICD-9; Not Available [facility] 2 21:57:03 Edema 203212969 Completed 201601/05/2017 Problem Code: 782.3; Problem Code Type: ICD-9; Not Available [facility] 2 21:57:03 Edema 747980565 Completed 201605/14/2017 Problem Code: 782.3; Problem Code Type: ICD-9; Not Available [facility] 2 21:57:03 Influenz a vaccine needed 58743409331 06 Completed 202005/13/2022 Problem Code: Z23; Problem Code Type: ICD-10; RANDI olivas [employer]. 14:51:37 Otogenic otalgia 17350266 Completed 201710/18/2017 Problem Code: 388.71; Problem Code Type: ICD-9; Not Available [facility] 2 21:57:05 Acute upper respirat ory infectio n of multiple sites Completed 201607/26/2016 Problem Code: 465.8; Problem Code Type: ICD-9; Not Available [facility] 2 21:57:05 Edema 912854062 Completed 201712/03/2017 Problem Code: 782.3; Problem Code Type: ICD-9; Not Available [facility] 2 21:57:05 Edema 176334899 Completed 201702/21/2018 Problem Code: 782.3; Problem Code Type: ICD-9; Not Available [facility] 2 21:57:06 Problem Notes None recorded. Procedures Surgical History Date Name Laterality Status Provider Name and Address Organization Details Recorded Time 01/29/20 21 cardiac catheterization completed [employer] 03/16/2022 13:40:21 09/24/19 20 colonoscopy completed [employer]. 03/16/2022 13:41:09 Hernia repair w/mesh completed [employer]. 03/16/2022 13:38:50 vasectomy completed [employer] 03/16/2022 13:39:01 cardiac ablation using fluoroscopy guidance completed [employer]I [employer] 03/16/2022 13:39:57 cholecystectomy completed Judith Reno APRN [address] [place], [address], [employer] 11/13/2024 13:25:58 Imaging Results None recorded. Procedure Notes None recorded. Medical Equipment None Reported. Allergies Allergen ID Allergen Name Allergen Category Reaction Reaction Severity Criticality Documentation Date Start Date Code Code System Note Provider Name and Address Organization Details Recorded Time 45135 Product containin g penicilli n (product) medicatio n Not available Not available Not available 02/02/2022 20464 8001 SNOMED SHANTHI DENG deisy [employer] 2 09:31:03 70673 Bactrim medicatio n Not available Not available Not available 02/02/2022 46068 9 RxNorm Not Available [facility] 2 22:56:30 50816 Cipro medicatio n Not available Not available Not available 02/02/2022 85105 3 RxNorm Not Available [facility] 2 22:56:30 Medications Name Sig Start Date [...] day by oral route for 30 days. 04/12/ 2024 07/16 /2024 completed Not Available Not Available Not Available [...] Updated DateTime 5 182.88 cm 36.5 kg/m2 455750. 05 g 87 /min 88 % 88 % 134/85 mm[Hg] Taina [place] [facility] [employer] 5 13:42:59 Date Recorded Body height Body mass index (BMI) Body weight Body temperature Heart rate Oxygen saturation Oxygen saturation in Arterial blood by Pulse oximetry Systolic And Diastolic Provider Name and Address Organization Details Last Updated DateTime 5 182.88 cm 38.3 kg/m2 032074. 77 g 98 [degF] 66 /min 90 % 90 % 120/70 mm[Hg] REJI [employer] 5 13:11:10 Date Recorded Body height Body mass index (BMI) Body weight Body temperature Heart rate Oxygen saturation Oxygen saturation in Arterial blood by Pulse oximetry Systolic And Diastolic Provider Name and Address Organization Details Last Updated DateTime 4 182.88 cm 38.5 kg/m2 217499. 95 g 98 [degF] 75 /min 88 % 88 % 138/70 mm[Hg] REJI [employer] 4 11:03:40 Date Recorded Body height Body mass index (BMI) Body weight Body temperature Heart rate Oxygen saturation Oxygen saturation in Arterial blood by Pulse oximetry Systolic And Diastolic Systolic And Diastolic Systolic And Diastolic Provider Name and Address Organization Details Last Updated DateTime 4 182.88 cm 38.8 kg/m2 609089. 85 g 98.6 [degF] 79 /min 90 % 90 % 159/68 mm[Hg] 146/67 mm[Hg] 150/67 mm[Hg] [employer] [employer] 4 13:57:17 Social History Question Answer Notes LastModified by Organizat ion Details LastModified Time Tobacco Smoking Status Current Every Day Smoker SHANTHI olivas, [employer] 04/26/2022 11:57:24 Do You Have An [...] ot available 03/16/2022 Who Is Your Employer? [employer] Information not available 03/16/2022 Have There Been Any Changes To Your Family Or Social Situation? No Information no t available 03/16/2022 Are There Any Guns Present In Your Home? Yes [email or web address] Information not available 09/09/2023 Do You Have A Medical Power Of Race Relations Adviser? No Information not available 03/16/2022 What Was [...] LastModified Time Father Family history of Hypertension [email or web address] Not available 04/26/2022 09:31:20 Father Family history of ischemic heart disease [email or web address] Not available 09:31:26 Father Family history of hyperlipidem ia [email or web address] Not available 09:31:33 Mother Family history of Hypertension [email or web address] Not available 13:36:10 Mother Family history of ischemic heart disease smynear Not available 2021 13:36:25 Mother Family history of hyperlipidem ia smynear Not available 2021 13:36:48 Medical History Condition Response Hospitalizations Y Diabetes Y Acid Reflux (GERD) Y Emergency room visit since last appointm ent. Y Hypertension Y COPD Y High Cholesterol Y Immunizations Vaccine Type Date Status Note Provider Nam ban and Address Organization Details Recorded Time zoster recombinant 3 completed Judith Reno APRN [address] [facility], [place], [address], [place] [employer] 12/20/2022 17:06:53 Influenza, split virus, quadrivalent, PF 3 completed Zakiya Heck APRN [address] [place], [address], [employer] 03/04/2023 16:11:47 COVID-19, mRNA, LNP-S, PF, sia-sucrose, 30 mcg/0.3 mL 3 completed Judith Reno APRN [address] [place], [address], [employer] 03/11/2023 18:07:55 Influenza, split virus, quadrivalent, PF 2 completed Judith Reno APRN [address] [place], [address], [facility] [employer] 03/17/2022 18:20:55 Influenza, MDCK, quadrivalent, preservative 9 completed Not Available [facility] 05/11/2023 22:34:35 COVID-19, mRNA, LNP-S, PF, 100 mcg/0.5mL dose or 50 mcg/0.25mL dose 1 completed Not Available [facility] 05/11/2023 22:34:35 COVID-19, mRNA, LNP-S, PF, 100 mcg/0.5mL dose or 50 mcg/0.25mL dose 0 completed Not Available [facility] 05/11/2023 22:34:35 Influenza, split virus, quadrivalent, PF 1 completed Not Available [facility] 05/11/2023 22:34:35 pneumococcal, unspecified formulation 9 completed Not Available [facility] 05/11/2023 22:34:35 Influenza, split virus, quadrivalent, preservative 0 completed [facility] Available [facility] 05/11/2023 22:34:35 Influenza, split virus, quadrivalent, preservative 8 completed Not Available [facility] 05/11/2023 22:34:35 Influenza, split virus, trivalent, PF 4 completed Judith Reno APRN [address] [place], [address], [facility] 03/25/2024 15:03:38 COVID-19, mRNA, LNP-S, PF, sia-sucrose, 30 mcg/0.3 mL 4 completed Judith Reno APRN [address] [place], [address], [facility] 04/08/2024 17:46:37 COVID-19, mRNA, LNP-S, PF, 100 mcg/0.5mL dose or 50 mcg/0.25mL dose 1 completed Not Available [facility] 05/11/2023 22:34:35 Tdap 3 completed Not Available [facility] 11/13/2024 13:01:11 zoster recombinant 4 completed Not Available [facility] 11/13/2024 13:01:11 Past Encounters Encounter ID Performer Location Encounter Start Date Encounter Closed Date Diagnosis/Indication Diagnosis SNOMED-CT Code Diagnosis ICD10 Code Diagnosis Note [id number] Judith Shadia [place] [phone] 03/17/2022 15:43:51 03/17/2022 16:23:30 Administration of influenza vaccine 42699987 Z23 Disorder o f nervous system due to type 2 diabetes mellitus 070988608 E11.42 Moderate m ajor depression, single episode 18892797 F32.1 Radiculopa thy due to lumbar intervertebral disc disorder 4508773440 72814 M51.16 Chronic ob structive pulmonary disease 88169186 J44.9 Again smoking cessation was emphasized . He has not been compliant with his inhalers of late. [id number] Judith Reno [address] [address] 04/09/2022 15:47:33 04/09/2022 16:16:52 Parotitis 22597038 K11.20 Start clindamyci n today, may use Tylenol for pain and fever. I have encouraged him to suck on sour candy to increase salivation . He may do warm moist compresses . I instructed him that should pain or swelling progress or fever, that he should return to clinic or go to the emergency room. [id number] [place] [phone] 04/26/2022 11:33:20 04/26/2022 12:29:16 Acute sialoadenitis 617444948 K11.21 Continue cefdinir and flagyl, keep ENT appt in 2 days. Continue to suck on sour candies. Emphasized stopping smoking and seeing a dentist. [id number] Zakiya Umang [address] 0 05/13/2022 14:40:20 05/13/2022 15:33:04 Cough 79807943 R05.9 Lower resp iratory tract infection 00807788 J22 Wheezing 49174129 R06.2 [id number] [place] [id number] 06/15/2022 08:46:58 06/15/2022 09:20:28 Disorder of nervous system due to type 2 diabetes mellitus 213971940 E11.42 Continue current medication s. Mixed hyperlipidemia 267 677016 E78.2 Moderate m ajor depression, single episode 86374516 F32.1 Increase Trazodone to 100 mg q HS prn. Increase Zoloft to 100 mg daily. He declines counseling again today. Chronic ob structive pulmonary disease 81009198 J44.9 Again smoking cessation was emphasized . He has not been compliant with his inhalers of late. Tobacco de pendence caused by cigarettes [id number] 7860387 F17.210 Body mass index 40+ - severely obese 904619516 Z68.41 [id number] [place] [id number] 09/10/2022 10:16:15 09/10/2022 11:22:09 Mononeuropathy due to type 2 diabetes mellitus 492695738 E11.41 Again emphasized DM control, DM diet, med compliance , stop smoking. Long-term current use of drug therapy 373870082 Z79.899 Andres reviewed, annual UDS obtained, superintendent container terminal controlled substance agreement on file. Radiculopa thy due to lumbar intervertebral disc disorder 8594098514 21501 M51.16 [id number] [place] [address] 12/08/2022 10:16:21 12/08/2022 11:02:56 Disorder of nervous system due to type 2 diabetes mellitus 845602346 E11.42 Continue current medication s. Chronic ob structive pulmonary disease 64317663 J44.9 Again smoking cessation counseling was provided. Compliance with inhalers was emphasized . Essential hypertension 24848345 I10 DASH diet, exercise and smoking cessation encouraged . Paroxysmal atrial fibrillation 048926640 I48.0 Tobacco de pendence caused by cigarettes [id number] 7878283 F17.210 Adult heal th examination 260394355 Z00.00 Body mass index 40+ - severely obese 575704561 Z68.41 Vitamin D deficiency 347 37772 E55.9 Hepatitis C screening 41 3550643 Z11.59 Screening for malignant neoplasm of respiratory tract 599661172 Z12.2 Active or passive immunization 431630155 Z23 Nocturia 490601436 R35.1 [id number] [place] [address] 12/31/2022 10:49:24 12/31/2022 11:51:56 Abscess of buttock 30934971 L02.31 Right buttock. Complete all antx, warm epsom soaks BID. [id number] Zakiya Heck [place] [address] 0 03/04/2023 13:10:54 03/04/2023 14:01:06 Administration of influenza vaccine 22535728 Z23 [id number] Judith Reno [place] [address] 0 03/09/2023 13:23:47 03/09/2023 17:48:51 Active or passive immunization 543360844 Z23 [id number] Judith Reno, [place] [id number] 03/11/2023 10:29:41 03/11/2023 11:34:19 Mononeuropathy due to type 2 diabetes mellitus 639537594 E11.41 Again emphasized DM control, DM diet, med compliance , stop smoking. Consequenc es of uncontroll ed DM explained. [id number] Judith Reno [place] [id number] 06/13/2023 11:03:25 06/13/2023 12:15:48 Disorder of nervous system due to type 2 diabetes mellitus 538989246 E11.42 Continue current medication s. Start Jardiance 10 mg daily as A1c is not controlled and he has cardiovasc ular disease. Take BP meds as soon as you arrive home today and check BP daily- notify me if it trends > 140/90. Mixed hyperlipidemia 267 786578 E78.2 Continue statin and low fat dash diet was encouraged . Chronic ob structive pulmonary disease 50150432 J44.9 Again smoking cessation counseling was provided. Compliance with inhalers was emphasized . Moderate m ajor depression, single episode 37959079 F32.1 Continue zoloft and trazodone. Paroxysmal atrial fibrillation 865646412 I48.0 Continue rate controller s. Vitamin D deficiency 347 52710 E55.9 Transient cerebral ischemia 695968177 G45.9 Must continue the Xarelto daily, it cannot be held for any further injections at this time. Obtain MRI brain and carotid artery duplex with Neurology referral. I inst him that should he develop these sx again, he must go to [facility] javier [id number] N[place]LE [place], [place] [id number] 08/11/2023 13:28:00 08/11/2023 14:28:59 Dysuria 89887354 R30.0 Melena [id number] K92.1 [id number] Judith Reno [place] [id number] 09/09/2023 08:59:41 09/09/2023 11:05:32 Disorder of nervous system due to type 2 diabetes mellitus 348693884 E11.42 Continue current medication s. He needs to quit smoking!!! Will refill andres callejas reviewed, will be due for UDS at next visit. Start Ozempic 0.25 mg weekly. Constipation 48714148 K5 9.00 Continue colace, add miralax. Start probiotic. Omeprazole daily for 30 days. Candidal balanitis 01983 007 B37.42 Screening for malignant neoplasm of colon 810669723 Z12.11 [id number] Judith Reno [address] 0 12/13/2023 15:20:38 12/13/2023 16:27:38 Disorder of nervous system due to type 2 diabetes mellitus 766115439 E11.42 Continue current medication s. He needs to quit smoking!!! Will refill andres callejas reviewed, will obtain UDS today. Long-term current use of drug therapy 520530769 Z79.899 Andres reviewed, annual UDS obtained, custodial controlled substance agreement on file. Constipation 59994325 K5 9.00 He is to use Miralax daily with increased dietary fiber intake and oral fluids with increased physical activity as he is able. Tobacco de pendence caused by cigarettes 4530704679 5359211 F17.210 Smoking cessation encouraged . [id number] Judith Reno [place] [address] 0 02/06/2024 15:47:29 02/06/2024 17:11:01 Neck pain 18053657 M54.2 RICE, continue muscle relaxants, gabapentin and Byron he has at home. Start PT. Use of lidocaine patch OTC explained and samples given. Short course of steroids, he cannot take nsaids as he must take Xarelto. [id number] Judith Reno [place] [address] 0 03/23/2024 10:52:08 03/23/2024 13:44:10 Active or passive immunization 625483160 Z23 Chronic ob structive pulmonary disease 51648603 J44.9 Again smoking cessation counseling was provided. Compliance with inhalers was emphasized . Continues on CPAP for CASANDRA with oxygen bled in at night. He also needs to keep Pulmonary consult appt and wear the home oxygen he has at 2 l/m per [place]. Disorder o f nervous system due to type 2 diabetes mellitus 958296502 E11.42 Continue current medication s. He needs to quit smoking!!! Andres reviewed today for gabapentin refill. Essential hypertension 31290901 I10 DASH diet, exercise and smoking cessation encouraged . Fatigue 89057176 R53.83 Body mass index 30+ - obesity 884806457 Z68.38 [id number] [place] [id number] 04/06/2024 13:12:21 04/06/2024 13:53:04 Active or passive immunization 395984418 Z23 [id number] [place] [address] 0 04/24/2024 13:36:45 04/24/2024 14:53:15 Acute exacerbation of chronic obstructive pulmonary disease 817308043 J44.1 Continue oxygen and inhalers. Begin antx and steroids. He must stop smoking! Neoplasm o f uncertain behavior of skin 83009515 D48.5 CHEST wall nevus - large, raised, irregular, progressiv e. Needs Derm consult. [id number] [place] [id number] 08/01/2024 13:28:18 08/01/2024 14:14:42 Mononeuropathy due to type 2 diabetes mellitus 339807442 E11.41 Again emphasized DM control, DM diet, med compliance , stop smoking. Consequenc es of uncontroll ed DM explained. ANDRES reviewed, [place] controlled substance agreement renewed. History of pneumothorax 600041135 Z87.09 Keep appt with Pulmonary for f/up chest CT. Chronic ob structive pulmonary disease 30712384 J44.9 Again smoking cessation counseling was provided. Compliance with inhalers was emphasized . Continues on CPAP for CASANDRA with oxygen bled in at night. He also needs to keep Pulmonary consult appt and wear the home oxygen he has at 2 l/m per [place]. Pleural effusion 8858691 8 J90 Scheduled to see Pulmonary with f/up CXR in 6 weeks. Continue diuretics and daiy weights. Is euvolemic today. Moderate m ajor depression, single episode 42682975 F32.1 Continue zoloft and increase trazodone to 150 mg q HS. Candidiasis of mouth 797 75117 B37.0 [id number] Judith Reno APRN [address] [phone] 11/13/2024 12:56:12 11/13/2024 13:43:15 Disorder of nervous system due to type 2 diabetes mellitus 163287235 E11.42 Continue current medication s. He needs to quit smoking!!! Andres reviewed today for gabapentin refill. Essential hypertension 72911405 I10 DASH diet, exercise and smoking cessation encouraged . Long-term current use of drug therapy 834127867 Z79.899 Andres reviewed, annual UDS obtained, custodial controlled substance agreement on file. Nocturia 547073326 R35.1 Body mass index 30+ - obesity 712801031 E66.9 Health Concerns Section Related Observation LastModified by Organization Detai ls LastModified Time None Recorded Concern Status LastModified by Organization Details LastModified Time None Recorded Advance Directives Directive N: Payers Insurance Date Sequence Insurance Name Policy Number Policy Sanchez Covered Member ID Sanchez Member ID Guarantor Name 11/27/2024 1 [facility] [place] Matt Drew [id number] Matt Drew 07/15/2023 PAYMENT PLAN Matt Drew 08/28/2024 1 [facility] [place] Matt Drew [id number] Matt Drew Notes Date Note Type Note Provider Name and Address Organization Details Recorded Time 03/23/2024 text/html COPDReported bypatient.Onset/Cesar ng:multiple times per [...] HS.Colonoscopy is scheduled for this fall with Lovenox bridge. Judith Reno, [employer] [address] [place], [address], [facility] [employer] 03/25/2024 15:09:04 04/24/2024 text/html CoughReported bypatient.Quality:pr oductive [...] past 3 months. Judith Reno APRN [address] [place], [address], [facility] [place]. 04/24/2024 17:15:53 08/01/2024 text/html COPDReported bypatient.Onset/Cesar ng:multiple [...] to smoke.Hospitalizatio n Contact RecordReported bypatient.Follow UpHospital: ([facility])Hypertensio n F/UReported bypatient.Medication s:taking medications as directed; no side effects from medication Lifestyle:not exercising regularly;does not adhere to low sodium diet Associated Symptoms:no dizziness; no lightheadedness; no chest pain; no palpitations; no edema; no calf pain with exertion; no headache;shortness of breath; c/o fatigue Was admitted to [facility] last week due to pneumothorax, pleural effusion, and COPD exacerbation. Chest tube was placed. Has f/up appts with Pulmonary and Cardio. Is wearing oxygen at 2 l/m per [place] continously. Is trying to now stop smoking and is wearing nicotine patch. Judith Reno APRN [address] [place], [address], [employer]. 08/27/2024 22:02:50 11/13/2024 text/html COPDReported bypatient.Onset/Cesar ng:multiple times per day [...] due for PSA. Judith Reno APRN [address] [place], [address], [employer]. 11/26/2024 22:26:35
--- NOTE | 2024-12-10 13:53 | EXP.PAIN.SOA ---
[facility] Disclaimer: The information contained in this section may have been updated after the patient was seen, as this information can be updated by other users. Medical History Abnormality of lung on CXR COPD exacerbation Mastoiditis History of acute mastoiditis March 2022, evident on most recent MRI of the brain Transient neurological symptoms May 2023 while holding Xarelto for pain management procedure in the setting of multiple risk factors for cardiovascular event including but not limited to hypertension, hyperlipidemia, diabetes, morbid obesity, sleep apnea, tobacco abuse, A-fib Avulsion of skin of right thumb Neck pain Acute mastoiditis Acute parotitis Hiatal hernia Pleural effusion, left Encounter for screening for malignant neoplasm of lung Dyspnea on exertion History of COPD Smoking greater than 30 pack years Encounter for postoperative care Loss of taste Swelling of right parotid gland Swelling of left parotid gland Parotid abscess Dental caries limited to enamel Facial cellulitis Depression Anxiety Diabetes mellitus, type 2 History of stroke COPD (chronic obstructive pulmonary disease) Atrial fibrillation Status postcardiac ablation, active follow-up with [facility] in [place] Hyperlipidemia Hypertension Surgical History H/O ventral hernia repair Hx of cardiac catheterization History of cholecystectomy Family History Other Family history of cancer Family history of hyperlipidemia Family history of hypertension Family history of myocardial infarction Social History Smoking Status: Current every day smoker alcohol intake: never substance use type: denies use current occupational status: other Travel in the last 8 weeks?: None household members: spouse housing: house marital status: caffeine: No PM Subjective & Objective Subjective Subjective:: Patient is a pleasant 64-year-old male who presents today for his medication refill. He rates his pain today as 6 out of 10. Patient does state that he just had a fall last week. He states that he was walking in the yard when it was dark and he ended up tripping over a chair landing on his buttocks. Patient does not believe he fractured anything however still feels like he is stoved up. Patient is asking if we could possibly do some steroids. Patient is currently managed with Alexander 7.5 mg 3 times a day and methocarbamol 750 mg 3 times a day. He denies any side effects. 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 His Matthew has been reviewed and is appropriate. Review of Systems: General: No recent weight changes, no fever, no sleep disturbances Respiratory: No cough, no shortness of air, no recurring pulmonary infections Cardiovascular/peripheral vascular: No chest pain, no palpitations, no edema, no shortness of breath Gastrointestinal: No new onset incontinence, normal bowel movements reported Genitourinary: No new onset incontinence Musculoskeletal: Low back pain Psychiatric: [Normal mood/affect] Neurological: [Denies weakness in extremities], [denies balance issues] Pain at rest (0-10 scale): 6 Objective Objective:: Physical Exam: General: Alert and oriented x3, no acute distress, pleasant and cooperative Lungs: Respirations even and unlabored, symmetrical chest expansion Eyes: PERRL Musculoskeletal: Flexion and extension of lumbar [spine] somewhat guarded secondary to pain, [antalgic gait noted] Neurological: Speech clear, no gross sensory deficit Has patient had previous pain injection?: No Conservative treatment options previously tried: Prescription medications Length of treatment: Longer than 12 weeks Meds Home Medications and Allergies Home Medications ?Medication ?Instructions ?Recorded ?Confirmed ?Type montelukast 10 mg tablet 10 mg PO QPM Breathing problems 11/17/17 12/10/24 History (Singulair) atorvastatin 20 mg tablet 20 mg PO HS Cholesterol 04/11/22 12/10/24 History bumetanide 2 mg tablet 2 mg PO DAILY 04/11/22 12/10/24 History gabapentin 600 mg tablet 600 mg PO TID Pain 04/11/22 12/10/24 History lisinopril 40 mg tablet 40 mg PO DAILY High blood pressure 04/11/22 12/10/24 History metoprolol tartrate 100 mg tablet 100 mg PO BID High blood pressure 04/11/22 12/10/24 History rivaroxaban 20 mg tablet (Xarelto) 20 mg PO QPMWITHMEAL 04/11/22 12/10/24 History amlodipine 10 mg tablet 10 mg PO DAILY 04/20/22 12/10/24 History cetirizine 10 mg tablet (All Day 10 mg PO DAILY 08/01/23 12/10/24 History Allergy (cetirizine)) nitroglycerin 0.4 mg sublingual 0.4 mg sublingual Q5M PRN Chest 08/01/23 12/10/24 History tablet Pain omeprazole 20 mg capsule,delayed 20 mg PO DAILY 09/13/23 12/10/24 History release fluticasone fur. 100 mcg-umeclid 1 inh inhalation DAILY 90 days #90 04/19/24 12/10/24 Rx 62.5 mcg-vilant 25 mcg ea inhalat.powder (Trelegy Ellipta) empagliflozin 10 mg tablet 10 mg PO DAILY 07/05/24 12/10/24 History (Jardiance) sertraline 100 mg tablet 100 mg PO DAILY 07/05/24 12/10/24 History cyclobenzaprine 10 mg tablet 10 mg PO TID 07/14/24 12/10/24 History propafenone 425 mg 425 mg PO BID 07/14/24 12/10/24 History capsule,extended release 12 hr ipratropium 0.5 mg-albuterol 3 mg 3 ml inhalation QID PRN shortness 07/17/24 12/10/24 Rx (2.5 mg base)/3 mL nebulization of breath or wheezing 90 days #270 soln mL methocarbamol 750 mg tablet 750 mg PO TID #270 tabs 09/13/24 12/10/24 Rx azelastine 137 mcg (0.1 %) nasal 2 spray intranasal HS 90 days #30 09/28/24 12/10/24 Rx spray mL fluticasone propionate 50 2 spray intranasal DAILY 90 days 09/28/24 12/10/24 Rx mcg/actuation nasal #16 grams spray,suspension (Flonase Allergy Relief) potassium chloride 10 mEq 10 meq PO DAILY 09/28/24 12/10/24 History capsule,extended release trazodone 150 mg tablet 150 mg PO DAILY 09/28/24 12/10/24 History hydrocodone 7.5 mg-acetaminophen 1 tab PO TID #90 tabs 11/08/24 12/10/24 Rx 325 mg tablet New Prescriptions to Start Prescriptions: Allergies Allergy/AdvReac Type Severity Reaction Status Date / Time levofloxacin Allergy Mild I-RASH Verified 11/29/24 15:02 niacin Allergy Mild Rash Verified 11/29/24 15:02 ofloxacin Allergy Mild Rash Verified 11/29/24 15:02 sulfamethoxazole (From Allergy Mild I-RASH Verified 11/29/24 15:02 Bactrim) trimethoprim (From Bactrim) Allergy Mild I-RASH Verified 11/29/24 15:02 oxytetracycline Allergy Unknown Rash Verified 11/29/24 15:02 Penicillins Allergy Unknown Rash Verified 11/29/24 15:02 fentanyl Allergy Confusion Verified 11/29/24 15:02 Assessment and Plan *Assessment and plan (1) Lumbar radiculopathy: Status: Chronic Category: Medical Code(s): M54.16 - Radiculopathy, lumbar region (2) Degenerative joint disease (DJD) of lumbar spine: Status: Chronic Qualifiers: Spinal osteoarthritis complication: with radiculopathy Qualified Code(s): M47.26 - Other spondylosis with radiculopathy, lumbar region Category: Medical Code(s): M47.816 - Spondylosis without myelopathy or radiculopathy, lumbar region Plan I will refill the patient's Alexander and provide a 1 month supply of this medication. I will also send in a 5-day dose of prednisone 20 mg twice daily. Patient denied any steroid use within the last 3 months. Patient will return to clinic in 1 month for reevaluation of symptoms and plan of care. I did discuss with the patient in future that where previously we had put on hold the possibility of a pump trial due to not being able to tolerate the fentanyl pump trial that Dr. Read has been doing morphine pump trials and not requiring overnight stays. We will follow-up with him in future if he wants to proceed forward with this option at a later date. Patient has been instructed to contact the clinic with any concerns before the next appointment. Dr. Read has reviewed this note and agrees with this plan of care. This note was dictated using voice recognition software and make contain errors or omissions. All injections are used with Lidocaine, Bupivacaine and dexamethasone. Occasionally urine drug screen is needed to verify patient's compliance with our office pain contract. This is ordered based off specific treatments related to chronic pain with the potential to abuse certain medications.
== END 2024-12-10 23:59 | disposition home or self-care (01) ==
PROVIDERS: PCP Nurse Practitioner Family; Visit Provider Nurse Practitioner Family
DX: M47.26 Other spondylosis with radiculopathy, lumbar region (principal); Z79.891 Long term (current) use of opiate analgesic; Z79.899 Other long term (current) drug therapy
CPT/HCPCS: 99212; G0463

== ENCOUNTER 2025-01-14 13:45 | Outpatient (POV) | payer MEDICARE, OTHER, SELFPAY ==
--- OUTSIDE RECORDS SUMMARY | 2024-07-17 09:51 | XMS_ITS | Continuity of Care Document ---
Author Name [facility] Organization [facility] Care Team Providers Care Supervisor Roving Name Role Phone [facility] Unavailable Unavailable Problems Combined list of problems from [facility] facilities. It does not include entries that were removed or entered in error. Problem Status Onset Date Problem Type Date of Resolution Comments Source Allergic rhinitis [facility] Atrial fibrillation Active Condition [facility] Cerebral infarction Active Condition [facility] Gastroesophageal reflux disease Active Condition [facility] Hypertension Active Condition [facility] Insomnia Active Condition [facility] Obesity Active Condition [facility] Sleep apnea Active Condition [facility] Tobacco use Active Condition [facility] Medications Combined list of outpatient medications from [facility] facilities.Medications provided include 1) outpatient medications from the last 15 months, and 2) patient-reported medications. Medication Details Route Status Patient Instructions Prescription Expires Prescription Number Last Dispense Date Ordering Provider Order Date Order Qty Source AMLODIPINE BESYLATE 10MG TAB TAKE ONE TABLET BY MOUTH DAILY ORAL ACTIVE CHOPRA,JOSIAH EK R 2017 [place] [facility] CODEINE 30MG/ACETAM INOPHEN 300MG TAB TAKE ONE TABLET BY MOUTH EVERY 4 HOURS NEEDED ORAL ACTIVE CHOPRA,JOSIAH EK R 2018 [place] [facility] FUROSEMIDE 40MG TAB TAKE ONE TABLET BY MOUTH DAILY ORAL ACTIVE CHOPRA,JOSIAH EK R 2018 [place] [facility] GABAPENTIN 300MG CAP TAKE 1 CAPSULE BY MOUTH THREE TIMES A DAY ORAL ACTIVE CHOPRA,JOSIAH EK R 2017 [place] [facility] LISINOPRIL 20MG TAB TAKE ONE-HALF TABLET BY MOUTH DAILY ORAL ACTIVE CHOPRA,JOSIAH EK R 2018 [place] [facility] METOPROLOL TARTRATE 100MG TAB TAKE ONE TABLET BY MOUTH TWICE A DAY ORAL ACTIVE CHOPRA,JOSIAH EK R 2017 [place] [facility] MONTELUKAST NA 10MG TAB TAKE ONE TABLET BY MOUTH AT BEDTIME ORAL ACTIVE CHOPRA,JOSIAH EK R 2017 [place] [facility] POTASSIUM CHLORIDE 10MEQ TAB,SA TAKE ONE TABLET BY MOUTH DAILY ORAL ACTIVE CHOPRA,JOSIAH EK R 2017 [place] [facility] PROPAFENONE CAP,SA TAKE 425MG BY MOUTH EVERY 12 HOURS ORAL ACTIVE CHOPRA,JOSIAH EK R 2017 [place] [facility] RIVAROXABAN 20MG TAB TAKE ONE TABLET BY MOUTH EVERY EVENING ORAL ACTIVE CHOPRA,JOSIAH EK R 2017 [place] [facility] TIZANIDINE HCL 4MG TAB TAKE ONE TABLET BY MOUTH DAILY NEEDED ORAL ACTIVE CHOPRA,JOSIAH EK R 2017 [place] [facility] Allergies, Adverse Reactions, Alerts Combined list of allergies from Department of Defense and Veterans Affairs facilities. It does not include entries that were removed or entered in error. Substance Category Reaction Severity Reaction type Status Date Reported Comments Source BACTRIM Propensity to adverse reactions to drug (finding) active 8 [place] [facility] CIPROFLOX[facility]I N Propensity to adverse reactions to drug (finding) active 8 [place] [facility] PENICILLIN Propensity to adverse reactions to drug (finding) Anaphylaxis active 0 [place] [facility] Immunizations Combined list of available immunizations from the Department of Defense and Veterans Affairs facilities. Immunization Series Date Given Administered By Site Reaction Lot Number CVX Code Drug Recorder Helper Gravity Prospecting Status Comments Source INFLUENZA, UNSPECIFIED FORMULATION 2021 88 complet ed Completed Series, HISTORICA L INFORMATI ON - FROM PATIENT'S RECALL, [place] [facility] INFLUENZA, UNSPECIFIED FORMULATION 2020 88 complet ed [place] [facility] COVID-19 (MODERNA), MRNA, LNP-S, PF, 100 MCG/0.5ML DOSE OR 50 MCG/0.25ML DOSE 3 2020 207 complet ed [place] [facility] COVID-19 (MODERNA), MRNA, LNP-S, PF, 100 MCG/0.5ML DOSE OR 50 MCG/0.25ML DOSE 2 2020 207 complet ed [place] [facility] COVID-19 (MODERNA), MRNA, LNP-S, PF, 100 MCG/0.5ML DOSE OR 50 MCG/0.25ML DOSE 1 2019 207 complet ed [place] [facility] IN[facility]UEN[facility], UNSPECIFIED FORMULATION 2019 88 complet ed [place] [facility] INFLUENZA, SEASONAL, INJECTABLE 2018 141 complet ed [place] [facility] PNEUMOCOCCAL POLYSACCHARID E PPV23 2018 33 complet ed [place] [facility] INFLUENZA, SEASONAL, INJECTABLE 2017 141 complet ed [place] [facility] INFLUENZA A & B (HISTORICAL) 2016 88 complet ed [place] [facility] TDAP 2016 115 complet ed [place] [facility] Encounters Combined list of: 1) Encounters from Department of Veterans Affairs facilities going backup to the last 18 months, not all [place] inpatient encounters are included; 2) Encounters from the Department of Defense facilities going backup to 280 months. Location Location Details Encounter Type Encounter Number Reason For Visit Attending Provider ADM Date DC Date Status Disposition Source [facility] Outpatient Encounter [id number] 08[facility]02 [place] [facility] [id number] 12/19 [place] [facility] Outpatient Encounter [id number] [facility] Social History Combined list of available smoking, tobacco, and other social history from Department of Defense and Veterans Affairs facilities. Social History Type Response Date Comment Sourc e Tobacco smoking status NHIS [place]-TOBACCO USER EVERY DAY 08/10/2022 [facility] History of tobacco use [place] 30 MIN OF WAKEUP 08/10/[facility] of tobacco use [place]-TO[place]CO USER EVERY DAY 07/28/2021 [facility] of [facility] TRE[facility] 11/19/2019 [facility] History of [facility] TREASUR[facility] DIRECT[facility] 09/25/2018 [facility] History of tobacco use V9 CURRENT TOBACCO USER 09/21/2017 [facility]
--- OUTSIDE RECORDS SUMMARY | 2024-07-17 09:51 | XMS_ITS | Continuity of Care Document ---
Author Name [facility] Organization [facility] Care Team Providers Care Senior Firmware Engineer Name Role Phone [facility] Unavailable Unavailable Problems Combined list of problems from [facility] and [facility] facilities. It does not include entries that were removed or entered in error. Problem Status Onset Date Problem Type Date of Resolution Comments Source Allergic rhinitis [facility] Atrial fibrillation Active Condition [facility] Cerebral infarction Active Condition [facility] Gastroesophageal reflux disease Active Condition [facility] Hypertension Active Condition [facility] Insomnia Active Condition [facility] Obesity Active Condition [facility] Sleep apnea Active Condition [facility] Tobacco use Active Condition [facility] Medications Combined list of outpatient medications from [facility] and [facility] facilities.Medications provided include 1) outpatient medications from the last 15 months, and 2) patient-reported medications. Medication Details Route Status Patient Instructions Prescription Expires Prescription Number Last Dispense Date Ordering Provider Order Date Order Qty Source AMLODIPINE BESYLATE 10MG TAB TAKE ONE TABLET BY MOUTH DAILY ORAL ACTIVE CHOPRA,JOSIAH EK R 2017 [place] [facility] CODEINE 30MG/ACETAM INOPHEN 300MG TAB TAKE ONE TABLET BY MOUTH EVERY 4 HOURS NEEDED ORAL ACTIVE CHOPRA,JOSIAH EK R 2018 [place] [facility] FUROSEMIDE 40MG TAB TAKE ONE TABLET BY MOUTH DAILY ORAL ACTIVE CHOPRA,JOSIAH EK R 2018 [place] [facility] GABAPENTIN 300MG CAP TAKE 1 CAPSULE BY MOUTH THREE TIMES A DAY ORAL ACTIVE CHOPRA,JOSIAH EK R 2017 [place] [facility] LISINOPRIL 20MG TAB TAKE ONE-HALF TABLET BY MOUTH DAILY ORAL ACTIVE CHOPRA,JOSIAH EK R 2018 [place] [facility] METOPROLOL TARTRATE 100MG TAB TAKE ONE TABLET BY MOUTH TWICE A DAY ORAL ACTIVE CHOPRA,JOSIAH EK R 2017 [place] [facility] MONTELUKAST NA 10MG TAB TAKE ONE TABLET BY MOUTH AT BEDTIME ORAL ACTIVE CHOPRA,JOSIAH EK R 2017 [place] [facility] POTASSIUM CHLORIDE 10MEQ TAB,SA TAKE ONE TABLET BY MOUTH DAILY ORAL ACTIVE CHOPRA,JOSIAH EK R 2017 [place] [facility] PROPAFENONE CAP,SA TAKE 425MG BY MOUTH EVERY 12 HOURS ORAL ACTIVE CHOPRA,JOSIAH EK R 2017 [place] [facility] RIVAROXABAN 20MG TAB TAKE ONE TABLET BY MOUTH EVERY EVENING ORAL ACTIVE CHOPRA,JOSIAH EK R 2017 [place] [facility] TIZANIDINE HCL 4MG TAB TAKE ONE TABLET BY MOUTH DAILY NEEDED ORAL ACTIVE CHOPRA,JOSIAH EK R 2017 [place] [facility] Allergies, Adverse Reactions, Alerts Combined list of allergies from Department of Defense and Veterans Affairs facilities. It does not include entries that were removed or entered in error. Substance Category Reaction Severity Reaction type Status Date Reported Comments Source BACTRIM Propensity to adverse reactions to drug (finding) active 8 [place] [facility] CIPROFLOXACI N Propensity to adverse reactions to drug (finding) active 8 [place] [facility] PENICILLIN Propensity to adverse reactions to drug (finding) Anaphylaxis active 0 [place] [facility] Immunizations Combined list of available immunizations from the Department of Defense and Veterans Affairs facilities. Immunization Series Date Given Administered By Site Reaction Lot Number CVX Code Drug Media Theorist And Author Of Status Comments Source INFLUENZA, UNSPECIFIED FORMULATION 2021 88 complet ed Completed Series, HISTORICA L INFORMATI ON - FROM PATIENT'S RECALL, [place] [facility] INFLUENZA, UNSPECIFIED FORMULATION 2020 88 complet ed [place] [facility] COVID-19 (MODERNA), MRNA, LNP-S, PF, 100 MCG/0.5ML DOSE OR 50 MCG/0.25ML DOSE 3 2020 207 complet ed [place] [facility] COVID-19 (MODERNA), MRNA, LNP-S, PF, 100 MCG/0.5ML DOSE OR 50 MCG/0.25ML DOSE 2 2020 207 complet ed [place] [facility] COVID-19 (MODERNA), MRNA, LNP-S, PF, 100 MCG/0.5ML DOSE OR 50 MCG/0.25ML DOSE 1 2019 207 complet ed [place] [facility] INFLUENZA, UNSPECIFIED FORMULATION 2019 88 complet ed [place] [facility] INFLUENZA, SEASONAL, INJECTABLE 2018 141 complet ed [place] [facility] PNEUMOCOCCAL POLYSACCHARID E PPV23 2018 33 complet ed [place] [facility] INFLUENZA, SEASONAL, INJECTABLE 2017 141 complet ed [place] [facility] INFLUENZA A & B (HISTORICAL) 2016 88 complet ed [place] [facility] TDAP 2016 115 complet ed [place] [facility] Encounters Combined list of: 1) Encounters from Department of Veterans Affairs facilities going backup to the last 18 months, not all [place] inpatient encounters are included; 2) Encounters from the Department of Defense facilities going backup to 280 months. Location Location Details Encounter Type Encounter Number Reason For Visit Attending Provider ADM Date DC Date Status Disposition Source [facility] Outpatient Encounter [id number] 08[facility]02 [facility] [id number] 12/19 [place] [facility] Outpatient Encounter [id number] [facility] Social History Combined list of available smoking, tobacco, and other social history from Department of Defense and Veterans Affairs facilities. Social History Type Response Date Comment Sourc e Tobacco smoking status NHIS [facility]-TOBACCO USER EVERY DAY 08/10/2022 [facility] History of tobacco use [place]-TOBACCO USE [place] 30 MIN OF WAKEUP 08/10/2022 [facility] History of tobacco use [place]-TOBACCO USER EVERY DAY 07/28/2021 [facility] of [facility] PET NUTRITION SPECIALIST NO 11/19/2019 [facility] History of tobacco [facility] PET NUTRITION SPECIALIST NO 09/25/2018 [facility] History of tobacco use V9 CURRENT TOBACCO USER 09/21/2017 [facility]
--- OUTSIDE RECORDS SUMMARY | 2025-01-14 08:12 | XMS_ITS | Clinical Summary ---
Author Organization Healthcare Address [address] [place] [address] Care Team Providers Care Controller Mechanic Name Role Phone Dianne Diaz APRN Primary Care Provider + [phone] Family History Medical History Relation Name Comments [...] of Treatment Not on file Care Teams Controller Mechanic Relationship Specialty Start Date End Date Dianne Diaz APRN [address] [place], [place] [id number] PCP - General 10/10/20
--- OUTSIDE RECORDS SUMMARY | 2025-01-14 08:13 | XMS_ITS | Clinical Summary ---
Author Organization [facility] Address [address] [place] [address] Care Team Providers Care Service Learning Coordinator Name Role Phone Judith Reno APRN Primary Care Provider [phone] Allergies Active Allergy Reactions Criticality Noted Date Comments Ciprofloxacin Hives,Itching Low 02/16/2021 Fentanyl Hallucinations Low 02/24/2021 Levofloxacin Rash Low 04/20/2022 Niacin Hives Low 04/20/2022 Ofloxacin Rash Low 04/20/2022 Oxytetracycline Hives Low 04/20/2022 Penicillins Anaphylaxis High 02/16/2021 Sulfamethoxazole Rash Low 04/20/2022 Trimethoprim Rash Low 04/20/2022 Medications rivaroxaban (XARELTO) 20 MG tablet Take 1 tablet by mouth Daily. Active propafenone SR (RYTHMOL SR) 425 MG 12 hr capsule Take 1 capsule by mouth 2 (Two) Times a Day. Active lisinopril (PRINIVIL,ZESTR IL) 40 MG tablet Take 1 tablet by mouth Daily. Active metoprolol tartrate (LOPRESSOR) 100 MG tablet Take 1 tablet by mouth 2 (Two) Times a Day. Active atorvastatin (LIPITOR) 20 MG tablet Take 1 tablet by mouth Daily. Active montelukast (SINGULAIR) 10 MG tablet Take 1 tablet by mouth Every Night. Active gabapentin (NEURONTIN) 600 MG tablet Take 1 tablet by mouth 3 (Three) Times a Day. Active amLODIPine (NORVASC) 10 MG tablet Take 1 tablet by mouth Daily. Active cetirizine (zyrTEC) 10 MG tablet Take 1 tablet by mouth Daily. Active albuterol sulfate HFA 108 (90 Base) MCG/ACT inhaler Inhale 2 puffs Every 4 (Four) Hours As Needed for Wheezing. Active O2 (OXYGEN) Inhale 2 L/min Every Night. Active fluticasone (FLONASE) 50 MCG/ACT nasal spray Administer 2 sprays into the nostril(s) as directed by provider Daily. Active nitroglycerin (NITROSTAT) 0.[address] 1 tablet under the tongue Every 5 (Five) Minutes As Needed for Chest Pain. Take no more than 3 doses in 15 minutes. Active bumetanide (BUMEX) 2 MG tablet Take 1 tablet by mouth Daily. Active Trelegy Ellipta 100-62.5-25 MCG/ACT inhaler Inhale 1 puff Daily. 3 Active Jardiance 10 MG tablet tablet Take 1 tablet by mouth Daily. 4 Active cyclobenzaprine (FLEXERIL) 10 MG tablet Take 1 tablet by mouth 3 times a day. 4 Active omeprazole (priLOSEC) 20 MG capsule 4 Active HYDROcodone-rafa taminophen (NORCO) 7.5-325 MG per tablet Take 1 tablet by mouth 3 times a day. 4 Active sertraline (ZOLOFT) 100 MG tablet 4 Active potassium chloride (MICRO-K) 10 MEQ CR capsule 5 Active traZODone (DESYREL) 150 MG tablet 5 Active Active Problems Problem Noted Date Diagnosed Date Tobacco use 03/08/2024 Preop cardiovascular exam 12/22/2023 Assessment & Plan (03/08/2024 2:03 PM EDT): Patient is planning colonoscopy with Dr. Mcnamara at [facility]. Patient may proceed with procedure from a cardiac standpoint. CASANDRA precautions for anesthesia. Patient has a history of atrial fibrillation. Patient to stop Xarelto 5 days prior to procedure. He is to bridge with Lovenox starting 4 days prior to procedure twice a day. The day before the procedure he is to stop the Lovenox and the day after procedure restart Xarelto. Assessment & Plan (12/22/2023 4:28 PM EDT): Patient is planning pain stimulator placement with Dr. Read pain management at [facility]. Patient states it will be towards the end of December when the procedure has been approved through his insurance. Patient had recent echo 12/22/2023 that showed normal EF 61 to 65% and normal RVSP. Left heart cath in 2020 showed no flow-limiting coronary artery disease. Patient does have shortness of breath with exertion but this is stable. Patient is a smoker and continues to smoke. Patient has a history of atrial fibrillation on Xarelto. Patient may stop Xarelto 3 days then bridging with Lovenox. Patient may resume Xarelto next day after procedure. Instructions given to patient and his . Patient may proceed with surgery from a cardiac standpoint. CASANDRA precautions with anesthesia. PVD (peripheral vascular disease) with claudicat ion 06/23/2023 Assessment & Plan (07/26/2024 4:49 PM EST): 12/08/2023 arterial duplex of lower extremity show there is arterial wall defect noted in the right femoral artery just past profunda and femoral bifurcation, possible AVM, or small pseudoaneurysm. No significant arterial disease in the left lower extremity. History of pseudoaneurysm rupture with repair. Assessment & Plan (12/22/2023 4:17 PM EDT): 12/08/2023 arterial duplex of lower extremity show there is arterial wall defect noted in the right femoral artery just past profunda and femoral bifurcation, possible AVM, or small pseudoaneurysm. No significant arterial disease in the left lower extremity. Patient has a history of pseudoaneurysm rupture with repair. Assessment & Plan (06/23/2023 4:03 PM EST): Complains or leg and foot pain. He says his feet look blotchy and stay cold. Patient continues to smoke.Plan BLEE arterial duplex and venous duplex. Obstructive sleep apnea 12/24/2022 Assessment & Plan (07/26/2024 4:47 PM EST): Patient has a baseline AHI 64. This is severe sleep apnea. Patient has suboptimal compliance and control. Patient had recent hospitalization for left pleural effusion and pneumothorax of left lung unable to wear Bipap. Patient is benefiting from his Bipap and oxygen at 2 l at night. Pulmonary manages his oxygen. Plan to continue bipap and oxygen. Assessment & Plan (03/08/2024 2:14 PM EDT): Patient has a baseline AHI of 64. This is severe sleep apnea. Previous download showed good compliance and control. Patient receiving benefit from BiPAP and oxygen therapy. Plan to continue current treatment. Assessment & Plan (12/22/2023 4:21 PM EDT): Patient has a baseline AHI of 64. This is severe sleep apnea. Previous download showed good compliance and control. Patient receiving benefit from BiPAP and oxygen therapy. Plan to continue current treatment. CASANDRA precautions with anesthesia. Assessment & Plan (06/23/2023 4:04 PM EST): Baseline AHI 64. This is severe sleep apnea. Download shows good compliance and control. AHI 2 on current download. Airflow and mask fit are comfortable. He is receiving benefit from pap therapy. Plan to continue current treatment. Assessment & Plan (12/24/2022 1:36 PM EDT): History of CASANDRA with baseline AHI of 64, currently on BiPAP therapy. Patient did not bring device chip in today so no download available. Patient reports that he uses his BiPAP every night. He denies any problems with his device. - Instructed him to bring his device chip at the next office visit and we will review a download. - Order for new supplies sent to [facility]. Mitral valve prolapse 12/24/2022 Pseudoaneurysm of right femoral artery Assessment & Plan (08/24/2024 8:43 AM EDT): Repair in 2016 Assessment & Plan (07/26/2024 4:47 PM EST): Repair in 2016 Assessment & Plan (12/22/2023 4:30 PM EDT): S/P repair in 2016 Assessment & Plan (12/24/2022 1:32 PM EDT): History of pseudoaneurysm repair in 2016. Patient has not had any recent imaging. - Consider LE duplex at next office visit. Nonrheumatic mitral valve regurgitation 12/25/19 Assessment & Plan (08/24/2024 8:43 AM EDT): Stable mild mitral regurgitation. Assessment & Plan (07/26/2024 4:48 PM EST): mild to moderate mitral regurgitation present on echo 12/22/2023. Plan to check echo for worsening of mitral valve. Assessment & Plan (03/08/2024 2:14 PM EDT): There is mild to moderate mitral regurgitation present on echo 12/22/2023. Assessment & Plan (12/22/2023 4:16 PM EDT): There is mild to moderate mitral regurgitation present on echo 12/22/2023. Assessment & Plan (06/23/2023 4:10 PM EST): Mild to moderate mitral valve regurgitation on last ECHO 12/23/22. Patient denes any CP. SOA is stable. Assessment & Plan (12/24/2022 1:38 PM EDT): Mild to moderate mitral valve regurgitation noted on echo from 12/09/2022. Paroxysmal atrial fibrillation 12/23/2022 Assessment & Plan (03/08/2024 2:14 PM EDT): History atrial fibrillation/flutter ablation and DCCV times 07/2015 On Xarelto, metoprolol, and propafenone. Continue current medication Assessment & Plan (12/22/2023 4:19 PM EDT): History atrial fibrillation/flutter ablation and DCCV times 07/2015 On Xarelto, metoprolol, and propafenone. Continue current medication Assessment & Plan (06/23/2023 4:06 PM EST): Rate controlled continue current medications. Xarelto, propafenone, metoprolol, amlodipine, lisinopril, and statin. Assessment & Plan (12/24/2022 1:33 PM EDT): Stable. In normal sinus rhythm today. Denies palpitations - Continue Xarelto, metoprolol and propafenone at current doses. Paroxysmal atrial flutter 02/19/2021 Overview (02/19/2021): Added automatically from request for surgery [id number] Assessment & Plan (08/24/2024 8:46 AM EDT): History atrial fibrillation/flutter ablation and DCCV times 07/2015 On Xarelto, metoprolol, and propafenone. Continue current medication Assessment & Plan (07/26/2024 4:44 PM EST): History atrial fibrillation/flutter ablation and DCCV times 07/2015 On Xarelto, metoprolol, and propafenone. Continue current medication AVILA (dyspnea on exertion) 02/19/2021 Overview (02/19/2021): Added automatically from request for surgery [id number] Assessment & Plan (08/24/2024 8:46 AM EDT): Patient continues to have shortness of breath with exertion and states that this is gone back to his normal shortness of breath. Echo did not reveal any pericardial effusion. Patient unable to tolerate metolazone due to having low blood pressure. We will continue his Bumex daily and may take second dose of Bumex for his increased swelling. Smoking cessation strongly advised. Assessment & Plan (07/26/2024 4:54 PM EST): Recent hospitalization for pneumothorax of left lung with moderate pleural effusion. BNP 464. Patient continues to show a small pleural effusion on the left. Pulmonary would like his diuretic to be increased. Will add Metolazone 2.5 daily PRN. Plan to repeat ECHO to evaluate worsening diastolic function and worsening valvular function. Patient to weigh daily. Increase potassium with increase in diuretics. Assessment & Plan (03/08/2024 2:17 PM EDT): Patient reports worsening SOA related to his COPD. Patient on O2 at 2 L at night with his Bipap. Ambulatory referral to pulmonary for further management. Assessment & Plan (12/22/2023 4:20 PM EDT): Patient continues to have stable shortness of air related to his COPD. Patient on oxygen at night with his BiPAP therapy. Coronary artery disease invo lving [place] coronary artery of [place] heart with angina pectoris 02/19/2021 Overview (02/19/2021): Added automatically from request for surgery [id number] Assessment & Plan (08/24/2024 8:44 AM EDT): Coronary artery disease is stable. Continue current treatment regimen. Cardiac status will be reassessed in 6 months. Continue atorvastatin, Xarelto, amlodipine, lisinopril, metoprolol, and Bumex. Assessment & Plan (07/26/2024 4:44 PM EST): Coronary artery disease is stable. Continue current treatment regimen. Cardiac status will be reassessed at the next regular appointment. Plan to continue current medications Assessment & Plan (03/08/2024 2:15 PM EDT): Coronary artery disease is stable. Continue current treatment regimen. Cardiac status will be reassessed in 3 months. Patient to continue taking atorvastatin, amlodipine, Bumex, lisinopril, metoprolol, propafenone, and Xarelto Assessment & Plan (12/22/2023 4:19 PM EDT): Coronary Artery Disease (OPTIONAL): Coronary artery disease is stable. Continue current treatment regimen. Cardiac status will be reassessed in 6 months. Continue atorvastatin, Bumex, Jardiance, lisinopril, metoprolol, propafenone, and Xarelto. Assessment & Plan (06/23/2023 4:08 PM EST): Lipids reviewed. Chol 123, HDL 34, Trig. 100, and LDL 70 Continue current medications Xarelto, propafenone, metoprolol, amlodipine, lisinopril, and statin. Assessment & Plan (12/24/2022 1:34 PM EDT): Nonflow limiting CAD per [facility] in 2020. Currently asymptomatic. - Continue metoprolol, atorvastatin, and amlodipine at current doses. Family History Medical History Relation Name Comments Heart attack Father Heart disease Father Cancer Mother Relation Name Status Comments Father Mother Social History Tobacco Use Types Packs/Day Years Used Date Smoking Tobacco: Every Day Cigarettes Passive Smoke Exposure: Current Smokeless Tobacco: Never Tobacco Cessation:Ready to Q uit: No; Counseling Given: No Alcohol Use Standard Drinks/Week Comments Not Currently 0 (1 standard drink = 0.6 oz pur e alcohol) Sex and Gender Information Value Date Recorded Sex Assigned at Not on file Legal Sex Male 1:23 PM EDT Gender Identity Not on file Sexual Orientation Not on file Last Filed Vital Signs Vital Sign Reading Time Taken Comments Blood Pressure 112/64 08/23/2024 1:20 PM EDT Pulse 77 08/23/2024 1:20 PM EDT Temperature 36.6 C (97.8 F) 02/24/2021 11:29 AM EDT Respiratory Rate 20 02/24/2021 2:02 PM EDT Oxygen Saturation 92% 08/23/2024 1:20 PM EDT Inhaled Oxygen Concentration - - Weight 127 kg (279 lb) 08/23/2024 1:20 PM EDT Height 182.9 cm (6') 08/23/2024 1:20 PM EDT Body Mass Index 37.84 08/23/2024 1:20 PM EDT Plan of Treatment Upcoming Encounters Date Type Department Care Team (Late st Contact Info) Description 02/22/2025 1:30 PM EDT Office Visit [facility] [address] [phone] Shelia Jones, CLINICAL RN LIAISON [address] [place] [address] [place] [address] Health Maintenance Due Date Last Done Comments Pneumococcal Vaccine 50+ (1 of 2 - PCV) 12/01/1978 02/01/2019 COLON CANCER SCREENING 5 YEA R SIGMOIDOSCOPY 12/01/2004 COLONOSCOPY 12/01/2004 CT COLONOGRAPHY 12/01/2004 FECAL OCCULT BLOOD TEST 12/01/2004 FIT Testing (1 year) 12/01/2004 ANNUAL PHYSICAL 02/16/2021 HEPATITIS C SCREENING 02/16/2021 ZOSTER VACCINE (2 of 2) 11/07/2023 09/12/2023 AAA SCREEN ONCE 12/01/2024 COVID-19 Vaccine (6 - 2023-2 5 season) 2024 04/06/2024, 03/09/2023, 01/28/2021, Additional history exists INFLUENZA VACCINE 02/27/2025 03/23/2024, , 03/17/2022, Additional history exists COLOGUARD 09/14/2026 09/15/2023, 09/24/2019 COLORECTAL CANCER SCREENING 09/14/2026 TDAP/TD VACCINES (2 - Td or Tdap) 04/09/2033 023 Insurance Care Teams Service Learning Coordinator Relationship Specialty Start Date End Date Judith Reno APRN [facility] [place] [address] PCP - General Nurse Practitioner 01/13/21
--- OUTSIDE RECORDS SUMMARY | 2025-01-14 13:49 | XMS_ITS | Clinical Summary ---
Author Organization Healthcare Address [address] [place] [address] Care Team Providers Care Extruder Tender Name Role Phone Dianne Diaz APRN Primary Care Provider [phone] Family History Medical History Relation Name Comments [...] of Treatment Not on file Care Teams Extruder Tender Relationship Specialty Start Date End Date Dianne Diaz APRN [address] [place], [place] [id number] PCP - General 10/10/20
[2025-01-14 13:56] VITALS: BP 158/76; PULSE 61; RESP 16; O2SAT 96; BMI 38.6
--- NOTE | 2025-01-14 14:07 | EXP.PAIN.SOA ---
[facility] Disclaimer: The information contained in this section may have been updated after the patient was seen, as this information can be updated by other users. Medical History Abnormality of lung on CXR COPD exacerbation Mastoiditis History of acute mastoiditis March 2022, evident on most recent MRI of the brain Transient neurological symptoms May 2023 while holding Xarelto for pain management procedure in the setting of multiple risk factors for cardiovascular event including but not limited to hypertension, hyperlipidemia, diabetes, morbid obesity, sleep apnea, tobacco abuse, A-fib Avulsion of skin of right thumb Neck pain Acute mastoiditis Acute parotitis Hiatal hernia Pleural effusion, left Encounter for screening for malignant neoplasm of lung Dyspnea on exertion History of COPD Smoking greater than 30 pack years Encounter for postoperative care Loss of taste Swelling of right parotid gland Swelling of left parotid gland Parotid abscess Dental caries limited to enamel Facial cellulitis Depression Anxiety Diabetes mellitus, type 2 History of stroke COPD (chronic obstructive pulmonary disease) Atrial fibrillation Status postcardiac ablation, active follow-up with [facility] in [place] Hyperlipidemia Hypertension Surgical History H/O ventral hernia repair Hx of cardiac catheterization History of cholecystectomy Family History Other Family history of cancer Family history of hyperlipidemia Family history of hypertension Family history of myocardial infarction Social History Smoking Status: Current every day smoker alcohol intake: never substance use type: denies use current occupational status: other Travel in the last 8 weeks?: None household members: spouse housing: house marital status: caffeine: No PM Subjective & Objective Subjective Subjective:: Patient is a pleasant 64-year-old male who presents today for medication refill and follow-up. Today he rates his pain a 2 out of 10. He denies any new falls or injuries. He does state that pain is pretty much at his low back and is chronic. He is currently managed with [facility] 7.5 mg 3 times a day and methocarbamol 750 mg 3 times a day. He denies any side effects or changes to his pharmacy. His Matthew has been reviewed and is appropriate. Review of Systems: General: No recent weight changes, no fever, no sleep disturbances Respiratory: No cough, no shortness of air, no recurring pulmonary infections Cardiovascular/peripheral vascular: No chest pain, no palpitations, no edema, no shortness of breath Gastrointestinal: No new onset incontinence, normal bowel movements reported Genitourinary: No new onset incontinence Musculoskeletal: Low back pain Psychiatric: [Normal mood/affect] Neurological: [Denies weakness in extremities], [denies balance issues] Pain at rest (0-10 scale): 2 Objective Objective:: Physical Exam: General: Alert and oriented x3, no acute distress, pleasant and cooperative Lungs: Respirations even and unlabored, symmetrical chest expansion Eyes: PERRL Musculoskeletal: Flexion and extension of lumbar [spine] somewhat guarded secondary to pain, [antalgic gait noted] Neurological: Speech clear, no gross sensory deficit Has patient had previous pain injection?: No Conservative treatment options previously tried: Home exercise plan Length of treatment: Longer than 12 Meds Home Medications and Allergies Home Medications ?Medication ?Instructions ?Recorded ?Confirmed ?Type montelukast 10 mg tablet 10 mg PO QPM Breathing problems 11/17/17 01/14/25 History (Singulair) atorvastatin 20 mg tablet 20 mg PO HS Cholesterol 04/11/22 01/14/25 History bumetanide 2 mg tablet 2 mg PO DAILY 04/11/22 01/14/25 History gabapentin 600 mg tablet 600 mg PO TID Pain 04/11/22 01/14/25 History lisinopril 40 mg tablet 40 mg PO DAILY High blood pressure 04/11/22 01/14/25 History metoprolol tartrate 100 mg tablet 100 mg PO BID High blood pressure 04/11/22 01/14/25 History rivaroxaban 20 mg tablet (Xarelto) 20 mg PO QPMWITHMEAL 04/11/22 01/14/25 History amlodipine 10 mg tablet 10 mg PO DAILY 04/20/22 01/14/25 History cetirizine 10 mg tablet (All Day 10 mg PO DAILY 08/01/23 01/14/25 History Allergy (cetirizine)) nitroglycerin 0.4 mg sublingual 0.4 mg sublingual Q5M PRN Chest 08/01/23 01/14/25 History tablet Pain omeprazole 20 mg capsule,delayed 20 mg PO DAILY 09/13/23 01/14/25 History release fluticasone fur. 100 mcg-umeclid 1 inh inhalation DAILY 90 days #90 04/19/24 01/14/25 Rx 62.5 mcg-vilant 25 mcg ea inhalat.powder (Trelegy Ellipta) empagliflozin 10 mg tablet 10 mg PO DAILY 07/05/24 01/14/25 History (Jardiance) sertraline 100 mg tablet 100 mg PO DAILY 07/05/24 01/14/25 History cyclobenzaprine 10 mg tablet 10 mg PO TID 07/14/24 01/14/25 History propafenone 425 mg 425 mg PO BID 07/14/24 01/14/25 History capsule,extended release 12 hr ipratropium 0.5 mg-albuterol 3 mg 3 ml inhalation QID PRN shortness 07/17/24 01/14/25 Rx (2.5 mg base)/3 mL nebulization of breath or wheezing 90 days #270 soln mL methocarbamol 750 mg tablet 750 mg PO TID #270 tabs 09/13/24 01/14/25 Rx azelastine 137 mcg (0.1 %) nasal 2 spray intranasal HS 90 days #30 09/28/24 01/14/25 Rx spray mL fluticasone propionate 50 2 spray intranasal DAILY 90 days 09/28/24 01/14/25 Rx mcg/actuation nasal #16 grams spray,suspension (Flonase Allergy Relief) potassium chloride 10 mEq 10 meq PO DAILY 09/28/24 01/14/25 History capsule,extended release trazodone 150 mg tablet 150 mg PO DAILY 09/28/24 01/14/25 History hydrocodone 7.5 mg-acetaminophen 1 tab PO TID #90 tabs 12/10/24 01/14/25 Rx 325 mg tablet prednisone 20 mg tablet 20 mg PO BID #10 tabs 12/10/24 01/14/25 Rx New Prescriptions to Start Prescriptions: Allergies Allergy/AdvReac Type Severity Reaction Status Date / Time levofloxacin Allergy Mild I-RASH Verified 11/29/24 15:02 niacin Allergy Mild Rash Verified 11/29/24 15:02 ofloxacin Allergy Mild Rash Verified 11/29/24 15:02 sulfamethoxazole (From Allergy Mild I-RASH Verified 11/29/24 15:02 Bactrim) trimethoprim (From Bactrim) Allergy Mild I-RASH Verified 11/29/24 15:02 oxytetracycline Allergy Unknown Rash Verified 11/29/24 15:02 Penicillins Allergy Unknown Rash Verified 11/29/24 15:02 fentanyl Allergy Confusion Verified 11/29/24 15:02 Assessment and Plan *Assessment and plan (1) Lumbar radiculopathy: Status: Chronic Category: Medical Code(s): M54.16 - Radiculopathy, lumbar region (2) Degenerative joint disease (DJD) of lumbar spine: Status: Chronic Qualifiers: Spinal osteoarthritis complication: with radiculopathy Qualified Code(s): M47.26 - Other spondylosis with radiculopathy, lumbar region Category: Medical Code(s): M47.816 - Spondylosis without myelopathy or radiculopathy, lumbar region Plan I will refill his [facility] and provide a 1 month supply of this medication. Patient will return to clinic in 1 month for reevaluation of symptoms and plan of care. Risks and benefits of the medication have been explained in detail to the patient. The patient does understand the risk of dependence on the medication when given over a prolonged period. Patient has been advised of risks of oversedation with the prescribed medication. Narcan has been offered to the paitent in the event of oversedation. Patient has been advised that a family member should also be educated regarding administration of Narcan. The patient has been advised to consult with his/her primary care provider and pharmacist regarding drug-drug interaction of medications currently prescribed. Patient has been prescribed a controlled substance after being counseled on the medication, medication safety, and possible side effects. Opioid contract was reviewed and signed by the patient, and that they have agreed to all of the terms set forth by our compliance program. A UDS is needed to verify patient's compliance with our office pain contract. This is ordered based off specific treatments related to chronic pain with the potential to abuse certain medications. Patient has been instructed to contact the clinic with any concerns before the next appointment. Dr. Read has reviewed this note and agrees with this plan of care. This note was dictated using voice recognition software and make contain errors or omissions.
== END 2025-01-14 23:59 | disposition home or self-care (01) ==
PROVIDERS: PCP Family Medicine; Visit Provider Nurse Practitioner Family
DX: M47.26 Other spondylosis with radiculopathy, lumbar region (principal); Z79.891 Long term (current) use of opiate analgesic; Z79.899 Other long term (current) drug therapy